=== PATIENT | male | born 1940 | race Caucasian/White ===

== ENCOUNTER 2023-06-27 01:45 | Emergency (ER) | payer OTHER, SELFPAY ==
[2023-06-27 01:50] VITALS: BP 172/107; PULSE 100; RESP 16; TEMP 36.9; O2SAT 93; BMI 31.3
--- NOTE | 2023-06-27 01:55 | ED_ITS ---
HPI - Male Genitourinary General Chief complaint: Urogenital-Male Stated complaint: CANT URINATE Time Seen by Provider: 06/27/23 01:52 History of Present Illness HPI Narrative: 83-year-old male presents to Emergency Department for not being able to urinate. He's been dribbling a little bit tonight but hasn't urinated well. He had his prostate opened up two or three years ago. No gross hematuria fever or vomiting. He does not complain of back or flank pain. Related Data Home Medications Medication Instructions Recorded Confirmed amlodipine PO DAILY 06/27/23 aspirin 81 mg capsule 81 mg PO DAILY 06/27/23 06/27/23 lisinopril PO DAILY 06/27/23 pravastatin PO DAILY 06/27/23 Allergies Allergy/AdvReac Type Severity Reaction Status Date / Time cefadroxil [From [facility]] Allergy Unknown Verified 06/27/23 01:55 Review of Systems ROS Narrative A ten point review of systems is negative except as noted above. PFSH PFSH Social History Smoking status: Former smoker Exam Narrative Exam Narrative: Nurses note and vital signs reviewed and patient is not hypoxic. General: The patient appears well and in no apparent distress. Patient is resting comfortably on cart. Skin: Warm, dry, no pallor noted. There is no rash noted. Head: Normocephalic, atraumatic Eye: Normal conjunctiva, no drainage Ears, Nose, Mouth, and Throat: oral mucosa is moist. Nares patent. Cardiovascular: Regular Rate and Rhythm Respiratory: Patient is in no distress, no accessory muscle use, lungs are clear to auscultation, no wheezing, rales or rhonchi Back: non-tender, no CVA tenderness bilaterally to percussion. GI: mild low abdominal tenderness Musculoskeletal: The patient has no evidence of calf tenderness, no pitting edema, symmetrical pulses noted bilaterally Neurological: A&O, normal speech Psychiatric: Cooperative Constitutional Vital Signs, click to edit/add: Last Vital Signs Temp 98.4 F 06/27/23 01:50 Pulse 100 H 06/27/23 01:50 Resp 16 06/27/23 01:50 BP 172/107 H 06/27/23 01:50 Pulse Ox 93 L 06/27/23 01:50 O2 Del Method Room Air 06/27/23 01:50 Course Vital Signs Vital signs: Vital Signs Temperature 98.4 F 06/27/23 01:50 Pulse Rate 100 H 06/27/23 01:50 Respiratory Rate 16 06/27/23 01:50 Blood Pressure 172/107 H 06/27/23 01:50 Pulse Oximetry 93 L 06/27/23 01:50 Oxygen Delivery Method Room Air 06/27/23 01:50 Temperature 98.4 F 06/27/23 01:50 Pulse Rate 100 H 06/27/23 01:50 Respiratory Rate 16 06/27/23 01:50 Blood Pressure 172/107 H 06/27/23 01:50 Pulse Oximetry 93 L 06/27/23 01:50 Oxygen Delivery Method Room Air 06/27/23 01:50 MDM - Male Genitourinary MDM Narrative Medical decision making narrative: his bladder scan was were essentially zero and urinalysis does not show evidence of urinary tract infection. He had run out of his overactive bladder medication and some is coming in the mail tomorrow. He doesn't know the name of it but he was given a dose of Ditropan here. He'll follow-up with his urologist. Treatment diagnosis and follow-up were discussed with the patient. Differential Diagnosis Differential diagnosis: Likely urinary tract infection and acute retention of urine Lab Data Attestation: I reviewed the patient's lab results. Labs: Lab Results 06/27/23 Range/Units 01:59 Urine Color Lt. yellow (YELLOW) Urine Clarity Clear (CLEAR) Urine pH 6.5 (5.0-9.0) Ur Specific [place] 1.020 (1.005-1.025) Urine Protein Trace (NEG/TRACE) mg/dL Urine Glucose (UA) Negative (NEGATIVE) mg/dL Urine Ketones Negative (NEGATIVE) mg/dL Urine Occult Blood Trace-i (NEGATIVE) Urine Nitrite Negative (NEGATIVE) Urine Bilirubin Negative (NEGATIVE) Urine Urobilinogen 0.2 (0.2-1.0) EU/dL Ur Leukocyte Esterase Negative (NEGATIVE) Urine RBC 2-5 A (0-2) #/HPF Urine WBC 2-5 A (NONE SEEN) #/HPF Ur Squamous Epith Cells Rare (NONE/RARE) #/LPF Urine Crystals None seen (None Seen) #/HPF Urine Bacteria None seen (NONE SEEN) #/HPF Urine Casts None seen (NONE SEEN) #/LPF Urine Mucus None seen (NONE SEEN) Discharge Plan Discharge Chief Complaint: Urogenital-Male Clinical Impression: Urinary frequency Patient Disposition: Home, Self-Care Time of Disposition Decision: 02:49 Condition: Good Mode of Transportation: Private Vehicle Prescriptions / Home Meds: No Action lisinopril PO DAILY amlodipine PO DAILY pravastatin PO DAILY aspirin 81 mg capsule 81 mg PO DAILY Instructions: Urinary Urgency and Frequency (DC) Stand Alone Forms: Portal Instructions Referrals: Physician,Non-Staff, MD [Primary Care Provider] - 1 week
--- NOTE | 2023-06-27 02:08 | PC.NURSE ---
Pt presents to ER for a constant pressure and pain to his penis Pt states this started yesterday Pt states it constantly feels like he has to pee On arrival pt was able to give a urine sample- bladder scan completed and pt did not retain any urine after urinating
[2023-06-27 02:13] LABS: Bilirubin Urine NEGATIVE (NEGATIVE); Blood Urine TRACE-I (NEGATIVE); Clarity Urine CLEAR (CLEAR); Color Urine LT. YELLOW (YELLOW); Glucose Urine UA NEGATIVE (NEGATIVE); Ketones Urine NEGATIVE (NEGATIVE); Leukocyte Esterase Urine NEGATIVE (NEGATIVE); Nitrite Urine NEGATIVE (NEGATIVE); Protein Urine TRACE mg/dL (NEG/TRACE); Urobilinogen Urine 0.2 EU/dL (0.2-1.0); pH Urine 6.5 (5.0-9.0)
[2023-06-27 02:27] LABS: Bacteria Urine NONE SEEN #/HPF (NONE SEEN); Cast Seen? NONE SEEN #/LPF (NONE SEEN); Crystals Seen? None Seen #/HPF (None Seen); Mucus Urine NONE SEEN (NONE SEEN); Squamous Epithelial Cell Urine RARE #/LPF (NONE/RARE)
[2023-06-27] MEDS: OXYBUTYNIN CHLORIDE 5 MG TAB XL 10 MG PO (03:07)
== END 2023-06-27 03:10 | disposition home or self-care (01) ==
PROVIDERS: Emergency Provider Emergency Medicine
DX: R35.0 Frequency of micturition (principal); Z87.891 Personal history of nicotine dependence; Z79.82 Long term (current) use of aspirin; Z79.899 Other long term (current) drug therapy
CPT/HCPCS: 81001; 87086; 99283

== ENCOUNTER 2023-09-24 15:46 | Inpatient (IN) | payer OTHER, SELFPAY ==
[2023-09-24] VITALS (41 sets, daily range): BP systolic 103–151; BP diastolic 53–87; PULSE 82–108; RESP 16–39; TEMP 37.1; O2SAT 81–96; BMI 31.7; BMI 30.7
--- NOTE | 2023-09-24 16:00 | ECG_ITS ---
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
--- NOTE | 2023-09-24 16:00 | XR_ITS ---
The [address] [address] Patient Name: MIKEL SOTO MRN: [id number] date: 1940 Sex: M Assigned Patient Location: ER Current Patient Location: ER Accession/Order Number: [id number] Exam Date: 09/24/2023 16:05 Report Date: 09/24/2023 16:35 At the request of: SANDER VELASQUEZ Procedure: XR chest 1V FRONTAL CHEST; 09/24/2023 4:05 PM EST Clinical History:dyspnea Comparison: 12/30/2020 . 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 No apparent change osseous structures. No change cardiac and mediastinal silhouettes or saeed. Increased markings at both bases, right greater than left. This is a little more apparent on the right than on the prior study. No right pleural effusion. Small amount of left pleural fluid/thickening is again potentially present. The vasculature is not distended. No Emelia B-lines. XR/XR chest 1V IMPRESSION: 1. No vascular distention. No Emelia B-lines. 2. Increased markings at the bases, right greater than left. This is a little more apparent at the right base than on the prior exam. Still, the overall pattern is more consistent with atelectasis than infiltration. However, follow-up studies as indicated Electronically authenticated by: MIKEL RAY Date: 09/24/2023 16:35
--- NOTE | 2023-09-24 16:06 | ED_ITS ---
HPI - SOB/Dyspnea General Chief Complaint: Shortness of Breath/Dyspnea Stated Complaint: Difficulty breathing Time Seen by Provider: 09/24/23 15:59 Source: patient Mode of arrival: ambulance Limitations: no limitations History of Present Illness HPI Narrative: this patient's here playing shortness of breath. Very stoic pleasant gentleman who has a history of chronic obstructive pulmonary disease. 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 He used his hand held metered-dose inhaler at noon today. When he got home he became really very short of breath. They had to call the squad on his behalf. He is pulse oximetry was only running eighty-one percent on room air and normal it's not that low. He used to have oxygen at home but he hasn't had it recently. He uses a nebulizer treatment ?2 yesterday. The paramedics administered a DuoNeb and I believe they gave him some site Medrol intravenously. On arrival here his pulse ox on room air is low so he is placed back on nasal cannula at about 4 L any saturating at ninety-one percent he has not had influenzza type symptoms or fever muscle aches and pains headache or sore throat all that is negative.patient also mentioned th at his doctor [facility] and Vannessa just put him on an antibiotic for urinary tract infections he believes it is ciprofloxacin. The patient a course has of many many year history of tobacco usage but he did stop smoking five years ago, however his still continues to smoke in the house. Related Data Home Medications Medication Instructions Recorded Confirmed amlodipine PO DAILY 06/27/23 aspirin 81 mg capsule 81 mg PO DAILY 06/27/23 06/27/23 lisinopril PO DAILY 06/27/23 pravastatin PO DAILY 06/27/23 Allergies Allergy/AdvReac Type Severity Reaction Status Date / Time [place] [facility] [place]ergy Unknown Verified 06/27/23 01:55 [facility] Social History Smoking status: Former smoker Exam Narrative Exam Narrative: awake alert dysmetric. Feels better with supplemental oxygen. His pulse ox was in the low 80s on room air and he was quite. He is able to complete sentences at this time. He is not coughing he has no stridor or airway obstructive symptomatology. His lungs had definite decreased breath sounds bilaterally with no rales or rhonchi. Heart sounds are normal with no murmur. Heart rate was ninety. Skin integument is normal with no peripheral cyanosis there is good capillary fill no evidence of pallor or anemia. Cognition and mentation are normal is very pleasant. Extremities show 2+ lower knee edema bilaterally. He does not have any pain or discomfort in the calves. Constitutional Vital Signs, click to edit/add: Last Vital Signs Temp 98.8 F 09/24/23 15:49 Pulse 99 H 09/24/23 17:10 Resp 20 09/24/23 17:10 BP 137/87 09/24/23 17:01 Pulse Ox 92 L 09/24/23 17:10 O2 Del Method Nasal Cannula 09/24/23 16:20 O2 Flow Rate 4 09/24/23 16:20 Course Vital Signs Vital signs: Vital Signs Temperature 98.8 F 09/24/23 15:49 Pulse Rate 91 H 09/24/23 15:49 Respiratory Rate 09/24/23 15:49 Blood Pressure 146/61 H 09/24/23 15:49 Pulse Oximetry 82 L 09/24/23 15:49 Oxygen Delivery Method Room Air 09/24/23 15:49 Oxygen Delivery Flow Rate 5 09/24/23 15:49 Temperature 98.8 F 09/24/23 15:49 Pulse Rate 99 H 09/24/23 17:10 Respiratory Rate 09/24/23 17:10 Blood Pressure 137/87 09/24/23 17:01 Pulse Oximetry 92 L 09/24/23 17:10 Oxygen Delivery Method Nasal Cannula 09/24/23 16:20 Oxygen Delivery Flow Rate 4 09/24/23 16:20 MDM - SOB/Dyspnea MDM Narrative Medical decision making narrative: after receiving intravenous Solu-Medrol and two nebulizer treatments we had him in the room and stand up. When we take the oxygen off them he desaturates down to eighty-five very rapidly. We quickly reapplied the nasal cannula at 4 L and he comes back up to ninety. He does not have oxygen at home. I don't believe these candidate for outpatient management. His white blood cell count is elevated whicch may be due to his history of urinary tract infection. He does not appear septic. He would like to go home but when we demonstrated his desaturation he understands the importance of staying here. Chest x-ray did not show any findings are more consistent with chronic obstructive pulmonary disease/atelectasis. Lab Data Labs: Lab Results 09/24/23 09/24/23 Range/Units 16:00 16:50 WBC 16.7 H (4.0-11.0) 10^3/uL RBC 4.49 L (4.70-6.10) 10^6/uL Hgb 12.5 L (14.0-18.0) g/dL Hct 40.3 L (42.0-54.0) % MCV 89.8 (80.0-94.0) fL MCH 27.8 (25.9-34.0) pg MCHC 31.0 (29.9-35.2) g/dL RDW 14.2 (11.0-15.0) % Plt Count 231 (150-450) 10^3/uL MPV 10.5 (9.5-13.5) fL Neut % (Auto) 82.7 H (43.0-75.0) % Lymph % (Auto) 8.6 L (20.5-60.0) % [place] % (Auto) 6.2 (1.7-12.0) % Eos % (Auto) 2.0 (0.9-7.0) % Baso % (Auto) 0.3 (0.2-2.0) % Neut # (Auto) 13.8 H (1.4-6.5) 10^3/uL Lymph # (Auto) 1.4 (1.2-3.8) 10^3/uL [place] # (Auto) 1.0 H (0.3-0.8) 10^3/uL Eos # (Auto) 0.3 (0.0-0.7) 10^3/uL Baso # (Auto) 0.1 (0.0-0.1) 10^3/uL Abs Immat Gran (auto) 0.04 H (0.00-0.03) 10^3/uL Imm/Tot Granulo (auto) 0.2 (0.0-0.5) % Sodium 140 (136-145) mmol/L Potassium 4.2 (3.5-5.1) mmol/L Chloride 103 (98-107) mmol/L Carbon Dioxide 29.7 (21.0-32.0) mmol/L Anion Gap 11.5 BUN 25.0 H (7.0-18.0) mg/dL Creatinine 1.11 (0.70-1.30) mg/dL Est GFR ( Amer) >60 (>=60) Est GFR (Non-Af Amer) >60 (>=60) BUN/Creatinine Ratio 22.5 Glucose 141 H (74-106) mg/dL Calcium 10.0 (8.5-10.1) mg/dL Total Bilirubin 0.5 (0.2-1.0) mg/dL AST 16 (15-37) U/L ALT 20 (16-63) U/L Alkaline Phosphatase 54 (46-116) U/L Troponin I High Sens 14.5 (4.0-76.1) pg/mL NT-Pro-B Natriuret Pep 451.0 (<=1800.0) pg/mL Total Protein 6.9 (6.4-8.2) g/dL Albumin 3.4 (3.4-5.0) g/dL Globulin 3.5 g/dL Albumin/Globulin Ratio 1.0 Influenza Type A Ag Negative Influenza Type B Ag Negative SARS-CoV-2 Ag (CV2AG) Negative (NEGATIVE) Discharge Plan Discharge Chief Complaint: Shortness of Breath/Dyspnea Clinical Impression: Acute exacerbation of chronic obstructive pulmonary disease Patient Disposition: Admitted as Observation Time of Disposition Decision: 17:30 Prescriptions / Home Meds: No Action lisinopril PO DAILY amlodipine PO DAILY pravastatin PO DAILY aspirin 81 mg capsule 81 mg PO DAILY Referrals: Physician,Non-Staff, MD [Primary Care Provider] - 1 week
[2023-09-24 16:07] LABS: Basophils Absolute Auto 0.1 10^3/uL (0.0-0.1); Basophils Percent Auto 0.3 % (0.2-2.0); Eosinophils Absolute Auto 0.3 10^3/uL (0.0-0.7); Hematocrit 40.3 % (42.0-54.0); Hemoglobin 12.5 g/dL (14.0-18.0); Immature Granulocytes Abs Auto 0.04 10^3/uL (0.00-0.03); Immature Granulocytes Pct Auto 0.2 % (0.0-0.5); Lymphocytes Absolute Auto 1.4 10^3/uL (1.2-3.8); Lymphocytes Percent Auto 8.6 % (20.5-60.0); Mean Corpuscular Hemoglobin 27.8 pg (25.9-34.0); Mean Corpuscular Volume 89.8 fL (80.0-94.0); Mean Platelet Volume 10.5 fL (9.5-13.5); Monocytes Percent Auto 6.2 % (1.7-12.0); Neutrophils Absolute Auto 13.8 10^3/uL (1.4-6.5); Neutrophils Percent Auto 82.7 % (43.0-75.0); Platelet Count 231 10^3/uL (150-450); Red Blood Count 4.49 10^6/uL (4.70-6.10); Red Cell Distribution Width 14.2 % (11.0-15.0); White Blood Count 16.7 10^3/uL (4.0-11.0)
[2023-09-24] MEDS: ALBUTEROL SULFATE 2.5 MG/3 ML VIAL NEB IH (16:19)
[2023-09-24 16:23] LABS: Alanine Aminotransferase 20 U/L (16-63); Albumin Level 3.4 g/dL (3.4-5.0); Alkaline Phosphatase 54 U/L (46-116); Anion Gap 11.5; Aspartate Amino Transferase 16 U/L (15-37); BUN Creatinine Ratio 22.5; Bilirubin Total 0.5 mg/dL (0.2-1.0); Carbon Dioxide 29.7 mmol/L (21.0-32.0); Chloride 103 mmol/L (98-107); Estimated GFR (African America >60 (>=60); Estimated GFR (Non-African Ame >60 (>=60); Globulin 3.5 g/dL; Glucose 141 mg/dL (74-106); Potassium 4.2 mmol/L (3.5-5.1); Sodium 140 mmol/L (136-145); Total Protein 6.9 g/dL (6.4-8.2)
[2023-09-24 16:30] LABS: Troponin I High Sensitivity 14.5 pg/mL (4.0-76.1)
[2023-09-24 17:13] LABS: Influenza Virus A Antigen Negative; Influenza Virus B Antigen Negative; Internal Control Within Normal Limits; SARS-CoV-2 Ag NEGATIVE (NEGATIVE)
--- NOTE | 2023-09-24 18:03 | CT_ITS ---
The [address] [address] Patient Name: MIKEL SOTO MRN: [id number] date: 1940 Sex: M Assigned Patient Location: ER Current Patient Location: ER Accession/Order Number: [id number] Exam Date: 09/24/2023 17:50 Report Date: 09/24/2023 19:05 At the request of: SANDER VELASQUEZ Procedure: CT angio chest CT angio chest, 09/24/2023 5:50 PM EST INDICATION: dyspnea COMPARISON: Prior CT of the chest dated 12/01/2016 TECHNIQUE: Axial low-dose images of 1 millimeters are obtained from the thoracic outlet with contrast . 3-D MIP images were obtained. Dose reduction techniques were achieved by using automated exposure control and/or adjustment of mA and/or kV according to patient size and/or use of iterative reconstruction technique. FINDINGS: The study is limited due to poor timing. Given the limitation: No endoluminal filling defect within the main pulmonary arteries, lobar and lobular branches is noted. There is no obvious right ventricle strain. 9 mm nodule in the right lobe of thyroid is noted. There is no suspicious lung lesion. Stable 7 mm nodule in the left. There is moderate centrilobular emphysematous changes. Constellation the right lower lobe with air bronchogram likely due to infectious versus aspiration. The central tracheobronchial tree is unremarkable. Right hilar lymphadenopathy measuring 1.3 cm. Otherwise, no mediastinal lymph node enlargement by size criteria is noted. No pleural or pericardial effusion is noted. Mild hiatal hernia is noted. There is a hypodense lesion within the liver likely cyst versus small hemangioma. It measures approximately 7 mm. The remainder of visualized portions of the solid abdominal organs are unremarkable. Bone: There is no suspicious osteolytic or osteoblastic lesion. Mild thoracic spine degenerative changes. CT/CT angio chest IMPRESSION: No pulmonary embolus in the current study. Right lower lobe consolidation with air bronchogram and right hilar lymphadenopathy most likely due to pneumonia. Follow-up x-ray in 4-6 weeks is recommended to ensure resolution. Right thyroid nodule. Given the age of the patient and size of the nodule, no further follow-up is recommended per [employer]. Electronically authenticated by: DONG VIVAS Date: 09/24/2023 19:05
[2023-09-24] MEDS: CIPROFLOXACIN HCL 500 MG TABLET PO (18:23)
[2023-09-24 18:46] LABS: Adenovirus NOT DETECTED (NOT DETECTE); Bordetella parapertussis NOT DETECTED (NOT DETECTE); Coronavirus 229E NOT DETECTED (NOT DETECTE); Coronavirus HKU1 NOT DETECTED (NOT DETECTE); Coronavirus NL63 NOT DETECTED (NOT DETECTE); Coronavirus OC43 NOT DETECTED (NOT DETECTE); Human Metapneumovirus NOT DETECTED (NOT DETECTE); Human Rhinovirus/Enterovirus NOT DETECTED (NOT DETECTE); Influenza A NOT DETECTED (NOT DETECTE); Influenza B NOT DETECTED (NOT DETECTE); Mycoplasma pneumoniae NOT DETECTED (NOT DETECTE); Parainfluenza Virus 1 NOT DETECTED (NOT DETECTE); Parainfluenza Virus 2 NOT DETECTED (NOT DETECTE); Parainfluenza Virus 3 NOT DETECTED (NOT DETECTE); Parainfluenza Virus 4 NOT DETECTED (NOT DETECTE); Respiratory Syncytial Virus NOT DETECTED (NOT DETECTE); SARS-CoV-2 NOT DETECTED (NOT DETECTE)
[2023-09-24 19:24] LABS: Troponin I High Sensitivity 14.2 pg/mL (4.0-76.1)
[2023-09-24 21:44] LABS: Glucometer 236 mg/dL (74-106)
[2023-09-24] MEDS: METHYLPREDNISOLONE SOD SUCC PF 125 MG/2 ML VIAL IVP (21:57)
--- NOTE | 2023-09-24 22:15 | PC.NURSE ---
Contacted Elaine Baker NP for a medication verification. Patient denies diabetes and insulin use at home. Medication order for novolog protocol called for 9 units per sliding scale for a blood glucose of 236. Patient stated he drank op in the ER and had a small pizza after he got up on unit. SUPERVISOR GRADING verified to recheck blood sugar in an hour or two and notify of new blood sugar.
[2023-09-24 22:18] LABS: Troponin I High Sensitivity 13.3 pg/mL (4.0-76.1)
[2023-09-24] MEDS: ATORVASTATIN CALCIUM 20 MG TABLET PO (22:41)
[2023-09-24] MEDS: TAMSULOSIN HCL 0.4 MG CAPSULE 0.8 MG PO (22:42)
[2023-09-24 23:14] LABS: ABG PCO2 48.5 mmHg (35.0-45.0); Base Excess ABG 1.8 mmol/L (-2.0-2.0); HCO3 ABG 27.3 mmol/L (22.0-26.0); PO2 ABG 77.5 mmHg (80.0-100.0); pH ABG 7.358 (7.350-7.450)
[2023-09-24 23:15] LABS: Allen Test POSITIVE (POSITIVE); Liters per Minute 5; O2 Mode NASAL CANNULA; Oxygen Saturation ABG 96.1 %; Puncture Site R RADIAL
[2023-09-24] MEDS: IPRATROPIUM/ALBUTEROL SULFATE 3 ML AMPUL.NEB IH (23:18)
[2023-09-24 23:30] LABS: Glucometer 227 mg/dL (74-106)
--- NOTE | 2023-09-24 23:34 | PC.NURSE ---
Blood glucose rechecked at this time. Blood suagr is 227. MARIA ISABEL Baker notified. NEEDLE LOOM SETTER stated to hold insulin for now and will check A1C with morning labs.
--- NOTE | 2023-09-24 23:54 | RESP.RT ---
Titrated to 4 lpm
[2023-09-25] VITALS (24 sets, daily range): BP systolic 118–145; BP diastolic 66–76; PULSE 82–100; RESP 18–22; TEMP 36.5–36.6; O2SAT 91–96
[2023-09-25] MEDS: IPRATROPIUM/ALBUTEROL SULFATE 3 ML AMPUL.NEB IH ×5 (04:15→22:44)
[2023-09-25] MEDS: LEVOFLOXACIN IN DEXTROSE 5 % 750 MG/150 ML IV.SOLN 100 MG IV (05:00)
[2023-09-25 05:51] LABS: Basophils Percent Auto 0.1 % (0.2-2.0); Hemoglobin 12.4 g/dL (14.0-18.0); Immature Granulocytes Abs Auto 0.13 10^3/uL (0.00-0.03); Immature Granulocytes Pct Auto 0.8 % (0.0-0.5); Lymphocytes Absolute Auto 0.6 10^3/uL (1.2-3.8); Lymphocytes Percent Auto 3.6 % (20.5-60.0); Mean Corpuscular Hemoglobin 27.8 pg (25.9-34.0); Mean Corpuscular Volume 89.7 fL (80.0-94.0); Monocytes Absolute Auto 0.2 10^3/uL (0.3-0.8); Monocytes Percent Auto 1.1 % (1.7-12.0); Neutrophils Absolute Auto 15.9 10^3/uL (1.4-6.5); Neutrophils Percent Auto 94.4 % (43.0-75.0); Platelet Count 222 10^3/uL (150-450); Red Blood Count 4.46 10^6/uL (4.70-6.10); Red Cell Distribution Width 14.2 % (11.0-15.0); White Blood Count 16.8 10^3/uL (4.0-11.0)
[2023-09-25 05:59] LABS: Alanine Aminotransferase 23 U/L (16-63); Albumin Globulin Ratio 0.8; Albumin Level 3.2 g/dL (3.4-5.0); Alkaline Phosphatase 51 U/L (46-116); Anion Gap 13.7; Aspartate Amino Transferase 15 U/L (15-37); Bilirubin Total 0.5 mg/dL (0.2-1.0); Calcium 9.4 mg/dL (8.5-10.1); Carbon Dioxide 26.4 mmol/L (21.0-32.0); Chloride 102 mmol/L (98-107); Estimated GFR (African America >60 (>=60); Estimated GFR (Non-African Ame >60 (>=60); Globulin 3.8 g/dL; Glucose 248 mg/dL (74-106); Potassium 4.1 mmol/L (3.5-5.1); Sodium 138 mmol/L (136-145)
[2023-09-25 06:07] LABS: Estimated Average Glucose 131 mg/dL; Glycohemoglobin A1C 6.2 % (4.5-6.2)
[2023-09-25] MEDS: METHYLPREDNISOLONE SOD SUCC PF 125 MG/2 ML VIAL IVP ×2 (06:40→09:24)
[2023-09-25] MEDS: AMLODIPINE BESYLATE 5 MG TABLET 10 MG PO (09:22)
[2023-09-25] MEDS: ASPIRIN 81 MG TAB.CHEW PO (09:22)
[2023-09-25] MEDS: ASCORBIC ACID 500 MG TABLET PO ×2 (09:22→21:22)
[2023-09-25] MEDS: CHOLECALCIFEROL (VITAMIN D3) 25 MCG/1,000 UNITS TABLET 50 MCG PO ×2 (09:23→21:23)
[2023-09-25] MEDS: LISINOPRIL 20 MG TABLET 40 MG PO (09:23)
[2023-09-25] MEDS: TAMSULOSIN HCL 0.4 MG CAPSULE 0.8 MG PO ×2 (09:24→21:21)
[2023-09-25] MEDS: OXYBUTYNIN CHLORIDE 5 MG TAB XL 10 MG PO (09:24)
[2023-09-25] MEDS: MULTIVITAMIN TABLET 1 TAB PO (09:25)
[2023-09-25] MEDS: [UNRECOGNIZED DRUG - OTHER] IH ×2 (09:29→22:09)
[2023-09-25] MEDS: GLYCOPYRROLATE IH ×2 (09:29→22:09)
[2023-09-25] MEDS: FORMOTEROL IH ×2 (09:29→22:09)
[2023-09-25] MEDS: BUDESONIDE IH ×2 (09:29→22:09)
[2023-09-25 11:20] LABS: Glucometer 157 mg/dL (74-106)
[2023-09-25] MEDS: INSULIN ASPART 300 UNIT/3 ML PEN SUBQ ×2 (11:33→16:08)
[2023-09-25] MEDS: METHYLPREDNISOLONE SOD SUCC PF 40 MG/ML VIAL IVP ×2 (13:19→18:01)
[2023-09-25] MEDS: AZITHROMYCIN 250 MG TABLET 500 MG PO (13:19)
[2023-09-25] MEDS: CEFTRIAXONE 1,000 MG in 0.9 % SODIUM CHLORIDE 50 ML 100 MG IV (13:19)
--- NOTE | 2023-09-25 14:56 | P.HP_ITS ---
H&P: HPI History of Present Illness Chief complaint: Difficulty breathing, Acute Exacerbation COPD Narrative: 83 y o male with hx of COPD, presents to ED last night with acute onset shortness of breath, cough, wheezing and inability to catch his breath. He denies fever or ongoing respiratory symptoms prior to yesterday and his presentation was fairly acute. Patient was evaluated in ED and was found to have hypoxia (85% on RA) and was admitted for COPD exacerbation overnight. Patient had CTA chest performed that revealed a right lower lobe pneumonia. He was using Ciprofloxacin for past 3 days for a UTI and currently denies any symptoms concerning for UTI. Patient was treated with IV steroids, Levaquin and Inhaled bronchodilators. He is feeling better overall today but still hypoxic on room, gets short of breath on minimal exertion was noted to be short of breath when he converses for long. He does not use O2 at home and his COPD is well controlled on Breztri and he has not had any recent outpatient or ED visit for COPD exacerbation. Review of Systems ROS Status of ROS 10 or more systems reviewed and unremark able except as noted in history and below [facility] Medical History (Updated 09/25/23 @ 15:09 by Shaikh Maxi MD) Prediabetes ?R73.03 - Prediabetes (ICD-10) BPH (benign prostatic hyperplasia) ?N40.0 - Benign prostatic hyperplasia without lower urinary tract symptoms (ICD-10) HLD (hyperlipidemia) ?E78.5 - Hyperlipidemia, unspecified (ICD-10) Hypertension ?I10 - Essential (primary) hypertension (ICD-10) COPD (chronic obstructive pulmonary disease) ?J44.9 - Chronic obstructive pulmonary disease, unspecified (ICD-10) UTI (urinary tract infection) ?N39.0 - Urinary tract infection, site not specified (ICD-10) Surgical History (Updated 09/24/23 @ 20:32 by Arline Abad RN) History of appendectomy ?Z90.49 - Acquired absence of other specified parts of digestive tract (ICD- 10) Family History (Updated 09/24/23 @ 20:34 by Arline Abad RN) Brother Family history of myocardial infarction Brother Family history of myocardial infarction Mother Family history of stroke Father Family history of cancer Other Family history of diabetes mellitus Social History (Updated 09/24/23 @ 20:36 by Arline Abad RN) Within the past year, how often did you have a drink containing alcohol: never Score interpretation: A score less than 4 is consistent with normal alcohol consumption. 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 Highest level of school completed/degree received: 9th grade Are you now , , , , never or living with a partner: living with partner In a typical week, how many times do you talk on the telephone with family, friends, or neighbors: 3 or more times per week How often do you get together with friends or relatives: once per week How often do you attend congregation or samaritan services: never Do you belong to any clubs or organizations such as congregation groups unions, [employer] or athletic groups, or school groups: no Total score: 2 Score interpretation: A score of greater than or equal to 2 indicates the lowest level of social isolation. Little interest or pleasure in doing things: not at all Feeling down, depressed, or hopeless: not at all Feel stressed/tense/nervous/anxious/difficulty sleeping: not at all Gender Identity: male Meds Home Medications and Allergies Home Medications Medication Instructions Recorded Confirmed Type amlodipine 10 mg PO DAILY 06/27/23 09/24/23 History aspirin 81 mg capsule 81 mg PO DAILY 06/27/23 09/24/23 History lisinopril 40 mg PO DAILY 06/27/23 09/24/23 History pravastatin 80 mg PO DAILY 06/27/23 09/24/23 History ascorbic acid (vitamin C) 500 mg 500 mg PO DAILY 09/24/23 09/24/23 History chewable tablet (Acerola C) budesonide 160 mcg-glycopyr 9 2 inh inhalation BID 09/24/23 09/24/23 History mcg-formot 4.8 mcg/actuation HFA inhaler (Breztri Aerosphere) cholecalciferol (vitamin D3) 50 50 mcg PO DAILY 09/24/23 09/24/23 History mcg (2,000 unit) tablet (D3 DOTS) mirabegron 50 mg tablet,extended 50 mg PO DAILY 09/24/23 09/24/23 History release 24 hr nitrofurantoin 100 mg capsule 100 mg PO BID 09/24/23 09/24/23 History tamsulosin 0.4 mg capsule (Flomax) 0.4 mg PO DAILY 09/24/23 09/24/23 History Allergies Allergy/AdvReac Type Severity Reaction Status Date / Time cefadroxil [From [facility] [place]] Allergy Unknown Rash Verified 09/24/23 19:11 Exam Constitutional Vital Signs, click to edit/add: Last Vital Signs Temp 97.7 F 09/25/23 13:30 Pulse 86 09/25/23 13:52 Resp 18 09/25/23 13:30 BP 140/70 09/25/23 13:30 Pulse Ox 91 L 09/25/23 13:30 O2 Del Method Room Air 09/25/23 13:30 O2 Flow Rate 3 09/25/23 11:28 Documenting provider has reviewed patient's vital signs: yes Common normals: no apparent distress and oriented x3 General appearance: cooperative Respiratory Common normals: normal respiratory effort Other: Prolonged expiratory phase, no active wheezing on exam. Appears out of breath during conversation Cardio Common normals: regular rate, S1 normal heart sound and S2 normal heart sound Rate: regular rate Heart sounds: S1 normal and S2 normal GI Common normals: Normal to inspection, nondistended, normoactive bowel sounds present, soft to palpation, non-tender and no hepatosplenomegaly Palpation: soft and no hepatosplenomegaly Extremity Common normals: no clubbing, cyanosis or edema Neuro Common normals: oriented x3, moves all extremities and no focal motor deficits Psych Common normals: mental status grossly normal, denies hallucinations, denies homicidal ideation and denies suicidal ideation Results Labs Labs: Short CBC 09/24/23 09/25/23 Range/Units 16:00 04:42 WBC 16.7 H 16.8 H (4.0-11.0) 10^3/uL Hgb 12.5 L 12.4 L (14.0-18.0) g/dL Hct 40.3 L 40.0 L (42.0-54.0) % Plt Count 231 222 (150-450) 10^3/uL BMP 09/24/23 09/25/23 16:00 04:42 Sodium 140 138 Potassium 4.2 4.1 Chloride 103 102 Carbon Dioxide 29.7 26.4 BUN 25.0 H 24.0 H Creatinine 1.11 0.89 Glucose 141 H 248 H Calcium 10.0 9.4 Liver Function 09/24/23 09/25/23 Range/Units 16:00 04:42 Total Bilirubin 0.5 0.5 (0.2-1.0) mg/dL AST 16 15 (15-37) U/L ALT 20 23 (16-63) U/L Alkaline Phosphatase 54 51 (46-116) U/L Albumin 3.4 3.2 L (3.4-5.0) g/dL ABG ABG results: 09/24/23 23:10 ABG pH 7.358 ABG pCO2 48.5 H ABG pO2 77.5 L ABG HCO3 27.3 H ABG O2 Saturation 96.1 ABG Base Excess 1.8 Assessment and Plan Assessment and Plan (1) Acute exacerbation of chronic obstructive pulmonary disease: Assessment and Plan: COPD exacerbation due to PNA. C/w systemic steroids, duonebs q4. Wean off O2 as tolerated. Closely monitor. (2) Respiratory failure with hypoxia: Assessment and Plan: Persistent hypoxia, shortness of breath on minimal exertion. Treating for underlying COPD and PNA. Wean off O2 as tolerated Qualifiers: Chronicity: acute Qualified Code(s): J96.01 - Acute respiratory failure with hypoxia (3) Pneumonia: Assessment and Plan: Right lower lobe pneumonia - will switch to rocephin and azithromycin. Follow up cultures. Qualifiers: Pneumonia type: due to unspecified organism Laterality: right Lung location: lower lobe of lung Qualified Code(s): J18.9 - Pneumonia, unspecified organism (4) Hypertension: Assessment and Plan: C/w Lisinopril Qualifiers: Hypertension type: primary hypertension Qualified Code(s): I10 - Essential (primary) hypertension (5) HLD (hyperlipidemia): Assessment and Plan: C/w statin (6) BPH (benign prostatic hyperplasia): Assessment and Plan: On flomax. Cw, same (7) Prediabetes: Assessment and Plan: Elevated blood glucose likely from steroids. use sliding scale as needed Plan Changed to inpatient as elderly male with underlying chronic lung disease, presents with pneumonia resulting in persistent hypoxia and continued SOB and hypoxia even with treatmnet and anticipate him to stay 2-3 days in the hospital.
[2023-09-25 16:07] LABS: Glucometer 278 mg/dL (74-106)
--- OUTSIDE RECORDS SUMMARY | 2023-09-25 16:33 | XMS_ITS | CCD ---
Author Name Unknown Address [address] [place] [address] Organization [facility] Care Team Providers Care Sterilizer Operator Name Role Phone LOPEZ, DR LAURA Torres Consulting Unavailable JOHNSON, DR RACHELLE Jacobson Admitting Unavailable JOHNSON, DR RACHELLE Jacobson Attending Unavailable GRILLIS, DR VALLECILLO Consulting Unavailable SANDRA, DR VALLECILLO Procedure Practitioner Unava ilable ALEX, DR RACHELLE Jacobson Consulting Unavailable WEST, DR MAUREEN Rodriguez Consulting Unavailable SAMSA, KAUSHAL Consulting Unavailable KIP, VLADISLAV Consulting Unavailable Velia, Ruth Ann Consulting Unavailable Said, Rody Consulting Unavailable DARWICH, DIMPLE Consulting Unavailable OMER, DR JARVIS Admitting Unavailable OMER, DR JARVIS Attending Unavailable Arambula, Chadwick Consulting Unavailable OMER, DR JARVIS Consulting Unavailable MISC, DR SEGOVIA Admitting Unavailable MISC, DR SEGOVIA Attending Unavailable MISC, DR SEGOVIA Consulting Unavailable ZIEBFORD, DR STAR Torres Consulting Unavailable OCTAVIA TELLO Primary Care Physician MD Gerardo NORMAN Referring Unavailable MD Gerardo NORMAN Admitting Unavailable MD Gerardo NORMAN Attending Unavailable MD Gerardo NORMAN Attending Unavailable MD Gerardo NORMAN Attending Unavailable MD Gerardo NORMAN Attending Unavailable Caprice Deal. Attending Unavailable MD Gerardo NORMAN Attending Unavailable Caprice Deal Attending Unavailable MD Gerardo NORMAN Referring Unavailable MD Gerardo NORMAN Admitting Unavailable MD Gerardo NORMAN Attending Unavailable Vicky Kee Unavailable Vicky Kee Admitting Unavailable Vicky Kee Attending Unavailable NO FAMILY, PHYSICIAN Primary Care Unavailable Allergies Allergy Classification Reported Allergen(s) Allergy Type Date of Onset Reaction(s) Facility Cephalosporins (antibiotic) (1 source) Cefadroxil Drug Allergy [address] [facility] Repository (7 sources) Cefadroxil; Translations: [cefadroxil] Drug Allergy Unknown (qualifier value), rash [facility] Medications Current Medications Medication Drug Class(es) Dates Sig (Normalized) Sig (Original) acetaminophen 325 mg / HYDROcodone bitartrate 7.5 mg oral tablet (3 sources) Opioid Agonist Start: 01-27-2022 take 1 tablet by mouth once, then take 1 tablet by mouth every hour Telford 325 mg-7.5 mg oral tablet 1 tab(s), Oral, Once, 1 tab(s), Refill(s) 0, Take 1 hour prior to procedure DX:N40.1 (pre-op med) Don't drive or operate machinery while taking this medication., Other (see comment), [facility], 172, cm, 01/05/22 13:05:00 EDT, Height... Start Date: 01/27/22 Status: Ordered [id number] 200 actuat albuterol 0.09 mg/actuat metered dose inhaler (2 sources) beta2-Adrenergic Agonist take 1 puff(s) by inhalation every four hours as needed Albuterol Sulfate HFA 108 (90 Base) MCG/ACT 1 puff as needed Inhalation every 4 hrs Active Amlodipine (6 sources) Dihydropyridine Calcium Channel Brian Start: 09-10-2021 amlodipine Oral, Daily Start Date: 09/10/21 Status: Ordered take 1 tablet by blake th every twenty-four hours amLODIPine Besylate 10 MG 1 tablet Orall y Once a day Not-Taking aspirin 81 mg oral capsule (4 sources) Platelet Aggregation Inhibitor, Nonsteroidal Anti-inflammatory Drug Start: 09-10-2021 aspirin 81 mg oral capsule mg cap(s), Oral Start Date: 09/10/21 Status: Ordered levoFLOXacin 750 mg oral tablet (2 sources) Quinolone Antimicrobial Start: 03-11-2023 take 1 tablet by mouth once daily Levaquin 750 MG 1 tablet Orally Once a day for 10 days Feb, Active Lisinopril (6 sources) Angiotensin Converting Enzyme Inhibitor Start: 09-10-2021 lisinopril Oral, Daily Start Date: 09/10/21 Status: Ordered take 1 tablet by blake th every twenty-four hours Lisinopril 10 MG 1 tablet Orally Once a day Active Pravastatin (6 sources) HMG-CoA Reductase Inhibitor Start: 12-29-2021 pravastatin Oral, Da cameron Start Date: 09/10/21 Status: Ordered take 1 tablet by blake th every twenty-four hours Pravastatin Sodium 10 MG 1 tablet Orally Once a day Active tamsulosin hydrochloride 0.4 mg oral capsule (4 sources) alpha-Adrenergic Brian Start: 09-10-2021 take 2 capsules by mouth once daily Flomax 0.4 mg Cap 0.8 mg = 2 cap(s), Oral, Daily Start Date: 09/10/21 Status: Ordered Vitamin B12 1000 MCG (2 sources) take 1 tablet by mouth once daily Vitamin B12 1000 MCG 1 tablet Orally Once a day Active Vitamin C 500 MG (2 sources) Vitamin C 500 MG as directed Orally Active Completed/Discontinued Medications Medication Drug Class(es) Dates Sig (Normalized) Sig (Original) doxycycline hyclate 100 mg oral capsule (4 sources) Tetracycline-clas s Drug Start: 12-08-2021 take 1 capsule by mouth once daily doxycycline hyclate 100 mg Cap 100 mg = 1 cap(s), Oral, Daily, Take 1 pill the day before the procedure and 1 pill after the procedure, # 2 cap(s), Refills(s) 0, Pharmacy: [facility], 172, cm, 12/08/21 14:04:00 EDT, Height/Length Dosing, 93, kg, 12/08/21 14:04:00 ED... Start Date: 12/08/21 Status: Ordered Problems Active Problems Problem Classification Problem Date Documented Date Episodic/Chronic Abdominal pain (1 source) Acute abdomen; Translations: [ACUTE ABDOMEN] Onset: 01-08-2021 Episodic Appendicitis and other appendiceal conditions (3 sources) Acute appendicitis with perforation and localized peritonitis, without abscess; Translations: [Acute appendicitis with perforation and localized peritonitis, with abscess] Onset: 12-23-2020 Episodic Asthma (4 sources) Asthma 09-10-2021 Chronic Chronic obstructive pulmonary disease and bronchiectasis (9 sources) Chronic obstructive pulmonary disease with (acute) exacerbation; Translations: [Chronic obstructive pulmonary disease, unspecified] Onset: 09-10-2020 Chronic Complications of surgical procedures or medical care (3 sources) Acute postprocedural respiratory failure; Translations: [Other postprocedural complications and disorders of respiratory system, not elsewhere classified] Onset: 01-08-2021 Episodic Congestive heart failure; nonhypertensive (1 source) Acute combined systolic (congestive) and diastolic (congestive) heart failure; Translations: [ACUTE COMB SYSTOLIC AND DIASTOLIC CHF] Onset: 01-08-2021 Chronic Diabetes mellitus without complication (1 source) Hyperglycemia, unspecified; Translations: [HYPERGLYCEMIA UNSPECIFIED] Onset: 01-08-2021 Episodic Diseases of white blood cells (1 source) Elevated white blood cell count, unspecified; Translations: [ELEVATED WHITE BLOOD CELL COUNT UNS] Onset: 01-08-2021 Chronic Disorders of lipid metabolism (4 sources) Hyperlipidemia 09-10-2021 Chronic E Codes: Adverse effects of medical care (1 source) Surgical procedure, unspecified as the cause of abnormal reaction of the patient, or of later complication, without mention of misadventure at the time of the procedure; Translations: [SURG PROC UNS ABNORM RXN/LTR COMP] Onset: 01-08-2021 Episodic E Codes: Adverse effects of medical drugs (1 source) Adverse effect of glucocorticoids and synthetic analogues, initial encounter; Translations: [ADVRS EFF GLUCOCORT SYN ANALOG INIT] Onset: 01-08-2021 Episodic Essential hypertension (4 sources) Hypertensive disorder 09-10-2021 Chronic Genitourinary symptoms and ill-defined conditions (7 sources) Nocturia; Translations: [Nocturia] Onset: 02-23-2022 09-10-2021 Episodic Hyperplasia of prostate (6 sources) Benign prostatic hyperplasia without lower urinary tract symptoms; Translations: [Benign prostatic hypertrophy without outflow obstruction] Onset: 01-08-2021 09-10-2021 Chronic Hypertension with complications and secondary hypertension (1 source) Hypertensive heart disease with heart failure; Translations: [HTN HEART DISEASE W/HEART FAIL] Onset: 01-08-2021 Chronic Other aftercare (1 source) skilled nursing (current) use of aspirin; Translations: [ASSISTED CURRENT USE OF ASPIRIN] Onset: 01-08-2021 Episodic Other aftercare (1 source) Other parts counterman (current) drug therapy; Translations: [OTH ASSISTED CURRENT DRUG THERAPY] Onset: 01-08-2021 Episodic Other diseases of kidney and ureters (1 source) Urinary tract obstruction; Translations: [Other obstructive and reflux uropathy] Onset: 02-03-2022 Episodic Other lower respiratory disease (1 source) Other nonspecific abnormal finding of lung field; Translations: [OTH NONSPECIFIC ABN FIND LNG FIELD] Onset: 01-08-2021 Episodic Other nutritional; endocrine; and metabolic disorders (1 source) Obesity, unspecified; Translations: [OBESITY UNSPECIFIED] Onset: 01-08-2021 Chronic Other nutritional; endocrine; and metabolic disorders (1 source) Body mass index (BMI) 35.0-35.9, adult; Translations: [BODY MASS INDEX BMI 35.0-35.9 ADULT] Onset: 01-08-2021 Chronic Residual codes; unclassified (1 source) Laparoscopic surgical procedure converted to open procedure; Translations: [LAP SURG PROC CONVERT TO OPEN PROC] Onset: 01-08-2021 Episodic Respiratory failure; insufficiency; arrest (adult) (2 sources) Acute and chronic respiratory failure with hypoxia; Translations: [Dependence on supplemental oxygen] Onset: 01-08-2021 Chronic Screening and history of mental health and substance abuse codes (5 sources) Personal history of nicotine dependence; Translations: [Ex-smoker] Onset: 01-08-2021 09-10-2021 Episodic Septicemia (except in labor) (2 sources) Sepsis, unspecified organism; Translations: [Severe sepsis without septic shock] Onset: 01-08-2021 Episodic Thyroid disorders (4 sources) Nontoxic single thyroid nodule; Translations: [NONTOXIC SINGLE THYROID NODULE] Onset: 10-26-2020 Chronic Unclassified (1 source) CONTACT W/AND (SUSP) EXPOS COVID-19; Translations: [CONTACT W/AND (SUSP) EXPOS COVID-19] Onset: 01-08-2021 Urinary tract infections (1 source) Urinary tract infection, site not specified Episodic Past or Other Problems Problem Classification Problem Date Documented Da te Episodic/Chronic Pleurisy; pneumothorax; pulmonary collapse (1 source) Atelectasis; Translations: [ATELECTASIS] Onset: 09-18-2020 Episodic Results Test Name Value Interpretation Reference Range Facility Urinalysis - AUTOMATEDon Appearance (U) Cloudy [facility] Other Bilirubin Ql (U) Small Biomonitor Other Color (U) Dark Red [employer]ogo[employer] Other Glucose Ql (U) Negative [facility] Other Hemoglobin Ql (U) Large TimeLynes My Point...Exactly Other Ketones Ql (U) Moderate [facility] Other Leukocyte esterase Test strip Ql (U) Small [employer] Other Nitrite Ql (U) Negative [facility] Other pH (U) 7.5 [pH] [employer] Other Protein Ql (U) 300 [facility] Other Specific gravity (U) [Rel density] 1.015 [employer] Other Urobilinogen (U) [Mass/Vol] Negative [employer] Other Urinalysis - AUTOMATED [employer] Other Urine Cultureon 03-11-2023 Bacteria identified Cx Nom (U) 15,000 colonies/ml mixed bacterial skin contaminants 2 Days PERFORMED BY: [place] [address] PATHOLOGIST ENZYME CHEMIST QUYNH SHI M.D. [facility] Comment on above: Performed By: #### C UU #### [address] Pre-Certification Formon Pre-Certification Form [id number]#[id number] D:127 Normal [facility] Ambulatory Visit Summaryon 0 02-23-2022 Ambulatory Visit Summary MIKEL SOTO :1940 Visit Date:02/23/2022 Ambulatory Visit Instructions Your Diagnosis BPH without urinary obstruction Nocturia Tests Performed Urnls Dip Stick Auto w/o Microscopy POC [id number] Your Care Team Attending Physician - JARROD CLARK, Gerardo Torres Primary Care Physician - OCTAVIA TELLO DO This Is Your Medications List Contact prescribing physician if questions or concerns acetaminophen-hydrocodo ne (Telford 325 mg-7.5 mg oral tablet) amlodipine aspirin (aspirin 81 mg oral capsule) doxycycline (doxycycline hyclate 100 mg Cap) lisinopril pravastatin tamsulosin (Flomax 0.4 mg Cap) Procedures Performed Appendectomy, Colonoscopy. Discharge Vitals Heart Rate (Peripheral) 85 Respiratory Rate 16 Blood Pressure 133/80 Height 172.0 cm Height 172 cm Weight 93.0 kg Weight 93 kg BMI 31.44 What to do next Scheduled Follow-Up Appointments Wednesday 2:15 PM EDT With: JARROD CLARK, Gerardo Torres Where: [facility] Patient Educationon 02-24-20 Patient Education Nutrition Calorie Counting for Weight Loss Calories are units of energy. Your body needs a certain amount of calories from food to keep you going throughout the day. When you eat more calories than your body needs, your body stores the extra calories as fat. When you eat fewer calories than your body needs, your body shafer fat to get the energy it needs. Calorie counting means keeping track of how many calories you eat and drink each day. Calorie counting can be helpful if you need to lose weight. If you make sure to eat fewer calories than your body needs, you should lose weight. Ask your health care provider what a healthy weight is for you. For calorie counting to work, you will need to eat the right number of calories in a day in order to lose a healthy amount of weight per week. A dietitian can help you determine how many calories you need in a day and will give you suggestions on how to reach your calorie goal. ? A healthy amount of weight to lose per week is usually 1?2 lb (0.5?0.9 kg). This usually means that your daily calorie intake should be reduced by 500?750 calories. ? Eating 1,200 ? 1,500 calories per day can help most women lose weight. ? Eating 1,500 ? 1,800 calories per day can help most men lose weight. What is my plan? My goal is to have calories per day. If I have this many calories per day, I should lose around pounds per week. What do I need to know about calorie counting? In order to meet your daily calorie goal, you will need to: ? Find out how many calories are in each food you would like to eat. Try to do this before you eat. ? Decide how much of the food you plan to eat. ? Write down what you ate and how many calories it had. Doing this is called keeping a food log. To successfully lose weight, it is important to balance calorie counting with a healthy lifestyle that includes regular activity. Aim for 150 minutes of moderate exercise (such as walking) or 75 minutes of vigorous exercise (such as running) each week. Where do I find calorie information? The number of calories in a food can be found on a Nutrition Facts label. If a food does not have a Nutrition Facts label, try to look up the calories online or ask your dietitian for help. Remember that calories are listed per serving. If you choose to have more than one serving of a food, you will have to multiply the calories per serving by the amount of servings you plan to eat. For example, the label on a package of bread might say that a serving size is 1 slice and that there are 90 calories in a serving. If you eat 1 slice, you will have eaten 90 calories. If you eat 2 slices, you will have eaten 180 calories. How do I keep a food log? Immediately after each meal, record the following information in your food log: ? What you ate. Don't forget to include toppings, sauces, and other extras on the food. ? How much you ate. This can be measured in cups, ounces, or number of items. ? How many calories each food and drink had. ? The total number of calories in the meal. Keep your food log near you, such as in a small notebook in your pocket, or use a mobile deena or website. Some programs will calculate calories for you and show you how many calories you have left for the day to meet your goal. What are some calorie counting tips? ? Use your calories on foods and drinks that will fill you up and not leave you hungry: ? Some examples of foods that fill you up are nuts and nut butters, vegetables, lean proteins, and high-fiber foods like whole grains. High-fiber foods are foods with more than 5 g fiber per serving. ? Drinks such as sodas, specialty coffee drinks, alcohol, and juices have a lot of calories, yet do not fill you up. ? Eat nutritious foods and avoid empty calories. Empty calories are calories you get from foods or beverages that do not have many vitamins or protein, such as candy, sweets, and soda. It is better to have a nutritious high-calorie food (such as an avocado) than a food with few nutrients (such as a bag of chips). ? Know how many calories are in the foods you eat most often. This will help you calculate calorie counts faster. ? Pay attention to calories in drinks. Low-calorie drinks include water and unsweetened drinks. ? Pay attention to nutrition labels for low fat or fat free foods. These foods sometimes have the same amount of calories or more calories than the full fat versions. They also often have added sugar, starch, or salt, to make up for flavor that was removed with the fat. ? Find a way of tracking calories that works for you. Get creative. Try different apps or programs if writing down calories does not work for you. What are some portion control tips? ? Know how many calories are in a serving. This will help you know how many servings of a certain food you can have. ? Use a measuring cup to measure serving sizes. You could (more content not included)... Normal [facility] Urology Office/Clinic Noteon 02-23-2022 Urology Office/Clinic Note Chief [facility] Mikel is here today for a 2 week follow up PO Hussain done on 02/03/22. Previous DX: BPH with urinary obstruction, former smoker, nocturia. Pt is currently taking Flomax 0.4 BID. Dysuria: _Denies Incomplete bladder emptying: _Denies Hematuria: _Denies Frequency: _every 4 hours Urgency: _Denies Nocturia: _2 times a night Stream: _steady stream Leaking: _Denies Post void dripping: _Denies Wearing pads/ Depends: _Denies Urge incontinence: _Denies Stress incontinence: _Denies Incontinence without Sensory Awareness: _Denies Abdominal pain: _Denies Flank pain: _Denies Sexual complaints: _ History of Present Illness I have reviewed and verified the staff HPI to be accurate for this encounter. Review of Systems PHQ Score Initial Depression Screen Score: 0 ROS - Provider Constitutional: denies weight loss, denies hot flashes. Eyes: denies eye problems. Gastrointestinal: denies nausea, denies vomiting. Cardiovascular: denies chest pain or angina. Integumentary: no dryness Musculoskeletal: denies musculoskeletal symptoms. ENMT: denies otolaryngeal symptoms. Respiratory: no shortness of breath. Heme/Lymph: denies easy bleeding tendency, denies easy bruising tendency. Psychiatric: no confusion, no anxiety. Genitourinary: denies dysuria, denies hematuria, denies discharge, denies urinary frequency, denies urinary hesitancy, mild nocturia, denies incontinence, denies genital sores, denies decreased libido, and denies erectile dysfunction. Physical Exam Vitals & Measurements HR: 85(Peripheral) RR: 16 BP: 133/80 HT: 172.0 cm HT: 172 cm WT: 93.0 kg WT: 93 kg BMI: 31.44 General Appearance: alert, no distress, well nourished, well developed male. Flank Pain: none. Bladder: nonpalpable. Assessment/Plan 1. BPH without urinary obstruction (N40.0: Benign prostatic hyperplasia without lower urinary tract symptoms) Good, steady stream, patient feels empty, denies burning, and blood with urination. S/p REZUM done 02/03/22. Pt is currently taking Tamsulosin 0.4mg (2 pills daily)therapy. UA today shows trace of leuks, and Moderate blood. Patient to continue Tamsulosin 0.4mg BID therapy. 2. Nocturia (R35.1: Nocturia) mild, 2 times per night, was previously 3-4 times per night I have reviewed the previous health history and record for this patient with Dr. Norman. f/u in 3 months Follow-up With When Contact Information JARROD CLARK, GUERRERO Ulloa In 3 months [facility] [address], [place] [id number]- [phone] Additional Instructions: f/u in 3 months Patient Education Calorie Counting for Weight Loss Benign Prostatic Hyperplasia Mimi Llamas personally scribed for Dr. Norman on 02/23/2022 12:58:49. . Documentation recorded by the sylvia dinero, accurately reflects the services(s) I performed and decisions made by me. Authenticated by Dr. Norman on 02/23/2022 13:02:00. Problem List/Past Medical History Ongoing Asthma BPH without urinary obstruction Chronic obstructive pulmonary disease Former smoker Hyperlipidemia Hypertension Nocturia Historical No qualifying data Procedure/Surgical History Appendectomy, Colonoscopy. Medications amlodipine, Oral, Daily aspirin 81 mg oral capsule, Oral doxycycline hyclate 100 mg Cap, 100 mg= 1 cap(s), Oral, Daily, Not taking Flomax 0.4 mg Cap, 0.8 mg= 2 cap(s), Oral, Daily lisinopril, Oral, Daily Telford 325 mg-7.5 mg oral tablet, 1 tab(s), Oral, Once, Not taking pravastatin, Oral, Daily Allergies Duricef (Unknown) Social History Alcohol - No Risk, 09/10/2021 Tobacco Former smoker, quit more than 30 days ago Tobacco Use:., 02/23/2022 Immunizations Vaccine Date Status SARS-CoV-2 (COVID-19) Ad26 vaccine 08/06/2021 Recorded influenza virus vaccine, inactivated 06/2021 Recorded SARS-CoV-2 (COVID-19) Ad26 vaccine 01/09/2021 Recorded SARS-CoV-2 (COVID-19) Ad26 vaccine 12/12/2020 Recorded Lab Results Ambulatory Point of Care Results Bilirubin Urine Dipstick: Negative (02/23/22 12:26:00) Blood Urine Dipstick: 2+ Moderate (02/23/22 12:26:00) Glucose Urine Dipstick: Negative (02/23/22 12:26:00) Ketones Urine Dipstick: Negative (02/23/22 12:26:00) Leukocytes Urine Dipstick: Trace (02/23/22 12:26:00) Nitrite Urine Dipstick: Negative (02/23/22 12:26:00) Protein Urine Dipstick: Negative (02/23/22 12:26:00) Specific [place] Urine Dipstick: 1.010 (02/23/22 12:26:00) Urine Appearance Urine Dipstick: Clear (02/23/22 12:26:00) Urine Color Urine Dipstick: Yellow (02/23/22 12:26:00) Urobilinogen Urine Dipstick: Normal 0.2-1 EU/dl (02/23/22 12:26:00) pH Urine Dipstick: 7 (02/23/22 12:26:00) Diagnostic Results Tests Reviewed: Reviewed UA, Rezum report Normal [facility] Comment on above: Result Comment: Elec tronically Signed By: JARROD CLARK, Gerardo Torres\.br\Date and Time Signed: 02/23/22 13:02 EDT\.br\Electronically Co-Signed By: Mimi Aguayo\.br\Date and Time Co-Signed: 02/23/22 13:00 EDT Provider Letteron 02-10-2022 Provider Letter (Inserted Image. Arcelia ble to display) February 10, 2022 [place] [address] MIKEL SOTO 1940 To Whom It May Concern, Please excuse above patient from work. Date of Illness: From: 02/03/2022 To: 02/16/2022 May Return to Work On: 02/17/2022 Restrictions: N/A Comments: Patient had medical procedure on 02/03/2022. Sincerely, Gerardo Norman M.D. [facility] [address] [place] [address] [facility] Coding Summary.on 02-04-2022 Coding Summary. [id number] Gh0 bWw+PGhlYWQ+GO3AOOJyB71 noSEimN9KI8tGAX8IKXNJXR GZGF6JAK0sgTW0GFusD9Bly iAv VjlfcTNoHA16IMj7BYJ4vSg jMSqrrY0oqCZaZ5t1CyGuUZ 84wC29ZWryZPAiVoN5OlTua jsgbWFy H1yoAgVanNUnVsm+PHRhYmx lIHdpZHRoPScxMDAlJyBzdH lbVC0nVc4yAKLrLGTjxHakw HNlOiBj e3opVPLhADvjLZ8tfFvqM2P oyNQ5UNRqz0q4Ns63oSZ+PH TxIKJ5lGjjLWhsx521QjUwi 3jyGPP2 sXRlUUgqHGO4C48hn3Q2ZNX wGMYiBEL9kGV5wB0stAuaji qaV7MwdGRaMkR8GFU6zSOwx J1rzOqy wgqwoB9lEnx+A44MFW7XSWA CCG4XHtl2E2ZjJnpxeGB+PC 07XZLxIN04sSKbhQLpi8dvz Co7EpXu GHRfFVU8pAaoPCazc5TmZWF qG24pqKQsk8N2OBEmwEhidZ ZjNwUovQO9gJ0aDApenzcyb 2hvdzsn Tykip2kons52dB11D26eVXj hCGLzSHP3IDXmXNXtqJlhah 1ouN8zZl4+GFvvq1pbd7tpo Pn5WfIr HTNbbnLyrXkwRSM7g8YkOp3 0W3FsbVplw7EoGxr9de61fD Zva5Z3yPN1LXytESQruW5aM WxlZnQ6 NFCmQiZcgS66jXScNUfbRd3 uuFngcRrgWR6mZHEghdypCZ KvvM2cDDIjkMZzjXohSJ4oR TBpbjtm m759VxCbDUA6LYAogPQyI5I yxP5wVvXwTQYxZZPbV5VfeG VlVNtrB660WIzaLtQ1YTXir mBjY3Dk KAJetIktQpD2f0N7Ij6La5V vknfiIEZ5ZIvrWHN6OpC4Xu DyHrP6D3FkZvk5ULDjuPxlH U3uP9Pg NACxbnwapzbukDS6MZWuKXS yfO06oPPsXTllGu3er7B5m5 39FZWmHSGbfA01Ce0vzGvzJ TBwdCBU pE1goubpi7ocvopqPjYmCDL cXFr5WEp7EGKusCbdPbFqEG A1WiI0EFZ6gIOtfS5cxConq foewT1s Oyc+B99sjM0zKHE7HVU9omm kAKNoluGdQB66FN18Q9SxZc wvdGFibGU+PGRpdiBzdHlsZ C6pCnCx c5umu5IaSAfqK8TpPUTrVXf vNjw7VOZzNOZ8xUR9hZ2pYU CqXJlpx8J7rRX2K4SigtUlv a6lc3nr MQUdQHlvD41zhHLqz8D0GEM orBK2YZCgyQhqDoOdvQ27Va c+TISouFsrb9XvDidab5nso 1fxqYf7 PyKbSYZlvqFgmKnoFAU1r2X dBa11C03wPWtyWLHoUAJzST MrVPDymVrzvk4daE7jGy1+P GNvbCB3 dVF9bL3oLTBcMnH6PEqdE09 2YvGunIXoWxkfm6cek4xgcN d6QhYpFNZohrAdnZsqBRG0u 3KvGs98 F48rWKwoQHWvRCAmMNWnHTY pfLscyw9tpN1xSi7+PC9jb2 xvrv03oF76iVR+NHToVOJ3s WxlPSdw HZCguA4jWPepZuC0LNPdNqO veC74eOYzRNzoDe4qhFzqmF nuXV9yDYNnxcjwe247CyKur 2xkIDEw oWGxOZudEOC0N17yq7M1AZF lBNQcJUS8mRM0fW9msIomfm ogbGVmdDsgdmVydGljYWwtY YmpZ885 IHRvcDsnPlBhdGllbnQgTmF cCLe8R2RiKzf7WOWmxOeoRJ 2pbOYuSYxlVx7hoMswuRepE L8tLKTc nvxam360MiOnr4lrHJIrrWK zQVwhEQT9X22xc1R1ILYqXT EqERV5iYH1hS2rfGbbnfmqh GVmdDsg axTtsEzpCLtyAFlgI995UDD xmEssDjHozyZsYDWzkZR2AB 00KT34cUUao8J2hOD9R6KqU GRpbmct fzwhmIJ0CRXaAMZzdQ28Wo8 lbRioIp0vMPXyDIC5VANahY SaV7PhgO7yAzTaMNEtDAUhM 3RleHQt MKyfM701WDduHvZ3XOWhxqO nK8KtAERffAuzCrD3r9V2Pw 1HH7Y2PA80ZB99lFHui3W6d HW6R0Wl WWZhjhnosxlnrRN8FXSuPGC ctE49Js5ddMliRa2fACQmSZ F0JYNrzCCuS6LhoL4uMgIiU DAwMDAw M2TmdBHvDFhnP293PAtwWxS 5RKJzaiQdR0WsJQJkwXwwHn U2r7U3On0GOIu4BK19RE37c BVhv1I9 dWJ6U2PeOGScggmcexeqsVD 5IRUuOAPzkZ61Rq7rnOnzUg 9kJXCoQMY1EHWmbAPxZ5Fsp I2vJoHb XKZrIZQoX6YbgLCaZOemV97 2VKjpNsN6MXBtzsOqF2XfHQ EhnPgkZhX2m1G2Yw1NBZNmE Q65EHZ1 eXX6OF35YY04J3LeOpuvxHI ibGU+PHRhYmxlIHdpZHRoPS giVETzBnEsbIlgRD7xJs2rA GVyLWNv uBbtwDEcSdZfh7nuUIRmJNb iOU0lsFuoG1BfzLX6ELIuq6 l7Nn66Y59pP4DsiWA+PGNvb QJ4wOE7 rC7xMrSyTqA5YNkuV778HgH izMRmOcaik3jhy1gweZr1Fc C9YVWhnyCvlLxmAQP7f1MzY o28U28h IHdpZHRoPSIxNSUiIHZhbGl pfa8whJ1iKd1+JEQytVO9yU Q1vE6aCuTgIoN7FNqrC158G nRvcCIv Fnqxq8txz8nlfIf4RtJxLRX bxgYhdByiHIG8z6PgNu38J8 PzjIzfu2WfGey4pk88eKXhd 1G4bWL1 N0UoPJDzoslpaSGnrFflMH5 sXPGkuvzrDHAonP5xITRhV3 w2JrKpPxQ4LIcaI0BtkwR5Q DEwcHQg HDdjXUM0N59ii6R2AQSiTST rYCG5lRJ2cJ6coAtpuqlznI VmdDsgdmVydGljYWwtYWxpZ 246IHRv pTyhARYosC6dHPZqgEZggSa xAW1nLVTwiwwhCnSMD4EIHC XTI3MWJePaJlzffNB+PHRkI VU7jEze HZpqWDMgeQ1dXSBcV9z0EpS oOgE5JIdnQ7NeNTJuelfiSl 56pU3aDzHjOjC0AMtlG3Lwv tX4WEGx pSUqTGiuWHA9M26fz6P2UPD kYDQpYAD9sOS1pC4ybDoceh ogbGVmdDsgdmVydGljYWwtY YzlJ845 ZCHcbWgqRyF8BmB5ZwQ9MLD 4F5ReFtl9XNKqkXqaHF5yrX QiPJiwZc3upUhbjCfcFU5xV TBpbjtw VMZahW6bNFScmOVxdCemPD3 tTWQeepsvl730MhWqFMN5IJ EvmGWfN7QvwW6iIpVwWLIsN KOwU4Pt dPFhGTxkR881MWwnYhW2GBV eqlRmK9AoQMOqmBijNkS6v2 K2Dh95TMKZWPBnefalwEV+P HRkIHN0 bVufECldOBDkiJ1dDWGbE1x 0FfKmSzJ1GTeyF2HjVDToyv rkIc92gU6zLnFfPmW7NAgzU 6YnfaV5 UQDfmEVvPYybUTG5Q75iq9I 6EIGkLFKbNFX5yUD8bS5wbL lnbjogbGVmdDsgdmVydGljY WwtYWxp P468TDXbnGwkXw5dbJN5Q6D ySdq8YYVkfVfpNN2ghHOtYX iuAi7msIufaUikTC0gJHGqs jtwYWRk aO3yDETtsVQtxOzaGE4xXHY tizyqr803RwVaMHG8DTQowJ UtR8JaaD8kUnNcWFGxSEJxI 3RleHQt WNieW098JBzdArO8ZFCrplG jT2VeSSJauGnrYmI4d9A4Vt 1SaKScFBMcRV61PD09KO58R 3RyPjwv dGFibGU+PHRhYmxlIHdpZHR dSEafMCZfLhYrxRweSD2yVe 9yZGVyLWNvbGxhcHNlOiBjb 2xsYXBz HBasXA0vfXdsV3HoeCF0CHF vg0h9Pc67P26zE5CprRX+PG BbiRE9lGV7tS5zVxRgIkZ4G RthG479 VjDjyTLcYayso4rup5pxkHr 1IoWiOWKtkgNlaVnbHIY2s5 EmUb96P92gDZzpJZXrXIHdQ CUiIHZh kRdein9ugJ3jQe6+PGNvbCB 5gGG0cG6gWzIzVkZ9OPpiZ1 41RhRamWYaYeuyL67uC0Yrp XA+PHRy Fqq5DEJudGypLW5fsBHgKRz tPf3rDZQ7HsPbFvHqLVvvJ9 YfPGBapcmtmechkEG9EYLmD DUwaW47 Ny1bbGeeFu9lSJDfRWJ2UGP wrTAgD4FjbU2qYsOhDNWqYL DgX9ZvhESrIFbxY450ZEpnJ kI6TMMf akMaK4RuQQYejOmoPfY8t0N 5En9TnKajtUItUT5nIhEsEB t0R2DfPcu1IJNazZwmZM6si GFkZGlu Op4qiJzsyNgcMB0nHJTybqc vg412YgRbs8uvJJAhyXFbXV baECI1A11tm2V5TNAsEUCaM UA7hYU6 qX4sfIpxmygclSCaxHssdqO xvIzpCOdjWAuzQ546LMGxbH ljSfQBKqe6X7SaQeq0CEXnm JmyGG5z mLKgJEpuUv7ruVtftEjsZA9 jORDlptvbw240LmHkn9uzUR MkaGNcLFjaRYH6N80jb0W8U CMwMDAw VGY0gQS7bB3peMqqqabmwYN mdDsgdmVydGljYWwtYWxpZ2 34BPBrnShzUq6YVjf1F4VlR ty8UDVf gRbbXC5jpDIvPVpqVp3oaTh lgMmyXC6mBQQoryoyo503Ji Myv0cxHBZewXKjOZgjNWM2Y 20gu8Q6 YJAqCECcRXX0oVZ6pO2clMa nbjogbGVmdDsgdmVydGljYW mpGFvwC581UMDczLoqDzUbi WVyOjwv dGQ+KY92ze91C3IyKwfsGjt 3PGEvVOJ5cTK9kA0rNNLbCB vul9L3pHJ3Z0QhenAghy5pu 2xsYXBz ZTog (more content not included)... [facility] Consent for Procedure/Surger yon 02-03-2022 Consent for Procedure/Surgery [id number]#1.00 CD:127 [facility] Consent for Treatmenton 01-12 Consent for Treatment [id number]#[id number] D:127 Normal [facility] IntraOperative Documentson 0 02-03-2022 IntraOperative Documents [id number]#1.00 CD:127 [facility] Main OR Intraoperative Recor don 02-03-2022 Main OR Intraoperative Record IntraOp Document Type FTURO Summary Primary Physician: Gerardo NORMAN MD Finalized Date/Time: 02/03/22 16:26:28 Pt. Name: MIKEL SOTO Ashtyn Burkett/Sex: 1940 Male Med Rec #: [id number] Physician: Gerardo NORMAN MD Financial #: [id number] Pt. Type: O Room/Bed: / Admit/Disch: 02/03/22 14:03:41 - Institution: Case Times FTURO Entry 1 Patient Times In Room 02/03/22 16:05:00 Out Room 02/03/22 16:20:00 Procedure Times Start 02/03/22 16:09:00 Stop 02/03/22 16:16:00 Anesthesia Times Last Modified By: Shanti Sethi RN 02/03/22 16:26:24 Case Attendance FTURO Entry 1 Entry 2 Entry 3 Case Attendee Gerardo NORMAN MD SURVEILLANCE DIRECTOR, Shanti Sethi RN, Shanti Castillo Performed Surgeon - Primary Scrub - Primary Community Service Organization Director - Primary Time In 02/03/22 16:05:00 02/03/22 16:05:00 02/03/22 16:05:00 Time Out 02/03/22 16:20:00 02/03/22 16:20:00 02/03/22 16:20:00 Procedure CYSTOSCOPY LOCAL CYSTOSCOPY LOCAL CYSTOSCOPY LOCAL REZUM(.) REZUM(.) REZUM(.) Comments Last Modified By: Navdeep TIMMONS, Shanti Sethi RN, Shanti Cho RN 02/03/22 16:26:25 02/03/22 16:26:25 02/03/22 16:26:25 Surgical Procedures FTURO Entry 1 Procedure Description Procedure CYSTOSCOPY LOCAL REZUM Modifiers . Surgeon Description CYSTOSCOPY LOCAL REZUM X 7 TREATMENTS Primary Procedure Yes Primary Surgeon Gerardo NORMAN MD Start 02/03/22 16:09:00 Stop 02/03/22 16:16:00 Anesthesia Type Local Surgical Service Urology Wound Class 2 - Clean-Contaminated Last Modified By: Shanti Sethi RN 02/03/22 16:16:50 General Comments: 20F COUDE CATH PLACED. SHANELLE ARMENTA General Case Data FTURO Pre-Care Text: Classifies surgical wound, implements aseptic technique, initiates traffic control Entry 1 Case Information OR URO 1 FT Case Level None Wound Class 2 - Clean-Contaminated Specialty Urology Preop Diagnosis BPH W/ OBSTRUCTION Postop Same As Preop Yes Postop Diagnosis BPH W/ OBSTRUCTION Outcomes Met? Yes Last Modified By: Shanti Sethi RN 02/03/22 15:59:38 Post-Care Text: The patient is free from signs and symptoms of infection EU IntraOp - FTURO Pre-Care Text: Implements protective measures prior to operative or invasive procedure, confirms identity before the operative or invasive procedure, verifies operative procedure, surgical site, and laterality Entry 1 EU Perioperative Protocols Procedure(s) CYSTOSCOPY LOCAL Patient Identity Birthday, ID Band REZU(.) Verified (select at Check, Patient least 2): Participation Consents / H and P HandP, Transfusion Consent Operative Site N/A Verified Marking Verified Surgical Site Yes Laterality Verified Yes Verified Procedure Verified Yes Correct Patient Yes Position Verified Availability Equipment, Medication Time Out Gerardo NORMAN MD, Verified (If Participants Prabhakar MONTALVO, Shanti Applicable) Navdeep Pearson RN, Kimberly Y Time Out Complete 02/03/22 16:08:00 Allergies Reviewed? Yes Allergies Reviewed Self/Patient With Body Position Low Lithotomy Prep Area PENIS Prep Agents Betadine Solution Skin. Condition Dry, Warm, Unable to Description UNABLE TO VISUALIZE DUE Visualize TO PATEINT PARTIALLY CLOTHED Additional None Specimens Collected Vitals - EU Blood Pressure 119/65 Pulse 88 bpm Respirations 16 br/min SPO2 EBL 0 IandO - EU Total Intake 0 mL Total Output 0 mL Outcomes Met? Yes Last Modified By: Shanti Sethi RN 02/03/22 16:13:49 Post-Care Text: The patient is free from signs and symptoms of injury caused by extraneous objects Sign Out FTURO Entry 1 Before Patient Leaves OR Nurse verbally Yes Nurse verbally Yes confirms with the confirms with the team the name of team that the procedure(s) instrument, sponge, recorded and needle counts are correct (or N/A) Nurse verbally n/a Nurse verbally Yes confirms with the confirms with the team how the team whether there specimen is labeled are any equipment (including patient problems to be name), if applicable addressed Sign Out Complete 02/03/22 16:16:00 Last Modified By: Shanti Sethi RN 02/03/22 16:16:49 Case Comments Finalized By: Shanti Sethi RN Document Signatures Signed By: Shanti Sethi RN 02/03/22 16:26 Normal [facility] Main OR Preoperative Recordo n 02-03-2022 Main OR Preoperative Record Holding Area Document Type FTURO Summary Primary Physician: Gerardo NORMAN MD Finalized Date/Time: 02/03/22 15:58:25 Pt. Name: BRITTANYMIKEL/Sex: 1940 Male Med Rec #: [id number] Physician: Gerardo NORMAN MD Financial #: [id number] Pt. Type: O Room/Bed: / Admit/Disch: 02/03/22 14:03:41 - Institution: Case Times Holding FTURO Pre-Care Text: Verifies consent for planned procedure, identifies individual values and wishes concerning care, includes family members in perioperative teaching Secures patient's records' belongings, and valuables, maintains patient's dignity and privacy, and maintains patient confidentiality Entry 1 In Holding 02/03/22 15:21:00 Outcomes Met? Yes Last Modified By: Ryan Burgess LPN 02/03/22 15:21:17 Post-Care Text: The patient participates in decisions affecting his or her perioperative plan of care The patient's right to privacy is maintained Surgery Checklist FTURO Entry 1 Patient Birthday, Patient Procedure History and Physical, Identification: Participation Verification: Surgical Consent, With Patient NPO after Midnight: n/a Complaints of Pain: No Skin Integrity Unable to Visualize Vitals - EU Blood Pressure 119/65 Pulse 88 bpm Respirations 16 br/min SPO2 RN Reviewed Yes Last Modified By: Shanti Sethi RN 02/03/22 15:58:24 Finalized By: Shanti Sethi RN Document Signatures Signed By: Jenifer MARTINSRyan Sylvia 02/03/22 15:25 Shanti Sethi RN 02/03/22 15:58 Normal [facility] Operative Reporton 2 Operative Report Patient: ZURI SOTO Age: 81 years Sex: Male : 1940 Associated Diagnoses: None Author: Gerardo NORMAN MD Procedure Operative Information Details: Date/ Time: 02/03/2022 16:19:00. Pre-Op Dx: BPH w/ LUTS - N40.1. Post-Op Dx: Same. Anesthesia Type: Local. Procedure: REZUM ablation of the prostate. Complications: None. Risks/Benefits/Informed Consent: Surgical risks, benefits, details of the procedure have been explained to the patient, Full informed consent has been obtained. Indications: The patient has BPH with LUTS and presents for the REZUM trans-urethral water vapor ablation of the prostate, He understands the risks, benefits, details of this procedure including but not limited to bleeding, infection, continued difficulties urinating, blood in the semen, pain during urination, increased urinary frequency, Despite these risks, among others, he wishes to proceed. Intraoperative Information Prepped: The patient is brought back to the operative suite, The patient is placed in the supine position, 10 cc of 2% viscous Xylocaine jelly prior to the catheterization, The bladder is catheterized with a 16 Fr straight catheter, 60 cc of 1% xylocaine solution is instilled followed by 10 cc of 2% viscous Xylocaine jelly, After waiting approximately 20 minutes, he is positioned in the modified dorso-lithotomy position and prepped in the usual fashion, The 30-degree cystoscope lens is placed, The anterior urethra, membranous urethra, and prostatic urethra is visualized. Procedure: The bladder demonstrates no tumor or stones, 7 targeted treatments were delivered to the prostate, staying at least 1 cm from the bladder neck, Each location is treated for 9 seconds, per protocol, 5 treatments were given into the lateral lobes by 1 cm, 2 treatments administered to the median lobe, The bladder is again inspected and is free of injury and is clear of blood clots, A Arredondo catheter is placed, the balloon inflated, and leg bag attached. Specimens Removed: None. Devices Implanted: None. Postoperative Information Discharge: The patient tolerates the procedure well and is discharged home in satisfactory condition, Discharge instructions are provided. [facility] Comment on above: Result Comment: Elec tronically Signed By: JARROD CLARK, Gerardo Martinez\Date and Time Signed: 02/03/22 16:20 EDT Pre-Certification Formon Pre-Certification Form [id number] D:127 [facility] Coding Summary.on 01-08-2022 Coding Summary. CD:[id number] Gh0 bWw+PGhlYWQ+EO1AAFJqL74 iqCKskK9GS0fLBS8IPZMNZT COKZ7BYI0njOZ7DXjyE8Nic iAv CnynvFKdUB98ZPa6CIB3yBq pPBgmvQ6rjKPyN1a6MdJcQX 52lO07XSrjIGLgIyY6CbKor jsgbWFy X8slViFckRWoKko+PHRhYmx lIHdpZHRoPScxMDAlJyBzdH srWU8qLv9nLCKcJNYvgOhxo HNlOiBj d4olFYKaGNxgCJ7wrDraC1H qdXR4YNEbe5k9Ns04jCE+PH NxDCE5yZehVOxmv189HlGdt 5zrGHL9 dLMySRleFTQ4U04bx2L3MWM kUWSfGBN7nOF0vN6vwUcwyo elA4HxmAVwJbW9ICY6jWDbk Q8enClq wfljzG1fWoq+X31QDJ4DGFB BZZ0WHur6M1MbMpbonQU+PC 65VHWuGY96aNDeySYna1dqo Yv5IkCg NVRmAWJ1sWhiKXkcj4FiQJZ aT18jhSMiz3L8YOBcjCgshE RwXfXgwNQ0sS0uVEyhrrdyq 2hvdzsn Yhktw7xjct37rK46W26eQUy rVVFzFGI6YWFlBZQfbYpomr 0dkT7mFy9+UBimk1lyc5lwz Pt9TkXs JRMldzDqqFzvGPX4d3CfKw1 4Q1JwvBruv3MrDtb2np34yO Ohq6F6rNE9YEpeBGQbaC9iF WxlZnQ6 JTLmTdWoaP31uYDrWYpoFr3 klKjohHpzMR1hBACyolphPK GwqN0aXZJwxYLcpVcuSX4tD TBpbjtm b518NvGcTVG0JHYiaGFwW2D bkJ2yZzSaACTnSFGbU4YfxS RiCAcoT556HVunLaW2IMPut rYfR8Gw PXScvSdbSrM0s0M0Dg7Kh0Y uossvZWK7IJksNKB8GmP6Pf UsMuX4T0IwXzi5YPIgfOkkG F3bC6Ex HIFlqcltbsjmwIS5ELFpKSI ejU80tYOgLXczDb7el7O5i9 70XWAuEHPvyK78St4utQezU TBwdCBU gK9eubpml7wvcvkxFzFnBNM xLRf2YTu6OQXwlQthPjKdCG H5IrN0LKD2hPWrvE1yjLbvh fkrgE8c Oyc+L83ajA9rQAA8DQG0utc vGSLikqBuXF17OI46K0GfOy wvdGFibGU+PGRpdiBzdHlsZ C3rTjAa t2beo2NxDHpwQ8GpUZMtUKt sPxk9JSSbFQL1wZH6cN9oQK NvFYojx4B4hWM1L8NzfrGsm v4me7yx TVQcGFahG79vhGQcc7Q9ETJ zzSW8AWEdbGkjVyFsfV90Cx c+MJTwtVglv1MnBcubd6xre 7fjpAr9 AwKdXSMdidCrfGymNHR9a1Y yUt39B97lHVbkWQLlACQiAY KcHUCclGbtxk6dnA4oXv5+P GNvbCB3 aYL7mF3rOWXiIaR1LHmeI31 8PfRfzXSmCvdgu6afo1gkqM f9GtChVCGlflWlvMxzBEH7p 6KsQe50 K78rMLvxCFGiNFHyNNGqHCG bfDfpqd0abM2tZl0+PC9jb2 zuwt96wE72dZH+EIDcOXY2n WxlPSdw WHZkfX5nGFdbIxM0EUDxHhY wzC31eHWbSZnkFr5cyNzoaQ umJK1xGBQxaovds507VpZjf 2xkIDEw wLBwAKwrRJJ0A42sa4F8DKG qPHLiRLQ7oOH7aC5hiGatxj ogbGVmdDsgdmVydGljYWwtY TwsY645 IHRvcDsnPlBhdGllbnQgTmF tVQf5B1QsTqf9OPUhsAvrWV 5nyZBhXAjlVr9pqPbqxZdgT K0wFULy lqsbh815RsGeo8ugAUEhjYI eSMuoSJX6F16du0N0BCAaPQ NuFSL3tBW6xL1xlConlpptx GVmdDsg rkVqlLobQSvtBJmfA917UZG enHqkBjHwkdDdUMYiwZR7ME 40GD08zSLhq7J7dII1M1JcQ GRpbmct chqraXR8RINzPMLauX79Sx0 jhNdiWr5wELWiEKT8RRCyaT DoM6YigY1zZnYjXRBnCEIlU 3RleHQt IGrtC190URijCdT2ZZNjhqS iO5HpETSutFzrSeG7c1B1Df 8KM5T7WL61ZF54kGJsb2I8a BX5O2Go BMLweowfmtlhzFR8CVSfRFK hlT56Xh9vgQdyJh9eZAKeOQ Y5RYKbcCYpB9QnyR2jHxVmK DAwMDAw W3BlaLUlPDrdQ897GLfuEzC 6RZHveyLqY2WeLPPoiDdyDl Z0y9V1Hu0TAXb5NZ37IM93h NNpo2J4 kQH9Q9JvOJVpijceuwfnxQT 1ORWhPJJtwC26Cl8qmBpoCv 8kWKAyMEA3XYDarRQoY4Yzb M0eMuVn SRMzJQDfB6CipTDyJYvgM64 9TSejBrD2CLEagoMdX9RlIX FazUcnMtV8d8U1Uv2AUROvO G65WKA0 uJX8UP53FI75P4RjNmxroXK ibGU+PHRhYmxlIHdpZHRoPS ocKFFpVuPilFskNY7oEw3cW GVyLWNv nQpwjZDsMvUil6dtTJKuWLy hMS9rzBzpU2NaxMI7MAXfv0 a6Gx35F19oL3HyfHC+PGNvb SE8uVR8 cQ4zTzPrWcL5ANfzZ253KrY slWLaHfhfa3hjb1ruoYr2Yg V5GROcbgIxaEbnMUN4u3ExF d28U44f IHdpZHRoPSIxNSUiIHZhbGl aut9wpL0xXy2+BUUotXL5oM V9xR7zPeRhFnH1OJwgO668Y nRvcCIv Wgysa5cbz4gzvAb9JsKiGZB yraTwyNuxKNU4g4QgOz62F9 NwyLqbg8BwTql9ms38zVSkm 0N9fUJ1 P7UyCZXxfadeoRXvoBjqIT0 hHBVtokonAGYfyI6vHUZoG4 g4PlDcLjW7ETbzI8JxliW0P DEwcHQg WNjgJZS3U94pl8Q2DOCjRIV fPWL8nVX6eZ8zmGaxwxlwdS VmdDsgdmVydGljYWwtYWxpZ 246IHRv nLrlGURwlC4gYDXoeSJtmTr iWW2cNLLycqrhAfFOC9ZPTH MLZ9MZDaJaVleiiIK+PHRkI MJ1xVuj PXujWRJrxR4mDKGeU4a4NxL dWwG1XVooY4EpPBQczmvlFu 93mD3cOcUqQzB7FJnlQ9Jff uT8HHFc eGRvFYrdGHL4X00op4U8KPB nAVKxQKB0mYY7fC1bcWrweb ogbGVmdDsgdmVydGljYWwtY HsrH916 MRVnbSqdOzP0OoH7WrT6HDB 7G3LiLrk9UJQyaUtdFW8hgU ErKKhjAr6jzQnfzNkyID6tK TBpbjtw YIMspD0fXLQdsLTneVzyNC6 gHRGhwcgno449AwYePYQ6RZ XomVSwY8AqeK5iMtTgGTMuG GVkY9Rx xFWhGKqfM480MBbbKqH6JAF rehFbQ0VkTSRflJqoElG9z6 O2Pr25FETFDHKudommkDH+P HRkIHN0 zXreHHtkUEZouF1cWZAtU8p 8QeZeGsS0QNyxX9OkYHUemv moWb93fR1dBbOyXsQ4ODfqX 4MhcjN7 UROziLWvYFztSWK3G30ha5Y 1IDBsSEWwMLE6gSU1mO6ahX lnbjogbGVmdDsgdmVydGljY WwtYWxp T862OZGvfVizJo3frGW5Y4D rJam5YZXisTyzTI7ckLQcJA glDe3ciJkfgSexEY0rVBCow jtwYWRk cP8gFRGfkSDzuLydCI0sLQZ okamkf580QlUoUKI3MWPmrR PlQ3ZqmS0qAfYkTMRjAWGxQ 3RleHQt UEwtB148RSfxAgD2OANuunE cU4FlGCYlqAxuYoN9t4Q2Tc 7JbQFiMXPcVF01SS89PL70M 3RyPjwv dGFibGU+PHRhYmxlIHdpZHR cMByvXFZvNeTkuMkgMZ4bYz 9yZGVyLWNvbGxhcHNlOiBjb 2xsYXBz ONxyLH0yjIgvY0ZgeWU2VMJ ye7e6Sg33G50jF2EkfVM+PG FgoIK7mXK4qN9yVfSiKpK0K XymY889 PcXjjXWlLjnxo7hyn7khaOj 8RsHjUTImprCdnJtgZCM8s1 CySi63Y90bLVxjEPVgNBAvD CUiIHZh vDdivg3csT3eJh3+PGNvbCB 2dZG5eT9ySpCgSeN8AXgpE5 38EzWcpJMbVcheB28eA8Gyh XA+PHRy Txk9QSCjmGmaUV7jcDEoWBc yYl2gXUP0OiAgOrDkVPriS6 QuDBIbefidzflymBF5FYXmA DUwaW47 Yw6ygQrlAi3kPFMfTMG5APN wkWSuJ3RhlS6tPpUzGEQfNG WaI5EjmLMnUKsoQ992YBhyU xW9AJPl ktRxO5RkOHKktTrrFmZ6e8B 6Ao0TmLlfbMLgCK3zMdWfVY t5K3JvVhm4PRRonZuuHP8pp GFkZGlu Ta5qgFhxqEbgTU3yIRTistf zz521YnMlq7xfNCJumDZbWG opVVN1E97mb7G9ONTjBOPbP PU7eGC6 sQ6xmSnwyhqhrSSjjYkgnzE jaWuiZGxpLUovS084NNFnjQ zxXcAGAwd1U6HuYww2NRLin SsuWI5x cKBtJJlhVd2cyTmmuYfeDN0 nRVNawezul731GpWlg4vbVL SubVKlLBxsHVA1S95kh0G9D CMwMDAw POA8yMF9nZ6tlUjbudfjwIF mdDsgdmVydGljYWwtYWxpZ2 62FLBulLgsIu7RNgw5M8SfP hg8BFFt zBebEW1tpEArPWvrGg4mwMc pkYitTR9mGRAxjbhyd778Bi Zzb3hyKSXvuVQfCXjzVTP5V 78ed5S5 BYEcXMVcWFA3wBS1qS8ggVd nbjogbGVmdDsgdmVydGljYW zfMCtqI237LRFzjMbcAcCjg WVyOjwv dGQ+QF29uw43O0QwLqdoHto 8DUGrVPI3pIQ7zE5wKBNoFR vlr5P9mSN6D0FeddYyny3gu 2xsYXBz ZTog (more content not included)... Normal [facility] Consent for Procedure/Surger yon 01-08-2022 Consent for Procedure/Surgery [id number] CD:[facility] IntraOperative Documentson 0 01-08-2022 IntraOperative Documents [id number] CD:[facility] Consent for Treatmenton -2 Consent for Treatment [id number] D:127 [facility] Main OR Intraoperative Recor don 01-06-2022 Main OR Intraoperative Record IntraOp Document Type FTURO Summary Primary Physician: Gerardo NORMNA MD Finalized Date/Time: 01/06/22 16:42:59 Pt. Name: MIKEL SOTO/Sex: 1940 Male Med Rec #: [id number] Physician: Gerardo NORMAN MD Financial #: [id number] Pt. Type: O Room/Bed: / Admit/Disch: 01/06/22 14:38:32 - Institution: Case Times FTURO Entry 1 Patient Times In Room 01/06/22 16:27:00 Out Room 01/06/22 16:41:00 Procedure Times Start 01/06/22 16:31:00 Stop 01/06/22 16:35:00 Anesthesia Times Last Modified By: Shanti Sethi RN 01/06/22 16:42:01 Case Attendance FTURO Entry 1 Entry 2 Entry 3 Case Attendee JARROD CLARK, Gerardo Ramirez SURVEILLANCE DIRECTOR, Farzana Pandey SURVEILLANCE DIRECTOR, Sade Jacobson Role Performed Surgeon - Primary Scrub - Primary Scrub - Primary Time In 01/06/22 16:27:00 01/06/22 16:27:00 01/06/22 16:27:00 Time Out 01/06/22 16:41:00 01/06/22 16:41:00 01/06/22 16:41:00 Procedure CYSTOSCOPY LOCAL(.) CYSTOSCOPY LOCAL(.) CYSTOSCOPY LOCAL(.) Comments ORIENTING PRECEPTING Last Modified By: Shanti Sethi RN, RN, Kimberly Y Barbee RN, Kimberly Y 01/06/22 16:42:02 01/06/22 16:42:02 01/06/22 16:42:02 Entry 4 Case Attendee Shanti Sethi RN Role Performed Community Service Organization Director - Primary Time In 01/06/22 16:27:00 Time Out 01/06/22 16:41:00 Procedure CYSTOSCOPY LOCAL(.) Comments Last Modified By: Shanti Sethi RN 01/06/22 16:42:02 Surgical Procedures FTURO Entry 1 Procedure Description Procedure CYSTOSCOPY LOCAL Modifiers . Surgeon Description CYSTOSCOPY LOCAL Primary Procedure Yes Primary Surgeon Gerardo NORMAN MD Start 01/06/22 16:31:00 Stop 01/06/22 16:35:00 Anesthesia Type Local Surgical Service Urology Wound Class 2 - Clean-Contaminated Last Modified By: Shanti Sethi RN 01/06/22 16:36:06 General Case Data FTURO Pre-Care Text: Classifies surgical wound, implements aseptic technique, initiates traffic control Entry 1 Case Information OR URO 1 FT Case Level None Wound Class 2 - Clean-Contaminated Specialty Urology Preop Diagnosis INCOMPLETE EMPTYING, Postop Same As Preop Yes NOCTURIA, FREQUENCY, BPH W/OBSTRUCTION Postop Diagnosis INCOMPLETE EMPTYING, Outcomes Met? Yes NOCTURIA, FREQUENCY, BPH W/OBSTRUCTION Last Modified By: Shanti Sethi RN 01/06/22 16:28:59 Post-Care Text: The patient is free from signs and symptoms of infection EU IntraOp - FTURO Pre-Care Text: Implements protective measures prior to operative or invasive procedure, confirms identity before the operative or invasive procedure, verifies operative procedure, surgical site, and laterality Entry 1 EU Perioperative Protocols Procedure(s) CYSTOSCOPY LOCAL(.) Patient Identity Birthday, ID Band Verified (select at Check, Patient least 2): Participation Consents / H and P HandP, Surgery/Procedure Operative Site N/A Verified Consent Marking Verified Surgical Site Yes Laterality Verified Yes Verified Procedure Verified Yes Correct Patient Yes Position Verified Availability Equipment, Medication Time Out JARROD CLARK, Gerardo Torres, Verified (If Participants Farzana Ramirez CST, Applicable) Sade Pandey CST, Shanti Sethi RN Time Out Complete 01/06/22 16:29:00 Allergies Reviewed? Yes Allergies Reviewed Self/Patient With Body Position Supine Prep Area PENIS Prep Agents Betadine Solution Skin. Condition Dry, Warm, Unable to Description UNABLE TO VISUALIZE DUE Visualize TO PATIENT PARTIALLY CLOTHED Additional None Specimens Collected Vitals - EU Blood Pressure 153/81 Pulse 89 bpm Respirations 16 br/min SPO2 EBL 0 IandO - EU Total Intake 0 mL Total Output 0 mL Outcomes Met? Yes Last Modified By: Shanti Sethi RN 01/06/22 16:30:31 Post-Care Text: The patient is free from signs and symptoms of injury caused by extraneous objects Sign Out FTURO Entry 1 Before Patient Leaves OR Nurse verbally Yes Nurse verbally Yes confirms with the confirms with the team the name of team that the procedure(s) instrument, sponge, recorded and needle counts are correct (or N/A) Nurse verbally n/a Nurse verbally Yes confirms with the confirms with the team how the team whether there specimen is labeled are any equipment (including patient problems to be name), if applicable addressed Sign Out Complete 01/06/22 16:35:00 Last Modified By: Shanti Sethi RN 01/06/22 16:35:59 Case Comments Finalized By: Shanti Sethi RN Document Signatures Signed By: Shanti Stehi RN 01/06/22 16:42 Normal [facility] Main OR Preoperative Recordo n 01-06-2022 Main OR Preoperative Record Holding Area Document Type FTURO Summary Primary Physician: Gerardo NORMAN MD Finalized Date/Time: 01/06/22 16:28:08 Pt. Name: MIKEL SOTO Kwadwo/Sex: 1940 Male Med Rec #: [id number] Physician: Gerardo NORMAN MD Financial #: [id number] Pt. Type: O Room/Bed: / Admit/Disch: 01/06/22 14:38:32 - Institution: Case Times Holding FTURO Pre-Care Text: Verifies consent for planned procedure, identifies individual values and wishes concerning care, includes family members in perioperative teaching Secures patient's records' belongings, and valuables, maintains patient's dignity and privacy, and maintains patient confidentiality Entry 1 In Holding 01/06/22 16:05:00 Outcomes Met? Yes Last Modified By: Ryan Burgess LPN 01/06/22 16:05:39 Post-Care Text: The patient participates in decisions affecting his or her perioperative plan of care The patient's right to privacy is maintained Surgery Checklist FTURO Entry 1 Patient Birthday, Patient Procedure History and Physical, Identification: Participation Verification: Surgical Consent, With Patient NPO after Midnight: n/a Personal Items: Cataract Lens Implant, Dentures, Jewelry Personal Items rings Complaints of Pain: No Comment: Skin Integrity Unable to Visualize Vitals - EU Blood Pressure 153/81 Pulse 89 bpm Respirations 16 br/min SPO2 RN Reviewed Yes Last Modified By: Shanti Sethi RN 01/06/22 16:28:07 Finalized By: Shanti Sethi RN Document Signatures Signed By: Ryan Burgess LPN 01/06/22 16:06 Shanti Sethi RN 01/06/22 16:28 Normal [facility] Operative Reporton Operative Report Patient: ZURI SOTO Age: 81 years Sex: Male : 1940 Associated Diagnoses: None Author: Gerardo NORMAN MD Procedure Operative Information Details: Date/ Time: 01/06/2022 16:43:00. Pre-Op Dx: BPH w/ LUTS - N40.1. Post-Op Dx: Same. Anesthesia Type: Local. Procedure: Local Cystoscopy. Complications: None. Risks/Benefits/Informed Consent: Surgical risks, benefits, details of the procedure have been explained to the patient, Full informed consent has been obtained. Intraoperative Information Prepped: Patient is brought back to the endoscopy suite, Patient is placed in supine position, Patient prepped in the usual fashion with Betadine solution, 2% Xylocaine Jelly is placed per Urethra, After waiting several minutes the Cystoscope is introduced. The Urethra is: Normal. The Prostatic Urethra is: Obstructed. The Bladder is: Trabeculated (Moderate (2), no b.t.). The ureteral orifices: Show efflux of clear urine. Devices Implanted: None. Removal: Cystoscope is removed, The patient tolerated it well. Postoperative Information Discharge: Patient is discharged home with antibiotic coverage, Follow up arranged. Normal [facility] Comment on above: Result Comment: Elec tronically Signed By: Gerardo NORMAN MD\.br\Date and Time Signed: 01/06/22 16:44 EDT Urology Office/Clinic Noteon 12-23-2021 Urology Office/Clinic Note Chief Complaint Pt is here for nocturia HPI Staff Mikel is a 81 y.o. male here for nocturia and weak stream. Pt previously seen KM. Previous Dx: BPH w/o urinary obstruction, nocturia. No urological procedures. Pt states he has been on Flomax 0.4mg 2 capsules at bed time for a while now and it is not working for him. Dysuria: denies Incomplete bladder emptying: denies Hematuria: denies Frequency: yes every 2 hours Urgency: denies Nocturia: 3-4x a night Stream: steady weak stream Leaking: denies Post void dripping: denies Wearing pads/ Depends: denies Urge incontinence: denies Stress incontinence: denies Incontinence without Sensory Awareness: denies Abdominal pain: denies Flank pain: denies Sexual complaints: _ History of Present Illness I have reviewed and verified the staff HPI to be accurate for this encounter. Review of Systems PHQ Score Initial Depression Screen Score: 0 ROS - Provider Constitutional: denies weight loss, denies hot flashes. Eyes: denies eye problems. Gastrointestinal: denies nausea, denies vomiting. Cardiovascular: denies chest pain or angina. Integumentary: no dryness Musculoskeletal: denies musculoskeletal symptoms. ENMT: denies otolaryngeal symptoms. Respiratory: no shortness of breath. Heme/Lymph: denies easy bleeding tendency, denies easy bruising tendency. Psychiatric: no confusion, no anxiety. Genitourinary: denies dysuria, denies hematuria, denies discharge, mild urinary frequency, denies urinary hesitancy, denies nocturia, denies incontinence, denies genital sores, denies decreased libido, and denies erectile dysfunction. Physical Exam Vitals & Measurements HR: 72(Peripheral) BP: 132/83 HT: 172 cm HT: 172.0 cm WT: 93 kg WT: 93.0 kg BMI: 31.44 General Appearance: alert, no distress, well nourished, well developed male. Flank Pain: none. Bladder: nonpalpable. Prostate: normal prostate, estimated weight 25 gms, no hard nodule observed. Assessment/Plan 1. BPH without urinary obstruction (N40.0: Benign prostatic hyperplasia without lower urinary tract symptoms) Patient c/o of weak stream. He is taking Tamsulosin 0.4mg (2 pills) at bedtime. He states the medication does not help him. He states urine just spurts, and he does not feel empty, denies infections. UA done today is negative. It has been this was for a 3-4 years at least. He states he has not had anything done on his prostate. PSA was done 03/24/21 1.7, Negative MARISABEL done today. Will plan Cystoscopy, and Urodynamics and possible TURP/Rezum after these procedures are completed. The risks and benefits for cystoscopy/ Urodynamics have been discussed. The risks include bleeding, infection, and irritation of the bladder and urinary channel, among others. The patient, after being informed of procedural details and after questions have been answered, wishes to proceed. Full informed consent has been obtained. Will order Local anesthesia. 2. Nocturia (R35.1: Nocturia) Mild 3-4 times per night. 3. Frequency of urination (R35.0: Frequency of micturition) Mild, q 2 hours I have reviewed the previous Health history record for this patient with Dr. Norman. Will schedule Cystoscopy and Urodynamics, then possible TURP/Rezum Follow-up With When Contact Information JARROD CLARK, Gerardo Torres, [facility] [address], [place] [id number] [phone] Additional Instructions: Plan Cystoscopy/Urodynamics testing Patient Education Calorie Counting for Weight Loss Urodynamic Testing Benign Prostatic Hyperplasia I, Mimi Aguayo, personally scribed for Dr. Norman on 12/08/2021 14:24:09. . Documentation recorded by the scribsylvia jacobson, accurately reflects the services(s) I performed and decisions made by me. Authenticated by Dr. Norman on 12/08/2021 14:25:32. Problem List/Past Medical History Ongoing Asthma BPH without urinary obstruction Chronic obstructive pulmonary disease Former smoker Hyperlipidemia Hypertension Nocturia Historical No qualifying data Procedure/Surgical History Appendectomy, Colonoscopy. Medications amlodipine, Oral, Daily aspirin 81 mg oral capsule, Oral Flomax 0.4 mg Cap, 0.8 mg= 2 cap(s), Oral, Daily lisinopril, Oral, Daily pravastatin, Oral, Daily Allergies Duricef (Unknown) Social History Alcohol - No Risk, 09/10/2021 Tobacco Former smoker, quit more than 30 days ago Tobacco Use:., 09/10/2021 Immunizations Vaccine Date Status SARS-CoV-2 (COVID-19) Ad26 vaccine 08/06/2021 Recorded influenza virus vaccine, inactivated 06/2021 Recorded SARS-CoV-2 (COVID-19) Ad26 vaccine 01/09/2021 Recorded SARS-CoV-2 (COVID-19) Ad26 vaccine 12/12/2020 Recorded Lab Results Test Name Test Result Date/Time PSA, External 1.7 ng/mL 03/24/2021 16:18 EDT Ambulatory Point of Care Results Bilirubin Urine Dipstick: Negative (12/08/21 13:51:00) Blood Urine Dipstick: (more content not included)... Normal [facility] Comment on above: Result Comment: Elec tronically Signed By: Mimi Aguayo\Date and Time Signed: 12/23/21 07:54 EDT Ambulatory Visit Summaryon 0 12-08-2021 Ambulatory Visit Summary MIKEL SOTO :1940 Visit Date:12/08/2021 Ambulatory Visit Instructions Your Diagnosis BPH without urinary obstruction Nocturia Frequency of urination Tests Performed Urnls Dip Stick Auto w/o Microscopy POC 39020 Your Care Team Attending Physician - Gerardo NORMAN MD Primary Care Physician - OCTAVIA TELLO DO This Is Your Medications List doxycycline (doxycycline hyclate 100 mg Cap) tamsulosin (Flomax 0.4 mg Cap) Contact prescribing physician if questions or concerns amlodipine aspirin (aspirin 81 mg oral capsule) lisinopril pravastatin Procedures Performed Appendectomy, Colonoscopy. Discharge Vitals Heart Rate (Peripheral) 72 Blood Pressure 132/83 Height 172 cm Height 172.0 cm Weight 93 kg Weight 93.0 kg BMI 31.44 What to do next You Need to Schedule the Following Appointments Follow Up with JARROD CLARK, GUERRERO Ulloa When: Why: Plan Cystoscopy/Urodynamics testing Where: [facility] [address], [place] [phone] Medications What How Much When Instructions New doxycycline (doxycycline hyclate 100 mg Cap) 1 Capsules By Mouth Every day Take 1 pill the day before the procedure and 1 pill after the procedure Pickup at [facility] Unchanged tamsulosin (Flomax 0.4 mg Cap) 2 Capsules By Mouth Every day Unchanged amlodipine By Mouth Every day Contact prescribing physician if questions or concerns Unchanged aspirin (aspirin 81 mg oral capsule) By Mouth Contact prescribing physician if questions or concerns Unchanged lisinopril By Mouth Every day Contact prescribing physician if questions or concerns Unchanged pravastatin By Mouth Every day Contact prescribing physician if questions or concerns Pharmacy Information [facility]: [address] [place], [place] [id number] [phone] Test Results Urnls Dip Stick Auto w/o Microscopy POC 85795 (12/08/2021) Bilirubin Urine Dipstick - Negative Blood Urine Dipstick - Negative Glucose Urine Dipstick - Negative Ketones Urine Dipstick - Negative Leukocytes Urine Dipstick - Negative Nitrite Urine Dipstick - Negative Protein Urine Dipstick - Trace Specific [place] Urine Dipstick - 1.020 Urine Appearance Urine Dipstick - Clear Urine Color Urine Dipstick - Yellow Urobilinogen Urine Dipstick - Normal 0.2-1 EU/dl pH Urine Dipstick - 6 Allergies Duricef (Unknown) Problems Ongoing - Any problem that you are currently receiving treatment for. Asthma BPH without urinary obstruction Chronic obstructive pulmonary disease Former smoker Hyperlipidemia Hypertension Nocturia Education Materials Calorie Counting for Weight Loss Calories are units of energy. Your body needs a certain amount of calories from food to keep you going throughout the day. When you eat more calories than your body needs, your body stores the extra calories as fat. When you eat fewer calories than your body needs, your body shafer fat to get the energy it needs. Calorie counting means keeping track of how many calories you eat and drink each day. Calorie counting can be helpful if you need to lose weight. If you make sure to eat fewer calories than your body needs, you should lose weight. Ask your health care provider what a healthy weight is for you. For calorie counting to work, you will need to eat the right number of calories in a day in order to lose a healthy amount of weight per week. A dietitian can help you determine how many calories you need in a day and will give you suggestions on how to reach your calorie goal. ? A healthy amount of weight to lose per week is usually 1?2 lb (0.5?0.9 kg). This usually means that your daily calorie intake should be reduced by 500?750 calories. ? Eating 1,200 ? 1,500 calories per day can help most women lose weight. ? Eating 1,500 ? 1,800 calories per day can help most men lose weight. What is my plan? My goal is to have calories per day. If I have this many calories per day, I should lose around pounds per week. What do I need to know about calorie counting? In order to meet your daily calorie goal, you will need to: ? Find out how many calories are in each food you would like to eat. Try to do this before you eat. ? Decide how much of the food you plan to eat. ? Write down what you ate and how many calories it had. Doing this is called keeping a food log. To successfully lose weight, it is important to balance calorie counting with a healthy lifestyle that includes regular activity. Aim for 150 minutes of moderate exercise (such as walking) or 75 minutes of vigorous exercise (such as running) each week. Where do I find calorie information? The number of calories in a food can be found on a Nutrition Facts label. If a food does not have a Nutrition Facts label, try to look up the calories online or ask your dietitian (more content not included)... Normal [facility] Patient Educationon 12-09-19 22 Patient Education Nutrition Calorie Counting for Weight Loss Calories are units of energy. Your body needs a certain amount of calories from food to keep you going throughout the day. When you eat more calories than your body needs, your body stores the extra calories as fat. When you eat fewer calories than your body needs, your body shafer fat to get the energy it needs. Calorie counting means keeping track of how many calories you eat and drink each day. Calorie counting can be helpful if you need to lose weight. If you make sure to eat fewer calories than your body needs, you should lose weight. Ask your health care provider what a healthy weight is for you. For calorie counting to work, you will need to eat the right number of calories in a day in order to lose a healthy amount of weight per week. A dietitian can help you determine how many calories you need in a day and will give you suggestions on how to reach your calorie goal. ? A healthy amount of weight to lose per week is usually 1?2 lb (0.5?0.9 kg). This usually means that your daily calorie intake should be reduced by 500?750 calories. ? Eating 1,200 ? 1,500 calories per day can help most women lose weight. ? Eating 1,500 ? 1,800 calories per day can help most men lose weight. What is my plan? My goal is to have calories per day. If I have this many calories per day, I should lose around pounds per week. What do I need to know about calorie counting? In order to meet your daily calorie goal, you will need to: ? Find out how many calories are in each food you would like to eat. Try to do this before you eat. ? Decide how much of the food you plan to eat. ? Write down what you ate and how many calories it had. Doing this is called keeping a food log. To successfully lose weight, it is important to balance calorie counting with a healthy lifestyle that includes regular activity. Aim for 150 minutes of moderate exercise (such as walking) or 75 minutes of vigorous exercise (such as running) each week. Where do I find calorie information? The number of calories in a food can be found on a Nutrition Facts label. If a food does not have a Nutrition Facts label, try to look up the calories online or ask your dietitian for help. Remember that calories are listed per serving. If you choose to have more than one serving of a food, you will have to multiply the calories per serving by the amount of servings you plan to eat. For example, the label on a package of bread might say that a serving size is 1 slice and that there are 90 calories in a serving. If you eat 1 slice, you will have eaten 90 calories. If you eat 2 slices, you will have eaten 180 calories. How do I keep a food log? Immediately after each meal, record the following information in your food log: ? What you ate. Don't forget to include toppings, sauces, and other extras on the food. ? How much you ate. This can be measured in cups, ounces, or number of items. ? How many calories each food and drink had. ? The total number of calories in the meal. Keep your food log near you, such as in a small notebook in your pocket, or use a mobile deena or website. Some programs will calculate calories for you and show you how many calories you have left for the day to meet your goal. What are some calorie counting tips? ? Use your calories on foods and drinks that will fill you up and not leave you hungry: ? Some examples of foods that fill you up are nuts and nut butters, vegetables, lean proteins, and high-fiber foods like whole grains. High-fiber foods are foods with more than 5 g fiber per serving. ? Drinks such as sodas, specialty coffee drinks, alcohol, and juices have a lot of calories, yet do not fill you up. ? Eat nutritious foods and avoid empty calories. Empty calories are calories you get from foods or beverages that do not have many vitamins or protein, such as candy, sweets, and soda. It is better to have a nutritious high-calorie food (such as an avocado) than a food with few nutrients (such as a bag of chips). ? Know how many calories are in the foods you eat most often. This will help you calculate calorie counts faster. ? Pay attention to calories in drinks. Low-calorie drinks include water and unsweetened drinks. ? Pay attention to nutrition labels for low fat or fat free foods. These foods sometimes have the same amount of calories or more calories than the full fat versions. They also often have added sugar, starch, or salt, to make up for flavor that was removed with the fat. ? Find a way of tracking calories that works for you. Get creative. Try different apps or programs if writing down calories does not work for you. What are some portion control tips? ? Know how many calories are in a serving. This will help you know how many servings of a certain food you can have. ? Use a measuring cup to measure serving sizes. You could (more content not included)... Normal [facility] XR Knee Complete Left*on XR Knee Complete Left* CLINICAL HISTORY: Left knee pain for 5 months, started around the patella. With decreased range of motion. No recent injury. COMPARISON: None. RESULT: No acute fracture. No dislocation. Tricompartment osteophytes. Severe medial compartment narrowing with subchondral sclerosis. Patellofemoral and lateral compartment joint spaces appear maintained. Chondrocalcinosis. Small to moderate joint effusion. Diffuse vascular calcifications. IMPRESSION: No acute osseous findings. Severe medial compartment osteoarthritis. Joint effusion. Chondrocalcinosis. Report reported and signed by Mayo Israel on 11/28/2021 1520 Normal [facility] News Reporter Formson 09-16-2021 Forms [id number] D:127 Normal [facility] Ambulatory Clinical Summaryo n 09-10-2021 Ambulatory Clinical Summary {[id number]}CD:[id number] Normal [facility] Patient Educationon 09-10-20 Patient Education Urology Benign Prostatic Hyperplasia Benign prostatic hyperplasia (BPH) is an enlarged prostate gland that is caused by the normal aging process and not by cancer. The prostate is a walnut-sized gland that is involved in the production of semen. It is located in front of the rectum and below the bladder. The bladder stores urine and the urethra is the tube that carries the urine out of the body. The prostate may get bigger as a man gets older. An enlarged prostate can press on the urethra. This can make it harder to pass urine. The build-up of urine in the bladder can cause infection. Back pressure and infection may progress to bladder damage and kidney (renal) failure. What are the causes? This condition is part of a normal aging process. However, not all men develop problems from this condition. If the prostate enlarges away from the urethra, urine flow will not be blocked. If it enlarges toward the urethra and compresses it, there will be problems passing urine. What increases the risk? This condition is more likely to develop in men over the age of 50 years. What are the signs or symptoms? Symptoms of this condition include: ? Getting up often during the night to urinate. ? Needing to urinate frequently during the day. ? Difficulty starting urine flow. ? Decrease in size and strength of your urine stream. ? Leaking (dribbling) after urinating. ? Inability to pass urine. This needs immediate treatment. ? Inability to completely empty your bladder. ? Pain when you pass urine. This is more common if there is also an infection. ? Urinary tract infection (UTI). How is this diagnosed? This condition is diagnosed based on your medical history, a physical exam, and your symptoms. Tests will also be done, such as: ? A post-void bladder scan. This measures any amount of urine that may remain in your bladder after you finish urinating. ? A digital rectal exam. In a rectal exam, your health care provider checks your prostate by putting a lubricated, gloved finger into your rectum to feel the back of your prostate gland. This exam detects the size of your gland and any abnormal lumps or growths. ? An exam of your urine (urinalysis). ? A prostate specific antigen (PSA) screening. This is a blood test used to screen for prostate cancer. ? An ultrasound. This test uses sound waves to electronically produce a picture of your prostate gland. Your health care provider may refer you to a specialist in kidney and prostate diseases (urologist). How is this treated? Once symptoms begin, your health care provider will monitor your condition (active surveillance or watchful waiting). Treatment for this condition will depend on the severity of your condition. Treatment may include: ? Observation and yearly exams. This may be the only treatment needed if your condition and symptoms are mild. ? Medicines to relieve your symptoms, including: ? Medicines to shrink the prostate. ? Medicines to relax the muscle of the prostate. ? Surgery in severe cases. Surgery may include: ? Prostatectomy. In this procedure, the prostate tissue is removed completely through an open incision or with a laparoscope or robotics. ? Transurethral resection of the prostate (TURP). In this procedure, a tool is inserted through the opening at the tip of the penis (urethra). It is used to cut away tissue of the inner core of the prostate. The pieces are removed through the same opening of the penis. This removes the blockage. ? Transurethral incision (TUIP). In this procedure, small cuts are made in the prostate. This lessens the prostate's pressure on the urethra. ? Transurethral microwave thermotherapy (TUMT). This procedure uses microwaves to create heat. The heat destroys and removes a small amount of prostate tissue. ? Transurethral needle ablation (TUNA). This procedure uses radio frequencies to destroy and remove a small amount of prostate tissue. ? Interstitial laser coagulation (ILC). This procedure uses a laser to destroy and remove a small amount of prostate tissue. ? Transurethral electrovaporization (TUVP). This procedure uses electrodes to destroy and remove a small amount of prostate tissue. ? Prostatic urethral lift. This procedure inserts an implant to push the lobes of the prostate away from the urethra. Follow these instructions at home: ? Take yolx-uur-tkqarrs and prescription medicines only as told by your health care provider. ? Monitor your symptoms for any changes. Contact your health care provider with any changes. ? Avoid drinking large amounts of liquid before going to bed or out in public. ? Avoid or reduce how much caffeine or alcohol you drink. ? Give yourself time when you urinate. ? Keep all follow-up visits as told by your health care provider. This is important. Contact a health care provider if: ? You have unexplained back pain. ? Your symptoms do not get better with treatment. ? You d (more content not included)... Normal [facility] Physician Referralon 021 Physician Referral [id number] D:127 Normal [facility] Urology Office/Clinic Noteon 09-10-2021 Urology Office/Clinic Note Chief Complaint New Pt. HPI Staff New Pt. here for nocturia and incomplete bladder emptying. Flomax 0.4mg 2 tabs at night. Pt. was taking Finasteride but no long taking. Pt. states he was on a bladder med but stop taking due to the feeling of urine restriction. Pt. not sure what the name of bladder med. PVR 48mL. Pain with urination:No Blood in urine:No Incomplete bladder emptying: Pt. states he dose not feel empty. Frequency:No Urgency:No Nocturia:3-4x's Hesitancy:No Stream:good stream Stream starts and stops:No Post-void dribbling:Occasionally Leaking before getting to the restroom:No Urinary incontinence without sensory awareness:No Temporarily unable to restrain urination with body movement:No Wearing pad/Depends:No Flank/Back pain:No Abdominal pain:No History of Present Illness reviewed [facility]. [facility] Reviewed [employer] papers. There have been no associated fever, chills, flank pain or blood in the urine. Review of Systems ROS - Provider Constitutional: denies weight loss, denies hot flashes. Eyes: denies eye problems. Gastrointestinal: denies nausea, denies vomiting. Cardiovascular: denies chest pain or angina. Integumentary: no dryness Musculoskeletal: denies musculoskeletal symptoms. ENMT: denies otolaryngeal symptoms. Respiratory: no shortness of breath. Heme/Lymph: denies easy bleeding tendency, denies easy bruising tendency. Psychiatric: no confusion, no anxiety. Genitourinary: see HPI Physical Exam Vitals & Measurements HT: 172.0 cm HT: 172 cm WT: 93.0 kg WT: 93 kg BMI: 31.44 General Appearance: alert, no distress, well nourished, well developed male. Head: normocephalic . Eyes: normal orbit and globe. ENMT: normal examination of external ears. Chest: Lungs CTA, respirations non labored. Cardiovascular: regular rate and rhythm. 1+ BL pitting edema on lower extremities Abdomen: soft, non distended, no tenderness, Obese Flank Pain: none. Bladder: nonpalpable. Lymph Nodes: unremarkable palpation of the cervical area. Skin: warm, dry, no bruising. Psychiatric: cooperative, affect appropriate for age, normal judgement, euthymic mood. Assessment/Plan 1. BPH without urinary obstruction (N40.0: Benign prostatic hyperplasia without lower urinary tract symptoms) Pt is currently taking Tamsulosin and Trospium with no relief. Pt has tried Finasteride 5mg in the past with no relief. He has D/C the trospium, and Finasteride. At this time pt is only taking Tamsulosin 0.4mg BID therapy. Most recent PSA was done 03/24/21 and was at 1.7. Pt is having a decent stream with no incontinence issues. Was discussed with pt that he can try using the Tamsulosin in the morning to see if his nocturia improves. PVR 48ml. Main issue is nocturia, minimal daytime issues. Discussed proceeding with cystoscopy and US to eval prostate size to determine outlet procedure possibility. May benefit from UDS as well. Will hold off and cont conservative/medical mgmt 2. Nocturia (R35.1: Nocturia) moderate sx 3-4x a night. Pt states he tries to cut drinking off a couple hours before he goes to bed - improved last night only 1-2x. Discussed keeping a Voiding Diary for 1-2 days to evaluate polyuria. Discussed etiology for nocturia including CHF, GIL, hormonal imbalance and behavioral habits. Denies DM. -Voiding diary to eval nocturnal polyuria - He is to put legs up at night and wear compression socks during the day. -Recommend f/u PCP for eval sleep apnea and CHF or other contributing cardiac issues. Not taking lasix now but had while hospitalized in the past -Try tamsulosin in AM. Go back to evening if having side effects -Limit fluid before bed -Timed voiding during the day I have reviewed the previous health record information and history for this patient from external provider Total time spent preparing the chart, conducting of the encounter with the patient and family and time spent documenting, reviewing, and ordering tests was 45 minutes Follow-up With When Contact Information Say CLARK, Caprice Fuller, URL, URO In 2 months 11/11/[address] [place] [address] [place] [address] Additional Instructions: Go over voiding Diary Patient Education Benign Prostatic Hyperplasia I, Ingrid Jarvis, personally scribed for Dr. Deal on 09/10/2021 11:26:09. . Documentation recorded by the scribe, Ingrid Jarvis, accurately reflects the services(s) I performed and decisions made by me. Authenticated by Dr. Deal on 09/10/2021 13:24:00. Problem List/Past Medical History Ongoing Asthma BPH without urinary obstruction Chronic obstructive pulmonary disease Former smoker Hyperlipidemia Hypertension Nocturia Historical No qualifying data Procedure/Surgical History Appendectomy, Colonoscopy. Medications amlodipine, Oral, Daily aspirin 81 mg oral capsule, Oral Flomax 0.4 mg Cap, 0.8 mg= 2 cap(s), Oral, (more content not included)... Normal [facility] Comment on above: Result Comment: Elec tronically Signed By: Caprice Deal MD\.br\Date and Time Signed: 09/10/21 13:24 EST\.br\Electronically Co-Signed By: Ingrid Jarvis MA\.br\Date and Time Co-Signed: 09/10/21 11:26 EST CBC AUTO DIFFon 01-01-2021 BASO # 0.0 103/ul Normal 0.0-0.[address] [facility] Comment on above: Performed By: #### C BC ####[facility] Gwahx[address] [place] Basophils/100 WBC (Bld) 0.1 % Critically low 0.2-2.[address] [facility] Comment on above: Performed By: #### C BC ####[facility] Uxxyjhbiav[address] [place], [place] [address]Tfnpcl Nasra EO # 0.4 103/ul Normal 0.0-0.[address] [facility] Comment on above: Performed By: #### C BC ####[facility] Vzuwerevhz0341 [place], [place] [address]Zmjahh Nasra Eosinophils/100 WBC (Bld) 2.3 % Normal 0.9-7.[address] [facility] Comment on above: Performed By: #### C BC ####[facility] [address] [place] [address]Ryraoq Nasra Erythrocyte distribution width (RBC) [Ratio] 14.6 % Normal 11.0-15.[address] [facility] Comment on above: Performed By: #### C BC ####[facility] [address] [place] [address]Tnmrca Nasra Hematocrit (Bld) [Volume fraction] 32.4 % Critically low 42.0-54.[address] [facility] Comment on above: Performed By: #### C BC ####[facility] [address] [place], [place] [id number] Nasra Hemoglobin (Bld) [Mass/Vol] 9.9 g/dL Critically low 14.0-18.[address] [facility] Comment on above: Performed By: #### C BC ####[facility] [address] [place] [address]Cnjyic Nasra IG # 0.30 10e3/ul Critically high 0.00-0.03 [facility] Comment on above: Performed By: #### C BC ####[facility] [address] [place], [place] [address]Gerken Nasra IG % 1.7 % Critically high 0.0-0.5 [facility] Comment on above: Performed By: #### C BC ####[facility] [address] [place] [address]Fcwfar Nasra LYMPH # 1.2 103/ul Normal 1.2-3.[address] [facility] Comment on above: Performed By: #### C BC ####[facility] [address] [place], [place] [address]Gerken Nasra Lymphocytes/100 WBC (Bld) 6.9 % Critically low 20.5-60.[address] [facility] Comment on above: Performed By: #### C BC ####[facility] Komfb[address]ywk9780 [place], [place] [address]Bkofin Nasra MANUAL DIFF REQ NO Normal [facility] Comment on above: Performed By: #### C BC ####[facility] [address]8632 [place] [id number] Hammonds MCH (RBC) [Entitic mass] 27.6 pg Normal 25.9-34.[address] [facility] Comment on above: Performed By: #### C BC ####[facility] [address]rzzcb[address]uy3228 [place] [id number] Nasra MCHC (RBC) [Mass/Vol] 30.6 g/dL Normal 29.9-35.[address] [facility] Comment on above: Performed By: #### C BC ####[facility] [address] [place], [place] [address]Gerken Nasra MCV (RBC) [Entitic vol] 90.3 fL Normal 80.0-94.[address] [facility] Comment on above: Performed By: #### C BC ####[facility] [address]wovjm[address] [place], [place] [address]Gerken Nasra MONO # 1.1 103/ul Critically high 0.3-0.8 The [facility] Comment on above: Performed By: #### C BC ####[facility] [address] [place], [place] [address]Gerken Nasra Monocytes/100 WBC (Bld) 6.2 % Normal 1.7-12.[address] [facility] Comment on above: Performed By: #### C BC ####[facility] [address] [place], [place] [address]Gerken Nasra NEUT # 14.6 103/ul Critically high 1.4-6.5 The [facility] Comment on above: Performed By: #### C BC ####[facility] Dcntwehkxc[address] [place], [place] [address]Gerken Nasra Neutrophils/100 WBC (Bld) 82.8 % Critically high 43.0-75.[address] [facility] Comment on above: Performed By: #### C BC ####[facility] Cf[address]fsqzjy5[address] [place], [place] [address]Gsacwx Karen Platelet mean volume (Bld) [Entitic vol] 9.4 fL Critically low 9.5-13.[address] [facility] Comment on above: Performed By: #### C BC ####[facility] [address]fg[address] [place], [place] [address]Shkvft Nasra PLT 385 103/ul Normal 150-[address] [facility] Comment on above: Performed By: #### C BC ####[facility] Otnrggzoqu4616 [place] [id number] Nasra RBC 3.59 106/ul Critically low 4.70-6.10 [facility] Comment on above: Performed By: #### C BC ####[facility] Qrvtoxupno[address] [place], [place] [address]Gerken Nasra WBC 17.7 103/ul Critically high 4.0-11.0 The [facility] Comment on above: Performed By: #### C BC ####[facility] Ab[address]sh[address] [place], [place] [address]Gerken Nasra PROF CHEM 8 (BAS METB)on Anion gap [Moles/Vol] 7.0 mmol/L Normal Comment on above: Performed By: #### B MP ####[facility] [address] [place] [address]Patqwu Nasra Calcium [Mass/Vol] 8.7 mg/dL Normal 8.4-10.2 The [facility] Comment on above: Performed By: #### B MP ####[facility] [address] [place], [place] [address]Bhioxl Nasra Chloride [Moles/Vol] 105 mmol/L Normal 98-[address] [facility] Comment on above: Performed By: #### B MP ####[facility] Xghrgnnvqw7293 [place] [address]Gerken Nasra CO2 [Moles/Vol] 32.0 mmol/L Critically high 22.0-30.[address] [facility] Comment on above: Performed By: #### B MP ####[facility] Att[address]oddwty7367 [place], [place] [address]Isnmok Nasra Creatinine [Mass/Vol] 0.69 mg/dL Normal 0.66-1.25 Comment on above: Performed By: #### B MP ####[facility] [address]knbvspb6267 [place], [place] [address]Zoglzm Nas[place] EGFR-AF ERITREAN >60 Normal >=60 [facility] Comment on above: Performed By: #### B MP ####[facility] [address] [place], [place] [address]Rfsqba Nas[place] EGFR-NON AF ERITREAN >60 Normal >=60 Comment on above: Performed By: #### B MP ####[facility] [address] [place] [address]Gchtte Nasra Glucose [Mass/Vol] 116 mg/dL Critically high 74-106 [facility] Comment on above: Performed By: #### B MP ####[facility] [address]ix[address]zio[address] [place], [place] [address]Gerken Nasra Potassium [Moles/Vol] 4.0 mmol/L Normal 3.4-5.0 Comment on above: Performed By: #### B MP ####[facility] [address] [place] [address]Hzfexl Nas[place] Sodium [Moles/Vol] 140 mmol/L Normal 137-145 [place] Comment on above: Performed By: #### B MP ####[facility] [address] [place] [address]Vcppmf Nas[place] Urea nitrogen [Mass/Vol] 8.0 mg/dL Critically low 9.0-20.0 Comment on above: Performed By: #### B MP ####[facility] F[address]pndniis[address] [place], [place] [address]Gerken Nasra Urea nitrogen/Creatinin e [Mass ratio] 11.6 mg/mg Normal Comment on above: Performed By: #### B MP ####[facility] [address] [place] [address]Vdhdyy Nasra CBC AUTO DIFFon 12-31-2020 BASO # 0.0 103/ul Normal 0.0-0.1 Comment on above: Performed By: #### C BC ####[facility] [address] [place] [address]Gerken Nasra Basophils/100 WBC (Bld) 0.2 % Normal 0.2-2.0 Comment on above: Performed By: #### C BC ####[facility] [address] [place], [place] [address]Gerken Nasra EO # 0.4 103/ul Normal 0.0-0.[address] [facility] Comment on above: Performed By: #### C BC ####[facility] K[address]xx[address]pnc[address] [place], [place] [address]Gerken Nasra Eosinophils/100 WBC (Bld) 2.1 % Normal 0.9-7.0 Comment on above: Performed By: #### C BC ####[facility] [address] [place] [address] [place] Erythrocyte distribution width (RBC) [Ratio] 14.8 % Normal 11.0-15.0 Comment on above: Performed By: #### C BC ####[facility] [address]ce[address]wuemi[address] [place], [place] [address]Gerken Nasra Hematocrit (Bld) [Volume fraction] 30.6 % Critically low 42.0-54.0 Comment on above: Performed By: #### C BC ####[facility] [address]whijboh[address] [place], [place] [address]Gerken Nasra Hemoglobin (Bld) [Mass/Vol] 9.6 g/dL Critically low 14.0-18.0 Comment on above: Performed By: #### C BC ####[facility] [address] [place] [address] Nas[place] IG # 0.67 10e3/ul Critically high 0.00-0.03 [facility] Comment on above: Performed By: #### C BC ####[facility] [address]fkmoscbaj[address] [place], [place] [address]Gerken Nasra IG % 3.4 % Critically high 0.0-0.5 [facility] Comment on above: Performed By: #### C BC ####[facility] [address] [place] [address] [place] LYMPH # 1.2 103/ul Normal 1.2-3.[address] [facility] Comment on above: Performed By: #### C BC ####[facility] [address] [place] [address] [place] Lymphocytes/100 WBC (Bld) 6.0 % Critically low 20.5-60.0 Comment on above: Performed By: #### C BC ####[facility] [address] [place] [address] Nas[place] MANUAL DIFF REQ NO Normal [facility] Comment on above: Performed By: #### C BC ####[facility] [address] [place] [address] Nas[place] MCH (RBC) [Entitic mass] 28.2 pg Normal 25.9-34.0 Comment on above: Performed By: #### C BC ####[facility] [address] [place] [address] Nas[place] MCHC (RBC) [Mass/Vol] 31.4 g/dL Normal 29.9-35.[address] [facility] Comment on above: Performed By: #### C BC ####[facility] [address]rm[address] [place] [address] Nas[place] MCV (RBC) [Entitic vol] 90.0 fL Normal 80.0-94.[address] [facility] Comment on above: Performed By: #### C BC ####[facility] [address] [place] [address] Nas[place] MONO # 1.0 103/ul Critically high 0.3-0.8 The [facility] Comment on above: Performed By: #### C BC ####[facility] [address] [place] [address] Nas[place] Monocytes/100 WBC (Bld) 5.1 % Normal 1.7-12.[address] [facility] Comment on above: Performed By: #### C BC ####[facility] [address]vch[address] [place] [address]Desmond Hammonds NEUT # 16.3 103/ul Critically high 1.4-6.5 The [facility] Comment on above: Performed By: #### C BC ####[facility] [address] [place] [address]Desmond Hammonds Neutrophils/100 WBC (Bld) 83.2 % Critically high 43.0-75.[address] [facility] Comment on above: Performed By: #### C BC ####[facility] [address]we[address] [place] [address]Desmond Hammonds Platelet mean volume (Bld) [Entitic vol] 9.4 fL Critically low 9.5-13.[address] [facility] Comment on above: Performed By: #### C BC ####[facility] [address]ewi[address]147 [place] [address]Desmond Hammonds PLT 372 103/ul Normal 150-[address] [facility] Comment on above: Performed By: #### C BC ####[facility] [address]xt[address]toq2545 [place] [id number] Hammonds RBC 3.40 106/ul Critically low 4.70-6.10 [facility] Comment on above: Performed By: #### C BC ####[facility] [address]ioofmih6610 [place] [id number] Hammonds WBC 19.6 103/ul Critically high 4.0-11.0 [facility] Comment on above: Performed By: #### C BC ####[facility] [address]lvp5472 [place] [address]Desmond Hammonds PROF CHEM 8 (BAS METB)on Anion gap [Moles/Vol] 6.3 mmol/L Normal Comment on above: Performed By: #### B MP #### [facility] [address] [place], [place] [address] Desmond Hammonds Calcium [Mass/Vol] 8.4 mg/dL Normal 8.4-10.2 [facility] Comment on above: Performed By: #### B MP #### [facility] [address] [place] [address] Desmond Nasra Chloride [Moles/Vol] 106 mmol/L Normal 98-107 Comment on above: Performed By: #### B MP #### [facility] [address] [place] [address] Desmond Nasra CO2 [Moles/Vol] 31.4 mmol/L Critically high 22.0-30.0 Comment on above: Performed By: #### B MP #### [facility] [address] [place] [address] Desmond Nasra Creatinine [Mass/Vol] 0.77 mg/dL Normal 0.66-1.25 Comment on above: Performed By: #### B MP #### [facility] [address] [place] [address] Desmond Nasra EGFR-AF ERITREAN >60 Normal >=60 [facility] Comment on above: Performed By: #### B MP #### [facility] [address] [place] [address] Desmond Nasra EGFR-NON AF ERITREAN >60 Normal >=[address] [facility] Comment on above: Performed By: #### B MP #### [facility] [address] [place] [address] Desmond Nasra Glucose [Mass/Vol] 136 mg/dL Critically high 74-106 [facility] Comment on above: Performed By: #### B MP #### [facility] [address] [place] [address] Desmond Nasra Potassium [Moles/Vol] 3.7 mmol/L Normal 3.4-5.[address] [facility] Comment on above: Performed By: #### B MP #### [facility] [address] [place] [address] Desmond Nasra Sodium [Moles/Vol] 140 mmol/L Normal 137-145 [facility] Comment on above: Performed By: #### B MP #### [facility] [address] [place], [place] [address] Desmond Nasra Urea nitrogen [Mass/Vol] 10.0 mg/dL Normal 9.0-20.0 Comment on above: Performed By: #### B MP #### [facility] [address] [place], [place] [address] Desmond Nasra Urea nitrogen/Creatinin e [Mass ratio] 13.0 mg/mg Normal [facility] Comment on above: Performed By: #### B MP #### [facility] [address] [place] [id number] Desmond Nasra XR CHEST DECUB ONLYon 2020 XR CHEST DECUB ONLY EXAM: XR CHEST DECUB ONLY 12/30/2020 11:20 PM EDT OH001 CLINICAL STATEMENT: Pleural effusion COMPARISON: 12/30/2020 TECHNIQUE: Left lateral single AP radiograph of the chest is submitted. FINDINGS: There is no acute airspace disease. Elevated left hemidiaphragm. The cardiac silhouette is normal. The costophrenic recesses are sharp. No pneumothorax. The bony elements are unremarkable. IMPRESSION: No acute cardiopulmonary process. Elevated left hemidiaphragm. FOLLOW-UP: Follow-up as clinically indicated. Electronically authenticated by: RODY DUCKWORTH Date: 2020-12-31 06:[address] [facility] CBC W MANUAL DIFFon 12-31-19 21 ATYPICAL LYMPH # 0.24 103/ul Normal [facility] Comment on above: Performed By: #### B MP #### [facility] [address] [place] [id number] Desmond Nasra ATYPICAL LYMPH % 1 % Normal [facility] Comment on above: Performed By: #### B MP #### [facility] [address] [place], [place] [address] Desmond Nasra BAND # 0.2 103/ul Normal 0.0-0.[address] [facility] Comment on above: Performed By: #### B MP #### [facility] [address] [place] [address] Desmond Nasra BAND % 1 % Normal 0-[address] [facility] Comment on above: Performed By: #### B MP #### [facility] [address] [place] [address] Desmond Nasra BASOM # 0.00 103/ul Normal 0.00-0.[address] [facility] Comment on above: Performed By: #### B MP #### [facility] [address] [place] [address] Desmond Nasra BASOM % 0.0 % Critically low 0.2-2.0 The [facility] Comment on above: Performed By: #### B MP #### [facility] [address] [place] [address] Desmond Nasra BLAST # Normal [facility] Comment on above: Performed By: #### B MP #### [facility] [address] [place] [address] Desmond Nasra BLAST % Normal [facility] Comment on above: Performed By: #### B MP #### [facility] [address] [place] [address] Desmond Nasra CORRECTED WBC Normal 4.0-11.0 [facility] Comment on above: Performed By: #### B MP #### [facility] [address] [place] [address] Desmond Nasra EOS # 0.24 103/ul Normal 0.00-0.[address] [facility] Comment on above: Performed By: #### B MP #### [facility] [address] [place] [address] Desmond Nasra EOS% 1.0 % Normal 0.9-7.[address] [facility] Comment on above: Performed By: #### B MP #### [facility] [address] [place] [address] Desmond Nasra HCT 34.4 % Critically low 42.0-54.0 [facility] Comment on above: Performed By: #### B MP #### [facility] [address] [place] [address] Desmond Nasra HGB 10.6 g/dl Critically low 14.0-18.0 [facility] Comment on above: Performed By: #### B MP #### [facility] [address] [place] [address] Desmond Nasra LYMPHM # 1.47 103/ul Normal 1.20-3.[address] [facility] Comment on above: Performed By: #### B MP #### [facility] [address] [place], [place] [address] Desmond Nasra LYMPHM% 6.0 % Critically low 20.5-60.0 [facility] Comment on above: Performed By: #### B MP #### [facility] [address] [place] [address] Desmond Nasra MCH 27.5 pg Normal 25.9-34.[address] [facility] Comment on above: Performed By: #### B MP #### [facility] [address] [place] [address] Desmond Nasra MCHC 30.8 g/dl Normal 29.9-35.[address] [facility] Comment on above: Performed By: #### B MP #### [facility] [address] [place] [address] Desmond Nasra MCV 89.1 fL Normal 80.0-94.[address] [facility] Comment on above: Performed By: #### B MP #### [facility] [address] [place] [address] Desmond Nasra METAMYELOCYTE # Normal [facility] Comment on above: Performed By: #### B MP #### [facility] [address] [place], [place] [id number] Desmond Nasra METAMYELOCYTE % Normal [facility] Comment on above: Performed By: #### B MP #### [facility] [address] [place], [place] [address] Desmond Nasra MONOM# 1.72 103/ul Critically high 0.30-0.80 [facility] Comment on above: Performed By: #### B MP #### [facility] [address] [place] [address] Desmond Nasra MONOM% 7.0 % Normal 1.7-12.0 Comment on above: Performed By: #### B MP #### [facility] [address] [place] [address] Desmondraúl Mathiasen MPV 9.3 fL Critically low 9.5-13.5 The [facility] Comment on above: Performed By: #### B MP #### [facility] [address] [place] [address] Desmondraúl Mathiasen MYELOCYTE # Normal Comment on above: Performed By: #### B MP #### [facility] [address] [place] [address] Desmondraúl Mathiasen MYELOCYTE % Normal [facility] Comment on above: Performed By: #### B MP #### [facility] [address] [place] [address] Desmond Nasra NRBC Normal [facility] Comment on above: Performed By: #### B MP #### [facility] [address] [place] [address] Desmodn Nasra PLT 364 103/ul Normal 150-[address] [facility] Comment on above: Performed By: #### B MP #### [facility] [address] [place] [address] Desmond Nasra RBC 3.86 106/ul Critically low 4.70-6.10 [facility] Comment on above: Performed By: #### B MP #### [facility] [address] [place] [address] Desmond Mathiasen RDW 14.8 % Normal 11.0-15.[address] [facility] Comment on above: Performed By: #### B MP #### [facility] [address] [place] [address] Desmond Nasra SEG # 20.58 103/ul Critically high 1.40-6.50 The [facility] Comment on above: Performed By: #### B MP #### [facility] [address] [place] [address] Desmond Nasra SEG % 84.0 % Critically high 43.0-75.0 [facility] Comment on above: Performed By: #### B MP #### [facility] [address] [place] [address] Desmond Nasra WBC 24.5 103/ul Critically high 4.0-11.0 [facility] Comment on above: Performed By: #### B MP #### [facility] [address] [place], [place] [id number] Desmond Nasra PROF CHEM 8 (BAS METB)on Anion gap [Moles/Vol] 10.6 mmol/L Normal Comment on above: Performed By: #### B MP #### [facility] [address] [place] [address] Desmond Nasra Calcium [Mass/Vol] 8.6 mg/dL Normal 8.4-10.2 [place] Comment on above: Performed By: #### B MP #### [facility] [address] [place] [address] Desmond Nasra Chloride [Moles/Vol] 106 mmol/L Normal 98-107 Comment on above: Performed By: #### B MP #### [facility] [address] [place] [address] Desmond Nasra CO2 [Moles/Vol] 28.1 mmol/L Normal 22.0-30.0 [facility] Comment on above: Performed By: #### B MP #### [facility] [address] [place] [address] Desmond Nasra Creatinine [Mass/Vol] 0.87 mg/dL Normal 0.66-1.25 Comment on above: Performed By: #### B MP #### [facility] [address] [place] [address] Desmond Nasra EGFR-AF ERITREAN >60 Normal >=60 [facility] Comment on above: Performed By: #### B MP #### [facility] [address] [place], [place] [id number] Desmond Nasra EGFR-NON AF ERITREAN >60 Normal >=60 Comment on above: Performed By: #### B MP #### [facility] [address] [place] [address] Desmond Nasra Glucose [Mass/Vol] 135 mg/dL Critically high 74-106 [facility] Comment on above: Performed By: #### B MP #### [facility] [address] [place], [place] [address] Desmond Nasra Potassium [Moles/Vol] 3.7 mmol/L Normal 3.4-5.0 Comment on above: Performed By: #### B MP #### [facility] [address] [place], [place] [address] Desmond Nasra Sodium [Moles/Vol] 141 mmol/L Normal 137-145 [place] Comment on above: Performed By: #### B MP #### [facility] [address] [place], [place] [address] Desmond Nasra Urea nitrogen [Mass/Vol] 10.0 mg/dL Normal 9.0-20.0 Comment on above: Performed By: #### B MP #### [facility] [address] [place], [place] [address] Desmond Nasra Urea nitrogen/Creatinin e [Mass ratio] 11.5 mg/mg Normal Comment on above: Performed By: #### B MP #### [facility] [address] [place], [place] [address] Desmond Nasra XR CHEST 2 Von 12-30-2020 XR CHEST 2 V EXAM: XR CHEST 2 V HISTORY: SHORTNESS OF BREATH COMPARISON: 12/28/2020 TECHNIQUE: PA and lateral FINDINGS: LUNGS: Mild bibasilar opacities, slightly increased from the exam 2 days ago. The upper lung zones are clear. VASCULATURE: No increased pulmonary vasculature. PLEURA: No pneumothorax, effusion, or pleural thickening. CARDIAC: No cardiomegaly or cardiac silhouette abnormality. MEDIASTINUM: No visible mass or adenopathy. Aorta atherosclerosis BONES: Degenerative spondylosis. OTHER: Negative. IMPRESSION: Slight interval progression of mild bibasilar infiltrates Electronically authenticated by: MAUREEN RODGERS Date: 2020-12-30 08:[address] [facility] CBC W MANUAL DIFFon 12-30-19 21 ATYPICAL LYMPH # Normal [facility] Comment on above: Performed By: #### C BCMAN ####[facility] [address] [place], [place] [address]Xrkcwf Nasra ATYPICAL LYMPH % Normal [facility] Comment on above: Performed By: #### C SWATHI ####[facility] [address]jt[address] [place] [id number] Nasra BAND # Normal 0.0-0.[address] [facility] Comment on above: Performed By: #### C SWATHI ####[facility] Hgwgcvghmv4412 [place], [place] [address]Bwvont Nasra BAND % Normal 0-[address] [facility] Comment on above: Performed By: #### C SWATHI ####[facility] [address] [place], [place] [address]Gerken Nasra BASOM # 0.00 103/ul Normal 0.00-0.[address] [facility] Comment on above: Performed By: #### C SWATHI ####[facility] [address] [place] [address] Nasra BASOM % 0.0 % Critically low 0.2-2.0 The [facility] Comment on above: Performed By: #### Rebel ECHEVARRIA ####[facility] [address] [place], [place] [address]Gerken Nasra BLAST # Normal [facility] Comment on above: Performed By: #### Rebel ECHEVARRIA ####[facility] [address] [place], [place] [address]Gerken Nasra BLAST % Normal [facility] Comment on above: Performed By: #### Rebel ECHEVARRIA ####[facility] [address] [place] [address] Nasra CORRECTED WBC Normal 4.0-11.0 The [facility] Comment on above: Performed By: #### Rebel ECHEVARRIA ####[facility] [address]irlo[address] [place] [phone] Nasra EOS # 0.44 103/ul Normal 0.00-0.[address] [facility] Comment on above: Performed By: #### C SWATHI ####[facility] [address] [place] [address] Nasra EOS% 2.0 % Normal 0.9-7.[address] [facility] Comment on above: Performed By: #### Rebel ECHEVARRIA ####[facility] K[address]ubtcmo5180 [place], [place] [address]Iuimnx Nasra HCT 33.9 % Critically low 42.0-54.0 [facility] Comment on above: Performed By: #### Rebel ECHEVARRIA ####[facility] Tmqsfaexmi38[address] [place], [place] [address]Qjdcun Nasra HGB 10.4 g/dl Critically low 14.0-18.0 The [facility] Comment on above: Performed By: #### Rebel ECHEVARRIA ####[facility] Rgexqkcppw4728 [place] [id number] Nasra LYMPHM # 2.42 103/ul Normal 1.20-3.[address] [facility] Comment on above: Performed By: #### Rebel ECHEVARRIA ####[facility] Aitdueaoqn5321 [place] [id number] Nasra LYMPHM% 11.0 % Critically low 20.5-60.0 The [facility] Comment on above: Performed By: #### Rebel ECHEVARRIA ####[facility] [address]takjh[address]udg2816 [place] [phone] Nasra MCH 27.9 pg Normal 25.9-34.[address] [facility] Comment on above: Performed By: #### Rebel ECHEVARRIA ####[facility] Juctbmglch7004 [place] [phone] Nasra MCHC 30.7 g/dl Normal 29.9-35.[address] [facility] Comment on above: Performed By: #### Rebel ECHEVARRIA ####[facility] [address]ecil8[address] [place], [place] [address]Oyatod Nasra MCV 90.9 fL Normal 80.0-94.[address] [facility] Comment on above: Performed By: #### Rebel ECHEVARRIA ####[facility] Azmsksnjfc9337 [place] [phone] Nasra METAMYELOCYTE # Normal The [facility] Comment on above: Performed By: #### Rebel ECHEVARRIA ####[facility] Imeslqguwv4510 [place] [phone] Nasra METAMYELOCYTE % Normal The [facility] Comment on above: Performed By: #### Rebel ECHEVARRIA ####[facility] Vxvihzrbkc5558 [place] [phone] Nasra MONOM# 0.44 103/ul Normal 0.30-0.80 Comment on above: Performed By: #### Rebel ECHEVARRIA ####[facility] Fdnkgpdcza6564 [place] [phone] Nasra MONOM% 2.0 % Normal 1.7-12.0 Comment on above: Performed By: #### C SWATHI ####[facility] Hlmfpnighw8936 [place] [phone] Nasra MPV 9.4 fL Critically low 9.5-13.5 [facility] Comment on above: Performed By: #### Rebel ECHEVARRIA ####[facility] Lrsleekzzc6145 [place] [phone] Nasra MYELOCYTE # Normal Comment on above: Performed By: #### Rebel ECHEVARRIA ####[facility] Y[address]lbgtwi[address] [place], [place] [address]Xcrxot Nasra MYELOCYTE % Normal [facility] Comment on above: Performed By: #### Rebel ECHEVARRIA ####[facility] Lccdpfxovl60[address] [place], [place] [address]Tucktk Nasra NRBC Normal [facility] Comment on above: Performed By: #### Rebel ECHEVARRIA ####[facility] Qhxzklxypo4154 [place], [place] [address]Ixtbba Nasra PLT 330 103/ul Normal 150-[address] [facility] Comment on above: Performed By: #### Rebel ECHEVARRIA ####[facility] Jzzakyxprv5166 [place] [phone] Nasra RBC 3.73 106/ul Critically low 4.70-6.10 The [facility] Comment on above: Performed By: #### Rebel ECHEVARRIA ####[facility] Umfyhfkwgz2221 [place] [phone] Nasra RDW 15.0 % Normal 11.0-15.0 The [facility] Comment on above: Performed By: #### C SWATHI ####[facility] Yauezsinxv8616 [place], [place] [address]Lpkhno Nasra SEG # 18.70 103/ul Critically high 1.40-6.50 [facility] Comment on above: Performed By: #### C SWATHI ####[facility] Eskwbfcutr3669 [place] [phone] Nasra SEG % 85.0 % Critically high 43.0-75.0 [facility] Comment on above: Performed By: #### C SWATHI ####[facility] Ohrqrkwosn3538 [place] [phone] Nasra WBC 22.0 103/ul Critically high 4.0-11.0 [facility] Comment on above: Performed By: #### Rebel ECHEVARRIA ####[facility] Oczwbhvvoc4[address] Nasra CULTURE WOUNDon 12-29-2020 CULTURE WOUND Culture Observations : No growth at 72 hours. Normal Comment on above: Performed By: #### W OUTRISTANCX ####[facility] [address] [place] [address] Nasra PROF CHEM 8 (BAS METB)on Anion gap [Moles/Vol] 9.9 mmol/L Normal Comment on above: Performed By: #### B MP ####[facility] Ltddumkqwy[address] Nasra Calcium [Mass/Vol] 8.2 mg/dL Critically low 8.4-10.2 [facility] Comment on above: Performed By: #### B MP ####[facility] Dxpgntcepv6747 [address] Nasra Chloride [Moles/Vol] 107 mmol/L Normal 98-[address] [facility] Comment on above: Performed By: #### B MP ####[facility] Bzeusafbzl9548 [address] Nasra CO2 [Moles/Vol] 28.9 mmol/L Normal 22.0-30.0 [facility] Comment on above: Performed By: #### B MP ####[facility] Jawdurukzb0215 [place], [place] [address]Nwcoko Nasra Creatinine [Mass/Vol] 0.81 mg/dL Normal 0.66-1.25 Comment on above: Performed By: #### B MP ####[facility] Apyqetkmok9951 [place], [place] [address]Wgdyna Nasra EGFR-AF ERITREAN >60 Normal >=60 [facility] Comment on above: Performed By: #### B MP ####[facility] Tsyrkqzjps2893 [place], [place] [address]Nhsqeg Nasra EGFR-NON AF ERITREAN >60 Normal >=60 Comment on above: Performed By: #### B MP ####[facility] [address] [place] [address]Bqxaur Nasra Glucose [Mass/Vol] 126 mg/dL Critically high 74-106 [facility] Comment on above: Performed By: #### B MP ####[facility] [address] [place] [address]Uewexv Nasra Potassium [Moles/Vol] 3.8 mmol/L Normal 3.4-5.0 Comment on above: Performed By: #### B MP ####[facility] P[address]ms[address] [place], [place] [address]Gerken Nasra Sodium [Moles/Vol] 142 mmol/L Normal 137-145 [place] Comment on above: Performed By: #### B MP ####[facility] Ziaojfpzlj1773 [place], [place] [address]Ffxwuy Nasra Urea nitrogen [Mass/Vol] 12.0 mg/dL Normal 9.0-20.0 Comment on above: Performed By: #### B MP ####[facility] Lkjjmceool2631 [place], [place] [address]Lxvhcl Nasra Urea nitrogen/Creatinin e [Mass ratio] 14.8 mg/mg Normal [facility] Comment on above: Performed By: #### B MP ####[facility] Yimuaypkfz86[address] Nasra CBC W MANUAL DIFFon 12-29-19 21 ATYPICAL LYMPH # Normal [facility] Comment on above: Performed By: #### C SWATHI ####[facility] Axrxkppisw8456 [place] [phone] Nasra ATYPICAL LYMPH % Normal [facility] Comment on above: Performed By: #### C SWATHI ####[facility] Lrqmafdxmg6859 [address] Nasra BAND # 0.7 103/ul Critically high 0.0-0.3 The [facility] Comment on above: Performed By: #### Rebel ECHEVARRIA ####[facility] [address]zmp[address] [place] [address] Nasra BAND % 3 % Normal 0-[address] [facility] Comment on above: Performed By: #### Rebel ECHEVARRIA ####[facility] [address]kly[address] [place] [address] Nasra BASOM # 0.00 103/ul Normal 0.00-0.[address] [facility] Comment on above: Performed By: #### Rebel ECHEVARRIA ####[facility] K[address]fu[address] [place] [address] Nasra BASOM % 0.0 % Critically low 0.2-2.0 The [facility] Comment on above: Performed By: #### Rebel ECHEVARRIA ####[facility] [address] [place] [address] Nasra BLAST # Normal [facility] Comment on above: Performed By: #### Rebel ECHEVARRIA ####[facility] [address]ridf[address] [place] [address] Nasra BLAST % Normal [facility] Comment on above: Performed By: #### Rebel ECHEVARRIA ####[facility] Klpticdtdx[address] [place] [address] Nasra CORRECTED WBC Normal 4.0-11.0 The [facility] Comment on above: Performed By: #### Rebel ECHEVARRIA ####[facility] [address]agzptuv[address] [place] [phone] Nasra EOS # 0.23 103/ul Normal 0.00-0.[address] [facility] Comment on above: Performed By: #### Rebel ECHEVARRIA ####[facility] Aweosdbisx8044 [place] [phone] Nasra EOS% 1.0 % Normal 0.9-7.[address] [facility] Comment on above: Performed By: #### Rebel ECHEVARRIA ####[facility] Wonlhxewfg4421 [place] [phone] Nasra HCT 37.0 % Critically low 42.0-54.0 The [facility] Comment on above: Performed By: #### Rebel ECHEVARRIA ####[facility] [address]ixi[address] [place] [address] Nasra HGB 11.5 g/dl Critically low 14.0-18.0 The [facility] Comment on above: Performed By: #### Rebel ECHEVARRIA ####[facility] [address]sejgw[address] [place], [place] [address]Gerken Nasra LYMPHM # 3.70 103/ul Normal 1.20-3.[address] [facility] Comment on above: Performed By: #### Rebel ECHEVARRIA ####[facility] [address]ob[address] [place], [place] [address]Gerken Nasra LYMPHM% 16.0 % Critically low 20.5-60.0 The [facility] Comment on above: Performed By: #### Rebel ECHEVARRIA ####[facility] Zowbtdqlrw1367 [place] [phone] Nasra MCH 27.8 pg Normal 25.9-34.[address] [facility] Comment on above: Performed By: #### Rebel ECHEVARRIA ####[facility] Ilvldnkxls[address] [place], [place] [address]Gerken Nasra MCHC 31.1 g/dl Normal 29.9-35.[address] [facility] Comment on above: Performed By: #### Rebel ECHEVARRIA ####[facility] Dlcnbxhyte6412 [address] Nasra MCV 89.6 fL Normal 80.0-94.[address] [facility] Comment on above: Performed By: #### Rebel ECHEVARRIA ####[facility] Regcqnbmjo6901 [place], [place] [address]Gjoygs Nasra METAMYELOCYTE # Normal The [facility] Comment on above: Performed By: #### Rebel ECHEVARRIA ####[facility] Ihqyzqwody0074 [place], [place] [address]Mpvjam Nasra METAMYELOCYTE % Normal The [facility] Comment on above: Performed By: #### Rebel ECHEVARRIA ####[facility] Hrkyuonxsi9395 [place] [phone] Nasra MONOM# 1.62 103/ul Critically high 0.30-0.80 [facility] Comment on above: Performed By: #### Rebel ECHEVARRIA ####[facility] [address]av[address] [place] [address] Nasra MONOM% 7.0 % Normal 1.7-12.0 Comment on above: Performed By: #### Rebel ECHEVARRIA ####[facility] [address]ssvejm[address] [place], [place] [address]Gerken Nasra MPV 9.6 fL Normal 9.5-13.[address] [facility] Comment on above: Performed By: #### Rebel ECHEVARRIA ####[facility] [address] [place] [address]Lfvaei Nasra MYELOCYTE # Normal [facility] Comment on above: Performed By: #### Rebel ECHEVARRIA ####[facility] Knfsbadljr0385 [place], [place] [address]Bqshgj Nasra MYELOCYTE % Normal [facility] Comment on above: Performed By: #### Rebel ECHEVARRIA ####[facility] [address]ycqrs[address] [place], [place] [address]Gerken Nasra NRBC Normal [facility] Comment on above: Performed By: #### Rebel ECHEVARRIA ####[facility] Gvaubsvmqr6676 [place] [phone] Nasra PLT 362 103/ul Normal 150-[address] [facility] Comment on above: Performed By: #### Rebel ECHEVARRIA ####[facility] Ishzqfmcbs7923 [place], [place] [address]Lvctbq Nasra RBC 4.13 106/ul Critically low 4.70-6.10 The [facility] Comment on above: Performed By: #### Rebel ECHEVARRIA ####[facility] Xbjskrkhiy5208 [place], [place] [address]Gvndzf Nasra RDW 15.0 % Normal 11.0-15.0 Comment on above: Performed By: #### Rebel ECHEVARRIA ####[facility] Rmrmzxwqoq9377 [place], [place] [address]Phkvzf Nasra SEG # 16.86 103/ul Critically high 1.40-6.50 [facility] Comment on above: Performed By: #### Rebel ECHEVARRIA ####[facility] Npvuevmcsy1378 [place], [place] [address]Ovjdsi Nasra SEG % 73.0 % Normal 43.0-75.0 Comment on above: Performed By: #### Rebel ECHEVARRIA ####[facility] Yeznzjncpz9798 [place], [place] [address]Getcuv Nasra WBC 23.1 103/ul Critically high 4.0-11.0 [facility] Comment on above: Performed By: #### Rebel ECHEVARRIA ####[facility] Ksgfxzthwo7840 [place], [place] [address]Trmjpt Nasra PROF CHEM 8 (BAS METB)on Anion gap [Moles/Vol] 8.3 mmol/L Normal Comment on above: Performed By: #### B MP #### [facility] [address] [place], [place] [address] Desmond Nasra Calcium [Mass/Vol] 8.5 mg/dL Normal 8.4-10.2 The [facility] Comment on above: Performed By: #### B MP #### [facility] [address] [place], [place] [address] Desmond Nasra Chloride [Moles/Vol] 105 mmol/L Normal 98-[address] [facility] Comment on above: Performed By: #### B MP #### [facility] [address] [place], [place] [address] Desmond Nasra CO2 [Moles/Vol] 28.6 mmol/L Normal 22.0-30.0 [facility] Comment on above: Performed By: #### B MP #### [facility] [address] [place] [address] Desmond Nasra Creatinine [Mass/Vol] 0.76 mg/dL Normal 0.66-1.25 Comment on above: Performed By: #### B MP #### [facility] [address] [place], [place] [address] Desmond Nasra EGFR-AF ERITREAN >60 Normal >=60 [facility] Comment on above: Performed By: #### B MP #### [facility] [address] [place], [place] [address] Desmond Nasra EGFR-NON AF ERITREAN >60 Normal >=60 Comment on above: Performed By: #### B MP #### [facility] [address] [place] [address] Desmond Nasra Glucose [Mass/Vol] 129 mg/dL Critically high 74-106 [facility] Comment on above: Performed By: #### B MP #### [facility] [address] [place], [place] [address] Desmond Nasra Potassium [Moles/Vol] 3.9 mmol/L Normal 3.4-5.0 Comment on above: Performed By: #### B MP #### [facility] [address] [place] [address] Desmond Nasra Sodium [Moles/Vol] 138 mmol/L Normal 137-145 [place] Comment on above: Performed By: #### B MP #### [facility] [address] [place], [place] [address] Desmond Nasra Urea nitrogen [Mass/Vol] 17.0 mg/dL Normal 9.0-20.0 Comment on above: Performed By: #### B MP #### [facility] [address] [place], [place] [address] Desmond Nasra Urea nitrogen/Creatinin e [Mass ratio] 22.4 mg/mg Normal [facility] Comment on above: Performed By: #### B MP #### 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 [address] [place] [address] Desmond Nasra Clarity (U) CLEAR Normal CLEAR Comment on above: Performed By: #### B MP #### [facility] [address] [place] [address] Desmond Nasra Color (U) LT. YELLOW Normal YELLOW Comment on above: Performed By: #### B MP #### [facility] [address] [place] [address] Desmond Nasra Glucose Ql (U) Negative Normal NEGATIVE The [facility] Comment on above: Performed By: #### B MP #### [facility] [address] [place] [address] Desmond Nasra Hemoglobin Ql (U) Negative Normal NEGATIVE [facility] Comment on above: Performed By: #### B MP #### [facility] [address] [place] [address] Desmond Nasra Ketones Ql (U) Negative Normal NEGATIVE [facility] Comment on above: Performed By: #### B MP #### [facility] [address] [place] [address] Desmond Nasra LEUKOCYTES TRACE Abnormal NEGATIVE [facility] Comment on above: Performed By: #### B MP #### [facility] [address] [place] [address] Desmond Nasra Nitrite Ql (U) Negative Normal NEGATIVE [facility] Comment on above: Performed By: #### B MP #### [facility] [address] [place] [address] Desmond Nasra pH (U) 7.0 [pH] Normal 5-[address] [facility] Comment on above: Performed By: #### B MP #### [facility] [address] [place] [address] Desmond Hammonds SPEC GRAVITY <=1.005 Abnormal 1.005-<=1.025 [facility] Comment on above: Performed By: #### B MP #### [facility] [address] [place], [place] [address] Desmondraúl Hammonds UA PROTEIN Negative Normal NEGATIVE/ TRACE [facility] Comment on above: Performed By: #### B MP #### [facility] [address] [place] [address] Desmond Hammonds UR MICRO IND INDICATED Normal [facility] Comment on above: Performed By: #### B MP #### [facility] [address] [place] [address] Desmondraúl Hammonds Urobilinogen Qn (U) 0.2 {Sanchez'U}/dL Normal 0.2 - 1.0 Comment on above: Performed By: #### B MP #### [facility] [address] [place] [address] Desmondraúl Hammonds URINE MICROSCOPIC ONLYon BACTERIA TRACE Abnormal NONE SEEN Comment on above: Performed By: #### B MP #### [facility] [address] [place] [address] Desmond Hammonds Bacteria identified Cx Nom (U) NOT INDICATED Normal [facility] Comment on above: Performed By: #### B MP #### [facility] [address] [place] [address] Desmondraúl Mathiasen CAST NONE SEEN Normal NONE SEEN Comment on above: Performed By: #### B MP #### [facility] [address] [place] [address] Desmond Nasra Crystals LM Nom (Urine sed) NONE SEEN Normal NONE SEEN [facility] Comment on above: Performed By: #### B MP #### [facility] [address] [place], [place] [id number] Desmond Nasra Epithelial cells LM Ql (Urine sed) NONE SEEN Normal NONE SEEN /RARE [facility] Comment on above: Performed By: #### B MP #### [facility] [address] [place] [address] Desmond Nasra MUCOUS NONE SEEN Normal NONE SEEN [facility] Comment on above: Performed By: #### B MP #### [facility] [address] [place] [address] Desmond Nasra RBC 0-2 Normal 0-[address] [facility] Comment on above: Performed By: #### B MP #### [facility] [address] [place] [address] Desmond Nasra WBC 2-5 Abnormal NONE SEEN [facility] Comment on above: Performed By: #### B MP #### [facility] [address] [place] [address] Desmond Nasra YEAST PRESENT Abnormal NONE SEEN [facility] Comment on above: Performed By: #### B MP #### [facility] [address] [place] [address] Desmond Nasra XR CHEST 2 Von 12-28-2020 XR CHEST 2 V EXAM: XR CHEST 2 V HISTORY: SHORTNESS OF BREATH COMPARISON: 12/24/2020 TECHNIQUE: PA and lateral FINDINGS: LUNGS: Low lung volumes. Mild bibasilar infiltrates. The upper lung zones are clear. VASCULATURE: No increased pulmonary vasculature. PLEURA: No pneumothorax, effusion, or pleural thickening. CARDIAC: No cardiomegaly or cardiac silhouette abnormality. MEDIASTINUM: No visible mass or adenopathy. BONES: Degenerative changes OTHER: Negative. IMPRESSION: Mild bibasilar atelectasis Electronically authenticated by: MAUREEN RODGERS Date: 2020-12-28 13:[address] [facility] CBC W MANUAL DIFFon 12-28-19 21 ATYPICAL LYMPH # 0.79 103/ul Normal The [facility] Comment on above: Performed By: #### B MP #### [facility] [address] [place] [address] Desmond Nasra ATYPICAL LYMPH % 4 % Normal The [facility] Comment on above: Performed By: #### B MP #### [facility] [address] [place] [address] Desmond Nasra BAND # Normal 0.0-0.[address] [facility] Comment on above: Performed By: #### B MP #### [facility] [address] [address] Desmond Nasra BAND % Normal 0-[address] [facility] Comment on above: Performed By: #### B MP #### [facility] [address] [place] [address] Desmond Nasra BASOM # 0.00 103/ul Normal 0.00-0.[address] [facility] Comment on above: Performed By: #### B MP #### [facility] [address] [place] [address] Desmond Nasra BASOM % 0.0 % Critically low 0.2-2.0 The [facility] Comment on above: Performed By: #### B MP #### [facility] [address] [place] [address] Desmond Nasra BLAST # Normal [facility] Comment on above: Performed By: #### B MP #### [facility] [address] [place] [address] Desmond Nasra BLAST % Normal [facility] Comment on above: Performed By: #### B MP #### [facility] [address] [place] [address] Desmond Nasra CORRECTED WBC Normal 4.0-11.0 The [facility] Comment on above: Performed By: #### B MP #### [facility] [address] [place] [address] Desmond Nasra EOS # 0.00 103/ul Normal 0.00-0.[address] [facility] Comment on above: Performed By: #### B MP #### [facility] [address] [place] [address] Desmond Nasra EOS% 0.0 % Critically low 0.9-7.0 The [facility] Comment on above: Performed By: #### B MP #### [facility] [address] [place] [address] Desmond Nasra HCT 33.6 % Critically low 42.0-54.0 The [facility] Comment on above: Performed By: #### B MP #### [facility] [address] [place], [place] [id number] Desmond Hammonds HGB 10.4 g/dl Critically low 14.0-18.0 [facility] Comment on above: Performed By: #### B MP #### [facility] [address] [place] [address] Desmond Hammonds LYMPHM # 2.57 103/ul Normal 1.20-3.[address] [facility] Comment on above: Performed By: #### B MP #### [facility] [address] [place] [address] Desmond Hammonds LYMPHM% 13.0 % Critically low 20.5-60.0 The [facility] Comment on above: Performed By: #### B MP #### [facility] [address] [place] [address] Desmond Hammonds MCH 28.2 pg Normal 25.9-34.0 Comment on above: Performed By: #### B MP #### [facility] [address] [place] [address] Desmond Hammonds MCHC 31.0 g/dl Normal 29.9-35.[address] [facility] Comment on above: Performed By: #### B MP #### [facility] [address] [place] [address] Desmond Hammonds MCV 91.1 fL Normal 80.0-94.0 Comment on above: Performed By: #### B MP #### [facility] [address] [place] [address] Desmond Nasra METAMYELOCYTE # Normal The [facility] Comment on above: Performed By: #### B MP #### [facility] [address] [place] [address] Desmond Nasra METAMYELOCYTE % Normal The [facility] Comment on above: Performed By: #### B MP #### [facility] [address] [place] [address] Desmondraúl Mathiasen MONOM# 2.18 103/ul Critically high 0.30-0.80 [facility] Comment on above: Performed By: #### B MP #### [facility] [address] [address] Desmond Hammonds MONOM% 11.0 % Normal 1.7-12.[address] [facility] Comment on above: Performed By: #### B MP #### [facility] [address] [id number] Desmond Hammonds MPV 9.9 fL Normal 9.5-13.5 Comment on above: Performed By: #### B MP #### [facility] [address] [place] [address] Desmond Nasra MYELOCYTE # Normal Comment on above: Performed By: #### B MP #### [facility] [address] [place], [place] [id number] Desmond Nasra MYELOCYTE % Normal [facility] Comment on above: Performed By: #### B MP #### [facility] [address] [place] [address] Desmond Mathiasen NRBC Normal [facility] Comment on above: Performed By: #### B MP #### [facility] [address] [place], [place] [address] Desmondraúl Mathiasen PLT 315 103/ul Normal 150-[address] [facility] Comment on above: Performed By: #### B MP #### [facility] [address] [place], [place] [address] Desmond Nasra RBC 3.69 106/ul Critically low 4.70-6.10 The [facility] Comment on above: Performed By: #### B MP #### [facility] [address] [place], [place] [address] Desmondraúl Hammonds RDW 15.0 % Normal 11.0-15.[address] [facility] Comment on above: Performed By: #### B MP #### [facility] [address] [place], [place] [address] Desmond Nasra SEG # 14.26 103/ul Critically high 1.40-6.50 The [facility] Comment on above: Performed By: #### B MP #### [facility] [address] [place], [place] [address] Desmond Nasra SEG % 72.0 % Normal 43.0-75.0 The [facility] Comment on above: Performed By: #### B #### [facility] [address] [place], [place] [address] Desmond Hammonds WBC 19.8 103/ul Critically high 4.0-11.0 [facility] Comment on above: Performed By: #### B MP #### [facility] [address] [place], [place] [address] ABD/PELV W CONon 12-28-19 CT ABD/PELV W CON EXAMINATION: CT ABD/PELV W CON HISTORY: ABDOMINAL DISTENSION (GASEOUS). COMPARISON: 12/23/2020. TECHNIQUE: Enhanced helical acquisition was obtained through the abdomen and the pelvis (100 mL Omnipaque 300). Dose reduction techniques were achieved by using automated exposure control and/or adjustment of mA and/or kV according to patient size and/or use of iterative reconstruction technique. FINDINGS: Mild bibasilar atelectasis is present. Trace bilateral pleural effusions are present. A 1.8 cm cyst is noted within hepatic segment II. An additional smaller 0.6 cm rounded low-attenuation focus within hepatic segment IVb is likely an underlying hepatic cyst or hemangioma. The gallbladder is partially contracted. The spleen, pancreas, and the adrenal glands are unremarkable in appearance. Subcentimeter nonobstructing calculi are present within the inferior right kidney, the largest measuring 0.5 cm. Bilateral renal cysts are again noted. Retroaortic left renal vein is present, a normal anatomic variant. Moderate atherosclerotic vascular calcifications are present involving the abdominal aorta and the iliac arteries. The patient is status post appendectomy. There is small volume of unencapsulated fluid which extends along the right anterior pararenal space. Diffuse stranding of the pericecal fat extends along the right paracolic gutter and right lateral conal fascia. No evidence of underlying abscess. No free intraperitoneal gas. No extravasation of administered enteric contrast. IMPRESSION: 1. The patient is status post appendectomy. Small volume of unencapsulated fluid extends along the right anterior pararenal space. Stranding of the pericolonic fat adjacent to the cecum and ascending colon as well as extending along the right paracolic gutter and right lateral conal fascia are present consistent with postoperative changes. There is no evidence of abscess or free intraperitoneal gas. No evidence of extravasation of administered enteric contrast. 2. Bilateral renal cysts. Subcentimeter nonobstructing right renal calculi. 3. Hepatic cysts. 4. Bibasilar atelectasis. Trace layering bilateral pleural effusions. Electronically authenticated by: VLADISLAV SHIN Date: 2020-12-27 20:[address] [facility] CULTURE SPUTUMon 12-27-2020 CULTURE SPUTUM Isolate 1 Hoa albicans Light growth of Normal [facility] Comment on above: Performed By: #### S PUTCX #### [facility] [address] [place] [address] Desmond Nasra PROF CHEM 8 (BAS METB)on Anion gap [Moles/Vol] 7.6 mmol/L Normal Comment on above: Performed By: #### B MP #### [facility] [address] [place] [address] Desmond Nasra Calcium [Mass/Vol] 8.2 mg/dL Critically low 8.4-10.2 [facility] Comment on above: Performed By: #### B MP #### [facility] [address] [place] [address] Desmond Nasra Chloride [Moles/Vol] 109 mmol/L Critically high 98-107 Comment on above: Performed By: #### B MP #### [facility] [address] [place] [address] Desmond Nasra CO2 [Moles/Vol] 29.1 mmol/L Normal 22.0-30.0 The [facility] Comment on above: Performed By: #### B MP #### [facility] [address] [place] [address] Desmond Nasra Creatinine [Mass/Vol] 0.72 mg/dL Normal 0.66-1.[address] [facility] Comment on above: Performed By: #### B MP #### [facility] [address] [place], [place] [address] Desmond Nasra EGFR-AF ERITREAN >60 Normal >=60 The [facility] Comment on above: Performed By: #### B MP #### [facility] [address] [place] [address] Desmond Nasra EGFR-NON AF ERITREAN >60 Normal >=60 Comment on above: Performed By: #### B MP #### [facility] [address] [id number] Desmond Nasra Glucose [Mass/Vol] 132 mg/dL Critically high 74-106 [facility] Comment on above: Performed By: #### B MP #### [facility] [address] [id number] Desmond Nasra Potassium [Moles/Vol] 3.7 mmol/L Normal 3.4-5.0 Comment on above: Performed By: #### B MP #### [facility] [address] [place] [address] Desmond Nasra Sodium [Moles/Vol] 142 mmol/L Normal 137-145 [place] Comment on above: Performed By: #### B MP #### [facility] [address] [place], [place] [address] Desmond Nasra Urea nitrogen [Mass/Vol] 28.0 mg/dL Critically high 9.0-20.0 Comment on above: Performed By: #### B MP #### [facility] [address] [place], [place] [address] Desmond Nasra Urea nitrogen/Creatinin e [Mass ratio] 38.9 mg/mg Normal Comment on above: Performed By: #### B MP #### [facility] [address] [place], [place] [address] Desmond Nasra CBC W MANUAL DIFFon 12-27-19 21 ATYPICAL LYMPH # 0.30 103/ul Normal [facility] Comment on above: Performed By: #### B MP #### [facility] [address] [place], [place] [address] Desmond Nasra ATYPICAL LYMPH % 2 % Normal [facility] Comment on above: Performed By: #### B MP #### [facility] [address] [place] [address] Desmond Nasra BAND # 0.3 103/ul Normal 0.0-0.3 Comment on above: Performed By: #### B MP #### [facility] [address] [address] Desmond Nasra BAND % 2 % Normal 0-[address] [facility] Comment on above: Performed By: #### B MP #### [facility] [address] [address] Desmond Nasra BASOM # 0.00 103/ul Normal 0.00-0.[address] [facility] Comment on above: Performed By: #### B MP #### [facility] [address] [address] Desmond Nasra BASOM % 0.0 % Critically low 0.2-2.0 The [facility] Comment on above: Performed By: #### B MP #### [facility] [address] [place] [address] Desmond Nasra BLAST # Normal [facility] Comment on above: Performed By: #### B MP #### [facility] [address] [place] [address] Desmond Nasra BLAST % Normal [facility] Comment on above: Performed By: #### B MP #### [facility] [address] [place] [address] Desmond Nasra CORRECTED WBC Normal 4.0-11.0 The [facility] Comment on above: Performed By: #### B MP #### [facility] [address] [place] [address] Desmond Nasra EOS # 0.15 103/ul Normal 0.00-0.[address] [facility] Comment on above: Performed By: #### B MP #### [facility] [address] [place] [address] Desmond Nasra EOS% 1.0 % Normal 0.9-7.[address] [facility] Comment on above: Performed By: #### B MP #### [facility] [address] [place] [address] Desmond Nasra HCT 32.5 % Critically low 42.0-54.0 [facility] Comment on above: Performed By: #### B MP #### [facility] [address] [address] Desmond Nasra HGB 9.9 g/dl Critically low 14.0-18.0 [facility] Comment on above: Performed By: #### B MP #### [facility] [address] [place] [address] Desmond Nasra LYMPHM # 1.96 103/ul Normal 1.20-3.[address] [facility] Comment on above: Performed By: #### B MP #### [facility] [address] [place] [address] Desmond Nasra LYMPHM% 13.0 % Critically low 20.5-60.0 [facility] Comment on above: Performed By: #### B MP #### [facility] [address] [place] [address] Desmond Nasra MCH 27.7 pg Normal 25.9-34.0 Comment on above: Performed By: #### B MP #### [facility] [address] [place] [address] Desmond Nasra MCHC 30.5 g/dl Normal 29.9-35.[address] [facility] Comment on above: Performed By: #### B MP #### [facility] [address] [place] [address] Desmond Nasra MCV 91.0 fL Normal 80.0-94.[address] [facility] Comment on above: Performed By: #### B MP #### [facility] [address] [place] [address] Desmond Nasra METAMYELOCYTE # Normal The [facility] Comment on above: Performed By: #### B MP #### [facility] [address] [place], [place] [address] Desmond Nasra METAMYELOCYTE % Normal The [facility] Comment on above: Performed By: #### B MP #### [facility] [address] [place] [address] Desmond Nasra MONOM# 0.60 103/ul Normal 0.30-0.[address] [facility] Comment on above: Performed By: #### B MP #### [facility] [address] [id number] Desmond Hammonds MONOM% 4.0 % Normal 1.7-12.[address] [facility] Comment on above: Performed By: #### B MP #### [facility] [address] [address] Desmond Hammonds MPV 10.2 fL Normal 9.5-13.[address] [facility] Comment on above: Performed By: #### B MP #### [facility] [address] [address] Desmondraúl Mathiasen MYELOCYTE # Normal [facility] Comment on above: Performed By: #### B MP #### [facility] [address] [place] [address] Desmond Hammonds MYELOCYTE % Normal [facility] Comment on above: Performed By: #### B MP #### [facility] [address] [place], [place] [address] Desmond Hammonds NRBC Normal [facility] Comment on above: Performed By: #### B MP #### [facility] [address] [place], [place] [address] Desmond Mathiasen PLT 274 103/ul Normal 150-[address] [facility] Comment on above: Performed By: #### B MP #### [facility] [address] [place], [place] [address] Desmond Mathiasen RBC 3.57 106/ul Critically low 4.70-6.10 The [facility] Comment on above: Performed By: #### B MP #### [facility] [address] [address] Desmond Hammonds RDW 15.1 % Critically high 11.0-15.0 The [facility] Comment on above: Performed By: #### B MP #### [facility] [address] [place], [place] [address] Desmond Nasra SEG # 11.78 103/ul Critically high 1.40-6.50 [facility] Comment on above: Performed By: #### B MP #### [facility] [address] [place], [place] [address] Desmond Nasra SEG % 78.0 % Critically high 43.0-75.0 [facility] Comment on above: Performed By: #### B MP #### [facility] [address] [place], [place] [address] Desmond Nasra WBC 15.1 103/ul Critically high 4.0-11.0 [facility] Comment on above: Performed By: #### B MP #### [facility] [address] [place], [place] [address] Desmondraúl Mathiasen PROF CHEM 8 (BAS METB)on Anion gap [Moles/Vol] 9.3 mmol/L Normal Comment on above: Performed By: #### B MP #### [facility] [address] [place] [address] Desmond Nasra Calcium [Mass/Vol] 8.2 mg/dL Critically low 8.4-10.2 [facility] Comment on above: Performed By: #### B MP #### [facility] [address] [place] [address] Desmond Nasra Chloride [Moles/Vol] 110 mmol/L Critically high 98-107 Comment on above: Performed By: #### B MP #### [facility] [address] [place], [place] [address] Desmond Nasra CO2 [Moles/Vol] 30.4 mmol/L Critically high 22.0-30.0 Comment on above: Performed By: #### B MP #### [facility] [address] [place] [address] Desmond Nasra Creatinine [Mass/Vol] 0.84 mg/dL Normal 0.66-1.[address] [facility] Comment on above: Performed By: #### B MP #### [facility] [address] [place], [place] [address] Desmond Nasra EGFR-AF ERITREAN >60 Normal >=60 [facility] Comment on above: Performed By: #### B MP #### [facility] [address] [place], [place] [address] Desmond Nasra EGFR-NON AF ERITREAN >60 Normal >=60 Comment on above: Performed By: #### B MP #### [facility] [address] [address] Desmond Nasra Glucose [Mass/Vol] 172 mg/dL Critically high 74-106 [facility] Comment on above: Performed By: #### B MP #### [facility] [address] [address] Desmond Nasra Potassium [Moles/Vol] 3.7 mmol/L Normal 3.4-5.0 Comment on above: Performed By: #### B MP #### [facility] [address] [place] [address] Desmond Nasra Sodium [Moles/Vol] 146 mmol/L Critically high 137-145 [facility] Comment on above: Performed By: #### B MP #### [facility] [address] [place] [address] Desmond Nasra Urea nitrogen [Mass/Vol] 33.0 mg/dL Critically high 9.0-20.0 Comment on above: Performed By: #### B MP #### [facility] [address] [place], [place] [address] Desmond Nasra Urea nitrogen/Creatinin e [Mass ratio] 39.3 mg/mg Normal Comment on above: Performed By: #### B MP #### [facility] [address] [place] [address] Desmond Nasra CBC AUTO DIFFon 12-25-2020 BASO # 0.0 103/ul Normal 0.0-0.1 Comment on above: Performed By: #### B MP #### [facility] [address] [place], [place] [address] Desmond Nasra Basophils/100 WBC (Bld) 0.3 % Normal 0.2-2.0 Comment on above: Performed By: #### B MP #### [facility] [address] [place], [place] [address] Desmond Nasra EO # 0.0 103/ul Normal 0.0-0.7 Comment on above: Performed By: #### B MP #### [facility] [address] [address] Desmond Nasra Eosinophils/100 WBC (Bld) 0.0 % Critically low 0.9-7.0 Comment on above: Performed By: #### B MP #### [facility] [address] [address] Desmond Nasra Erythrocyte distribution width (RBC) [Ratio] 14.6 % Normal 11.0-15.0 Comment on above: Performed By: #### B MP #### [facility] [address] [place], [place] [address] Desmodn Nasra Hematocrit (Bld) [Volume fraction] 32.5 % Critically low 42.0-54.0 Comment on above: Performed By: #### B MP #### [facility] [address] [place] [address] Desmond Nasra Hemoglobin (Bld) [Mass/Vol] 10.4 g/dL Critically low 14.0-18.0 Comment on above: Performed By: #### B MP #### [facility] [address] [place], [place] [address] Desmond Nasra IG # 0.26 10e3/ul Critically high 0.00-0.03 [facility] Comment on above: Performed By: #### B MP #### [facility] [address] [place], [place] [address] Desmond Nasra IG % 2.3 % Critically high 0.0-0.5 [facility] Comment on above: Performed By: #### B MP #### [facility] [address] [place], [place] [address] Desmond Nasra LYMPH # 0.4 103/ul Critically low 1.2-3.8 [facility] Comment on above: Performed By: #### B MP #### [facility] [address] [place], [place] [address] Desmond Nasra Lymphocytes/100 WBC (Bld) 3.4 % Critically low 20.5-60.[address] [facility] Comment on above: Performed By: #### B MP #### [facility] [address] [place], [place] [address] Desmond Nasra MANUAL DIFF REQ NO Normal [facility] Comment on above: Performed By: #### B MP #### [facility] [address] [place], [place] [address] Desmondraúl Hammonds MCH (RBC) [Entitic mass] 28.3 pg Normal 25.9-34.[address] [facility] Comment on above: Performed By: #### B MP #### [facility] [address] [place], [place] [address] Desmond Hammonds MCHC (RBC) [Mass/Vol] 32.0 g/dL Normal 29.9-35.[address] [facility] Comment on above: Performed By: #### B MP #### [facility] [address] [place] [address] Desmondraúl Hammonds MCV (RBC) [Entitic vol] 88.3 fL Normal 80.0-94.[address] [facility] Comment on above: Performed By: #### B MP #### [facility] [address] [place] [address] Desmond Nasra MONO # 0.8 103/ul Normal 0.3-0.[address] [facility] Comment on above: Performed By: #### B MP #### [facility] [address] [place] [address] Desmond Nasra Monocytes/100 WBC (Bld) 6.6 % Normal 1.7-12.[address] [facility] Comment on above: Performed By: #### B MP #### [facility] [address] [place] [address] Desmond Nasra NEUT # 9.9 103/ul Critically high 1.4-6.5 [facility] Comment on above: Performed By: #### B MP #### [facility] [address] [place], [place] [address] Desmond Nasra Neutrophils/100 WBC (Bld) 87.4 % Critically high 43.0-75.[address] [facility] Comment on above: Performed By: #### B MP #### [facility] [address] [address] [place], [place] [id number] Desmond Hammonds Platelet mean volume (Bld) [Entitic vol] 10.3 fL Normal 9.5-13.[address] [facility] Comment on above: Performed By: #### B MP #### [facility] [address] [place], [place] [address] Desmond Hammonds PLT 223 103/ul Normal 150-450 Comment on above: Performed By: #### B MP #### [facility] [address] [place], [place] [address] Desmond Hammonds RBC 3.68 106/ul Critically low 4.70-6.10 The [facility] Comment on above: Performed By: #### B MP #### [facility] [address] [place], [place] [address] Desmond Hammonds WBC 11.3 103/ul Critically high 4.0-11.0 [facility] Comment on above: Performed By: #### B MP #### [facility] [address] [place], [place] [address] Desmond Hammonds POINT OF CARE GLUCOSEon 12-12 Glucose [Mass/Vol] 156 mg/dL Critically high 74-106 T [facility] Comment on above: Performed By: #### B MP #### [facility] [address] [place], [place] [address] Desmond Hammonds PROF CHEM 8 (BAS METB)on Anion gap [Moles/Vol] 8.5 mmol/L Normal Comment on above: Performed By: #### B MP #### [facility] [address] [place], [place] [address] Desmond Nasra Calcium [Mass/Vol] 8.6 mg/dL Normal 8.4-10.2 The [facility] Comment on above: Performed By: #### B MP #### [facility] [address] [place], [place] [address] Desmond Nasra Chloride [Moles/Vol] 107 mmol/L Normal 98-107 Comment on above: Performed By: #### B MP #### [facility] [address] [place], [place] [address] Desmond Nasra CO2 [Moles/Vol] 29.2 mmol/L Normal 22.0-30.0 [facility] Comment on above: Performed By: #### B MP #### [facility] [address] [address] Desmond Nasra Creatinine [Mass/Vol] 0.92 mg/dL Normal 0.66-1.25 Comment on above: Performed By: #### B MP #### [facility] [address] [address] Desmond Nasra EGFR-AF ERITREAN >60 Normal >=60 The [facility] Comment on above: Performed By: #### B MP #### [facility] [address] [address] Desmond Nasra EGFR-NON AF ERITREAN >60 Normal >=60 Comment on above: Performed By: #### B MP #### [facility] [address] [address] Desmond Nasra Glucose [Mass/Vol] 176 mg/dL Critically high 74-106 T [facility] Comment on above: Performed By: #### B MP #### [facility] [address] [address] Desmond Nasra Potassium [Moles/Vol] 3.7 mmol/L Normal 3.4-5.0 Comment on above: Performed By: #### B MP #### [facility] [address] [address] Desmond Nasra Sodium [Moles/Vol] 141 mmol/L Normal 137-145 [place] Comment on above: Performed By: #### B MP #### [facility] [address] [address] Desmond Nasra Urea nitrogen [Mass/Vol] 30.0 mg/dL Critically high 9.0-20.0 Comment on above: Performed By: #### B MP #### [facility] [address] [address] Desmond Nasra Urea nitrogen/Creatinin e [Mass ratio] 32.6 mg/mg Normal Comment on above: Performed By: #### B MP #### [facility] [address] [place], [place] [address] Desmond Nasra BLOOD GASES BTYon 12-24-2020 02 MODE VENTILATOR Normal Comment on above: Performed By: #### A BG ####[facility] [address] [place], [place] [address]Lvyltr Nasra ALLENS TEST Positive Normal Comment on above: Performed By: #### A BG ####[facility] [address] [place], [place] [address]Lzijro Nasra Base excess Calc (Bld) [Moles/Vol] -2.5000 mmol/L Critically low -2.0-2.0 Comment on above: Performed By: #### A BG ####[facility] [address] [place], [place] [address]Kcwrdn Nasra BIPAP PRESSURE Normal [facility] Comment on above: Performed By: #### A BG ####[facility] [address] [place] [address]Hkgqrp Nasra CO2 [Moles/Vol] 23.4 mmol/L Normal 23.0-28.0 [facility] Comment on above: Performed By: #### A BG ####[facility] [address] [place] [address]Dfxjxw Nasra CPAP Normal Comment on above: Performed By: #### A BG ####[facility] [address] [place], [place] [address]Xphlbo Nasra FIO2 60.00 % Normal [facility] Comment on above: Performed By: #### A BG ####[facility] [address] [place], [place] [address]Gerken Nasra HCO3 (Bld) [Moles/Vol] 22.2 mmol/L Normal 22.0-26.[address] [facility] Comment on above: Performed By: #### A BG ####[facility] [address] [place], [place] [address]Gerken Nasra LPM Normal [facility] Comment on above: Performed By: #### A BG ####[facility] Nhy[address] Nasra MINUTE VOLUME Normal The [facility] Comment on above: Performed By: #### A BG ####[facility] [address] [id number] Nasra Oxygen (Bld) [Partial pressure] 91.3 mm[Hg] Normal 80.0-100.[address] [facility] Comment on above: Performed By: #### A BG ####[facility] [address] [place] [address] Nasra Oxygen saturation in Blood 97.1 % Normal 95.0-100.[address] [facility] Comment on above: Performed By: #### A BG ####[facility] [address] [place] [address] Nasra PCO2 37.8 mmHg Normal 35.0-45.[address] [facility] Comment on above: Performed By: #### A BG ####[facility] [address] [place] [address] Nasra PEEP 5 Normal Comment on above: Performed By: #### A BG ####[facility] [address] [place] [address] Nasra pH (Bld) 7.387 [pH] Normal 7.350-7.450 Comment on above: Performed By: #### A BG ####[facility] [address] [place] [address] Nasra PIP Normal Comment on above: Performed By: #### A BG ####[facility] [address] [place] [address] Nasra PS Normal [facility] Comment on above: Performed By: #### A BG ####[facility] [address] [place] [address] Nasra PUNCTURE SITE RR Normal The [facility] Comment on above: Performed By: #### A BG ####[facility] [address] [place] [address]Jiicvj Nasra RATE [address] [facility] Comment on above: Performed By: #### A BG ####[facility] [address] [place], [place] [address]Jakeut Nasra VENT MODE a/c Normal [facility] Comment on above: Performed By: #### A BG ####[facility] [address] [id number] Nasra [place] [address] [facility] Comment on above: Performed By: #### A BG ####[facility] [address] [id number] Nasra CBC W MANUAL DIFFon 12-25-19 21 ATYPICAL LYMPH # 0.00 103/ul Normal The [facility] Comment on above: Performed By: #### C SWATHI #### [facility] [address] [place] [address] Desmond Nasra ATYPICAL LYMPH % 0 % Normal The [facility] Comment on above: Performed By: #### C SWATHI #### [facility] [address] [place] [address] Desmond Nasra BAND # 0.2 103/ul Normal 0.0-0.[address] [facility] Comment on above: Performed By: #### C SWATHI #### [facility] [address] [place] [address] Desmond Nasra BAND % 2 % Normal 0-[address] [facility] Comment on above: Performed By: #### C SWATHI #### [facility] [address] [address] Desmond Nasra BASOM # 0.00 103/ul Normal 0.00-0.[address] [facility] Comment on above: Performed By: #### C SWATHI #### [facility] [address] [address] Desmond Nasra BASOM % 0.0 % Critically low 0.2-2.0 The [facility] Comment on above: Performed By: #### C SWATHI #### [facility] [address] [place] [address] Desmond Nasra BLAST # Normal [facility] Comment on above: Performed By: #### C SWATHI #### [facility] [address] [address] Desmond Nasra BLAST % Normal [facility] Comment on above: Performed By: #### C SWATHI #### [facility] [address] [address] Desmond Nasra CORRECTED WBC Normal 4.0-11.0 The [facility] Comment on above: Performed By: #### C SWATHI #### [facility] [address] [address] Desmond Nasra EOS # 0.00 103/ul Normal 0.00-0.[address] [facility] Comment on above: Performed By: #### C SWATHI #### [facility] [address] [address] Desmond Nasra EOS% 0.0 % Critically low 0.9-7.0 The [facility] Comment on above: Performed By: #### Rebel ECHEVARRIA #### [facility] [address] [address] Desmond Nasra HCT 32.0 % Critically low 42.0-54.0 The [facility] Comment on above: Performed By: #### Rebel ECHEVARRIA #### [facility] [address] [address] Desmond Nasra HGB 10.2 g/dl Critically low 14.0-18.0 The [facility] Comment on above: Performed By: #### C SWATHI #### [facility] [address] [address] Desmond Nasra HYPOCHROMASIA SLIGHT Normal The [facility] Comment on above: Performed By: #### C SWATHI #### [facility] [address] [place] [address] Desmond Nasra LYMPHM # 0.23 103/ul Critically low 1.20-3.80 The [facility] Comment on above: Performed By: #### C SWATHI #### [facility] [address] [address] Desmond Nasra LYMPHM% 2.0 % Critically low 20.5-60.0 [facility] Comment on above: Performed By: #### Rebel ECHEVARRIA #### [facility] [address] [place] [address] Desmond Nasra MCH 27.8 pg Normal 25.9-34.0 Comment on above: Performed By: #### C SWATHI #### [facility] [address] [place] [address] Desmond Nasra MCHC 31.9 g/dl Normal 29.9-35.2 Comment on above: Performed By: #### C SWATHI #### [facility] [address] [place] [address] Desmond Nasra MCV 87.2 fL Normal 80.0-94.[address] [facility] Comment on above: Performed By: #### Rebel ECHEVARRIA #### [facility] [address] [place] [address] Desmond Nasra METAMYELOCYTE # Normal The [facility] Comment on above: Performed By: #### Rebel ECHEVARRIA #### [facility] [address] [place] [address] Desmond Nasra METAMYELOCYTE % Normal The [facility] Comment on above: Performed By: #### Rebel ECHEVARRIA #### [facility] [address] [place] [address] Desmond Nasra MONOM# 0.23 103/ul Critically low 0.30-0.80 The [facility] Comment on above: Performed By: #### Rebel ECHEVARRIA #### [facility] [address] [place] [address] Desmond Nasra MONOM% 2.0 % Normal 1.7-12.[address] [facility] Comment on above: Performed By: #### Rebel ECHEVARRIA #### [facility] [address] [place] [address] Desmond Nasra MPV 10.8 fL Normal 9.5-13.5 Comment on above: Performed By: #### Rebel ECHEVARRIA #### [facility] [address] [place] [address] Desmond Nasra MYELOCYTE # Normal [facility] Comment on above: Performed By: #### C SWATHI #### [facility] [address] [place], [place] [address] Desmond Hammonds MYELOCYTE % Normal [facility] Comment on above: Performed By: #### C SWATHI #### [facility] [address] [place], [place] [address] Desmond Hammonds NRBC Normal [facility] Comment on above: Performed By: #### C SWATHI #### [facility] [address] [address] Desmond Hammonds PLT 222 103/ul Normal 150-[address] [facility] Comment on above: Performed By: #### C SWATHI #### [facility] [address] [address] Desmond Hammonds RBC 3.67 106/ul Critically low 4.70-6.10 The [facility] Comment on above: Performed By: #### Rebel ECHEVARRIA #### [facility] [address] [address] Desmond Hammonds RDW 14.1 % Normal 11.0-15.0 Comment on above: Performed By: #### Rebel ECHEVARRIA #### [facility] [address] [address] Desmond Hammonds SEG # 11.00 103/ul Critically high 1.40-6.50 [facility] Comment on above: Performed By: #### Rebel ECHEVARRIA #### [facility] [address] [address] Desmond Hammonds SEG % 94.0 % Critically high 43.0-75.0 The [facility] Comment on above: Performed By: #### C SWATHI #### [facility] [address] [address] Desmond Hammonds WBC 11.7 103/ul Critically high 4.0-11.0 [facility] Comment on above: Performed By: #### Rebel ECHEVARRIA #### [facility] [address] [address] Desmond Hammonds PROF CHEM 8 (BAS METB)on Anion gap [Moles/Vol] 14.1 mmol/L Normal Comment on above: Performed By: #### B MP ####[facility] [address] [id number] Nasra Calcium [Mass/Vol] 8.5 mg/dL Normal 8.4-10.2 [place] Comment on above: Performed By: #### B MP ####[facility] [address] [phone] Nasra Chloride [Moles/Vol] 97 mmol/L Critically low 98-107 Comment on above: Performed By: #### B MP ####[facility] [address] [id number] Nasra CO2 [Moles/Vol] 23.7 mmol/L Normal 22.0-30.0 The [facility] Comment on above: Performed By: #### B MP ####[facility] [address] [place], [place] [address]Gerken Nasra Creatinine [Mass/Vol] 1.19 mg/dL Normal 0.66-1.25 Comment on above: Performed By: #### B MP ####[facility] [address] [place], [place] [address]Tzgbwc Nasra EGFR-AF ERITREAN >60 Normal >=60 [facility] Comment on above: Performed By: #### B MP ####[facility] [address] [place] [id number] Nasra EGFR-NON AF ERITREAN 59 mL/min/1.73m2 Critically low >=60 Comment on above: Performed By: #### B MP ####[facility] [address] [place], [place] [address]Obtzjz Nasra Glucose [Mass/Vol] 214 mg/dL Critically high 74-106 T [facility] Comment on above: Performed By: #### B MP ####[facility] [address] [place] [id number] Nasra Potassium [Moles/Vol] 3.8 mmol/L Normal 3.4-5.0 [facility] Comment on above: Performed By: #### B MP ####[facility] [address] Nasra Sodium [Moles/Vol] 131 mmol/L Critically low 137-[address] [facility] Comment on above: Performed By: #### B MP ####[facility] Dx[address]qsuf[address] Nas[place] Urea nitrogen [Mass/Vol] 32.0 mg/dL Critically high 9.0-20.0 Comment on above: Performed By: #### B MP ####[facility] Yl[address]pxz[address] Nas[place] Urea nitrogen/Creatinin e [Mass ratio] 26.9 mg/mg Normal Comment on above: Performed By: #### B MP ####[facility] Rcsbvxysml[address] Nasra XR CHEST 1 Von 12-24-2020 XR CHEST 1 V EXAM: XR CHEST 1 V HISTORY: SHORTNESS OF BREATH COMPARISON: 12/22/2020 TECHNIQUE: Semierect portable FINDINGS: LUNGS: Endotracheal tube projects of the distal trachea, the tip is 2 cm above the jero. The lung volumes are low. Mild left basilar opacity obscures the left hemidiaphragm VASCULATURE: No increased pulmonary vasculature. PLEURA: No pneumothorax. Tiny left pleural effusion with obscuration of the left lateral costophrenic angle CARDIAC: No cardiomegaly or cardiac silhouette abnormality. MEDIASTINUM: No visible mass or adenopathy. BONES: No fracture or visible bone lesion. OTHER: Enteric tube, the tip is not definitively visualized due to underpenetration aerated EKG wires. IMPRESSION: Endotracheal tube in normal position Enteric tube tip is not visualized due to underpenetration Minimal left basilar infiltrate and small pleural effusion Electronically authenticated by: MAUREEN RODGERS Date: 2020-12-24 09:09 Normal BLOOD GASES BTYon 12-23-2020 02 MODE VENTILATOR Normal Comment on above: Performed By: #### A BG ####[facility] [address] [place] [address] Nasra ALLENS TEST Positive Normal [facility] Comment on above: Performed By: #### A BG ####[facility] Rvqmjzjjfh[address] Nasra Base excess Calc (Bld) [Moles/Vol] -2.6000 mmol/L Critically low -2.0-2.[address] [facility] Comment on above: Performed By: #### A BG ####[facility] [address] [place] [address] Nasra BIPAP PRESSURE Normal [facility] Comment on above: Performed By: #### A BG ####[facility] [address] [place] [address] Nasra CO2 [Moles/Vol] 27.6 mmol/L Normal 23.0-28.0 The [facility] Comment on above: Performed By: #### A BG ####[facility] [address] [place] [address] Nasra CPAP Normal [facility] Comment on above: Performed By: #### A BG ####[facility] [address] [place] [address] Nasra FIO2 100.00 % Normal [facility] Comment on above: Performed By: #### A BG ####[facility] [address] [place] [address] Nasra HCO3 (Bld) [Moles/Vol] 25.7 mmol/L Normal 22.0-26.[address] [facility] Comment on above: Performed By: #### A BG ####[facility] [address] [place] [address] Nasra LPM Normal [facility] Comment on above: Performed By: #### A BG ####[facility] [address] [place] [address] Nasra MINUTE VOLUME Normal The [facility] Comment on above: Performed By: #### A BG ####[facility] [address] [place] [address] Nasra Oxygen (Bld) [Partial pressure] 195.1 mm[Hg] Critically high 80.0-100.[address] [facility] Comment on above: Performed By: #### A BG ####[facility] Oj[address]txqkeu[address] Nasra Oxygen saturation in Blood 99.4 % Normal 95.0-100.0 Comment on above: Performed By: #### A BG ####[facility] Dwsjsoazqe[address] Nasra PCO2 61.3 mmHg Critically high 35.0-45.0 The [facility] Comment on above: Performed By: #### A BG ####[facility] Lfdpcreqxe[address] Nasra PEEP 5 Normal Comment on above: Performed By: #### A BG ####[facility] Yor[address]ai[address]zrb[address] Nasra pH (Bld) 7.241 [pH] Critically low 7.350-7.450 The [facility] Comment on above: Performed By: #### A BG ####[facility] Gtonfngqjr[address] Nsara PIP [facility] Comment on above: Performed By: #### A BG ####[facility] Gplimjokfx[address]45 [address] Nasra PS Normal [facility] Comment on above: Performed By: #### A BG ####[facility] Rxktntckdi0487 [address] Nas[place] PUNCTURE SITE RR Normal The [facility] Comment on above: Performed By: #### A BG ####[facility] Ltwafbvwrz3970 [address] Nas[place] RATE [address] [facility] Comment on above: Performed By: #### A BG ####[facility] Fygybnlrqp[address] Nasra VENT MODE ac Normal Comment on above: Performed By: #### A BG ####[facility] [address] [place] [address]Desmond Hammonds [place] [address] [facility] Comment on above: Performed By: #### A BG ####[facility] [address] [place] [address]Desmond Hammonds BNPon 12-23-2020 Natriuretic peptide B (Bld) [Mass/Vol] 762.0 pg/mL Normal <=1,800.[address] [facility] Comment on above: Performed By: #### B POWER CLEANER OPERATOR ####[facility] [address] [place] [address] Nasra CARDIAC LAURA ADMITon 021 CK [Catalytic activity/Vol] 311 U/L Critically high 55-[address] [facility] Comment on above: Result Comment: Test Repeated. Critical Value Verified Performed By: #### C ENIO, CMADM ####[facility] [address] [place] [address] Nasra CK.MB [Mass/Vol] 1.60 ng/mL Normal <=2.37 [facility] Comment on above: Performed By: #### C ENIO, CMADM ####[facility] [address] [place] [address] Nasra HSTROP 23.5 pg/mL Normal 4.0-42.[address] [facility] Comment on above: Result Comment: CUT- OFF POINTS HAVE BEEN ESTABLISHED BASED ON THE FOURTH UNIVERSAL DEFINITIONS OF MYOCARDIAL INFARCTION. THE UPPER REFERENCE LIMIT (URL) OF TROPONIN, DEFINED THE 99TH PERCENTILE OF cTnI DISTRIBUTION IN A REFERENCE POPULATION, HAS BEEN CONFIRMED THE DECISION THRESHOLD FOR WA DIAGNOSIS. Performed By: #### C ENIO, CMADM ####[facility] Pl[address]leaa[address] Nasra ELDA 294.0 ng/mL Critically high <=121.0 [facility] Comment on above: Result Comment: Test Repeated. Critical Value Verified Performed By: #### C ENIO, CMADM ####[facility] R[address]ukh[address]wb[address] Nas[place] CBC W MANUAL DIFFon 12-24-19 21 ATYPICAL LYMPH # Normal [facility] Comment on above: Performed By: #### B MP #### [facility] [address] [address] Desmond Nasra ATYPICAL LYMPH % Normal [facility] Comment on above: Performed By: #### B MP #### [facility] [address] [place] [address] Desmond Nasra BAND # 0.5 103/ul Critically high 0.0-0.3 [facility] Comment on above: Performed By: #### B MP #### [facility] [address] [place] [address] Desmond Nasra BAND % 3 % Normal 0-[address] [facility] Comment on above: Performed By: #### B MP #### [facility] [address] [place] [address] Desmond Nasra BASOM # 0.00 103/ul Normal 0.00-0.[address] [facility] Comment on above: Performed By: #### B MP #### [facility] [address] [place] [address] Desmond Nasra BASOM % 0.0 % Critically low 0.2-2.0 The [facility] Comment on above: Performed By: #### B MP #### [facility] [address] [place] [address] Desmond Nasra BLAST # Normal [facility] Comment on above: Performed By: #### B MP #### [facility] [address] [place] [address] Desmond Nasra BLAST % Normal [facility] Comment on above: Performed By: #### B MP #### [facility] [address] [place] [address] Desmond Nasra CORRECTED WBC Normal 4.0-11.0 The [facility] Comment on above: Performed By: #### B MP #### [facility] [address] [place] [address] Desmond Nasra EOS # 0.15 103/ul Normal 0.00-0.[address] [facility] Comment on above: Performed By: #### B MP #### [facility] [address] [address] Desmond Hammonds EOS% 1.0 % Normal 0.9-7.[address] [facility] Comment on above: Performed By: #### B MP #### [facility] [address] [place] [address] Desmond Hammonds HCT 36.2 % Critically low 42.0-54.0 The [facility] Comment on above: Performed By: #### B MP #### [facility] [address] [place] [address] Desmondraúl Mathiasen HGB 11.7 g/dl Critically low 14.0-18.0 The [facility] Comment on above: Performed By: #### B MP #### [facility] [address] [place] [address] Desmond Hammonds LYMPHM # 0.62 103/ul Critically low 1.20-3.80 The [facility] Comment on above: Performed By: #### B MP #### [facility] [address] [place] [address] Desmond Hammonds LYMPHM% 4.0 % Critically low 20.5-60.0 The [facility] Comment on above: Performed By: #### B MP #### [facility] [address] [place] [address] Desmond Hammonds MCH 28.3 pg Normal 25.9-34.0 Comment on above: Performed By: #### B MP #### [facility] [address] [place] [address] Desmond Hammonds MCHC 32.3 g/dl Normal 29.9-35.[address] [facility] Comment on above: Performed By: #### B MP #### [facility] [address] [place], [place] [id number] Desmond Hammonds MCV 87.7 fL Normal 80.0-94.[address] [facility] Comment on above: Performed By: #### B MP #### [facility] [address] [place] [address] Desmond Mathiasen METAMYELOCYTE # Normal The [facility] Comment on above: Performed By: #### B MP #### [facility] [address] [place], [place] [id number] Desmond Nasra METAMYELOCYTE % Normal The [facility] Comment on above: Performed By: #### B MP #### [facility] [address] [place] [address] Desmond Nasra MONOM# 0.15 103/ul Critically low 0.30-0.80 The [facility] Comment on above: Performed By: #### B MP #### [facility] [address] [address] Desmond Nasra MONOM% 1.0 % Critically low 1.7-12.0 [facility] Comment on above: Performed By: #### B MP #### [facility] [address] [place] [address] Desmond Nasra MPV 10.5 fL Normal 9.5-13.5 Comment on above: Performed By: #### B MP #### [facility] [address] [place] [address] Desmond Nasra MYELOCYTE # Normal [facility] Comment on above: Performed By: #### B MP #### [facility] [address] [place], [place] [id number] Desmond Nasra MYELOCYTE % Normal [facility] Comment on above: Performed By: #### B MP #### [facility] [address] [place], [place] [id number] Desmond Nasra NRBC Normal [facility] Comment on above: Performed By: #### B MP #### [facility] [address] [place] [address] Desmond Nasra PLT 203 103/ul Normal 150-[address] [facility] Comment on above: Performed By: #### B MP #### [facility] [address] [place], [place] [id number] Desmond Nasra RBC 4.13 106/ul Critically low 4.70-6.10 The [facility] Comment on above: Performed By: #### B MP #### [facility] [address] [place] [address] Desmond Nasra RDW 14.3 % Normal 11.0-15.0 Comment on above: Performed By: #### B MP #### [facility] [address] [place], [place] [address] Desmond Hammonds SEG # 14.11 103/ul Critically high 1.40-6.50 [facility] Comment on above: Performed By: #### B MP #### [facility] [address] [place], [place] [address] Desmond Mathiasen SEG % 91.0 % Critically high 43.0-75.0 [facility] Comment on above: Performed By: #### B MP #### [facility] [address] [place], [place] [address] Desmond Hammonds WBC 15.5 103/ul Critically high 4.0-11.0 The [facility] Comment on above: Performed By: #### B MP #### [facility] [address] [place], [place] [address] ABD/PELV W CONon 12-24-[address] ABD/PELV W CON EXAMINATION: CT ABD/PELV W CON HISTORY: Right lower quadrant pain. COMPARISON: None. TECHNIQUE: A contrast-enhanced scan was performed after administration 100 mL of Omnipaque 300 IV. Oral contrast medium was given. Sagittal and coronal reformatted images were produced. Dose reduction techniques were achieved by using automated exposure control and/or adjustment of mA and/or kV according to patient size and/or use of iterative reconstruction technique. FINDINGS: There are bilateral very small pleural effusions with bibasilar atelectasis. Lower mediastinal structures are normal. The liver is mildly enlarged and shows diffuse fatty change. The spleen, adrenal glands, pancreas, gallbladder are normal. The kidneys enhance symmetrically. There are some calcifications in the right lower pole kidney. There is no hydronephrosis on either side. There is densely calcified plaque in the aorta and branch vessels. The large and small bowel are normal caliber. However, there is diffuse wall thickening in the right colon with mild dilation of the appendix, and there are multiple pockets of free air with a small amount of free fluid adjacent to the right colon in the right paracolic gutter. A small amount of free fluid is also seen in the deep pelvis. Pelvic organs are normal. The urinary bladder is grossly normal. There are no organized fluid collections to suggest abscess formation. No suspicious or destructive bone lesions are seen. IMPRESSION: Findings are most consistent with perforated appendicitis, although the perforation could be in the right colon from a colitis or diverticulitis. There is no evidence of abscess formation. Mild hepatomegaly with diffuse fatty change in the liver. Right nephrolithiasis. Atherosclerotic disease. Findings were discussed with Dr. Kaushal Otero at 3:30 PM on 12/23/2020. Electronically authenticated by: RUTH ANN MARTÍNEZ Date: 2020-12-23 15:32 Normal CULTURE ANAEROBICon 12-24-19 21 CULTURE ANAEROBIC Culture Observations : No growth of anaerobes at 72 hours. Normal Comment on above: Performed By: #### A NACX #### [facility] [address] [place] [address] Desmond Nasra CULTURE BLOODon 12-23-2020 Microscopic examination of blood, culture Culture Observations: No growth at 5 days Normal Comment on above: Performed By: #### B LDCX1 #### [facility] [address] [id number] Desmond Nasra CULTURE OTHERon 12-23-2020 CULTURE OTHER Specimen Comments: Peritoneal fluid received on a culture swab. Specimen Comments: May impact the recovery of micro organisms. Culture Observations: No growth at 72 hours. Normal Comment on above: Performed By: #### O THCX ####[facility] [address] [id number] Hammonds LACTATE/LACTIC ACIDon 2020 Lactate [Moles/Vol] 1.0 mmol/L Normal 0.7-2.0 Comment on above: Performed By: #### B MP #### [facility] [address] [id number] Desmond Hammonds PROF 14(COMP METB)on 021 Albumin [Mass/Vol] 2.5 g/dL Critically low 3.5-5.[address] [facility] Comment on above: Performed By: #### C MP, CMADM ####[facility] [address] [id number] Nasra Albumin/Globulin [Mass ratio] 0.6 {ratio} Normal Comment on above: Performed By: #### C ENIO, RAJI ####[facility] [address] [place], [place] [address]Htmral Nasra ALP [Catalytic activity/Vol] 57 U/L Normal 38-126 Comment on above: Performed By: #### C ENIO, RAJI ####[facility] [address] [place], [place] [address]Drbxut Nasra ALT [Catalytic activity/Vol] 32 U/L Normal 21-[address] [facility] Comment on above: Performed By: #### C RAJI STEEN ####[facility] [address] [place], [place] [address]Qmvuku Nasra Anion gap [Moles/Vol] 10.9 mmol/L Normal Comment on above: Performed By: #### C RAJI STEEN ####[facility] [address] [place], [place] [address]Ssarmh Nasra AST [Catalytic activity/Vol] 25 U/L Normal 17-[address] [facility] Comment on above: Performed By: #### C RAJI STEEN ####[facility] [address] [place], [place] [address]Yayqpw Nasra Bilirubin [Mass/Vol] 0.5 mg/dL Normal 0.2-1.[address] [facility] Comment on above: Performed By: #### C RAJI STEEN ####[facility] [address] [place], [place] [address]Ugexhr Nasra Calcium [Mass/Vol] 9.6 mg/dL Normal 8.4-10.2 The [facility] Comment on above: Performed By: #### C RAJI STEEN ####[facility] [address] [place], [place] [address]Egugeu Nasra Chloride [Moles/Vol] 98 mmol/L Normal 98-[address] [facility] Comment on above: Performed By: #### C RAJI STEEN ####[facility] [address] [place], [place] [address]Zfsnao Nasra CO2 [Moles/Vol] 27.6 mmol/L Normal 22.0-30.0 [facility] Comment on above: Performed By: #### C ENIO, RAJI ####[facility] [address] [id number] Nasra Creatinine [Mass/Vol] 1.16 mg/dL Normal 0.66-1.25 Comment on above: Performed By: #### C ENIO, CMADM ####[facility] [address] [id number] Nasra EGFR-AF ERITREAN >60 Normal >=60 [facility] Comment on above: Performed By: #### C ENIO, CMAMONTANA ####[facility] [address] Nasra EGFR-NON AF ERITREAN >60 Normal >=[address] [facility] Comment on above: Performed By: #### C ENIO, CMAMONTANA ####[facility] [address] [place] [id number] Nasra Globulin (S) [Mass/Vol] 4.1 g/dL Normal Comment on above: Performed By: #### C ENIO, CMAMONTANA ####[facility] [address] Nasra Glucose [Mass/Vol] 131 mg/dL Critically high 74-106 T [facility] Comment on above: Performed By: #### C ENIO, CMADM ####[facility] [address] [address]Gerken Nasra Potassium [Moles/Vol] 3.5 mmol/L Normal 3.4-5.[address] [facility] Comment on above: Performed By: #### C ENIO, CMADM ####[facility] [address] [place] [id number] Nasra Protein [Mass/Vol] 6.6 g/dL Normal 6.1-8.2 [place] Comment on above: Performed By: #### C ENIO, CMAMONTANA ####[facility] [address] [place] [id number] Nasra Sodium [Moles/Vol] 133 mmol/L Critically low 137-[address] [facility] Comment on above: Performed By: #### C ENIO, CMAMONTANA ####[facility] [address] Nasra Urea nitrogen [Mass/Vol] 24.0 mg/dL Critically high 9.0-20.[address] [facility] Comment on above: Performed By: #### C ENIO, CMADM ####[facility] [address] Nas[place] Urea nitrogen/Creatinin e [Mass ratio] 20.7 mg/mg Normal The [facility] Comment on above: Performed By: #### C ENIO, NADIADM ####[facility] [address] Nas[place] Rapid Covid-19 PCR (CVDRPD)o n 12-23-2020 SARS-CoV-2 (COVID-19) RNA BRANDAN+probe Ql (Unsp spec) Not detected Normal NOT DETECTED [facility] Comment on above: Result Comment: This test is not yet approved or cleared by the [place] Food and Drug Administration (FDA). This test was developed by [employer], [place], [place]. The performance characteristics of this test were validated by The [facility]. The results are not intended to be used as the sole means for clinical diagnosis or patient management decisions. The [facility] is authorized under Clinical Laboratory Improvement Amendments (CLIA) to perform high- complexity testing. When diagnostic testing is negative, the possibility of a false negative should be considered in the context of a patient's recent exposures and the presence of clinical signs and symptoms consistent with SARS-CoV-2. Performed By: #### C VDRPD ####[facility] [address] [place] [address] Nasra XR CHEST 1 Von 12-23-2020 XR CHEST 1 V EXAM: XR CHEST 1 V 12/22/2020 11:13 PM EDT OH001 CLINICAL STATEMENT: SHORTNESS OF BREATH COMPARISON: No prior studies are available at the time of dictation. TECHNIQUE: Single AP radiograph of the chest is submitted. FINDINGS: There is bilateral lower lobe atelectasis and airspace disease. Decreased lung volume. The cardiac silhouette is normal. The costophrenic recesses are sharp. No pneumothorax. The bony elements are unremarkable. IMPRESSION: Bilateral lower lobe atelectasis and airspace disease. FOLLOW-UP: Follow-up as clinically indicated. Electronically authenticated by: RODY DUCKWORTH Date: 2020-12-23 00:42 Normal XR KUB 1 VIEWon 12-23-2020 XR KUB 1 VIEW EXAM: XR KUB 1 VIEW 12/23/2020 1:46 AM EDT OH001 CLINICAL STATEMENT: Abdominal pain COMPARISON: No prior studies are available at the time of dictation. TECHNIQUE: Two views of the abdomen are submitted. FINDINGS: There is a nonobstructive bowel gas pattern. There is no intraperitoneal free air. Atherosclerotic aortic calcifications. There is no organomegaly detected. Degenerative changes of the lumbosacral spine. Bony elements are unremarkable. IMPRESSION: No evidence of bowel obstruction or free intraperitoneal air. FOLLOW-UP: Follow-up as clinically indicated. Electronically authenticated by: RODY DUCKWORTH Date: 2020-12-23 03:[address] [facility] US THYROIDon 10-26-2020 US THYROID EXAMINATION: US THYR OID HISTORY: Non-toxic uninodular goiter COMPARISON: No relevant comparison available. FINDINGS: RIGHT LOBE: Contains a 5 x 3 x 3 mm TR 4 predominant calcified nodule. Contains a 3 mm TR 4 solid, but predominantly benign-appearing nodule. Contains an 8 mm colloid cyst. Lobe size: 5.3 x 2.1 x 1.8 cm. LEFT LOBE: Normal size and echotexture. Lobe size: 4.8 x 1.7 x 1.9 cm ISTHMUS: Normal size and echotexture. Thickness: 3 mm IMPRESSION: 1. No overtly suspicious thyroid nodules. Follow-up is recommended. Electronically authenticated by: STAR BLANKENSHIP Date: 2020-10-26 16:[address] [facility] XR CHEST 2 Von 09-10-2020 XR CHEST 2 V EXAM: CHEST 2 VIEWS HISTORY: Dyspnea TECHNIQUE: PA and lateral views chest. COMPARISON: Chest CT 12/01/2016 FINDINGS: There is a small area of lingular opacities also seen on prior chest CT. Mild bibasilar atelectasis. There is no acute lung consolidation, pleural effusion or pneumothorax. Pulmonary vasculature is within normal limits. There is aortic atherosclerosis and normal heart size. IMPRESSION: 1. Mild bibasilar atelectasis, and more focal lingular opacities also favoring chronic atelectasis that was seen on chest CT 12/01/2016. Recommend followup imaging if symptoms worsen or persist. 2. Atherosclerosis and normal heart size. Negative for pulmonary edema. Electronically authenticated by: CHADWICK ARAMBULA Date: 2020-09-10 10:18 Normal Vital Signs Date Time Vital Sign Value Performing Clinician Facility 03-11-2023 16:05-0400 Body height 172.72 cm Vikcy Kee Other [facility] Other 03-11-2023 16:05-0400 Body mass index (BMI) [Ratio] 31.59 kg/m2 Vicky Kee Other [facility] Other 03-11-2023 16:05-0400 Body temperature 100 [degF] Vicky Kee Other [facility] Other 03-11-2023 16:05-0400 Body weight 94.26 kg Vicky Kee Other [facility] Other 03-11-2023 16:05-0400 Diastolic blood pressure 77 mm[Hg] Vicky Kee Other [facility] Other 03-11-2023 16:05-0400 Respiratory rate 18 /min Vicky Kee Other [facility] Other 03-11-2023 16:05-0400 SaO2% (BldA) [Mass fraction] 93 % Vicky Kee Other [facility] Other 03-11-2023 16:05-0400 Systolic blood pressure 153 mm[Hg] Vicky Kee Other [facility] Other 02-23-2022 12:32-0400 Blood Pressure Location Gerardoholley [employer] [facility] [place] 02-23-2022 12:32-0400 Diastolic blood pressure 80 mm[Hg] Gerardo NORMAN [facility] [place] 02-23-2022 12:32-0400 Heart rate 85 /min Gerardo NORMAN [facility] [place] 02-23-2022 12:32-0400 Respiratory rate 16 /min Gerardo [employer] [employer] [facility] [place] 02-23-2022 12:32-0400 Systolic blood pressure 133 mm[Hg] Gerardo [employer] [facility] [place] Encounters Encounter Date Encounter Type Care Provider Facility Start: 03-15-2023 End: 03-15-2023 ambulatory Vicky Kee Other [facility] Other Start: 03-15-2023 Telephone encounter Vicky Kee [facility] Start: 03-11-2023 End: 03-11-2023 ambulatory Vicky Kee [facility] [employer] Other Start: 03-11-2023 Office outpatient ne w 20 minutes Vicky Kee [facility] Start: 06-08-2022 ambulatory MD Gerardo NORMAN [facility] ility:[facility] Start: 02-23-2022 End: 02-24-2022 ambulatory MD Gerardo NORMAN Facility:[facility] [place] Start: 02-23-2022 End: 02-23-2022 Patient encounter procedure Gerardo NORMAN [facility] [place] Start: 02-10-2022 End: 02-11-2022 ambulatory MD Gerardo NORMAN Facility:[facility] [place] Start: 02-10-2022 End: 02-10-2022 Patient encounter procedure Gerardo NORMAN [facility] [place] Start: 02-03-2022 ambulatory MD Gerardo Oliva ity:[facility] Start: 02-03-2022 End: 02-04-2022 ambulatory MD Gerardo NORMAN Facility:[facility] Start: 02-03-2022 End: 02-03-2022 Patient encounter procedure Gerardo NORMAN [facility] Start: 01-06-2022 End: 01-07-2022 ambulatory MD Gerardo NORMAN Facility:[facility] Start: 01-06-2022 End: 01-06-2022 Patient encounter procedure Gerardo NORMAN [facility] Start: 01-06-2022 ambulatory MD Gerardo Oliva ity:[facility] Start: 12-08-2021 End: 12-09-2021 ambulatory MD Gerardo NORMAN Facility:[facility] [place] Start: 11-07-2021 ambulatory MD Gerardo NORMAN Facil ity:[facility] Start: 11-05-2021 ambulatory Caprice Deal Facility:[facility] [place] Start: 11-04-2021 ambulatory MD Gerardo NORMAN Facil ity:[facility] Start: 09-10-2021 ambulatory MD Gerardo NORMAN Facil ity:[facility] Start: 09-10-2021 End: 09-11-2021 ambulatory Caprice Deal Facility:[facility] [place] Start: 07-30-2021 ambulatory MD Gerardo NORMAN Facil [facility]y:[facility] [place] Start: 12-23-2020 End: 01-01-2021 Evaluation and management of inpatient DR LAURA MARROQUIN Facility:[facility] Start: 10-26-2020 End: 10-27-[address] DOCTOR PORTILLO Facility:[facility] Start: 09-10-2020 End: 09-11-[address] SIMONA TELLO Facility:[facility] Procedures Date Procedure Procedure Detail Performing Clinician Start: 12-23-2020 Inspection of Perito rajat Cavity, Percutaneous Endoscopic Approach DR LAURA MARROQUIN Start: 12-23-2020 Resection of Appendi x, Open Approach DR LAURA MARROQUIN Appendectomy Gerardo NORMAN Colonoscopy Gerardo NORMAN Immunizations Immunization Date Immunization Notes Care Provider Fa cili 08-06-2021 SARS-CoV-2 (COVID-19 ) Ad26 vaccine, recombinant Gerardo NORMAN [facility] 06-13-2021 influenza virus vaccine, unspecified formulation Gerardoholley NORMAN [facility] 01-09-2021 SARS-CoV-2 (COVID-19 ) Ad26 vaccine, recombinant Gerardo NORMAN [facility] 12-12-2020 SARS-CoV-2 (COVID-19 ) Ad26 vaccine, recombinant Gerardo NORMAN [facility] Payers Date Payer Category Payer Self-pay 2023 Unknown [id number] 2021 Unknown [id number] 2019 Unknown [id number] 1957 Medicare [id number] 1942 Unknown [id number] 2.16.84 [id number] 1942 Unknown [id number] .16.84 [id number] 1942 Unknown [id number] 2.16.84 0.1.140136.3.579.2.59 1942 Unknown [id number] 2.16.8 [id number] 1942 Unknown [id number] 2.16.8 [id number] 1942 Unknown [id number] 2.16.8 40.1.187599.3.579.2.727 1942 Unknown [id number] 2.16.8 40.1.352239.3.579.2.727 1942 Unknown [id number] 2.16.8 40.1.527916.3.579.2.727 1942 Unknown [id number] 2.16.8 40.1.850178.3.579.2.727 1942 Unknown [id number] 2.16.8 40.1.557932.3.579.2.727 1942 Unknown [id number] 2.16.8 40.1.343769.3.579.2.727 1942 Unknown [id number] 2.16.8 40.1.472197.3.579.2.727 1942 Unknown [id number] 2.16.8 [id number] Unknown [id number] 2.16.8 [id number] Social History Date Type Detail Facility Start: 09-10-2021 End: 02-23-2022 Tobacco smoking status Ex-smoker (finding) [facility] Sex Assigned At Male [facility] Functional Status Date Assessment Result Facility 02-23-2022 Functional Status N/A [facility] Clinical Notes 01-06-2022 to 03-11-2023 Note Date & Type Note Facility 03-11-2023 Evaluation note Encounter Date Diagnosis Assessment Notes Feb, Hematuria, unspecified type (ICD-10 - R31.9) Feb, Acute lower UTI (urinary tract infection) (ICD-10 - N39.0) UA with small leuks, large blood. Patient with low-grade fever of 100 in office. Discussed with patient concern for urinary tract infection. Will treat with Levaquin x10 days. Finish entire course. Encouraged to push fluids. Discussed with patient he needs to monitor that he is urinating normal amount of urine throughout a 24-hour period. If he has a significant decrease in urine production he needs to go to the emergency room to assess for urinary retention. Advised if not improving over the next 3 to 4 days, needs to follow-up with PCP. ER if any significantly worsening symptoms, high fever. Patient verbalized understanding of treatment plan. [facility] Other 06-13-2022 Hospital Discharge instructions Patient Education 02/23/2022 12:57:11 Calorie Counting for Weight Loss Calorie Counting for Weight Loss Calories are units of energy. Your body needs a certain amount of calories from food to keep you going throughout the day. When you eat more calories than your body needs, your body stores the extra calories as fat. When you eat fewer calories than your body needs, your body shafer fat to get the energy it needs. Calorie counting means keeping track of how many calories you eat and drink each day. Calorie counting can be helpful if you need to lose weight. If you make sure to eat fewer calories than your bodyneeds, you should lose weight. Ask your health care provider what a healthy weight is for you. For calorie counting to work, you will need to eat the right number of calories in a day in order to lose a healthy amount of weight per week. A dietitian can help you determine how many calories youneed in a day and will give you suggestions on how to reach your calorie goal. A healthy amount of weight to lose per week is usually 1 2 lb (0.5 0.9 kg). This usually means thatyour daily calorie intake should be reduced by 500 750 calories. Eating 1,200 1,500 calories per day can help most women lose weight. Eating 1,500 1,800 calories per day can help most men lose weight. What is my plan? My goal is to have calories per day. If I have this many calories per day, I should lose around pounds per week. What do I need to know about calorie counting? In order to meet your daily calorie goal, you will need to: Find out how many calories are in each food you would like to eat. Try to do this before you eat. Decide how much of the food you plan to eat. Write down what you ate and how many calories it had. Doing this is called keeping a food log. To successfully lose weight, it is important to balance calorie counting with a healthy lifestyle that includes regular activity. Aim for 150 minutes of moderate exercise (such as walking) or 75 minutes of vigorous exercise (such as running) each week. Where do I find calorie information? The number of calories in a food can be found on a Nutrition Facts label. If a food does not have aNutrition Facts label, try to look up the calories online or ask your dietitian for help. Remember that calories are listed per serving. If you choose to have more than one serving of a food, you will have to multiply the calories per serving by the amount of servings you plan to eat. Forexample, the label on a package of bread might say that a serving size is 1 slice and that there are 90 calories in a serving. If you eat 1 slice, you will have eaten 90 calories. If you eat 2 slices, you will have eaten 180 calories. How do I keep a food log? Immediately after each meal, record the following information in your food log: What you ate. Don't forget to include toppings, sauces, and other extras on the food. How much you ate. This can be measured in cups, ounces, or number of items. How many calories each food and drink had. The total number of calories in the meal. Keep your food log near you, such as in a small notebook in your pocket, or use a mobile deena or website. Some programs will calculate calories for you and show you how many calories you have left forthe day to meet your goal. What are some calorie counting tips? Use your calories on foods and drinks that will fill you up and not leave you hungry: ?Some examples of foods that fill you up are nuts and nut butters, vegetables, lean proteins, and high-fiber foods like whole grains. High-fiber foods are foods with more than 5 g fiber per serving. ?Drinks such as sodas, specialty coffee drinks, alcohol, and juices have a lot of calories, yet do not fill you up. Eat nutritious foods and avoid empty calories. Empty calories are calories you get from foods or beverages that do not have many vitamins or protein, such as candy, sweets, and soda. It is better to have a nutritious high-calorie food (such as an avocado) than a food with few nutrients (such as a bag of chips). Know how many calories are in the foods you eat most often. This will help you calculate calorie counts faster. Pay attention to calories in drinks. Low-calorie drinks include water and unsweetened drinks. Pay attention to nutrition labels for low fat or fat free foods. These foods sometimes have thesame amount of calories or more calories than the full fat versions. They also often have added sugar, starch, or salt, to make up for flavor that was removed with the fat. Find a way of tracking calories that works for you. Get creative. Try different apps or programs ifwriting down calories does not work for you. What are some portion control tips? Know how many calories are in a serving. This will help you know how many servings of a certain food you can have. Use a measuring cup to measure serving sizes. You could also try weighing out portions on a kitchenscale. With time, you will be able to estimate serving sizes for some foods. Take some time to put servings of different foods on your favorite plates, bowls, and cups so you know what a serving looks like. Try not to eat straight from a bag or box. Doing this can lead to overeating. Put the amount you would like to eat in a cup or on a plate to make sure you are eating the right portion. Use smaller plates, glasses, and bowls to prevent overeating. Try not to multitask (for example, watch TV or use your computer) while eating. If it is time to eat, sit down at a table and enjoy your food. This will help you to know when you are full. It will also help you to be aware of what you are eating and how much you are eating. What are tips for following this plan? Reading food labels Check the calorie count compared to the serving size. The serving size may be smaller than what youare used to eating. Check the source of the calories. Make sure the food you are eating is high in vitamins and proteinand low in saturated and trans fats. Shopping Read nutrition labels while you shop. This will help you make healthy decisions before you decide to purchase your food. Make a grocery list and stick to it. Cooking Try to cook your favorite foods in a healthier way. For example, try baking instead of frying. Use low-fat dairy products. Meal planning Use more fruits and vegetables. Half of your plate should be fruits and vegetables. Include lean proteins like poultry and fish. How do I count calories when eating out? Ask for smaller portion sizes. Consider sharing an entree and sides instead of getting your own entree. If you get your own entree, eat only half. Ask for a box at the beginning of your meal and put the rest of your entree in it so you are not tempted to eat it. If calories are listed on the menu, choose the lower calorie options. Choose dishes that include vegetables, fruits, whole grains, low-fat dairy products, and lean protein. Choose items that are boiled, broiled, grilled, or steamed. Stay away from items that are buttered,battered, fried, or served with cream sauce. Items labeled crispy are usually fried, unless stated otherwise. Choose water, low-fat milk, unsweetened iced tea, or other drinks without added sugar. If you want an alcoholic beverage, choose a lower calorie option such as a glass of wine or light beer. Ask for dressings, sauces, and syrups on the side. These are usually high in calories, so you should limit the amount you eat. If you want a salad, choose a garden salad and ask for grilled meats. Avoid extra toppings like morgan, cheese, or fried items. Ask for the dressing on the side, or ask for olive oil and vinegar or lemon to use as dressing. Estimate how many servings of a food you are given. For example, a serving of cooked rice is cup orabout the size of half a baseball. Knowing serving sizes will help you be aware of how much food you are eating at restaurants. The list below tells you how big or small some common portion sizes arebased on everyday objects: ?1 oz 4 stacked dice. ?3 oz 1 deck of cards. ?1 tsp 1 . ?1 Tbsp a ping-pong ball. ?2 Tbsp 1 ping-pong ball. ? cup baseball. ?1 cup 1 baseball. Summary Calorie counting means keeping track of how many calories you eat and drink each day. If you eat fewer calories than your body needs, you should lose weight. A healthy amount of weight to lose per week is usually 1 2 lb (0.5 0.9 kg). This usually means reducing your daily calorie intake by 500 750 calories. The number of calories in a food can be found on a Nutrition Facts label. If a food does not have aNutrition Facts label, try to look up the calories online or ask your dietitian for help. Use your calories on foods and drinks that will fill you up, and not on foods and drinks that will leave you hungry. Use smaller plates, glasses, and bowls to prevent overeating. This information is not intended to replace advice given to you by your health care provider. Make sure you discuss any questions you have with your health care provider. Document Released: 08/30/2006 Document Revised: 05/19/2019 Document Reviewed: 07/30/2017 [employer] Patient Education 2020 [place] 02/23/2022 12:57:02 Benign Prostatic Hyperplasia Benign Prostatic Hyperplasia Benign prostatic hyperplasia (BPH) is an enlarged prostate gland that is caused by the normal agingprocess and not by cancer. The prostate is a walnut-sized gland that is involved in the production of semen. It is located in front of the rectum and below the bladder. The bladder stores urine and the urethra is the tube that carries the urine out of the body. The prostate may get bigger as a man gets older. An enlarged prostate can press on the urethra. This can make it harder to pass urine. The build-up of urine in the bladder can cause infection. Back pressure and infection may progress to bladder damage and kidney (renal) failure. What are the causes? This condition is part of a normal aging process. However, not all men develop problems from this condition. If the prostate enlarges away from the urethra, urine flow will not be blocked. If it enlarges toward the urethra and compresses it, there will be problems passing urine. What increases the risk? This condition is more likely to develop in men over the age of 50 years. What are the signs or symptoms? Symptoms of this condition include: Getting up often during the night to urinate. Needing to urinate frequently during the day. Difficulty starting urine flow. Decrease in size and strength of your urine stream. Leaking (dribbling) after urinating. Inability to pass urine. This needs immediate treatment. Inability to completely empty your bladder. Pain when you pass urine. This is more common if there is also an infection. Urinary tract infection (UTI). How is this diagnosed? This condition is diagnosed based on your medical history, a physical exam, and your symptoms. Tests will also be done, such as: A post-void bladder scan. This measures any amount of urine that may remain in your bladder after you finish urinating. A digital rectal exam. In a rectal exam, your health care provider checks your prostate by putting a lubricated, gloved finger into your rectum to feel the back of your prostate gland. This exam detects the size of your gland and any abnormal lumps or growths. An exam of your urine (urinalysis). A prostate specific antigen (PSA) screening. This is a blood test used to screen for prostate cancer. An ultrasound. This test uses sound waves to electronically produce a picture of your prostate gland. Your health care provider may refer you to a specialist in kidney and prostate diseases (urologist). How is this treated? Once symptoms begin, your health care provider will monitor your condition (active surveillance or watchful waiting). Treatment for this condition will depend on the severity of your condition. Treatment may include: Observation and yearly exams. This may be the only treatment needed if your condition and symptoms are mild. Medicines to relieve your symptoms, including: ?Medicines to shrink the prostate. ?Medicines to relax the muscle of the prostate. Surgery in severe cases. Surgery may include: ?Prostatectomy. In this procedure, the prostate tissue is removed completely through an open incision or with a laparoscope or robotics. ?Transurethral resection of the prostate (TURP). In this procedure, a tool is inserted through the opening at the tip of the penis (urethra). It is used to cut away tissue of the inner core of the prostate. The pieces are removed through the same opening of the penis. This removes the blockage. ?Transurethral incision (TUIP). In this procedure, small cuts are made in the prostate. This lessens the prostate's pressure on the urethra. ?Transurethral microwave thermotherapy (TUMT). This procedure uses microwaves to create heat. The heat destroys and removes a small amount of prostate tissue. ?Transurethral needle ablation (TUNA). This procedure uses radio frequencies to destroy and remove a small amount of prostate tissue. ?Interstitial laser coagulation (ILC). This procedure uses a laser to destroy and remove a small amount of prostate tissue. ?Transurethral electrovaporization (TUVP). This procedure uses electrodes to destroy and remove a small amount of prostate tissue. ?Prostatic urethral lift. This procedure inserts an implant to push the lobes of the prostate away from the urethra. Follow these instructions at home: Take [id number] and prescription medicines only as told by your health care provider. Monitor your symptoms for any changes. Contact your health care provider with any changes. Avoid drinking large amounts of liquid before going to bed or out in public. Avoid or reduce how much caffeine or alcohol you drink. Give yourself time when you urinate. Keep all follow-up visits as told by your health care provider. This is important. Contact a health care provider if: You have unexplained back pain. Your symptoms do not get better with treatment. You develop side effects from the medicine you are taking. Your urine becomes very dark or has a bad smell. Your lower abdomen becomes distended and you have trouble passing your urine. Get help right away if: You have a fever or chills. You suddenly cannot urinate. You feel lightheaded, or very dizzy, or you faint. There are large amounts of blood or clots in the urine. Your urinary problems become hard to manage. You develop moderate to severe low back or flank pain. The flank is the side of your body between the ribs and the hip. These symptoms may represent a serious problem that is an emergency. Do not wait to see if the symptoms will go away. Get medical help right away. Call your local emergency services (911 in the [place] Do not drive yourself to the hospital. Summary Benign prostatic hyperplasia (BPH) is an enlarged prostate that is caused by the normal aging process and not by cancer. An enlarged prostate can press on the urethra. This can make it hard to pass urine. This condition is part of a normal aging process and is more likely to develop in men over the age of 50 years. Get help right away if you suddenly cannot urinate. This information is not intended to replace advice given to you by your health care provider. Make sure you discuss any questions you have with your health care provider. Document Released: 08/30/2006 Document Revised: 07/25/2019 Document Reviewed: 10/04/2017 [employer]where [employer] Patient Education [employer]. Follow Up Care 02/10/2022 15:14:15 With:JARROD CLARK, GUERRERO Ulloa Address: [facility] [address], [place] [phone]- [phone] When:Within 3 Month(s) Comments:f/u in 3 months [facility] 05-24-2022 Note [id number]:[id number] 02-03-2022 NoteCustom Rezum Post-Procedure Instructions General Recommendations 1. Drink some extra fluids (water preferred) for the first few days following the procedure. Avoid alcohol and caffeine until your irritative symptoms have resolved. 2. Take the medication as prescribed by your doctor. Usually this will include an antibiotic, pain medication or antispasmodic if needed. 3. Avoid lifting heavy objects (>10 lbs) or excessive straining as this may cause bleeding in the first week after surgery. 4. Catheter instructions: ? You will go home with a Arredondo catheter attached to a catheter bag. ? Follow your doctor?s instructions. 5. You may resume your normal diet. Common Treatment Related Symptoms The following are common treatment related signs and symptoms that you may experience after the procedure. They may also occur following removal of the catheter. After the procedure, your general urinary symptoms may temporarily worsen and then gradually improve. 1. Blood in the Urine. It is common to see some blood in the urine for 1 to 2 weeks. Limit any physical activities and drink some extra water to flush the bladder but you do not need to drink excessively or be alarmed. If you think the bleeding is excessive or you are having trouble urinating, callthe number below. 2. Painful Urination. It is common to have some pain or burning with urination for 1 to 2 weeks. Itshould gradually improve. If it persists or starts to worsen, call the number below. 3. Slow Urinary Stream. After the procedure, swelling of the prostate occurs which may or may not make the urinary stream weaker. This should gradually improve. If you are having a lot of difficulty trying to urinate or cannot urinate, call your doctor. 4. Urinary Urgency, Frequency or Leakage. You may experience frequency and/or a strong urge to urinate while the prostate heals. Sometimes, you may find the urge is so strong that it is difficult to hold your urine and leakage can occur. 6. Blood in the Semen. This may occur up to several weeks following the procedure. The semen may have red or a ?efren? color. This condition will almost always resolve without any treatment. You should not be alarmed. Frequently Asked Questions Your Treating Doctor may override these recommendations. You should follow his/her instructions. 1. When can I resume normal physical activities? You may resume your daily activities immediately. You should limit vigorous workouts such as bike riding, running, treadmills, and heavy weight lifting for the first week. If you experience any bleeding, limit your activities and increase your water intake. 2. When can I resume sexual activity? In general, once you do not see any blood in the urine you may resume sexual activity. You may experience blood in the semen as described in the ?Common Treatment Related Symptoms? section. 3. When can I resume my medications including blood thinners? In general, you should continue with any of your regular medications but check with your doctor. Typically, you can resume any blood thinners immediately post procedure but check with your doctor. 4. When can I go back to work? In general, you can return to work the following day. If you are taking pain medication (narcotics)or have a physical job (lifting, construction work, etc.), check with your doctor. 5. When can I have an alcoholic beverage? You should avoid any alcohol until your irritative symptoms have resolved, typically 1-2 weeks. Alcohol is a bladder irritant and can worsen your symptoms. You should also follow the instructions regarding alcohol intake on the labels of your prescription medication. Contact your Doctor Immediately If you experience: 1. Fever (oral temperature ? 101?F), chills ? may be signs of an infection. 2. Inability to urinate. 3. Foul smelling or cloudy urine. 4. While there may be some pain related to the procedure, it is usually not severe. If you are experiencing severe pain or any condition you think may be serious, call your doctor. 5. If unable to contact your physician and you feel it is an emergency, go to the nearest emergencyroom or call 911. Arredondo Catheter Care, Male A Arredondo catheter is a soft, flexible tube that is placed into the bladder to drain urine. The catheter has a balloon to hold it inside the bladder. A Arredondo catheter may be inserted if: ? You leak urine or are not able to control when you urinate (urinary incontinence). ? You are not able to urinate when you need to (urinary retention). ? You had prostate surgery or surgery on the genitals. ? You have certain medical conditions, such as multiple sclerosis, dementia, or a spinal cord injury. To Prevent Infection: 1. Wash your hands with soap and water before and after handling your catheter. 2. Using mild soap and warm water on a clean washcloth; twice a day. ? Clean the area on your body closest to the catheter insertion site using a circul (more content not included)...[facility]05-24-2022 Hospital Discharge instructions Patient Education 02/03/2022 16:18:35 - Re[facility] Discharge Instructions (CUSTOM) [facility] Post-Procedure Instructions General Recommendations 1. Drink some extra fluids (water preferred) for the first few days following the procedure. Avoid alcohol and caffeine until your irritative symptoms have resolved. 2. Take the medication as prescribed by your doctor. Usually this will include an antibiotic, pain medication or antispasmodic if needed. 3. Avoid lifting heavy objects (>10 lbs) or excessive straining as this may cause bleeding in the first week after surgery. 4. Catheter instructions: You will go home with a Arredondo catheter attached to a catheter bag. Follow your doctor s instructions. 5. You may resume your normal diet. Common Treatment Related Symptoms The following are common treatment related signs and symptoms that you may experience after the procedure. They may also occur following removal of the catheter. After the procedure, your general urinary symptoms may temporarily worsen and then gradually improve. 1. Blood in the Urine. It is common to see some blood in the urine for 1 to 2 weeks. Limit any physical activities and drink some extra water to flush the bladder but you do not need to drink excessively or be alarmed. If you think the bleeding is excessive or you are having trouble urinating, callthe number below. 2. Painful Urination. It is common to have some pain or burning with urination for 1 to 2 weeks. Itshould gradually improve. If it persists or starts to worsen, call the number below. 3. Slow Urinary Stream. After the procedure, swelling of the prostate occurs which may or may not make the urinary stream weaker. This should gradually improve. If you are having a lot of difficulty trying to urinate or cannot urinate, call your doctor. 4. Urinary Urgency, Frequency or Leakage. You may experience frequency and/or a strong urge to urinate while the prostate heals. Sometimes, you may find the urge is so strong that it is difficult to hold your urine and leakage can occur. 6. Blood in the Semen. This may occur up to several weeks following the procedure. The semen may have red or a efren color. This condition will almost always resolve without any treatment. You shouldnot be alarmed. Frequently Asked Questions Your Treating Doctor may override these recommendations. You should follow his/her instructions. 1. When can I resume normal physical activities? You may resume your daily activities immediately. You should limit vigorous workouts such as bike riding, running, treadmills, and heavy weight lifting for the first week. If you experience any bleeding, limit your activities and increase your water intake. 2. When can I resume sexual activity? In general, once you do not see any blood in the urine you may resume sexual activity. You may experience blood in the semen as described in the Common Treatment Related Symptoms section. 3. When can I resume my medications including blood thinners? In general, you should continue with any of your regular medications but check with your doctor. Typically, you can resume any blood thinners immediately post procedure but check with your doctor. 4. When can I go back to work? In general, you can return to work the following day. If you are taking pain medication (narcotics)or have a physical job (lifting, construction work, etc.), check with your doctor. 5. When can I have an alcoholic beverage? You should avoid any alcohol until your irritative symptoms have resolved, typically 1-2 weeks. Alcohol is a bladder irritant and can worsen your symptoms. You should also follow the instructions regarding alcohol intake on the labels of your prescription medication. Contact your Doctor Immediately If you experience: 1. Fever (oral temperature = 101 F), chills may be signs of an infection. 2. Inability to urinate. 3. Foul smelling or cloudy urine. 4. While there may be some pain related to the procedure, it is usually not severe. If you are experiencing severe pain or any condition you think may be serious, call your doctor. 5. If unable to contact your physician and you feel it is an emergency, go to the nearest emergencyroom or call 911. Arredondo Catheter Care, Male A Arredondo catheter is a soft, flexible tube that is placed into the bladder to drain urine. The catheter has a balloon to hold it inside the bladder. A Arredondo catheter may be inserted if: You leak urine or are not able to control when you urinate (urinary incontinence). You are not able to urinate when you need to (urinary retention). You had prostate surgery or surgery on the genitals. You have certain medical conditions, such as multiple sclerosis, dementia, or a spinal cord injury. To Prevent Infection: 1. Wash your hands with soap and water before and after handling your catheter. 2. Using mild soap and warm water on a clean washcloth; twice a day. Clean the area on your body closest to the catheter insertion site using a circular motion, moving away from the catheter. Never wipe toward the catheter because this could sweep bacteria up into theurethra and cause infection. Remove all traces of soap. Pat the area dry with a clean towel and reposition the foreskin. No tub baths. No lotions, powders, or sprays unless directed by your physician. 3. Keep the tube secure. Do not let the tube pull or catch when you are moving around. Attach the catheter to your leg so there is no tension on the catheter. Use adhesive tape or a leg strap. If you are using adhesive tape, remove any sticky residue left behind by the previous tape you used. 4. Replace wet leg straps with dry ones. 5. Wear cotton underwear to absorb moisture and keep matrix drier tender. 6. Keep the drainage bag below the level of the bladder, but keep it off the floor. 7. Check throughout the day to be sure the catheter is working and urine is draining freely. Make sure the tubing does not become kinked or looped. 8. Do not pull on the catheter or try to remove it. Pulling could damage internal tissues. TAKING CARE OF THE DRAINAGE BAGS Emptying the Drainage Bag You must empty your drainage bag when it is ? full. 1. Wash your hands with soap and water before and after handling your catheter. 2. Keep the drainage bag below your hips, below the level of your bladder. This stops urine from going back into the tubing and into your bladder. 3. Hold the dirty bag over the toilet or a clean container. 4. Open the pour spout at the bottom of the bag and empty the urine into the toilet or container. Do not let the pour spout touch the toilet, container, or any other surface. Doing so can place bacteria on the bag, which can cause an infection. 5. Clean the pour spout with a gauze pad or cotton ball that has rubbing alcohol on it. 6. Close the pour spout. 7. Attach the bag to your leg with adhesive tape or a leg strap. Changing the Drainage Bag 1. Wash your hands with soap and water before and after handling your catheter. 2. Pinch off the rubber catheter so that urine does not spill out. 3. Disconnect the catheter tube from the drainage tube at the connection valve. Do not let the tubes touch any surface. 4. Clean the end of the catheter tube with an alcohol wipe. Use a different alcohol wipe to clean the end of the drainage tube. 5. Connect the catheter tube to the drainage tube of the clean drainage bag. 6. Attach the new bag to the leg with adhesive tape or a leg strap. Avoid attaching the new bag tootightly. 7. Place a cap on the drainage bag not in use and store in a clean towel. SEEK MEDICAL CARE IF: Your urine is cloudy or smells. Your catheter starts to leak. Your catheter falls out or is pulled out. You have pain, swelling, redness, or pus where the catheter enters the body. You have pain in the abdomen, legs, lower back, or bladder. You have a fever of 100.4 F (38 C) or higher You see pink, red, dark, coffee colored, or pus-like urine. You have nausea, vomiting, or chills. You are not feeling better in 2 to 3 days or you are feeling worse. You are not draining urine into the bag or your bladder feels full. MAKE SURE YOU: Understand the reason you have the catheter. Understand and follow these instructions to care for the catheter. Will watch your condition. Drink 6-8 glasses of water or liquids per day to keep your urine clear. Avoid Caffeinated drinks. They can irritate the bladder and cause bladder spasms. Keep your follow up appointments and call with any concerns. Follow Up Care 01/27/2022 09:38:19 With:Gerardo NORMAN Address: [facility] [address] [place] [id number]- Business (1) When:02/10/2022 16:18:17 Comments:For Arredondo removal [facility]04-28-2022 Note [id number]:[id number] 01-06-2022 Hospital Discharge instructions Patient Education 01/06/2022 16:44:57 EU - Cystoscopy Discharge Instructions (CUSTOM) Cystoscopy Voiding after the procedure: there may be some pain, burning, urgency, frequency and blood tinged urine following the procedure. These symptoms usually resolve within 2-5 days. Drink the amount of fluid it takes to keep the urine pink to yellow or clear in color. Drinking enough water and fluids will help to ease any discomfort after your procedure. If you are having problems that seem out of the ordinary, please call. If unable to contact your physician and you feel it is an emergency, go to the nearest emergency room or call 911 Diet you may resume your normal diet. Activity you may resume your normal activities Call if you have a fever over 100 degrees. Follow Up Care 12/23/2021 07:56:19 With:Gerardo NORMAN Address: [facility] [address] [place] [address]- Business (1) When: Unknown Comments:Office will call to schedule follow up [facility]04-26-2022 NoteCustom Cystoscopy ? Voiding after the procedure: there may be some pain, burning, urgency, frequency and blood tingedurine following the procedure. These symptoms usually resolve within 2-5 days. Drink the amount of fluid it takes to keep the urine pink to yellow or clear in color. Drinking enough water and fluids will help to ease any discomfort after your procedure. ? If you are having problems that seem out of the ordinary, please call. ? If unable to contact your physician and you feel it is an emergency, go to the nearest emergency room or call 911 ? Diet ? you may resume your normal diet. ? Activity ? you may resume your normal activities ? Call if you have a fever over 100 degrees.[facility] Evaluation + Plan note No data available for this section [facility] App[facility]ments Appointment Date:02/10/2022 02:45:00 PM Scheduled Provider: Location:[facility] App[facility] Future Appointments Appointment Date:02/23/2022 12:30:00 PM Scheduled Provider:Gerardo NORMAN MD Location:[facility] Appointment Type:URO Office Visit [facility] Evaluation + Plan note Future Appointments Appointment Date:06/08/2022 02:15:00 PM Scheduled Provider:Gerardo NORMAN MD Location:[facility] Appointment Type:URO Office Visit [facility] Other History general Narrative - Reported* Type Description Date Medical History high blood pressure Medical History high cholesterol Medical History COPD [facility] Other Hospital Discharge instructions No data available for this section [facility] Progress note No data available for this section [facility] Summary Purpose Family History No Family History Records FoundNo Family History Records FoundNo Family History Records FoundNo Family History Records Found Advance Directives No Advanced Directives Records FoundNo Advanced Directives Records FoundNo Advanced Directives Records FoundNo Advanced Directives Records Found Additional Source Comments (unrecognized sect ion and content) No Status Records FoundNo Status Records FoundNo Status Records FoundNo Status Records Found INFORMATION SOURCE (unrecogn ized section and content) DATE CREATED AUTHOR 03/27/2021 [facility] DATE CREATED AUTHOR AUTHOR'S ORGANIZ ATION 11/29/2021 [facility] DATE CREATED AUTHOR AUTHOR'S ORGANIZ ATION 06/19/2022 [place] DATE CREATED AUTHOR AUTHOR'S ORGANIZ ATION 03/31/[address] [facility] Care Team (unrecognized sect ion and content) Personnel Name: OMER LAN OCTAVIA Address: [address] [place] [address]- REASON FOR VISIT (unrecogniz ed section and content) [employer] Information FOR RECORDS PERTAINING TO PATIENTS WHO ARE OR HAVE BEEN ENROLLED IN A CHEMICAL DEPENDENCY/SUBSTANCEABUSE PROGRAM, SOME INFORMATION MAY BE OMITTED. This clinical summary was aggregated from multiple sources. Caution should be exercised in using it in the provision of clinical care. This summary normalizes information from multiple sources, and as a consequence, information in this document may materially change the coding, format and clinical context of patient data. In addition, data may be omitted in some cases. CLINICAL DECISIONS SHOULD BE BASED ON THE PRIMARY CLINICAL RECORDS. [facility] [employer] provides no warranty or guarantee of the accuracy or completeness of information in this document.
[2023-09-25 20:09] LABS: Glucometer 160 mg/dL (74-106)
[2023-09-25] MEDS: ATORVASTATIN CALCIUM 20 MG TABLET PO (21:21)
[2023-09-26] VITALS (12 sets, daily range): BP systolic 115–150; BP diastolic 64–79; PULSE 75–103; RESP 18–20; TEMP 36.6; O2SAT 90–95
[2023-09-26] MEDS: METHYLPREDNISOLONE SOD SUCC PF 40 MG/ML VIAL IVP ×2 (00:09→05:14)
[2023-09-26 05:21] LABS: Basophils Percent Auto 0.1 % (0.2-2.0); Hematocrit 37.4 % (42.0-54.0); Hemoglobin 11.6 g/dL (14.0-18.0); Immature Granulocytes Abs Auto 0.11 10^3/uL (0.00-0.03); Immature Granulocytes Pct Auto 0.7 % (0.0-0.5); Lymphocytes Absolute Auto 0.7 10^3/uL (1.2-3.8); Lymphocytes Percent Auto 4.1 % (20.5-60.0); Mean Corpuscular Hemoglobin 27.9 pg (25.9-34.0); Mean Corpuscular Volume 89.9 fL (80.0-94.0); Mean Platelet Volume 10.5 fL (9.5-13.5); Monocytes Absolute Auto 0.5 10^3/uL (0.3-0.8); Monocytes Percent Auto 2.9 % (1.7-12.0); Neutrophils Absolute Auto 15.2 10^3/uL (1.4-6.5); Neutrophils Percent Auto 92.2 % (43.0-75.0); Platelet Count 210 10^3/uL (150-450); Red Blood Count 4.16 10^6/uL (4.70-6.10); Red Cell Distribution Width 14.5 % (11.0-15.0); White Blood Count 16.5 10^3/uL (4.0-11.0)
[2023-09-26 05:33] LABS: Alanine Aminotransferase 22 U/L (16-63); Albumin Globulin Ratio 0.8; Albumin Level 2.8 g/dL (3.4-5.0); Alkaline Phosphatase 46 U/L (46-116); Anion Gap 11.8; Aspartate Amino Transferase 18 U/L (15-37); BUN Creatinine Ratio 24.8; Bilirubin Total 0.3 mg/dL (0.2-1.0); Calcium 9.5 mg/dL (8.5-10.1); Carbon Dioxide 26.4 mmol/L (21.0-32.0); Chloride 106 mmol/L (98-107); Estimated GFR (African America >60 (>=60); Estimated GFR (Non-African Ame >60 (>=60); Globulin 3.6 g/dL; Glucose 193 mg/dL (74-106); Potassium 4.2 mmol/L (3.5-5.1); Sodium 140 mmol/L (136-145); Total Protein 6.4 g/dL (6.4-8.2)
[2023-09-26] MEDS: IPRATROPIUM/ALBUTEROL SULFATE 3 ML AMPUL.NEB IH (07:17)
--- NOTE | 2023-09-26 07:24 | RESP.RT ---
Patient did not want to be woke up
[2023-09-26] MEDS: AZITHROMYCIN 250 MG TABLET 500 MG PO (08:43)
[2023-09-26] MEDS: OXYBUTYNIN CHLORIDE 5 MG TAB XL 10 MG PO (08:43)
[2023-09-26] MEDS: INSULIN ASPART 300 UNIT/3 ML PEN SUBQ (08:47)
[2023-09-26 08:49] LABS: Glucometer 172 mg/dL (74-106)
[2023-09-26] MEDS: AMLODIPINE BESYLATE 5 MG TABLET 10 MG PO ×2 (08:49→08:55)
[2023-09-26] MEDS: FORMOTEROL IH (08:53)
[2023-09-26] MEDS: GLYCOPYRROLATE IH (08:53)
[2023-09-26] MEDS: BUDESONIDE IH (08:53)
[2023-09-26] MEDS: [UNRECOGNIZED DRUG - OTHER] IH (08:53)
[2023-09-26] MEDS: ASCORBIC ACID 500 MG TABLET PO (08:56)
[2023-09-26] MEDS: LISINOPRIL 20 MG TABLET 40 MG PO (08:56)
[2023-09-26] MEDS: ASPIRIN 81 MG TAB.CHEW PO (08:57)
[2023-09-26] MEDS: CHOLECALCIFEROL (VITAMIN D3) 25 MCG/1,000 UNITS TABLET 50 MCG PO (08:58)
[2023-09-26] MEDS: MULTIVITAMIN TABLET 1 TAB PO (08:59)
[2023-09-26] MEDS: CALCIUM CARBONATE 600 MG/VITAMIN D3 400 IU TABLET 1 TAB PO (09:06)
[2023-09-26] MEDS: ASPIRIN 81 MG TAB.CHEW 162 MG PO (09:06)
--- NOTE | 2023-09-26 10:31 | P.DS_ITS ---
DS: Providers Provider Date of admission: 09/25/23 11:18 Primary care physician: Non-Staff Physician, DS: Diagnosis Discharge Diagnosis (1) Acute exacerbation of chronic obstructive pulmonary disease: Assessment and plan: Due to PNA. Stable for discharge on PO prednisone. C/w breztri. (2) Respiratory failure with hypoxia: Assessment and plan: due to COPD exacerbation, Pneumonia. Resolved now. Qualifiers: Chronicity: acute Qualified Code(s): J96.01 - Acute respiratory failure with hypoxia (3) Pneumonia: Assessment and plan: Right lower lobe Pneumonia - follow up CXR recommended in 4-6 weeks Will d/c on oral Levaquin for 5 more days. Qualifiers: Pneumonia type: due to unspecified organism Laterality: right Lung location: lower lobe of lung Qualified Code(s): J18.9 - Pneumonia, unspecified organism (4) Hypertension: Assessment and plan: Stable, c/w home meds Qualifiers: Hypertension type: primary hypertension Qualified Code(s): I10 - Essential (primary) hypertension (5) HLD (hyperlipidemia): Assessment and plan: c/w pravastatin (6) BPH (benign prostatic hyperplasia): Assessment and plan: c/w flomax. (7) Prediabetes: Assessment and plan: Monitor blood glucose closely while on prednisone. DS: Summary Hospital Course Hospital Course: 83 y o male with hx of COPD, presented with acute shortness of breath and was found to have acute resp failure with hypoxia sec to COPD exacerbation and right lower lobe pneumonia. CTA chest was done to r/o PE - no evidence of VTE on CTA. Patient was treated with IV steroids, duonebs q4 along with Rocephin/azithromycin for Community acquired pneumonia. His clinical status improved gradually. On day of discharge, he reported no dyspnea at rest or on exertion and was 92-93% on RA. Patient still has mild cough but overall significantly better from when he arrive. Patient stable for discharge. Follow up with PCP in one week and return to ED if worsening SOB, persistent fever develops Status at Discharge Functional status at discharge: independent ambulation Overall status at discharge: patient is back to baseline Time Spent with Patient Time attestation: Total time spent providing and/or coordinating discharge services: Time spent: greater than 30 minutes Exam Constitutional Vital Signs, click to edit/add: Last Vital Signs Temp 97.8 F 09/26/23 05:18 Pulse 95 H 09/26/23 09:57 Resp 18 09/26/23 07:18 BP 150/79 H 09/26/23 08:56 Pulse Ox 95 09/26/23 07:17 O2 Del Method Nasal Cannula 09/26/23 07:17 O2 Flow Rate 2 09/26/23 07:17 Documenting provider has reviewed patient's vital signs: yes Common normals: no apparent distress and oriented x3 General appearance: cooperative Respiratory Common normals: normal respiratory effort and no use of accessory muscles Effort & inspection: able to speak in complete sentences Other: Prolonged expiratory phase, no active wheezing, improved air entry from yesterday Cardio Common normals: regular rate, S1 normal heart sound and S2 normal heart sound Rate: regular rate Heart sounds: S1 normal and S2 normal Neuro Common normals: oriented x3, moves all extremities and no focal motor deficits DS: Data Data Completed and Pending Labs on day of discharge: Labs from last 24 hours 09/26/23 09/26/23 09/25/23 08:47 04:30 20:08 WBC 16.5 H RBC 4.16 L Hgb 11.6 L Hct 37.4 L MCV 89.9 MCH 27.9 MCHC 31.0 RDW 14.5 Plt Count 210 MPV 10.5 Neut % (Auto) 92.2 H Lymph % (Auto) 4.1 L Stafford % (Auto) 2.9 Eos % (Auto) 0.0 L Baso % (Auto) 0.1 L Neut # (Auto) 15.2 H Lymph # (Auto) 0.7 L Stafford # (Auto) 0.5 Eos # (Auto) 0.0 Baso # (Auto) 0.0 Abs Immat Gran (auto) 0.11 H Imm/Tot Granulo (auto) 0.7 H Sodium 140 Potassium 4.2 Chloride 106 Carbon Dioxide 26.4 Anion Gap 11.8 BUN 25.0 H Creatinine 1.01 Est GFR ( Amer) >60 Est GFR (Non-Af Amer) >60 BUN/Creatinine Ratio 24.8 Glucose 193 H Calcium 9.5 Total Bilirubin 0.3 AST 18 ALT 22 Alkaline Phosphatase 46 Total Protein 6.4 Albumin 2.8 L Globulin 3.6 Albumin/Globulin Ratio 0.8 POC Glucose 172 H 160 H 09/25/23 09/25/23 16:06 11:18 WBC RBC Hgb Hct MCV MCH MCHC RDW Plt Count MPV Neut % (Auto) Lymph % (Auto) Stafford % (Auto) Eos % (Auto) Baso % (Auto) Neut # (Auto) Lymph # (Auto) Stafford # (Auto) Eos # (Auto) Baso # (Auto) Abs Immat Gran (auto) Imm/Tot Granulo (auto) Sodium Potassium Chloride Carbon Dioxide Anion Gap BUN Creatinine Est GFR ( Amer) Est GFR (Non-Af Amer) BUN/Creatinine Ratio Glucose Calcium Total Bilirubin AST ALT Alkaline Phosphatase Total Protein Albumin Globulin Albumin/Globulin Ratio POC Glucose 278 H 157 H Discharge Plan Discharge Disposition: Home, Self-Care Discharge Medications: New levofloxacin 750 mg tablet 750 mg PO DAILY 5 Days Qty: 5 0RF prednisone 20 mg tablet 20 mg PO BID 5 Days Qty: 10 0RF Continued lisinopril 40 mg PO DAILY amlodipine 10 mg PO DAILY pravastatin 80 mg PO DAILY aspirin 81 mg capsule 81 mg PO DAILY tamsulosin [Flomax] 0.4 mg capsule 0.4 mg PO DAILY Breztri Aerosphere 160-9-4.8 mcg/actuation HFA aerosol inhaler 2 inh inhalation BID mirabegron 50 mg tablet extended release 24 hr 50 mg PO DAILY ascorbic acid (vitamin C) [Acerola C] 500 mg tablet,chewable 500 mg PO DAILY cholecalciferol (vitamin D3) [D3 DOTS] 50 mcg (2,000 unit) tablet 50 mcg PO DAILY Discontinued nitrofurantoin 100 mg capsule 100 mg PO BID Rx Instructions: must administer with a meal/food Activity: increase activity as tolerated Diet: advance to your usual diet Forms: Portal Instructions Follow Up Appointments: Follow up with PCP in one week
--- OUTSIDE RECORDS SUMMARY | 2023-09-27 07:19 | XMS_ITS | CCD ---
Author Name Unknown Address [address] [place] [address] Organization [facility] Care Team Providers Care Cleaning Crew Member Name Role Phone LOPEZ, DR LAURA Torres [...] (1 source) Cefadroxil Drug Allergy 4 [facility] Repository (7 sources) Cefadroxil; Translations: [cefadroxil] Drug Allergy Unknown (qualifier value), rash [facility] Medications Current Medications Medication Drug Class(es) Dates Sig (Normalized) Sig (Original) acetaminophen 325 mg / HYDROcodone bitartrate 7.5 mg oral tablet (3 sources) Opioid Agonist Start: 01-27-2022 take 1 tablet by mouth once, then take 1 tablet by mouth every hour [place] 325 mg-7.5 mg oral tablet 1 tab(s), Oral, Once, 1 tab(s), Refill(s) 0, Take 1 hour prior to procedure DX:N40.1 (pre-op med) Don't drive or operate machinery while taking this medication., Other (see comment), [facility], 172, cm, 01/05/22 13:05:00 EDT, Height... 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 (current) drug therapy; Translations: [OTH [facility] CURRENT DRUG THERAPY] Onset: 01-08-2021 Episodic Other [...] Facility Urinalysis - AUTOMATEDon Appearance (U) Cloudy [employer] Other Bilirubin Ql (U) Small [employer] Other Color (U) Dark Red [employer] Other Glucose Ql (U) Negative [employer] Other Hemoglobin Ql (U) Large [employer] Other Ketones Ql (U) Moderate [employer] Other Leukocyte esterase Test strip Ql (U) Small [employer] Other Nitrite Ql (U) Negative [employer] Other pH (U) 7.5 [pH] [employer] Other Protein Ql (U) 300 [employer] Other Specific gravity (U) [Rel density] 1.015 [employer] Other Urobilinogen (U) [Mass/Vol] Negative [employer] Other Urinalysis - AUTOMATED [employer] Other Urine Cultureon 03-11-2023 Bacteria identified Cx Nom (U) 15,000 colonies/ml mixed bacterial skin contaminants 2 Days PERFORMED BY: [place] [address] PATHOLOGIST PLASTIC PARTS FABRICATOR QUYNH SHI M.D. [facility] Comment on above: Performed By: #### C UU #### [address] Pre-Certification Formon Pre-Certification Form [id number]#1.00C D:127 Normal [facility] Ambulatory Visit Summaryon 0 02-23-2022 Ambulatory Visit Summary MIKEL SOTO :1940 Visit Date:02/23/2022 Ambulatory Visit Instructions Your Diagnosis BPH without urinary obstruction Nocturia Tests Performed Urnls Dip Stick Auto w/o Microscopy POC 27254 Your Care Team Attending Physician - JARROD CLARK, Gerardo Torres Primary Care Physician - OCTAVIA TELLO DO This Is Your Medications List Contact prescribing physician if questions or concerns acetaminophen-hydrocodo ne ([place] 325 mg-7.5 mg oral tablet) amlodipine aspirin [...] CLARK, Gerardo Torres Where: [facility] Patient Educationon 02-24-20 Patient Education Nutrition Calorie [...] You could (more content not included)... Normal [facility] Urology Office/Clinic Noteon 02-23-2022 Urology Office/Clinic Note [facility] Mikel is here today for a [...] [facility] [address], [place] [address] [phone] Additional Instructions: f/u in 3 months Patient [...] 2 cap(s), Oral, Daily lisinopril, Oral, Daily [place] 325 mg-7.5 mg oral tablet, 1 tab(s), [...] Protein Urine Dipstick: Negative (02/23/22 12:26:00) Specific [place] Urine Dipstick: 1.010 (02/23/22 12:26:00) Urine Appearance Urine Dipstick: Clear (02/23/22 12:26:00) Urine Color Urine Dipstick: Yellow (02/23/22 12:26:00) Urobilinogen Urine Dipstick: Normal 0.2-1 EU/dl (02/23/22 12:26:00) pH Urine Dipstick: 7 (02/23/22 12:26:00) Diagnostic Results Tests Reviewed: Reviewed UA, Rezum report Normal [facility] Comment on above: Result Comment: Elec tronically Signed By: JARROD CLARK, Gerardo Torres\.br\Date and Time Signed: 02/23/22 13:02 EDT\.br\Electronically Co-Signed By: Mimi Aguayo\.br\Date and Time Co-Signed: 02/23/22 13:00 EDT Provider Letteron 02-10-2022 Provider Letter (Inserted Image. Arcelia ble to display) February 10, 2022 [place] [address] MIKEL SOTO 1940 To Whom It May Concern, Please excuse above patient from work. Date of Illness: From: 02/03/2022 To: 02/16/2022 May Return to Work On: 02/17/2022 Restrictions: N/A Comments: Patient had medical procedure on 02/03/2022. Sincerely, Gerardo Norman M.D. [facility] [address] [place] [address] [facility] Coding Summary.on 02-04-2022 Coding Summary. CD:[id number] Gh0 bWw+PGhlYWQ+KH0KFMBjE68 rfFRanG5XL9tQEX2BKNAOVJ PSBG8OGD9jcEZ8CZweZ5Lhn iAv FkjxdYVjJB27PEj1ZEN8uCr lFZpknA5tuOSxI1v4UlDqWA 22gC55MPdcPUVwFmA3BxRma jsgbWFy F7nqCgIfyVIaRhq+PHRhYmx lIHdpZHRoPScxMDAlJyBzdH hoYA3vHp5gMYGoGYNghTewo HNlOiBj u3kxQKCuZNopQO7liJlzN2S idDH7PFIix8z5Ii20oRJ+PH IsKRW4iRmpHKacz677RbHln 7uyYTZ6 nWHiJNyyVNZ1L50ro8P0CZW xPPKbUYP6zVJ7fO5xtEqkrr ekO8UwzFAqNoD2KBA7jUWin D6kaNcv aqflrD8sGdt+E69AWE3QNEC GGT0DZku7I4YhRazhyGW+PC 15LHLdAT16yVLjnDLul7glm Ji2McGi AGXfRZL2aSsfNQmos2BsNZI pK08pmZLkn5S9EYVgjRhxdZ BhMyVhsFZ3pQ7xVMltrspzd 2hvdzsn Fmumc8kwvc38rB08L61qGUm nPGRkEUH9TJTsOBAfpKrhme 0olV6zRj5+ALuuf7bnl9eie Go3IgTt BHGrgkCoqFeeJJK7i1HrBt2 7I2LxkQehu2OvTpg9lj47rQ Ghn8K6gEP4KZhvPTHyhJ4xF WxlZnQ6 IPFpGwZbkS55hNUfNJygZf0 aaCxqgQunTM7xZBOeptpiSN JznQ6bYLRdiOSuvIujUR6lI TBpbjtm k838QzOvMZC4DIBehQAaV7G vwF2mYgAvPWMcSTSjU3VevS YfYVcqE134UHvsStC3VDKtv sJnY5Oy THGsbIpwPpD1z2B6Zs6Vz6M cwoenDWF3XRwaFTF1GdF3Nm QiQkG8A6JmKqj6WZGpyLyoN Q6kU3Cc LHDahajthjgyxJA2ZCZcYZP fjS21yMGcKVbnZl9nj4J2d0 72CVMmAHRacX43Ic9hhHptN TBwdCBU sF9wzqvim9fqiiddAsKePLE fMGk6LZi1KQFfuXxyTqAfPO T0TiF0ZYS7dLKawB9kgIjln vpvoY5r Oyc+M59khQ4pCFN4GOZ2suc kCRTjhcFfBJ75RV38D7UmMn wvdGFibGU+PGRpdiBzdHlsZ Z1bAnAd q0nov3FdPUsyV9WnNHQpJXy fVwe2CKNlAGF0nSO3yE4aNQ JyCExnv7U5uGW0G1ThsfUhp t3cc8gk DRBuEYguO78pqQRqh3B7ZSF bmSP1YRKctXymJiRxbL92Tf c+FFPweFcqw0LbPpfue3uwg 4xkcId0 UmFyBQGbexPxvFotCED3g7V sIz64R24cTXffWCNsKNMiCQ NnGVKdaMfdgh5gjN3lSi2+P GNvbCB3 xOW1zL0wCCHjDoE9GUdvG46 7BvNrlJZyIaphn4kao3tonC p5FdBrVNGpgzRekDhzZPA4t 0TwMe73 F55bPKksXKVrVFShPSUvZSS lrIbivx7frZ2zQi6+PC9jb2 sxvu62uW92hXH+UVZpUCL0l WxlPSdw VMUeoU1oFCcyFvE9AGHzTpZ lkG75xRUvAIkvIx5phEvgrE ciIZ6mLOTpwpkbv192LnUfg 2xkIDEw xBNqWTaqTDP2J96ww5Y2PMK aKMXtEBV4eQZ4wZ7zyDwwdb ogbGVmdDsgdmVydGljYWwtY JllW426 IHRvcDsnPlBhdGllbnQgTmF mKXb8C4ZjKmn1SXTkmVoaXF 8zvCWmKKowOi9ohBrejKolU I6qJPCn njikf330EaExx1nbHGUclZT uAOiqWXR3W19ou2W0OQJpVU AgJGJ9bDF2rT7mdAptejcoz GVmdDsg yrTvbSziCJliBDdrE158FNM meBmlJtKuwiBvULHjuIH1XY 17LV36qLVlz8U6dZX1X6AtI GRpbmct qyguhBN1ITNbAAOsvN32Ag2 poYqyZn3kOCYaYKS9EAMmiS JkW0EjwC5hUwSpYAPbVROnU 3RleHQt CYkuE203XCwlZlQ2HCRyakS aK9StTPHbuDncJxQ2g2P0Ny 5NB3G2ES83LD65gVHiq6X9p KN7R0Eb RVXlmyzxbzppfLO5XHFgWBB gyZ38Sh2nwEumXy4dJBRcNU S3YDGodVQlV4PfsS1rPeBdH DAwMDAw E7YraEBdOMneQ141OXuxGfP 2TAGiwkTfP3QiYJFyyCngTt D8l4C3Gf9AEAv9WU84RP76i TFrf7Q8 cVV2Z9UwNNZmkvcqivglsXV 6ZHTzBLJluO30Vk7loNomOx 2yUODsMOY0GTMgnMCgZ8Srp W3jJrXp GTHdTTTsC9RkjGFvLBqiO86 0JCqqQeB4OHIcojAgK7OzGO KriQdwKmE1f5N3Vl5NWIVnS B08GAO6 ePI0HC05XU92P8GoSsklhND ibGU+PHRhYmxlIHdpZHRoPS pfDWDpRpKdfPqpUT2dXj2gX GVyLWNv vIdpuODgQiViy8zzNFFmTVu xRA0lnBqmG2ZajSY8UKQqo2 b6Xt54V47pM4KttXK+PGNvb GC8nKS0 oO8mXvOuCtL1GFoqB587CbN ozDCpUeeef2nkw4kpiMv3Nw Q2NVCbitDhkAkmPRE2q6XbZ q70E57e IHdpZHRoPSIxNSUiIHZhbGl uys7jcM4qMl4+PBXhhYA7yU D3fS8wDfDiKdL5AFdbJ233J nRvcCIv Jktpy1nyj6fgaQu9LbCdPBM jrdVsjAufBFD1b4TkJk73Y0 MazFuph2KoDfr2vm69pNJzc 7U6pHO1 C6FmRNVtznkvoSCxeNkbOH3 rEUMwfyglHRYjyT9aHXVjK7 z7OkCqZiL7LWytS3WiwhG5X DEwcHQg HQeoWHN6F58qi6P4GCRnUES lQHU8qQB9zW9auTjfbtzuqD VmdDsgdmVydGljYWwtYWxpZ 246IHRv tNvuESQtsD6uUMPdzIPbvHf sHU7oDADldccqBlMSA7AXLC GMV0VOAgLjBmgmhBU+PHRkI ET3wOep TTirTJFvxF1vLRDfT6v4YoW oWlT9STztE5NuAJXljcshVa 60iC2nMnQkXaZ6GCwxE1Abx aB0BQTb bTWjMUldLAM5Q62nq3G0QAM mVVNiFHI6sUM5vF7bdUlrpp ogbGVmdDsgdmVydGljYWwtY JarU098 SUGqqOfdAeC7SeD5NjC3WER 6W7EpEge2QMIdrDzoPL1zhH XcMQqeIj5otKdljWwpTO3iP TBpbjtw ZOOvqF9xWIHosGBmfVstGU6 yAAPdirnyy295UoHbLUM2FN WzmIZnY8TdwF8gHhGtRIKpB SJfU9Lx jINjGXrhZ354DIfmPvB6GSO yxpNbE9GqRAQrwJsiOmP5z4 Y6Fb43FPDHQJGccuwcmAJ+P HRkIHN0 xFxzBRtuJBJmlM2bDYUqN7i 7ErCiPaW4KGqwL6TtVNSezj ezLb33aC9rXbJcMfM2LEthI 3ZgxcE1 TJYhiMAsDCelKKW1P00rg9G 3JXJsIOMcNHY9bQR4bU6gyB lnbjogbGVmdDsgdmVydGljY WwtYWxp U653XAGldQraLj5ysIB1H8I gKxx4QVInfJvpFG5zuWWhRJ mkWz3uuRjtpNgnTS4yFJCwq jtwYWRk kL6bQCXfeBWikAopQX6mGBV zeepzn421AtGuNMU7WDPnwC WcB4YtrP4qLwJaQDEtVPKuR 3RleHQt ZSeoG420SFieVlL9OVQoftH jN5WuCOTpwDgeStB0t1G8Dz 9PwRTfGXThFP49EE87HN60E 3RyPjwv dGFibGU+PHRhYmxlIHdpZHR dVFbpMRVbMeHdaMqnLQ9yXd 9yZGVyLWNvbGxhcHNlOiBjb 2xsYXBz GWvoZB2cqJhjZ9ShvRX7BFY rp0v5Cz85Y92xD0DpaHV+PG RwoSG8nFB9lF2fCgUfAnG6D FoxD145 OsAtwXVoKgtnf6ybt3fvuRk 9QfGvANGezeTndFgdKBR9r5 VtHk49K01vEKgkCNMiESOqH CUiIHZh aKrymx4wyZ2zNq8+PGNvbCB 4pEL1dS3sHaIqLiF2HMjfB4 23AiYsqRXdMqtdZ24lE4Axb XA+PHRy Uvq2WWAzdHrtQF2loGLdQMm fVs6gCHM6VnPhAaGzZLleL1 HkQYKuaouybydryDX1CCPiA DUwaW47 Qr8sfGvjWu3vEFOwIAT8XMW yxHQiC8RdwM1uUbAhYQJsNV JrZ7TptNJcBTojM142NHvvJ iL9ETUr oyEfO7LiIGEccDysDdX5g6W 1Ch3VjEsyxCNjAU7vTvRoKE s9O0XuYnh0LOBgiOfrZF5ju GFkZGlu Vg2adIfxnVtjRU3kNBCmixv oh256IuOje7gfYSZgxBXoTI qwMSF3V86uy7S0UYQrTYWnB QG2gVI4 vA1doFjtjpwdgDLijAjossL fpTnyRDnrWMsrI543SNUqhA vxJrIPUzv0P9GkRmn7ZZFnp KbjUW9r lAFvRNlqNb5zzFlagOgkMB3 uYAKwxyjvi072EeSqt9giVG TmlROnQYbqEYY4N84na0D1U CMwMDAw SDY2rPF2jH9iyCzmqkaluZX mdDsgdmVydGljYWwtYWxpZ2 56HGCwfJjwHq3NQtb2K8EhB lz1YXZj sMjwVR5gpYTbWQkuUi3dtAo ebMdeNE1kWFLkyzvze012Ow Jjf9dxHNXbeMHdCLmnTEN7B 00nu2H9 ESGfFJNxJQE7bTS9fV9nlVf nbjogbGVmdDsgdmVydGljYW taOIcuN339GMEszMdnTnOke WVyOjwv dGQ+SS58og04K2WiAslaAni 7TJGfHZZ5mPN0sD8uKWYfMX biq9C0gLY5E4ZrqyInlw5xm 2xsYXBz ZTog (more content not included)... [facility] Consent for Procedure/Surger yon 02-03-2022 Consent for Procedure/Surgery [id number]#[id number] CD:127 [facility] Consent for Treatmenton 01-12 Consent for Treatment [id number] D:127 Normal [facility] IntraOperative Documentson 0 02-03-2022 IntraOperative Documents [id number]#1.00 CD:127 [facility] Main OR Intraoperative Recor don 02-03-2022 Main OR Intraoperative Record IntraOp Document Type FTURO Summary Primary Physician: Gerardo NORMAN MD Finalized Date/Time: 02/03/22 16:26:28 Pt. Name: MIKEL SOTO Ashtyn Burkett/Sex: 1940 Male Med Rec #: [id number] Physician: Gerardo NORMAN MD Financial #: [id number] Pt. Type: O Room/Bed: / Admit/Disch: 02/03/22 14:03:41 - Institution: Case Times FTURO Entry 1 Patient Times In Room 02/03/22 16:05:00 Out Room 02/03/22 16:20:00 Procedure Times Start 02/03/22 16:09:00 Stop 02/03/22 16:16:00 Anesthesia Times Last Modified By: Shanti Sethi RN 02/03/22 16:26:24 Case Attendance FTURO Entry 1 Entry 2 Entry 3 Case Attendee Gerardo NORMAN MD AUTOMATION TECHNICIAN, Shanti Sethi RN, Shanti Castillo Performed Surgeon - Primary Scrub - Primary Lehr Operator - Primary Time In 02/03/22 16:05:00 02/03/22 [...] By: Shanti Sethi RN 02/03/22 16:26 Normal [facility] Main OR Preoperative Recordo n 02-03-2022 Main OR Preoperative Record Holding Area Document Type FTURO Summary Primary Physician: Gerardo NORMAN MD Finalized Date/Time: 02/03/22 15:58:25 Pt. Name: BRITTANYMIKEL/Sex: 1940 Male Med Rec #: [id number] Physician: Gerardo NORMAN MD Financial #: [id number] Pt. Type: O Room/Bed: / Admit/Disch: 02/03/22 [...] 15:25 Shanti Sethi RN 02/03/22 15:58 Normal [facility] Operative Reporton 2 Operative Report Patient: ZURI [...] in satisfactory condition, Discharge instructions are provided. [facility] Comment on above: Result Comment: Elec tronically Signed By: JARROD CLARK, Gerardo Martinez\Date and Time Signed: 02/03/22 16:20 EDT Pre-Certification Formon Pre-Certification Form [id number] D:127 [facility] Coding Summary.on 01-08-2022 Coding Summary. CD:[id number] Gh0 bWw+PGhlYWQ+BO0UBMAmX30 lcOCscL9ZM2sUBD0LDPVYQG MPLH7EWD9ueXD2ZGsnF9Sdh iAv HfpfyZDsDY49CGw3QFA4fIz rEQphnE2niOMaU4w2RbVoSB 17aG83NIzcFGVyAfZ9UwKcx jsgbWFy N7cbWzCplGLqZll+PHRhYmx lIHdpZHRoPScxMDAlJyBzdH ywOI9xDw0cUQNuTEYdsNqvj HNlOiBj k0dgUVUdMTprXJ4uiJzdZ9S gtDK9PMJme6n9Xg53tPA+PH WaKSH7sOvyWPqhw234QfLzr 6flEYD6 fLEyIUnzUGO4R57qv1Z3AHL rCVLzNND9sFC4qL0vrLmioe mfJ5OwwBXfOaE8MAF1zRAkt T4paIya tzweqU7zAms+K36APW5KQCH YGH3DIoy8L9EtOfipbGZ+PC 25MWXuEC97zYExwUDcn1qlf Gq3SbTt DZGxNQX3eCfbZCfqe0EkBZX tS88gbWAah9O8CTRjfFqpiT WsXdQptYH2bV6tIRgrcisps 2hvdzsn Bevgk3zwga35wH20S73mCHm nDVElBTO1BGCeIPQzmOrzkn 4dwY0gFa4+RWmqx2yhy9dmw Fm5KmIr DWWdqlVlaDzsPBF8l3AmMx3 7J1YyjBizl6ZxToi5bh09rE Rhs8I9xKS0QEukMADqpJ1hW WxlZnQ6 JHYuQgPlxX78tCNhOXkdVp5 dmHdcpXcbJM8bWJXlzlvaYO LmhC0sJTAjjELaeWhwWD1dX TBpbjtm e219LzIrAPG6ALAnxQVeT2E ilO0yLyEwOLWlAMPnC9RfvV CdXEvnP438KFpwAuH7KLMbp oOnH6Xq JSOfbDvqTbN8g1J6Ya8Ct4N ealcdHIZ4XEebECI0HdF2Zh MtLaG3B6AeRqk7SFVwlVmyE L4bY1Ej DZPmldkusraslIB8UYSwRFX zsK26aPUiHZgoUp4be5V3t8 22BWJaBENonS02Ql1ayLoaL TBwdCBU uH4vnhldv3jjyxkbTyVuJGJ oOGd8PWd1MNPumSqhHvCsVV W9AdB1PZN5xPAygA8iwIsow tbpcK3r Oyc+I48zlZ1iREW0RKA6ujd gCKPccxMfVD50HS03Q5OySf wvdGFibGU+PGRpdiBzdHlsZ V2aVlPx f9udf0CsQTztR5XhOEYzHEn gKbr1LEUiQHX2qXO2wY7pPO BcRPcfv6W3kCU4I8IbmpBns z9lh8ax XTWvIBhwX48wnXSpz5O6GMA ovFZ1JWJqqLeiDcSagQ65Iv c+VMWwtByop3KyDzeyh3pkm 6wzxZo1 QkRsOWSmfpDfiFbeJKQ7u1H eTx18U94wRGnqMJRoVGHxBI NcBEUkxJzsvy4qwE3vIa6+P GNvbCB3 iJM8xI7vJNWqDnL4BXxtU01 0CzMmyBXzUympd1qjp7zdwH b4InPsMOXvbvZjuImqDIK6p 8NwGb95 J72iBZfgQZMaHLWuKCJgOAK uuRmyii3rhI7yCs8+PC9jb2 afym33qM12eIQ+HJDwJOE9g WxlPSdw SLFmcM0oZNllJxW2ATDoEkE vxY58dYMtUDncSr2ygRapmV agEM1hDUFgtpacm918OmWvl 2xkIDEw eOHoJSizLST3Z41kn6R2CIP rNZSqBSR8aHT3aE7lcOjklf ogbGVmdDsgdmVydGljYWwtY EohS480 IHRvcDsnPlBhdGllbnQgTmF kQTb2E5MjHyw2CYKtcMihVK 5xlEBhDGwtEj9qvZdsmPguG P1mRQHn fkmqe084AvBru7geKLOnwYM zPEvjPAS0G62lh3V0MNIkWD McZDF8zML3iB8vnVjoamhhv GVmdDsg dzMbaNnoSMxgNBfuX921TKB pcTqhHoZvquGvVZXfbLX5KF 23YG94mYVlr2P1sAT5V2MgO GRpbmct nvibtJD8EGTvZRQfcX63Zd8 jpLcmVg2nGZOzAWH1VPCffL SsV3JmuT5eCaVyDSUtHTKvG 3RleHQt FBapL588ZGlqTgN1RPWulaU aA3EvEKTiqOcuIuY6t6C3Ou 7CC3T4KQ65YF66tULaf4R8k IZ2A4Kt QGAzqrdemmxukAG6ISFuQPO fuJ99Kj3dcIprUi2tRYUiIR N7NYJkyHIoR1VcaI1lBzSyO DAwMDAw M4UcyNQyMZxhH964HWleAcJ 5PTOlpmAdH0ZqYHPcaRyuBz O2s4M3Jk5HWTh7XR76AV59r USod5T7 cAI3V2SyWLDftvhjucrugCW 3AYMuRGBhdC49Xf9fyIfqZh 9iBNEkEJG5IMIesRNpH4Txi S7wArCo OCSvPSAcD7EndLRqVDjrS42 1QBvtYmV9MXOwzjMsS3KsDO VvjQwgGiG2h9X0Pd6UNTCrM C23NJA6 zBQ2CN52DM28L5ZnBftpjOB ibGU+PHRhYmxlIHdpZHRoPS svNGGgVgFfvLqhSD6iJs4gX GVyLWNv sVgvlGZnExFly7hwVLLuSQb dLU6cpFcvT9HblWM0MLWlp5 s3Ei00V69fK1VbnQN+PGNvb ME1kXZ7 xN6iUfHyZuN2LOtlN636YlV xaABgIdcse2gcc9rmpWh1Dv O8YYMcroOgbTskXCK6q7HcZ w58B20n IHdpZHRoPSIxNSUiIHZhbGl dod5fpT4pSu7+SVTooHN2jV J6qY9oQjRtNiE5TYvuH517B nRvcCIv Vwbkw8pqu9werTj9VlUrNTE yzcOccHacYBP4j0MzLf80R0 SxxBnfx6CwGrv5pg86xSCdp 1L7zSV6 R0BqODRedefztFLczQlfKR3 zMUIynivoLQTpxB3rVBQjB2 h5TuSuXhZ8LJqoB9IyijC6O DEwcHQg REeiDFI4B62ge1P2UPBuXYN qRDC3sCC0yJ6gpJfgkivsgK VmdDsgdmVydGljYWwtYWxpZ 246IHRv nAblTLHsrD4iHNPsdOCmkPh cLB1yBLAhawffKvYAT8DPFH ZDS3OEGgHzWtcxgLG+PHRkI KQ8xMmr ZOowNIGicB9fYFCmJ1g6SqT cLeZ0UYfwY0IbPZNcdftiWi 28sL6tXjOcZlW4NHwvZ4Gbo vX6WBKm nBPvLOrgNAX5Y15sr8S5UDM rGQEiWDK0tGX1hH3icUnvjo ogbGVmdDsgdmVydGljYWwtY JwjM757 POFvxEwgDyI2OlA7AhF7LMW 4N8AjOyx9ZNVhhCoxSL1wuH ZsGTujSn9adMoniIgjYF5oZ TBpbjtw KANwhE1nBSKzcLHtpCqhVG4 xDLOsyeikj979ZjUvYYZ9PS TcyGHlA7SrvG2sLuEbUZHzM CFfS4Qz vXDhWYzeB959HDjgMiG0MMF audWxM8WjWJCryCaxUhT8d9 G7Jf42OJMZNKDckxuthZT+P HRkIHN0 yRslHEfrWZXkcE6iWWGyU1g 3CkHxKaM1TPiwZ9WwDRQlqj ioGk27jN9tDlRcIkI9IComG 8CjjaC5 BSYvrWZoCWloSCM0A10ok2L 9DFHoSAMoLMM2sJQ0lL0kkL lnbjogbGVmdDsgdmVydGljY WwtYWxp X541TYPcdYnqLk3cpIE7Y9U iXlw2HCIfdUyxYJ5zkXQaKK yvBb5dgMuzpBpsIG3dYZHce jtwYWRk pR5pXQUsvOHzyRdqQB9uICJ gazfej377HeGcPJP0HWJwzX IuP5DqhB6vNoGeZQScNSTdU 3RleHQt RRucK407XKhpRoY1GDGboxD jH4LkBOIlsYidQaH1x6F2Wt 5TkIIaFBIfRU48ZC70CS64E 3RyPjwv dGFibGU+PHRhYmxlIHdpZHR sSYulSJZeUrKaoWnwXP1vMt 9yZGVyLWNvbGxhcHNlOiBjb 2xsYXBz VMqtHU6naZafJ0KvuGZ8MDV mc6n6Mh29D34dE1OmeMQ+PG IzqED1qXU8qS9pCeAcGmM9V UgcT316 BvKcaTGaIgvkl8nrs6uqiMn 5FtYmDMZbubHqoDliPBT8a9 BdUu42P86pCKnwZPJdNGZtY CUiIHZh cPnybm3mpN9yBt4+PGNvbCB 1lAX9yV2vJwEuBzF2ICisU5 34UsOapCNvGzblQ70bN7Kui XA+PHRy Lvr9EXWxaAihGN3rsZJoVNi rFb0jOPA5XxAlYkPbJEubY4 UtMSSgldbjiiscpLN6XNFkZ DUwaW47 Pw5jyOkhQw9vRNKmVGW4VVF oaLOmA8DyvT1gUlTjEWIsUW RiT3MksETfGPdsM499KEzcN kG3LAQu gwVgK9SuSSYflIcoJhW8c1P 9Mj7FsPfitGAcDI7mTtQzUI t2N2BkNtd8UNHhcYjiLA6mj GFkZGlu La9kqQdsqHvpHG1jFCUbevi kr905SdSzn1weGRWlmIVeDQ scYPN9H01hr8B7WFOhRGSuH KO1uRX6 iV0mdGqaziyljLRxgJbzdlC zlEwmCLszKTueK041BBMekJ myVdXJUyl5F5VmIxs3ULVkp KveLJ3u nVHcHPuzKk8bySzofUhpZG9 nRUXlobnmi416BjRtd7crNZ KxbFPhJQpsMIL5U50ax3A1O CMwMDAw XVT8kTR0nB3wcThptjmjvLF mdDsgdmVydGljYWwtYWxpZ2 61BFXoqHujSy6EDhg0N2DfG xb6VWTr aWaxPG4gnHDoXDniKt4doVr npFxwDU0lXTOspjaeu561Qf Lve3laFFBubMZrOIupWEN6Y 68iu1A6 CNJbFGPvLWJ0xBL1tH5saPl nbjogbGVmdDsgdmVydGljYW hiCAhjQ281KYZyzXtcHnEth WVyOjwv dGQ+GC17rd18V4SkQgqrFna 9ANIlGHT1xBM2mE4zDAYtAM kke4J3yQO6W1GxhkRell4nw 2xsYXBz ZTog (more content not included)... Normal [facility] Consent for Procedure/Surger yon 01-08-2022 Consent for Procedure/Surgery [id number]#1.00 CD:127 [facility] IntraOperative Documentson 0 01-08-2022 IntraOperative Documents [id number]#1.00 CD:127 [facility] Consent for Treatmenton -2 Consent for Treatment [id number]#1.00C D:127 [facility] Main OR Intraoperative Recor don 01-06-2022 Main OR Intraoperative Record IntraOp Document Type FTURO Summary Primary Physician: Gerardo NORMAN MD Finalized Date/Time: 01/06/22 16:42:59 Pt. Name: MIKEL SOTO/Sex: 1940 Male Med Rec #: [id number] Physician: Gerardo NORMAN MD Financial #: [id number] Pt. Type: O Room/Bed: / Admit/Disch: 01/06/22 14:38:32 - Institution: Case Times FTURO Entry 1 Patient Times In Room 01/06/22 16:27:00 Out Room 01/06/22 16:41:00 Procedure Times Start 01/06/22 16:31:00 Stop 01/06/22 16:35:00 Anesthesia Times Last Modified By: Shanti Sethi RN 01/06/22 16:42:01 Case Attendance FTURO Entry 1 Entry 2 Entry 3 Case Attendee JARROD CLARK, Gerardo Ramirez AUTOMATION TECHNICIAN, Farzana Pandey AUTOMATION TECHNICIAN, Sade Jacobson Role Performed Surgeon - Primary [...] Case Attendee Shanti Sethi RN Role Performed Lehr Operator - Primary Time In 01/06/22 16:27:00 Time [...] Document Signatures Signed By: Shanti Sethi RN 01/06/22 16:42 Normal [facility] Main OR Preoperative Recordo n 01-06-2022 Main OR Preoperative Record Holding Area Document Type FTURO Summary Primary Physician: Gerardo NORMAN MD Finalized Date/Time: 01/06/22 16:28:08 Pt. Name: MIKEL SOTO Kwadwo/Sex: 1940 Male Med Rec #: [id number] Physician: Gerardo NORMAN MD Financial #: [id number] Pt. Type: O Room/Bed: / Admit/Disch: 01/06/22 [...] 16:06 Shanti Sethi RN 01/06/22 16:28 Normal [facility] Operative Reporton Operative Report Patient: ZURI SOTO [...] with antibiotic coverage, Follow up arranged. Normal [facility] Comment on above: Result Comment: Elec [...] Urology [address], [place] [address] [phone] Additional Instructions: Plan Cystoscopy/Urodynamics testing Patient Education [...] Urine Dipstick: (more content not included)... Normal [facility] Comment on above: Result Comment: Elec tronically Signed By: Mimi Aguayo\Date and Time Signed: 12/23/21 07:54 EDT Ambulatory Visit Summaryon 0 12-08-2021 Ambulatory Visit Summary MIKEL SOTO :1940 Visit Date:12/08/2021 Ambulatory Visit Instructions Your Diagnosis BPH without urinary obstruction Nocturia Frequency of urination Tests Performed Urnls Dip Stick Auto w/o Microscopy POC 31612 Your Care Team Attending Physician - Gerardo [...] Where: [facility] [address], [place] [address] [phone] Medications What How Much When Instructions New doxycycline (doxycycline hyclate 100 mg Cap) 1 Capsules By Mouth Every day Take 1 pill the day before the procedure and 1 pill after the procedure Pickup at [facility] Unchanged tamsulosin (Flomax 0.4 mg Cap) [...] physician if questions or concerns Pharmacy Information [facility]: [address] [place], [place] [id number] [phone] Test Results Urnls Dip Stick Auto w/o Microscopy POC 84857 (12/08/2021) Bilirubin Urine Dipstick - Negative Blood Urine Dipstick - Negative Glucose Urine Dipstick - Negative Ketones Urine Dipstick - Negative Leukocytes Urine Dipstick - Negative Nitrite Urine Dipstick - Negative Protein Urine Dipstick - Trace Specific [place] Urine Dipstick - 1.020 Urine Appearance Urine [...] your dietitian (more content not included)... Normal [facility] Patient Educationon 12-09-19 22 Patient Education Nutrition [...] You could (more content not included)... Normal [facility] XR Knee Complete Left*on XR Knee Complete [...] by Mayo Israel on 11/28/2021 1520 Normal [facility] 09-16-2021 Forms [id number]#1.00C D:127 Normal [facility] Ambulatory Clinical Summaryo n 09-10-2021 Ambulatory Clinical Summary {[id number]}CD:[id number] Normal [facility] Patient Educationon 09-10-20 Patient Education Urology Benign [...] Follow these instructions at home: ? Take tozh-qki-xekquus and prescription medicines only as told by [...] You d (more content not included)... Normal [facility] Physician Referralon 021 Physician Referral [id number]#1.00C D:127 Normal [facility] Urology Office/Clinic Noteon 09-10-2021 Urology Office/Clinic Note [...] reviewed [facility] Reviewed [employer] papers. There have been no associated fever, [...] 11/11/[address] [place] [address] [place] [address] Additional Instructions: Go over voiding Diary Patient [...] cap(s), Oral, (more content not included)... Normal [facility] Comment on above: Result Comment: Elec tronically Signed By: Caprice Deal MD\.br\Date and Time Signed: 09/10/21 13:24 EST\.br\Electronically Co-Signed By: Ingrid Jarvis MA\.br\Date and Time Co-Signed: 09/10/21 11:26 EST CBC AUTO DIFFon 01-01-2021 BASO # 0.0 103/ul Normal 0.0-0.1 [facility] Comment on above: Performed By: #### C BC ####[facility] [address] [place] Basophils/100 WBC (Bld) 0.1 % Critically low 0.2-2.0 [facility] Comment on above: Performed By: #### C BC ####[facility] [address] [place], [place] [address]Sbpobr [place] EO # 0.4 103/ul Normal 0.0-0.7 [facility] Comment on above: Performed By: #### C BC ####[facility] [address] [place], [place] [address]Dnwgyc [place] Eosinophils/100 WBC (Bld) 2.3 % Normal 0.9-7.0 [facility] Comment on above: Performed By: #### C BC ####[facility] [address] [place] [address]Dhentr [place] Erythrocyte distribution width (RBC) [Ratio] 14.6 % Normal 11.0-15.0 [facility] Comment on above: Performed By: #### C BC ####[facility] [address] [place] [address]Phvedf [place] Hematocrit (Bld) [Volume fraction] 32.4 % Critically low 42.0-54.0 [facility] Comment on above: Performed By: #### C BC ####[facility] [address] [place], [place] [address]Gerken Nasra Hemoglobin (Bld) [Mass/Vol] 9.9 g/dL Critically low 14.0-18.0 [facility] Comment on above: Performed By: #### C BC ####[facility] [address] [place] [address]Stawvw Nasra IG # 0.30 10e3/ul Critically high 0.00-0.03 [facility] Comment on above: Performed By: #### C BC ####[facility] [address] [place], [place] [address]Gerken Nasra IG % 1.7 % Critically high 0.0-0.5 [facility] Comment on above: Performed By: #### C BC ####[facility] Y[address] [place] [address]Czrlqx Nasra LYMPH # 1.2 103/ul Normal 1.2-3.8 [facility] Comment on above: Performed By: #### C BC ####[facility] Bsiidvlfxh[address] [place], [place] [address]Gerken Nasra Lymphocytes/100 WBC (Bld) 6.9 % Critically low 20.5-60.0 [facility] Comment on above: Performed By: #### C BC ####[facility] [address]zz8719 [place], [place] [address]Hxcjsv Nasra MANUAL DIFF REQ NO Normal [facility] Comment on above: Performed By: #### C BC ####[facility] [address] [place] [id number] Hammonds MCH (RBC) [Entitic mass] 27.6 pg Normal 25.9-34.0 [facility] Comment on above: Performed By: #### C BC ####[facility] Fitpmegyao3500 [place] [id number] Nasra MCHC (RBC) [Mass/Vol] 30.6 g/dL Normal 29.9-35.2 [facility] Comment on above: Performed By: #### C BC ####[facility] [address] [place], [place] [address]Gerken Nasra MCV (RBC) [Entitic vol] 90.3 fL Normal 80.0-94.0 [facility] Comment on above: Performed By: #### C BC ####[facility] P[address]sg[address] [place], [place] [address]Gerken Nasra MONO # 1.1 103/ul Critically high 0.3-0.8 [facility] Comment on above: Performed By: #### C BC ####[facility] Sh[address]kkwmc[address] [place], [place] [address]Gerken Nasra Monocytes/100 WBC (Bld) 6.2 % Normal 1.7-12.0 [facility] Comment on above: Performed By: #### C BC ####[facility] W[address]ynxwhzj[address] [place], [place] [address]Gerken Nasra NEUT # 14.6 103/ul Critically high 1.4-6.5 [facility] Comment on above: Performed By: #### C BC ####[facility] [address]jvx[address] [place], [place] [address]Gerken Nasra Neutrophils/100 WBC (Bld) 82.8 % Critically high 43.0-75.0 [facility] Comment on above: Performed By: #### C BC ####[facility] [address] [place], [place] [address]Jnnnmg Karen Platelet mean volume (Bld) [Entitic vol] 9.4 fL Critically low 9.5-13.5 [facility] Comment on above: Performed By: #### C BC ####[facility] Yqpddazjle1502 [place], [place] [address]Wzvsrl Nasra PLT 385 103/ul Normal 150-450 [facility] Comment on above: Performed By: #### C BC ####[facility] Lxwhfemgry7[address] [place] [address]Gerken Nasra RBC 3.59 106/ul Critically low 4.70-6.10 [facility] Comment on above: Performed By: #### C BC ####[facility] [address]nftf[address] [place], [place] [address]Gerken Nasra WBC 17.7 103/ul Critically high 4.0-11.0 [facility] Comment on above: Performed By: #### C BC ####[facility] Zppeq[address]uv[address] [place], [place] [address]Gerken Nasra PROF CHEM 8 (BAS METB)on Anion gap [Moles/Vol] 7.0 mmol/L Normal [facility] Comment on above: Performed By: #### B MP ####[facility] Ikscs[address]ctu[address] [place] [address]Wrxuhb Nasra Calcium [Mass/Vol] 8.7 mg/dL Normal 8.4-10.2 [facility] Comment on above: Performed By: #### B MP ####[facility] [address] [place], [place] [address]Nuhwaf Nasra Chloride [Moles/Vol] 105 mmol/L Normal 98-107 [facility] Comment on above: Performed By: #### B MP ####[facility] Jmunkelgqq5730 [place] [id number] Nasra CO2 [Moles/Vol] 32.0 mmol/L Critically high 22.0-30.0 [facility] Comment on above: Performed By: #### B MP ####[facility] Mbemdaioec9036 [place], [place] [address]Nicwie Nasra Creatinine [Mass/Vol] 0.69 mg/dL Normal 0.66-1.25 [facility] Comment on above: Performed By: #### B MP ####[facility] Ywnkabfblf7087 [place], [place] [address]Xsmqak Nasra EGFR-AF TURKISH >60 Normal >=60 [facility] Comment on above: Performed By: #### B MP ####[facility] Gglwvvzyki0346 [place], [place] [address]Omjxbt Nasra EGFR-NON AF TURKISH >60 Normal >=60 [facility] Comment on above: Performed By: #### B MP ####[facility] [address] [place] [address]Mbczkm Nasra Glucose [Mass/Vol] 116 mg/dL Critically high 74-106 [facility] Comment on above: Performed By: #### B MP ####[facility] Nshwxwsmfu[address] [place], [place] [address]Gerken Nasra Potassium [Moles/Vol] 4.0 mmol/L Normal 3.4-5.0 [facility] Comment on above: Performed By: #### B MP ####[facility] [address]hr[address]ut[address] [place] [address]Izguug Nasra Sodium [Moles/Vol] 140 mmol/L Normal 137-145 [facility] Comment on above: Performed By: #### B MP ####[facility] Vx[address] [place] [address]Hcshzs Nasra Urea nitrogen [Mass/Vol] 8.0 mg/dL Critically low 9.0-20.0 [facility] Comment on above: Performed By: #### B MP ####[facility] Acxuduwmtw[address] [place], [place] [address]Gerken Nasra Urea nitrogen/Creatinin e [Mass ratio] 11.6 mg/mg Normal [facility] Comment on above: Performed By: #### B MP ####[facility] [address] [place] [address]Ymbclv Nasra CBC AUTO DIFFon 12-31-2020 BASO # 0.0 103/ul Normal 0.0-0.1 [facility] Comment on above: Performed By: #### C BC ####[facility] [address] [place] [address]Gerken Nasra Basophils/100 WBC (Bld) 0.2 % Normal 0.2-2.0 [facility] Comment on above: Performed By: #### C BC ####[facility] Qiqzdclzog[address] [place], [place] [address]Gerken Nasra EO # 0.4 103/ul Normal 0.0-0.7 [facility] Comment on above: Performed By: #### C BC ####[facility] Fosnkimylq[address] [place], [place] [address]Gerken Nasra Eosinophils/100 WBC (Bld) 2.1 % Normal 0.9-7.0 [facility] Comment on above: Performed By: #### C BC ####[facility] Mg[address] [place] [address] Nasra Erythrocyte distribution width (RBC) [Ratio] 14.8 % Normal 11.0-15.0 [facility] Comment on above: Performed By: #### C BC ####[facility] Uyvdxbfgek[address] [place], [place] [address]Gerken Nasra Hematocrit (Bld) [Volume fraction] 30.6 % Critically low 42.0-54.0 [facility] Comment on above: Performed By: #### C BC ####[facility] Sclvljqfyl[address] [place], [place] [address]Gerken Nasra Hemoglobin (Bld) [Mass/Vol] 9.6 g/dL Critically low 14.0-18.0 [facility] Comment on above: Performed By: #### C BC ####[facility] [address] [place] [address] Nasra IG # 0.67 10e3/ul Critically high 0.00-0.03 [facility] Comment on above: Performed By: #### C BC ####[facility] Nbegnxnjhq[address] [place], [place] [address]Gerken Nasra IG % 3.4 % Critically high 0.0-0.5 [facility] Comment on above: Performed By: #### C BC ####[facility] [address] [place] [address] Nasra LYMPH # 1.2 103/ul Normal 1.2-3.8 [facility] Comment on above: Performed By: #### C BC ####[facility] [address] [place] [address] Nasra Lymphocytes/100 WBC (Bld) 6.0 % Critically low 20.5-60.0 [facility] Comment on above: Performed By: #### C BC ####[facility] [address] [place] [address] Nasra MANUAL DIFF REQ NO Normal [facility] Comment on above: Performed By: #### C BC ####[facility] [address]ef[address] [place] [address] Nasra MCH (RBC) [Entitic mass] 28.2 pg Normal 25.9-34.0 [facility] Comment on above: Performed By: #### C BC ####[facility] Xx[address] [place] [address] Nasra MCHC (RBC) [Mass/Vol] 31.4 g/dL Normal 29.9-35.2 [facility] Comment on above: Performed By: #### C BC ####[facility] [address] [place] [address] Nasra MCV (RBC) [Entitic vol] 90.0 fL Normal 80.0-94.0 [facility] Comment on above: Performed By: #### C BC ####[facility] [address] [place] [address] Nasra MONO # 1.0 103/ul Critically high 0.3-0.8 [facility] Comment on above: Performed By: #### C BC ####[facility] [address] [place] [address] Nasra Monocytes/100 WBC (Bld) 5.1 % Normal 1.7-12.0 [facility] Comment on above: Performed By: #### C BC ####[facility] Xxdpjezyxb2435 [place] [id number] Hammonds NEUT # 16.3 103/ul Critically high 1.4-6.5 [facility] Comment on above: Performed By: #### C BC ####[facility] [address]ce[address]sh7731 [place] [address]Desmond Hammonds Neutrophils/100 WBC (Bld) 83.2 % Critically high 43.0-75.0 [facility] Comment on above: Performed By: #### C BC ####[facility] [address] [place] [address]Desmond Hammonds Platelet mean volume (Bld) [Entitic vol] 9.4 fL Critically low 9.5-13.5 [facility] Comment on above: Performed By: #### C BC ####[facility] [address]hasseu4[address] [place] [address]Desmond Hammonds PLT 372 103/ul Normal 150-450 [facility] Comment on above: Performed By: #### C BC ####[facility] Kbcglgdkqf5245 [place] [address]Desmond Hammonds RBC 3.40 106/ul Critically low 4.70-6.10 [facility] Comment on above: Performed By: #### C BC ####[facility] [address] [place] [address]Desmond Hammonds WBC 19.6 103/ul Critically high 4.0-11.0 [facility] Comment on above: Performed By: #### C BC ####[facility] E[address]bmne6299 [place] [address]Desmond Hammonds PROF CHEM 8 (BAS METB)on Anion gap [Moles/Vol] 6.3 mmol/L Normal [facility] Comment on above: Performed By: #### B MP #### [facility] [address] [place], [place] [address] Desmond Hammonds Calcium [Mass/Vol] 8.4 mg/dL Normal 8.4-10.2 [facility] Comment on above: Performed By: #### B MP #### [facility] [address] [place] [address] Desmond Nasra Chloride [Moles/Vol] 106 mmol/L Normal 98-107 [facility] Comment on above: Performed By: #### B MP #### [facility] [address] [place] [address] Desmond Nasra CO2 [Moles/Vol] 31.4 mmol/L Critically high 22.0-30.0 [facility] Comment on above: Performed By: #### B MP #### [facility] [address] [place] [address] Desmond Nasra Creatinine [Mass/Vol] 0.77 mg/dL Normal 0.66-1.25 [facility] Comment on above: Performed By: #### B MP #### [facility] [address] [place] [address] Desmond Nasra EGFR-AF TURKISH >60 Normal >=60 [facility] Comment on above: Performed By: #### B MP #### [facility] [address] [place] [address] Desmond Nasra EGFR-NON AF TURKISH >60 Normal >=60 [facility] Comment on above: Performed By: #### B MP #### [facility] [address] [place] [address] Desmond Nasra Glucose [Mass/Vol] 136 mg/dL Critically high 74-106 [facility] Comment on above: Performed By: #### B MP #### [facility] [address] [place] [address] Desmond Nasra Potassium [Moles/Vol] 3.7 mmol/L Normal 3.4-5.0 [facility] Comment on above: Performed By: #### B MP #### [facility] [address] [place] [address] Desmond Nasra Sodium [Moles/Vol] 140 mmol/L Normal 137-145 [facility] Comment on above: Performed By: #### B MP #### [facility] [address] [place], [place] [address] Desmond Nasra Urea nitrogen [Mass/Vol] 10.0 mg/dL Normal 9.0-20.0 [facility] Comment on above: Performed By: #### B MP #### [facility] [address] [place], [place] [address] Desmond Nasra Urea nitrogen/Creatinin e [Mass ratio] 13.0 mg/mg Normal [facility] Comment on above: Performed By: #### B MP #### [facility] [address] [place] [id number] Desmond Nasra XR CHEST DECUB ONLYon 2020 [...] RODY DUCKWORTH Date: 2020-12-31 06:23 Normal [facility] CBC W MANUAL DIFFon 12-31-19 21 ATYPICAL LYMPH # 0.24 103/ul Normal [facility] Comment on above: Performed By: #### B MP #### [facility] [address] [place] [id number] Desmond Nasra ATYPICAL LYMPH % 1 % Normal [facility] Comment on above: Performed By: #### B MP #### [facility] [address] [place], [place] [address] Desmond Nasra BAND # 0.2 103/ul Normal 0.0-0.3 [facility] Comment on above: Performed By: #### B MP #### [facility] [address] [place] [address] Desmond Nasra BAND % 1 % Normal 0-5 [facility] Comment on above: Performed By: #### B MP #### [facility] [address] [place] [address] Desmond Nasra BASOM # 0.00 103/ul Normal 0.00-0.10 [facility] Comment on above: Performed By: #### B MP #### [facility] [address] [place] [address] Desmond Nasra BASOM % 0.0 % Critically low 0.2-2.0 [facility] Comment on above: Performed By: #### B MP #### [facility] [address] [place] [address] Desmond Nasra BLAST # Normal [facility] Comment on above: Performed By: #### B MP #### [facility] [address] [place] [address] Desmond Nasra BLAST % Normal [facility] Comment on above: Performed By: #### B MP #### [facility] [address] [place] [address] Desmond Nasra CORRECTED WBC Normal 4.0-11.0 [facility] Comment on above: Performed By: #### B MP #### [facility] [address] [place] [address] Desmond Nasra EOS # 0.24 103/ul Normal 0.00-0.70 [facility] Comment on above: Performed By: #### B MP #### [facility] [address] [place] [address] Desmond Nasra EOS% 1.0 % Normal 0.9-7.0 [facility] Comment on above: Performed By: #### B MP #### [facility] [address] [place] [address] Desmond Nasra HCT 34.4 % Critically low 42.0-54.0 [facility] Comment on above: Performed By: #### B MP #### [facility] [address] [place] [address] Desmond Nasra HGB 10.6 g/dl Critically low 14.0-18.0 [facility] Comment on above: Performed By: #### B MP #### [facility] [address] [place] [address] Desmond Nasra LYMPHM # 1.47 103/ul Normal 1.20-3.80 [facility] Comment on above: Performed By: #### B MP #### [facility] [address] [place], [place] [address] Desmond Nasra LYMPHM% 6.0 % Critically low 20.5-60.0 [facility] Comment on above: Performed By: #### B MP #### [facility] [address] [place] [address] Desmond Nasra MCH 27.5 pg Normal 25.9-34.0 [facility] Comment on above: Performed By: #### B MP #### [facility] [address] [place] [address] Desmond Nasra MCHC 30.8 g/dl Normal 29.9-35.2 [facility] Comment on above: Performed By: #### B MP #### [facility] [address] [place] [address] Desmond Nasra MCV 89.1 fL Normal 80.0-94.0 [facility] Comment on above: Performed By: #### B MP #### [facility] [address] [place] [address] Desmond Nasra METAMYELOCYTE # Normal [facility] Comment on above: Performed By: #### B MP #### [facility] [address] [place], [place] [address] Desmond Nasra METAMYELOCYTE % Normal [facility] Comment on above: Performed By: #### B MP #### [facility] [address] [place], [place] [address] Desmond Nasra MONOM# 1.72 103/ul Critically high 0.30-0.80 [facility] Comment on above: Performed By: #### B MP #### [facility] [address] [place] [address] Desmond Nasra MONOM% 7.0 % Normal 1.7-12.0 [facility] Comment on above: Performed By: #### B MP #### [facility] [address] [place] [address] Desmondraúl Mathiasen MPV 9.3 fL Critically low 9.5-13.5 [facility] Comment on above: Performed By: #### B MP #### [facility] [address] [place] [address] Desmondraúl Mathiasen MYELOCYTE # Normal [facility] Comment on above: Performed By: #### B MP #### [facility] [address] [place] [address] Desmondraúl Mathiasen MYELOCYTE % Normal [facility] Comment on above: Performed By: #### B MP #### [facility] [address] [place] [address] Desmond Nasra NRBC Normal [facility] Comment on above: Performed By: #### B MP #### [facility] [address] [place] [address] Desmond Nasra PLT 364 103/ul Normal 150-450 [facility] Comment on above: Performed By: #### B MP #### [facility] [address] [place] [address] Desmond Nasra RBC 3.86 106/ul Critically low 4.70-6.10 [facility] Comment on above: Performed By: #### B MP #### [facility] [address] [place] [address] Desmond Mathiasen RDW 14.8 % Normal 11.0-15.0 [facility] Comment on above: Performed By: #### B MP #### [facility] [address] [place] [address] Desmond Nasra SEG # 20.58 103/ul Critically high 1.40-6.50 [facility] Comment on above: Performed By: #### B MP #### [facility] [address] [place] [address] Desmond Nasra SEG % 84.0 % Critically high 43.0-75.0 [facility] Comment on above: Performed By: #### B MP #### [facility] [address] [place] [address] Desmond Nasra WBC 24.5 103/ul Critically high 4.0-11.0 [facility] Comment on above: Performed By: #### B MP #### [facility] [address] [place], [place] [address] Desmond Nasra PROF CHEM 8 (BAS METB)on Anion gap [Moles/Vol] 10.6 mmol/L Normal [facility] Comment on above: Performed By: #### B MP #### [facility] [address] [place] [address] Desmond Nasra Calcium [Mass/Vol] 8.6 mg/dL Normal 8.4-10.2 [facility] Comment on above: Performed By: #### B MP #### [facility] [address] [place] [address] Desmond Nasra Chloride [Moles/Vol] 106 mmol/L Normal 98-107 [facility] Comment on above: Performed By: #### B MP #### [facility] [address] [place] [address] Desmond Nasra CO2 [Moles/Vol] 28.1 mmol/L Normal 22.0-30.0 [facility] Comment on above: Performed By: #### B MP #### [facility] [address] [place] [address] Desmond Nasra Creatinine [Mass/Vol] 0.87 mg/dL Normal 0.66-1.25 [facility] Comment on above: Performed By: #### B MP #### [facility] [address] [place] [address] Desmond Nasra EGFR-AF TURKISH >60 Normal >=60 [facility] Comment on above: Performed By: #### B MP #### [facility] [address] [place], [place] [address] Desmond Nasra EGFR-NON AF TURKISH >60 Normal >=60 [facility] Comment on above: Performed By: #### B MP #### [facility] [address] [place] [address] Desmond Nasra Glucose [Mass/Vol] 135 mg/dL Critically high 74-106 [facility] Comment on above: Performed By: #### B MP #### [facility] [address] [place], [place] [address] Desmond Nasra Potassium [Moles/Vol] 3.7 mmol/L Normal 3.4-5.0 [facility] Comment on above: Performed By: #### B MP #### [facility] [address] [place], [place] [address] Desmond Nasra Sodium [Moles/Vol] 141 mmol/L Normal 137-145 [facility] Comment on above: Performed By: #### B MP #### [facility] [address] [place], [place] [address] Desmond Nasra Urea nitrogen [Mass/Vol] 10.0 mg/dL Normal 9.0-20.0 [facility] Comment on above: Performed By: #### B MP #### [facility] [address] [place], [place] [address] Desmond Nasra Urea nitrogen/Creatinin e [Mass ratio] 11.5 mg/mg Normal [facility] Comment on above: Performed By: #### B MP #### [facility] [address] [place], [place] [address] Desmond Nasra XR CHEST 2 Von 12-30-2020 [...] MAUREEN RODGERS Date: 2020-12-30 08:38 Normal [facility] CBC W MANUAL DIFFon 12-30-19 21 ATYPICAL LYMPH # Normal [facility] Comment on above: Performed By: #### C BCMAN ####[facility] [address] [place], [place] [address]Nbhdls Nasra ATYPICAL LYMPH % Normal [facility] Comment on above: Performed By: #### C SWATHI ####[facility] [address] [place] [address]Gerken Nasra BAND # Normal 0.0-0.3 [facility] Comment on above: Performed By: #### C SWATHI ####[facility] [address] [place], [place] [address]Ytnybr Nasra BAND % Normal 0-5 [facility] Comment on above: Performed By: #### C SWATHI ####[facility] [address] [place], [place] [address]Gerken Nasra BASOM # 0.00 103/ul Normal 0.00-0.10 [facility] Comment on above: Performed By: #### C SWATHI ####[facility] [address] [place] [address] Nasra BASOM % 0.0 % Critically low 0.2-2.0 [facility] Comment on above: Performed By: #### Rebel ECHEVARRIA ####[facility] [address] [place], [place] [address]Gerken Nasra BLAST # Normal [facility] Comment on above: Performed By: #### Rebel ECHEVARRIA ####[facility] [address] [place], [place] [address]Gerken Nasra BLAST % Normal [facility] Comment on above: Performed By: #### Rebel ECHEVARRIA ####[facility] [address]wlzsv[address] [place] [address] Nasra CORRECTED WBC Normal 4.0-11.0 [facility] Comment on above: Performed By: #### Rebel ECHEVARRIA ####[facility] [address]qrzsivuwq97[address] [place] [address]Gerken Nasra EOS # 0.44 103/ul Normal 0.00-0.70 [facility] Comment on above: Performed By: #### C SWATHI ####[facility] [address] [place] [address] Nasra EOS% 2.0 % Normal 0.9-7.0 [facility] Comment on above: Performed By: #### Rebel ECHEVARRIA ####[facility] Mjrglbumar5922 [place], [place] [address]Xnrmgn Nasra HCT 33.9 % Critically low 42.0-54.0 [facility] Comment on above: Performed By: #### Rebel ECHEVARRIA ####[facility] Ttnadrpyvf0975 [place], [place] [address]Ahgwjq Nasra HGB 10.4 g/dl Critically low 14.0-18.0 [facility] Comment on above: Performed By: #### Rebel ECHEVARRIA ####[facility] Bdahqdybee5744 [place] [address]Gerken Nasra LYMPHM # 2.42 103/ul Normal 1.20-3.80 [facility] Comment on above: Performed By: #### Rebel ECHEVARRIA ####[facility] Sjeermxcim9021 [place] [address]Gerken Nasra LYMPHM% 11.0 % Critically low 20.5-60.0 [facility] Comment on above: Performed By: #### Rebel ECHEVARRIA ####[facility] Lptnhmlklk9168 [place] [address]Gerken Nasra MCH 27.9 pg Normal 25.9-34.0 [facility] Comment on above: Performed By: #### Rebel ECHEVARRIA ####[facility] Roeugyervf7770 [place] [address]Gerken Nasra MCHC 30.7 g/dl Normal 29.9-35.2 [facility] Comment on above: Performed By: #### Rebel ECHEVARRIA ####[facility] Pcchutxqtc6326 [place], [place] [address]Cttlbq Nasra MCV 90.9 fL Normal 80.0-94.0 [facility] Comment on above: Performed By: #### Rebel ECHEVARRIA ####[facility] Xpwrbymbrn1090 [place] [address]Gerken Nasra METAMYELOCYTE # Normal [facility] Comment on above: Performed By: #### Rebel ECHEVARRIA ####[facility] Ttvtrpipzq4518 [place] [address]Gerken Nasra METAMYELOCYTE % Normal [facility] Comment on above: Performed By: #### Rebel ECHEVARRIA ####[facility] Qzhgrviydc6710 [place] [address]Gerken Nasra MONOM# 0.44 103/ul Normal 0.30-0.80 [facility] Comment on above: Performed By: #### Rebel ECHEVARRIA ####[facility] Hgwwegysrw5779 [place] [address]Gerken Nasra MONOM% 2.0 % Normal 1.7-12.0 [facility] Comment on above: Performed By: #### C SWATHI ####[facility] Cvsksmkmdk6030 [place] [address]Gerken Nasra MPV 9.4 fL Critically low 9.5-13.5 [facility] Comment on above: Performed By: #### Rebel ECHEVARRIA ####[facility] Zxqtiftezv8253 [place] [address]Gerken Nasra MYELOCYTE # Normal [facility] Comment on above: Performed By: #### Rebel ECHEVARRIA ####[facility] Wftphceite6707 [place], [place] [address]Rayguu Nasra MYELOCYTE % Normal [facility] Comment on above: Performed By: #### Rebel ECHEVARRIA ####[facility] Pxpohhnqke8823 [place], [place] [address]Sopmku Nasra NRBC Normal [facility] Comment on above: Performed By: #### Rebel ECHEVARRIA ####[facility] Mcxvxowane2944 [place], [place] [address]Dxzdwj Nasra PLT 330 103/ul Normal 150-450 [facility] Comment on above: Performed By: #### Rebel ECHEVARRIA ####[facility] Rpkfpzzyoc8542 [place] [address]Gerken Nasra RBC 3.73 106/ul Critically low 4.70-6.10 [facility] Comment on above: Performed By: #### Rebel ECHEVARRIA ####[facility] Ytxcrghgsa3842 [place] [address]Gerken Nasra RDW 15.0 % Normal 11.0-15.0 [facility] Comment on above: Performed By: #### C SWATHI ####[facility] Dejrvzswvc7243 [place], [place] [address]Gtfijz Nasra SEG # 18.70 103/ul Critically high 1.40-6.50 [facility] Comment on above: Performed By: #### C SWATHI ####[facility] Xidvsvdbvf9389 [place] [address]Gerken Nasra SEG % 85.0 % Critically high 43.0-75.0 [facility] Comment on above: Performed By: #### C SWATHI ####[facility] Qljsrikrrg5332 [place] [address]Gerken Nasra WBC 22.0 103/ul Critically high 4.0-11.0 [facility] Comment on above: Performed By: #### Rebel ECHEVARRIA ####[facility] Kntfxmirys[address]22 [address] Nasra CULTURE WOUNDon 12-29-2020 CULTURE WOUND Culture Observations : No growth at 72 hours. Normal [facility] Comment on above: Performed By: #### W OUTRISTANCX ####[facility] [address]ct[address] [place] [address] Nasra PROF CHEM 8 (BAS METB)on Anion gap [Moles/Vol] 9.9 mmol/L Normal [facility] Comment on above: Performed By: #### B MP ####[facility] Eflrdhsoqd0473 [address] Nasra Calcium [Mass/Vol] 8.2 mg/dL Critically low 8.4-10.2 [facility] Comment on above: Performed By: #### B MP ####[facility] Wjxhxwkwiv1120 [address] Nasra Chloride [Moles/Vol] 107 mmol/L Normal 98-107 [facility] Comment on above: Performed By: #### B MP ####[facility] Uwibdylqdm0205 [address] Nasra CO2 [Moles/Vol] 28.9 mmol/L Normal 22.0-30.0 [facility] Comment on above: Performed By: #### B MP ####[facility] Qwqbtlmhgo5028 [place], [place] [address]Dyqamb Nasra Creatinine [Mass/Vol] 0.81 mg/dL Normal 0.66-1.25 [facility] Comment on above: Performed By: #### B MP ####[facility] Vzkdfcehpa4724 [place], [place] [address]Pbnzsr Nasra EGFR-AF TURKISH >60 Normal >=60 [facility] Comment on above: Performed By: #### B MP ####[facility] Jfaugxtfjl9827 [place], [place] [address]Tpjioy Nasra EGFR-NON AF TURKISH >60 Normal >=60 [facility] Comment on above: Performed By: #### B MP ####[facility] [address] [place] [address]Usxhmr Nasra Glucose [Mass/Vol] 126 mg/dL Critically high 74-106 [facility] Comment on above: Performed By: #### B MP ####[facility] Yightwuxzs[address] [place] [address]Wipndx Nasra Potassium [Moles/Vol] 3.8 mmol/L Normal 3.4-5.0 [facility] Comment on above: Performed By: #### B MP ####[facility] Zcyczkczet8[address] [place], [place] [address]Gerken Nasra Sodium [Moles/Vol] 142 mmol/L Normal 137-145 [facility] Comment on above: Performed By: #### B MP ####[facility] Hdwdcmgvok7830 [place], [place] [address]Pcpdyw Nasra Urea nitrogen [Mass/Vol] 12.0 mg/dL Normal 9.0-20.0 [facility] Comment on above: Performed By: #### B MP ####[facility] Dehksaprll3313 [place], [place] [address]Ymdzza Nasra Urea nitrogen/Creatinin e [Mass ratio] 14.8 mg/mg Normal [facility] Comment on above: Performed By: #### B MP ####[facility] Tsybnzjeut6[address] Nasra CBC W MANUAL DIFFon 12-29-19 21 ATYPICAL LYMPH # Normal [facility] Comment on above: Performed By: #### C SWATHI ####[facility] Aytuzykdye2072 [place] [address]Gerken Ansra ATYPICAL LYMPH % Normal [facility] Comment on above: Performed By: #### C SWATHI ####[facility] Fsdxxhvbjy9202 [address] Nasra BAND # 0.7 103/ul Critically high 0.0-0.3 [facility] Comment on above: Performed By: #### Rebel ECHEVARRIA ####[facility] Deusxqzs[address] [place] [address] Nasra BAND % 3 % Normal 0-5 [facility] Comment on above: Performed By: #### Rebel ECHEVARRIA ####[facility] O[address]jbvq[address] [place] [address] Nasra BASOM # 0.00 103/ul Normal 0.00-0.10 [facility] Comment on above: Performed By: #### Rebel ECHEVARRIA ####[facility] [address]fop[address] [place] [address] Nasra BASOM % 0.0 % Critically low 0.2-2.0 [facility] Comment on above: Performed By: #### Rebel ECHEVARRIA ####[facility] [address] [place] [address] Nasra BLAST # Normal [facility] Comment on above: Performed By: #### Rebel ECHEVARRIA ####[facility] [address]ktw[address]sfv[address] [place] [address] Nasra BLAST % Normal [facility] Comment on above: Performed By: #### Rebel ECHEVARRIA ####[facility] Ipvglcqjrr[address] [place] [address] Nasra CORRECTED WBC Normal 4.0-11.0 [facility] Comment on above: Performed By: #### Rebel ECHEVARRIA ####[facility] Loiwtlljmo7653 [place] [address]Gerken Nasra EOS # 0.23 103/ul Normal 0.00-0.70 [facility] Comment on above: Performed By: #### Rebel ECHEVARRIA ####[facility] Xobkozxqab9871 [place] [address]Gerken Nasra EOS% 1.0 % Normal 0.9-7.0 [facility] Comment on above: Performed By: #### Rebel ECHEVARRIA ####[facility] Zrnzjgpxpf8069 [place] [address]Gerken Nasra HCT 37.0 % Critically low 42.0-54.0 [facility] Comment on above: Performed By: #### Rebel ECHEVARRIA ####[facility] Huvcekzd[address] [place] [address] Nasra HGB 11.5 g/dl Critically low 14.0-18.0 [facility] Comment on above: Performed By: #### Rebel ECHEVARRIA ####[facility] Phcawzicqj[address] [place], [place] [address]Gerken Nasra LYMPHM # 3.70 103/ul Normal 1.20-3.80 [facility] Comment on above: Performed By: #### Rebel ECHEVARRIA ####[facility] B[address]ntmiejv[address] [place], [place] [address]Gerken Nasra LYMPHM% 16.0 % Critically low 20.5-60.0 [facility] Comment on above: Performed By: #### Rebel ECHEVARRIA ####[facility] Uguzlwyybm2418 [place] [address]Gerken Nasra MCH 27.8 pg Normal 25.9-34.0 [facility] Comment on above: Performed By: #### Rebel ECHEVARRIA ####[facility] Ldgzvazfeq[address] [place], [place] [address]Gerken Nasra MCHC 31.1 g/dl Normal 29.9-35.2 [facility] Comment on above: Performed By: #### Rebel ECHEVARRIA ####[facility] Ewboquvvux[address] Nasra MCV 89.6 fL Normal 80.0-94.0 [facility] Comment on above: Performed By: #### Rebel ECHEVARRIA ####[facility] Rvyjyxtqfk7384 [place], [place] [address]Qjzlwg Nasra METAMYELOCYTE # Normal [facility] Comment on above: Performed By: #### Rebel ECHEVARRIA ####[facility] Xczwzvpcnw7171 [place], [place] [address]Nabvta Nasra METAMYELOCYTE % Normal [facility] Comment on above: Performed By: #### Rebel ECHEVARRIA ####[facility] Zaalppxduh3290 [place] [address]Gerken Nasra MONOM# 1.62 103/ul Critically high 0.30-0.80 [facility] Comment on above: Performed By: #### Rebel ECHEVARRIA ####[facility] [address]krtisjv[address] [place] [address] Nasra MONOM% 7.0 % Normal 1.7-12.0 [facility] Comment on above: Performed By: #### Rebel ECHEVARRIA ####[facility] Vhdocrvjsa[address] [place], [place] [address]Gerken Nasra MPV 9.6 fL Normal 9.5-13.5 [facility] Comment on above: Performed By: #### Rebel ECHEVARRIA ####[facility] [address] [place] [address]Gsnrbx Nasra MYELOCYTE # Normal [facility] Comment on above: Performed By: #### Rebel ECHEVARRIA ####[facility] Llrtxvasuj4904 [place], [place] [address]Flypnw Nasra MYELOCYTE % Normal [facility] Comment on above: Performed By: #### Rebel ECHEVARRIA ####[facility] Zbovazgtxs[address] [place], [place] [address]Gerken Nasra NRBC Normal [facility] Comment on above: Performed By: #### Rebel ECHEVARRIA ####[facility] Xatftdydxa1576 [place] [address]Gerken Nasra PLT 362 103/ul Normal 150-450 [facility] Comment on above: Performed By: #### Rebel ECHEVARRIA ####[facility] Uafxcjrfkt7122 [place], [place] [address]Iodrvi Nasra RBC 4.13 106/ul Critically low 4.70-6.10 [facility] Comment on above: Performed By: #### Rebel ECHEVARRIA ####[facility] Yyrvswyoqg7705 [place], [place] [address]Kvqnvp Nasra RDW 15.0 % Normal 11.0-15.0 [facility] Comment on above: Performed By: #### Rebel ECHEVARRIA ####[facility] Ljljgugwsz0070 [place], [place] [address]Sczmda Nasra SEG # 16.86 103/ul Critically high 1.40-6.50 [facility] Comment on above: Performed By: #### Rebel ECHEVARRIA ####[facility] Vqsycdowvp0869 [place], [place] [address]Fdfxlz Nasra SEG % 73.0 % Normal 43.0-75.0 [facility] Comment on above: Performed By: #### Rebel ECHEVARRIA ####[facility] Eqrmgmxyli6001 [place], [place] [address]Ilodtu Nasra WBC 23.1 103/ul Critically high 4.0-11.0 [facility] Comment on above: Performed By: #### Rebel ECHEVARRIA ####[facility] Lkmyteniov5267 [place], [place] [address]Ywxkyg Nasra PROF CHEM 8 (BAS METB)on Anion gap [Moles/Vol] 8.3 mmol/L Normal [facility] Comment on above: Performed By: #### B MP #### [facility] [address] [place], [place] [address] Desmond Nasra Calcium [Mass/Vol] 8.5 mg/dL Normal 8.4-10.2 [facility] Comment on above: Performed By: #### B MP #### [facility] [address] [place], [place] [address] Desmond Nasra Chloride [Moles/Vol] 105 mmol/L Normal 98-107 [facility] Comment on above: Performed By: #### B MP #### [facility] [address] [place], [place] [address] Desmond Nasra CO2 [Moles/Vol] 28.6 mmol/L Normal 22.0-30.0 [facility] Comment on above: Performed By: #### B MP #### [facility] [address] [place] [id number] Desmond Nasra Creatinine [Mass/Vol] 0.76 mg/dL Normal 0.66-1.25 [facility] Comment on above: Performed By: #### B MP #### [facility] [address] [place], [place] [address] Desmond Nasra EGFR-AF TURKISH >60 Normal >=60 [facility] Comment on above: Performed By: #### B MP #### [facility] [address] [place], [place] [address] Desmond Nasra EGFR-NON AF TURKISH >60 Normal >=60 [facility] Comment on above: Performed By: #### B MP #### [facility] [address] [place] [address] Desmond Nasra Glucose [Mass/Vol] 129 mg/dL Critically high 74-106 [facility] Comment on above: Performed By: #### B MP #### [facility] [address] [place], [place] [address] Desmond Nasra Potassium [Moles/Vol] 3.9 mmol/L Normal 3.4-5.0 [facility] Comment on above: Performed By: #### B MP #### [facility] [address] [place] [address] Desmond Nasra Sodium [Moles/Vol] 138 mmol/L Normal 137-145 [facility] Comment on above: Performed By: #### B MP #### [facility] [address] [place], [place] [address] Desmond Nasra Urea nitrogen [Mass/Vol] 17.0 mg/dL Normal 9.0-20.0 [facility] Comment on above: Performed By: #### B MP #### [facility] [address] [place], [place] [address] Desmond Nasra Urea nitrogen/Creatinin e [Mass ratio] 22.4 mg/mg Normal [facility] Comment on above: Performed By: #### B MP #### [facility] [address] [place] [address] Desmond Nasra UA (CLEAN/CATCH) 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 YELLOW Normal YELLOW [facility] Comment on above: Performed By: #### B MP #### [facility] [address] [place] [address] Desmond Nasra Glucose Ql (U) Negative Normal NEGATIVE [facility] Comment on above: Performed By: #### B MP #### [facility] [address] [place] [address] Desmond Nasra Hemoglobin Ql (U) Negative Normal NEGATIVE [facility] Comment on above: Performed By: #### B MP #### [facility] [address] [place] [address] Desmond Nasra Ketones Ql (U) Negative Normal NEGATIVE [facility] Comment on above: Performed By: #### B MP #### [facility] [address] [place] [address] Desmond Nasra LEUKOCYTES TRACE Abnormal NEGATIVE [facility] Comment on above: Performed By: #### B MP #### [facility] [address] [place] [address] Desmond Nasra Nitrite Ql (U) Negative Normal NEGATIVE [facility] Comment on above: Performed By: #### B MP #### [facility] [address] [place] [address] Desmond Nasra pH (U) 7.0 [pH] Normal 5-9 [facility] Comment on above: Performed By: #### B MP #### [facility] [address] [place] [address] Desmond Hammonds SPEC GRAVITY <=1.005 Abnormal 1.005-<=1.025 [facility] Comment on above: Performed By: #### B MP #### [facility] [address] [place], [place] [address] Desmondraúl Hammonds UA PROTEIN Negative Normal NEGATIVE/ TRACE [facility] Comment on above: Performed By: #### B MP #### [facility] [address] [place] [address] Desmond Hammonds UR MICRO IND INDICATED Normal [facility] Comment on above: Performed By: #### B MP #### [facility] [address] [place] [address] Desmondraúl Hammonds Urobilinogen Qn (U) 0.2 {Sanchez'U}/dL Normal 0.2 - 1.0 [facility] Comment on above: Performed By: #### B MP #### [facility] [address] [place] [address] Desmondraúl Hammonds URINE MICROSCOPIC ONLYon BACTERIA TRACE Abnormal NONE SEEN [facility] Comment on above: Performed By: #### B MP #### [facility] [address] [place] [address] Desmond Hammonds Bacteria identified Cx Nom (U) NOT INDICATED Normal [facility] Comment on above: Performed By: #### B MP #### [facility] [address] [place] [address] Desmondraúl Mathiasen CAST NONE SEEN Normal NONE SEEN [facility] Comment on above: Performed By: #### B MP #### [facility] [address] [place] [address] Desmond Nasra Crystals LM Nom (Urine sed) NONE SEEN Normal NONE SEEN [facility] Comment on above: Performed By: #### B MP #### [facility] [address] [place], [place] [address] Desmond Nasra Epithelial cells LM Ql (Urine sed) NONE SEEN Normal NONE SEEN /RARE [facility] Comment on above: Performed By: #### B MP #### [facility] [address] [place] [address] Desmond Nasra MUCOUS NONE SEEN Normal NONE SEEN [facility] Comment on above: Performed By: #### B MP #### [facility] [address] [place] [address] Desmond Nasra RBC 0-2 Normal 0-2 [facility] Comment on above: Performed By: #### B MP #### [facility] [address] [place] [address] Desmond Nasra WBC 2-5 Abnormal NONE SEEN [facility] Comment on above: Performed By: #### B MP #### [facility] [address] [place] [address] Desmond Nasra YEAST PRESENT Abnormal NONE SEEN [facility] Comment on above: Performed By: #### B MP #### [facility] [address] [place] [address] Desmond Nasra XR CHEST 2 Von 12-28-2020 [...] MAUREEN RODGERS Date: 2020-12-28 13:38 Normal [facility] CBC W MANUAL DIFFon 12-28-19 21 ATYPICAL LYMPH # 0.79 103/ul Normal [facility] Comment on above: Performed By: #### B MP #### [facility] [address] [place] [address] Desmond Nasra ATYPICAL LYMPH % 4 % Normal [facility] Comment on above: Performed By: #### B MP #### [facility] [address] [place] [address] Desmond Nasra BAND # Normal 0.0-0.3 [facility] Comment on above: Performed By: #### B MP #### [facility] [address] [place] [address] Desmond Nasra BAND % Normal 0-5 [facility] Comment on above: Performed By: #### B MP #### [facility] [address] [place] [address] Desmond Nasra BASOM # 0.00 103/ul Normal 0.00-0.10 [facility] Comment on above: Performed By: #### B MP #### [facility] [address] [place] [address] Desmond Nasra BASOM % 0.0 % Critically low 0.2-2.0 [facility] Comment on above: Performed By: #### B MP #### [facility] [address] [place] [address] Desmond Nasra BLAST # Normal [facility] Comment on above: Performed By: #### B MP #### [facility] [address] [place] [address] Desmond Nasra BLAST % Normal [facility] Comment on above: Performed By: #### B MP #### [facility] [address] [place] [address] Desmond Nasra CORRECTED WBC Normal 4.0-11.0 [facility] Comment on above: Performed By: #### B MP #### [facility] [address] [place] [address] Desmond Nasra EOS # 0.00 103/ul Normal 0.00-0.70 [facility] Comment on above: Performed By: #### B MP #### [facility] [address] [place] [address] Desmond Nasra EOS% 0.0 % Critically low 0.9-7.0 [facility] Comment on above: Performed By: #### B MP #### [facility] [address] [place] [address] Desmond Nasra HCT 33.6 % Critically low 42.0-54.0 [facility] Comment on above: Performed By: #### B MP #### [facility] [address] [place], [place] [address] Desmond Hammonds HGB 10.4 g/dl Critically low 14.0-18.0 [facility] Comment on above: Performed By: #### B MP #### [facility] Laboratory [address] [place] [address] Desmond Hammonds LYMPHM # 2.57 103/ul Normal 1.20-3.80 [facility] Comment on above: Performed By: #### B MP #### [facility] [address] [place] [address] Desmond Hammonds LYMPHM% 13.0 % Critically low 20.5-60.0 [facility] Comment on above: Performed By: #### B MP #### [facility] [address] [place] [address] Desmond Hammonds MCH 28.2 pg Normal 25.9-34.0 [facility] Comment on above: Performed By: #### B MP #### [facility] [address] [place] [address] Desmond Hammonds MCHC 31.0 g/dl Normal 29.9-35.2 [facility] Comment on above: Performed By: #### B MP #### [facility] [address] [place] [address] Desmond Hammonds MCV 91.1 fL Normal 80.0-94.0 [facility] Comment on above: Performed By: #### B MP #### [facility] [address] [place] [address] Desmond Nasra METAMYELOCYTE # Normal [facility] Comment on above: Performed By: #### B MP #### [facility] [address] [place] [address] Desmond Nasra METAMYELOCYTE % Normal [facility] Comment on above: Performed By: #### B MP #### [facility] [address] [place] [address] Desmondraúl Mathiasen MONOM# 2.18 103/ul Critically high 0.30-0.80 [facility] Comment on above: Performed By: #### B MP #### [facility] [address] [address] Desmond Hammonds MONOM% 11.0 % Normal 1.7-12.0 [facility] Comment on above: Performed By: #### B MP #### [facility] [address] [id number] Desmond Hammonds MPV 9.9 fL Normal 9.5-13.5 [facility] Comment on above: Performed By: #### B MP #### [facility] [address] [place] [address] Desmond Nasra MYELOCYTE # Normal [facility] Comment on above: Performed By: #### B MP #### [facility] [address] [place], [place] [id number] Desmond Nasra MYELOCYTE % Normal [facility] Comment on above: Performed By: #### B MP #### [facility] [address] [place] [address] Desmond Mathiasen NRBC Normal [facility] Comment on above: Performed By: #### B MP #### [facility] [address] [place], [place] [address] Desmondraúl Mathiasen PLT 315 103/ul Normal 150-450 [facility] Comment on above: Performed By: #### B MP #### [facility] [address] [place], [place] [address] Desmond Nasra RBC 3.69 106/ul Critically low 4.70-6.10 [facility] Comment on above: Performed By: #### B MP #### [facility] [address] [place], [place] [address] Desmondraúl Hammonds RDW 15.0 % Normal 11.0-15.0 [facility] Comment on above: Performed By: #### B MP #### [facility] [address] [place], [place] [address] Desmond Nasra SEG # 14.26 103/ul Critically high 1.40-6.50 [facility] Comment on above: Performed By: #### B MP #### [facility] [address] [place], [place] [address] Desmond Nasra SEG % 72.0 % Normal 43.0-75.0 [facility] Comment on above: Performed By: #### B #### [facility] [address], [place] [address] Desmond Hammonds WBC 19.8 103/ul Critically high 4.0-11.0 [facility] Comment on above: Performed By: #### B MP #### [facility] [address], [place] [address] ABD/PELV W CONon 12-28-19 [...] VLADISLAV SHIN Date: 2020-12-27 20:35 Normal [facility] CULTURE SPUTUMon 12-27-2020 CULTURE SPUTUM Isolate 1 Hoa albicans Light growth of Normal [facility] Comment on above: Performed By: #### S PUTCX #### [facility] [address] [place] [address] Desmond Nasra PROF CHEM 8 (BAS METB)on Anion gap [Moles/Vol] 7.6 mmol/L Normal [facility] Comment on above: Performed By: #### B MP #### [facility] [address] [place] [address] Desmond Nasra Calcium [Mass/Vol] 8.2 mg/dL Critically low 8.4-10.2 [facility] Comment on above: Performed By: #### B MP #### [facility] [address] [place] [address] Desmond Nasra Chloride [Moles/Vol] 109 mmol/L Critically high 98-107 [facility] Comment on above: Performed By: #### B MP #### [facility] [address] [place] [address] Desmond Nasra CO2 [Moles/Vol] 29.1 mmol/L Normal 22.0-30.0 [facility] Comment on above: Performed By: #### B MP #### [facility] [address] [place] [address] Desmond Nasra Creatinine [Mass/Vol] 0.72 mg/dL Normal 0.66-1.25 [facility] Comment on above: Performed By: #### B MP #### [facility] [address] [place], [place] [address] Desmond Nasra EGFR-AF TURKISH >60 Normal >=60 [facility] Comment on above: Performed By: #### B MP #### [facility] [address] [place] [address] Desmond Nasra EGFR-NON AF TURKISH >60 Normal >=60 [facility] Comment on above: Performed By: #### B MP #### [facility] [address] [id number] Desmond Nasra Glucose [Mass/Vol] 132 mg/dL Critically high 74-106 [facility] Comment on above: Performed By: #### B MP #### [facility] [address] [id number] Desmond Nasra Potassium [Moles/Vol] 3.7 mmol/L Normal 3.4-5.0 [facility] Comment on above: Performed By: #### B MP #### [facility] [address] [place] [address] Desmond Nasra Sodium [Moles/Vol] 142 mmol/L Normal 137-145 [facility] Comment on above: Performed By: #### B MP #### [facility] [address] [place], [place] [address] Desmond Nasra Urea nitrogen [Mass/Vol] 28.0 mg/dL Critically high 9.0-20.0 [facility] Comment on above: Performed By: #### B MP #### [facility] [address] [place], [place] [address] Desmond Nasra Urea nitrogen/Creatinin e [Mass ratio] 38.9 mg/mg Normal [facility] Comment on above: Performed By: #### B MP #### [facility] [address] [place], [place] [address] Desmond Nasra CBC W MANUAL DIFFon 12-27-19 21 ATYPICAL LYMPH # 0.30 103/ul Normal [facility] Comment on above: Performed By: #### B MP #### [facility] [address] [place], [place] [address] Desmond Nasra ATYPICAL LYMPH % 2 % Normal [facility] Comment on above: Performed By: #### B MP #### [facility] [address] [place] [address] Desmond Nasra BAND # 0.3 103/ul Normal 0.0-0.3 [facility] Comment on above: Performed By: #### B MP #### [facility] [address] [id number] Desmond Nasra BAND % 2 % Normal 0-5 [facility] Comment on above: Performed By: #### B MP #### [facility] [address] [address] Desmond Nasra BASOM # 0.00 103/ul Normal 0.00-0.10 [facility] Comment on above: Performed By: #### B MP #### [facility] [address] [address] Desmond Nasra BASOM % 0.0 % Critically low 0.2-2.0 [facility] Comment on above: Performed By: #### B MP #### [facility] [address] [place] [address] Desmond Nasra BLAST # Normal [facility] Comment on above: Performed By: #### B MP #### [facility] [address] [place] [address] Desmond Nasra BLAST % Normal [facility] Comment on above: Performed By: #### B MP #### [facility] [address] [place] [address] Desmond Nasra CORRECTED WBC Normal 4.0-11.0 [facility] Comment on above: Performed By: #### B MP #### [facility] [address] [place] [address] Desmond Nasra EOS # 0.15 103/ul Normal 0.00-0.70 [facility] Comment on above: Performed By: #### B MP #### [facility] [address] [place] [address] Desmond Nasra EOS% 1.0 % Normal 0.9-7.0 [facility] Comment on above: Performed By: #### B MP #### [facility] [address] [place] [address] Desmond Nasra HCT 32.5 % Critically low 42.0-54.0 [facility] Comment on above: Performed By: #### B MP #### [facility] [address] [address] Desmond Nasra HGB 9.9 g/dl Critically low 14.0-18.0 [facility] Comment on above: Performed By: #### B MP #### [facility] [address] [place] [address] Desmond Nasra LYMPHM # 1.96 103/ul Normal 1.20-3.80 [facility] Comment on above: Performed By: #### B MP #### [facility] [address] [place] [address] Desmond Nasra LYMPHM% 13.0 % Critically low 20.5-60.0 [facility] Comment on above: Performed By: #### B MP #### [facility] [address] [place] [address] Desmond Nasra MCH 27.7 pg Normal 25.9-34.0 [facility] Comment on above: Performed By: #### B MP #### [facility] [address] [place] [address] Desmond Nasra MCHC 30.5 g/dl Normal 29.9-35.2 [facility] Comment on above: Performed By: #### B MP #### [facility] [address] [place] [address] Desmond Nasra MCV 91.0 fL Normal 80.0-94.0 [facility] Comment on above: Performed By: #### B MP #### [facility] [address] [place] [address] Desmond Nasra METAMYELOCYTE # Normal [facility] Comment on above: Performed By: #### B MP #### [facility] [address] [place], [place] [address] Desmond Nasra METAMYELOCYTE % Normal [facility] Comment on above: Performed By: #### B MP #### [facility] [address] [place] [address] Desmond Nasra MONOM# 0.60 103/ul Normal 0.30-0.80 [facility] Comment on above: Performed By: #### B MP #### [facility] [address] [id number] Desmond Hammonds MONOM% 4.0 % Normal 1.7-12.0 [facility] Comment on above: Performed By: #### B MP #### [facility] [address] [address] Desmond Hammonds MPV 10.2 fL Normal 9.5-13.5 [facility] Comment on above: Performed By: #### B MP #### [facility] [address] [address] Desmondraúl Mathiasen MYELOCYTE # Normal [facility] Comment on above: Performed By: #### B MP #### [facility] [address] [place] [address] Desmond Hammonds MYELOCYTE % Normal [facility] Comment on above: Performed By: #### B MP #### [facility] [address] [place], [place] [address] Desmond Hammonds NRBC Normal [facility] Comment on above: Performed By: #### B MP #### [facility] [address] [place], [place] [address] Desmond Mathiasen PLT 274 103/ul Normal 150-450 [facility] Comment on above: Performed By: #### B MP #### [facility] [address] [place], [place] [address] Desmond Mathiasen RBC 3.57 106/ul Critically low 4.70-6.10 [facility] Comment on above: Performed By: #### B MP #### [facility] [address] [address] Desmond Hammonds RDW 15.1 % Critically high 11.0-15.0 [facility] Comment on above: Performed By: #### B MP #### [facility] [address] [place], [place] [address] Desmond Nasra SEG # 11.78 103/ul Critically high 1.40-6.50 [facility] Comment on above: Performed By: #### B MP #### [facility] [address] [place], [place] [address] Desmond Nasra SEG % 78.0 % Critically high 43.0-75.0 [facility] Comment on above: Performed By: #### B MP #### [facility] [address] [place], [place] [address] Desmond Nasra WBC 15.1 103/ul Critically high 4.0-11.0 [facility] Comment on above: Performed By: #### B MP #### [facility] [address] [place], [place] [address] Desmondraúl Mathiasen PROF CHEM 8 (BAS METB)on Anion gap [Moles/Vol] 9.3 mmol/L Normal [facility] Comment on above: Performed By: #### B MP #### [facility] [address] [place] [address] Desmond Nasra Calcium [Mass/Vol] 8.2 mg/dL Critically low 8.4-10.2 [facility] Comment on above: Performed By: #### B MP #### [facility] [address] [place] [address] Desmond Nasra Chloride [Moles/Vol] 110 mmol/L Critically high 98-107 [facility] Comment on above: Performed By: #### B MP #### [facility] [address] [place], [place] [address] Desmond Nasra CO2 [Moles/Vol] 30.4 mmol/L Critically high 22.0-30.0 [facility] Comment on above: Performed By: #### B MP #### [facility] [address] [place] [address] Desmond Nasra Creatinine [Mass/Vol] 0.84 mg/dL Normal 0.66-1.25 [facility] Comment on above: Performed By: #### B MP #### [facility] [address] [place], [place] [address] Desmond Nasra EGFR-AF TURKISH >60 Normal >=60 [facility] Comment on above: Performed By: #### B MP #### [facility] [address] [place], [place] [address] Desmond Nasra EGFR-NON AF TURKISH >60 Normal >=60 [facility] Comment on above: Performed By: #### B MP #### [facility] [address] [address] Desmond Nasra Glucose [Mass/Vol] 172 mg/dL Critically high 74-106 [facility] Comment on above: Performed By: #### B MP #### [facility] [address] [address] Desmond Nasra Potassium [Moles/Vol] 3.7 mmol/L Normal 3.4-5.0 [facility] Comment on above: Performed By: #### B MP #### [facility] [address] [place] [address] Desmond Nasra Sodium [Moles/Vol] 146 mmol/L Critically high 137-145 [facility] Comment on above: Performed By: #### B MP #### [facility] [address] [place] [address] Desmond Nasra Urea nitrogen [Mass/Vol] 33.0 mg/dL Critically high 9.0-20.0 [facility] Comment on above: Performed By: #### B MP #### [facility] [address] [place], [place] [address] Desmond Nasra Urea nitrogen/Creatinin e [Mass ratio] 39.3 mg/mg Normal [facility] Comment on above: Performed By: #### B MP #### [facility] [address] [place] [address] Desmond Nasra CBC AUTO DIFFon 12-25-2020 BASO # 0.0 103/ul Normal 0.0-0.1 [facility] Comment on above: Performed By: #### B MP #### [facility] [address] [place], [place] [address] Desmond Nasra Basophils/100 WBC (Bld) 0.3 % Normal 0.2-2.0 [facility] Comment on above: Performed By: #### B MP #### [facility] [address] [place], [place] [address] Desmond Nasra EO # 0.0 103/ul Normal 0.0-0.7 [facility] Comment on above: Performed By: #### B MP #### [facility] [address] [address] Desmond Nasra Eosinophils/100 WBC (Bld) 0.0 % Critically low 0.9-7.0 [facility] Comment on above: Performed By: #### B MP #### [facility] [address] [address] Desmond Nasra Erythrocyte distribution width (RBC) [Ratio] 14.6 % Normal 11.0-15.0 [facility] Comment on above: Performed By: #### B MP #### [facility] [address] [place], [place] [address] Desmond Nasra Hematocrit (Bld) [Volume fraction] 32.5 % Critically low 42.0-54.0 [facility] Comment on above: Performed By: #### B MP #### [facility] [address] [place] [address] Desmond Nasra Hemoglobin (Bld) [Mass/Vol] 10.4 g/dL Critically low 14.0-18.0 [facility] Comment on above: Performed By: #### B MP #### [facility] [address] [place], [place] [address] Desmond Nasra IG # 0.26 10e3/ul Critically high 0.00-0.03 [facility] Comment on above: Performed By: #### B MP #### [facility] [address] [place], [place] [address] Desmond Nasra IG % 2.3 % Critically high 0.0-0.5 [facility] Comment on above: Performed By: #### B MP #### [facility] [address] [place], [place] [address] Desmond Nasra LYMPH # 0.4 103/ul Critically low 1.2-3.8 [facility] Comment on above: Performed By: #### B MP #### [facility] [address] [place], [place] [address] Desmond Nasra Lymphocytes/100 WBC (Bld) 3.4 % Critically low 20.5-60.0 [facility] Comment on above: Performed By: #### B MP #### [facility] [address] [place], [place] [address] Desmond Nasra MANUAL DIFF REQ NO Normal [facility] Comment on above: Performed By: #### B MP #### [facility] [address] [place], [place] [address] Desmondraúl Hammonds MCH (RBC) [Entitic mass] 28.3 pg Normal 25.9-34.0 [facility] Comment on above: Performed By: #### B MP #### [facility] [address] [place], [place] [address] Desmond Hammonds MCHC (RBC) [Mass/Vol] 32.0 g/dL Normal 29.9-35.2 [facility] Comment on above: Performed By: #### B MP #### [facility] [address] [place] [address] Desmondraúl Hammonds MCV (RBC) [Entitic vol] 88.3 fL Normal 80.0-94.0 [facility] Comment on above: Performed By: #### B MP #### [facility] [address] [place] [address] Desmond Nasra MONO # 0.8 103/ul Normal 0.3-0.8 [facility] Comment on above: Performed By: #### B MP #### [facility] [address] [place] [address] Desmond Nasra Monocytes/100 WBC (Bld) 6.6 % Normal 1.7-12.0 [facility] Comment on above: Performed By: #### B MP #### [facility] [address] [place] [address] Desmond Nasra NEUT # 9.9 103/ul Critically high 1.4-6.5 [facility] Comment on above: Performed By: #### B MP #### [facility] [address] [place], [place] [address] Desmond Nasra Neutrophils/100 WBC (Bld) 87.4 % Critically high 43.0-75.0 [facility] Comment on above: Performed By: #### B MP #### [facility] [address] [place], [place] [address] Desmond Hammonds Platelet mean volume (Bld) [Entitic vol] 10.3 fL Normal 9.5-13.5 [facility] Comment on above: Performed By: #### B MP #### [facility] [address] [place], [place] [address] Desmond Hammonds PLT 223 103/ul Normal 150-450 [facility] Comment on above: Performed By: #### B MP #### [facility] [address] [place], [place] [address] Desmond Hammonds RBC 3.68 106/ul Critically low 4.70-6.10 [facility] Comment on above: Performed By: #### B MP #### [facility] [address] [place], [place] [address] Desmond Hammonds WBC 11.3 103/ul Critically high 4.0-11.0 [facility] Comment on above: Performed By: #### B MP #### [facility] [address] [place], [place] [address] Desmond Hammonds POINT OF CARE GLUCOSEon 12-12 Glucose [Mass/Vol] 156 mg/dL Critically high 74-106 [facility] Comment on above: Performed By: #### B MP #### [facility] [address] [place], [place] [address] Desmond Hammonds PROF CHEM 8 (BAS METB)on Anion gap [Moles/Vol] 8.5 mmol/L Normal [facility] Comment on above: Performed By: #### B MP #### [facility] [address] [place], [place] [address] Desmond Nasra Calcium [Mass/Vol] 8.6 mg/dL Normal 8.4-10.2 [facility] Comment on above: Performed By: #### B MP #### [facility] [address] [place], [place] [address] Desmond Nasra Chloride [Moles/Vol] 107 mmol/L Normal 98-107 [facility] Comment on above: Performed By: #### B MP #### [facility] [address] [place], [place] [address] Desmond Nasra CO2 [Moles/Vol] 29.2 mmol/L Normal 22.0-30.0 [facility] Comment on above: Performed By: #### B MP #### [facility] [address] [address] Desmond Nasra Creatinine [Mass/Vol] 0.92 mg/dL Normal 0.66-1.25 [facility] Comment on above: Performed By: #### B MP #### [facility] [address] [address] Desmond Nasra EGFR-AF TURKISH >60 Normal >=60 [facility] Comment on above: Performed By: #### B MP #### [facility] [address] [address] Desmond Nasra EGFR-NON AF TURKISH >60 Normal >=60 [facility] Comment on above: Performed By: #### B MP #### [facility] [address] [address] Desmond Nasra Glucose [Mass/Vol] 176 mg/dL Critically high 74-106 [facility] Comment on above: Performed By: #### B MP #### [facility] [address] [address] Desmond Nasra Potassium [Moles/Vol] 3.7 mmol/L Normal 3.4-5.0 [facility] Comment on above: Performed By: #### B MP #### [facility] [address] [address] Desmond Nasra Sodium [Moles/Vol] 141 mmol/L Normal 137-145 [facility] Comment on above: Performed By: #### B MP #### [facility] [address] [address] Desmond Nasra Urea nitrogen [Mass/Vol] 30.0 mg/dL Critically high 9.0-20.0 [facility] Comment on above: Performed By: #### B MP #### [facility] [address] [address] Desmond Nasra Urea nitrogen/Creatinin e [Mass ratio] 32.6 mg/mg Normal [facility] Comment on above: Performed By: #### B MP #### [facility] [address] [place], [place] [address] Desmond Nasra BLOOD GASES BTYon 12-24-2020 02 MODE VENTILATOR Normal [facility] Comment on above: Performed By: #### A BG ####[facility] [id number] [place], [place] [address]Xtcveu Nasra ALLENS TEST Positive Normal [facility] Comment on above: Performed By: #### A BG ####[facility] [id number] [place], [place] [address]Qyhbqz Nasra Base excess Calc (Bld) [Moles/Vol] -2.5000 mmol/L Critically low -2.0-2.0 [facility] Comment on above: Performed By: #### A BG ####[facility] Jmuabkmurx2900 [place], [place] [address]Mhevzl Nasra BIPAP PRESSURE Normal [facility] Comment on above: Performed By: #### A BG ####[facility] [address] [place] [address]Kbwwcn Nasra CO2 [Moles/Vol] 23.4 mmol/L Normal 23.0-28.0 [facility] Comment on above: Performed By: #### A BG ####[facility] [address] [place] [address]Erfoxi Nasra CPAP Normal [facility] Comment on above: Performed By: #### A BG ####[facility] Atdcuezpsh0313 [place], [place] [address]Kvjgek Nasra FIO2 60.00 % Normal [facility] Comment on above: Performed By: #### A BG ####[facility] [address] [place], [place] [address]Gerken Nasra HCO3 (Bld) [Moles/Vol] 22.2 mmol/L Normal 22.0-26.0 [facility] Comment on above: Performed By: #### A BG ####[facility] [address] [place], [place] [address]Gerken Nasra LPM Normal [facility] Comment on above: Performed By: #### A BG ####[facility] Fpcsazlmsm2374 [address] Nasra MINUTE VOLUME Normal [facility] Comment on above: Performed By: #### A BG ####[facility] Emjhpyunda[address]13 [place] [id number] Nasra Oxygen (Bld) [Partial pressure] 91.3 mm[Hg] Normal 80.0-100.0 [facility] Comment on above: Performed By: #### A BG ####[facility] [address] [place] [address] Nasra Oxygen saturation in Blood 97.1 % Normal 95.0-100.0 [facility] Comment on above: Performed By: #### A BG ####[facility] [address] [place] [address] Nasra PCO2 37.8 mmHg Normal 35.0-45.0 [facility] Comment on above: Performed By: #### A BG ####[facility] [address] [place] [address] Nasra PEEP 5 Normal [facility] Comment on above: Performed By: #### A BG ####[facility] [address] [place] [address] Nasra pH (Bld) 7.387 [pH] Normal 7.350-7.450 [facility] Comment on above: Performed By: #### A BG ####[facility] [address]op[address] [place] [address] Nasra PIP Normal [facility] Comment on above: Performed By: #### A BG ####[facility] [address] [place] [address] Nasra PS Normal [facility] Comment on above: Performed By: #### A BG ####[facility] [address]we[address] [place] [address] Nasra PUNCTURE SITE RR Normal [facility] Comment on above: Performed By: #### A BG ####[facility] [address] [place] [address]Hlfswd Nasra RATE 18 bpm Normal [facility] Comment on above: Performed By: #### A BG ####[facility] Ecmhssypbu2909 [place], [place] [address]Afzkoy Nasra VENT MODE a/c Normal [facility] Comment on above: Performed By: #### A BG ####[facility] [address]ew[address]wsqt[address] [place] [id number] Nasra [place] 650 ML Normal [facility] Comment on above: Performed By: #### A BG ####[facility] Uye[address]xzbf[address]47[address] [place] [id number] Nasra CBC W MANUAL DIFFon 12-25-19 21 ATYPICAL LYMPH # 0.00 103/ul Normal [facility] Comment on above: Performed By: #### C SWATHI #### [facility] [address] [place] [address] Desmond Nasra ATYPICAL LYMPH % 0 % Normal [facility] Comment on above: Performed By: #### C SWATHI #### [facility] [address] [place] [address] Desmond Nasra BAND # 0.2 103/ul Normal 0.0-0.3 [facility] Comment on above: Performed By: #### C SWATHI #### [facility] [address] [place] [address] Desmond Nasra BAND % 2 % Normal 0-5 [facility] Comment on above: Performed By: #### C SWATHI #### [facility] [address] [place] [address] Desmond Nasra BASOM # 0.00 103/ul Normal 0.00-0.10 [facility] Comment on above: Performed By: #### C SWATHI #### [facility] [address] [place] [address] Desmond Nasra BASOM % 0.0 % Critically low 0.2-2.0 [facility] Comment on above: Performed By: #### C SWATHI #### [facility] [address] [place] [address] Desmond Nasra BLAST # Normal [facility] Comment on above: Performed By: #### C SWATHI #### [facility] [address] [place] [address] Desmond Nasra BLAST % Normal [facility] Comment on above: Performed By: #### C SWATHI #### [facility] [address] [place] [address] Desmond Nasra CORRECTED WBC Normal 4.0-11.0 [facility] Comment on above: Performed By: #### C SWATHI #### [facility] [address] [place] [address] Desmond Nasra EOS # 0.00 103/ul Normal 0.00-0.70 [facility] Comment on above: Performed By: #### C SWATHI #### [facility] [address] [place] [address] Desmond Nasra EOS% 0.0 % Critically low 0.9-7.0 [facility] Comment on above: Performed By: #### Rebel ECHEVARRIA #### [facility] [address] [place] [address] Desmond Nasra HCT 32.0 % Critically low 42.0-54.0 [facility] Comment on above: Performed By: #### Rebel ECHEVARRIA #### [facility] [address] [place] [address] Desmond Nasra HGB 10.2 g/dl Critically low 14.0-18.0 [facility] Comment on above: Performed By: #### C SWATHI #### [facility] [address] [place] [address] Desmond Nasra HYPOCHROMASIA SLIGHT Normal [facility] Comment on above: Performed By: #### C SWATHI #### [facility] [address] [place] [address] Desmond Nasra LYMPHM # 0.23 103/ul Critically low 1.20-3.80 [facility] Comment on above: Performed By: #### C SWATHI #### [facility] [address] [place] [address] Desmond Nasra LYMPHM% 2.0 % Critically low 20.5-60.0 [facility] Comment on above: Performed By: #### Rebel ECHEVARRIA #### [facility] [address] [place] [address] Desmond Nasra MCH 27.8 pg Normal 25.9-34.0 [facility] Comment on above: Performed By: #### C SWATHI #### [facility] [address] [place] [address] Desmond Nasra MCHC 31.9 g/dl Normal 29.9-35.2 [facility] Comment on above: Performed By: #### C SWATHI #### [facility] [address] [place] [address] Desmond Nasra MCV 87.2 fL Normal 80.0-94.0 [facility] Comment on above: Performed By: #### Rebel ECHEVARRIA #### [facility] [address] [place] [address] Desmond Nasra METAMYELOCYTE # Normal [facility] Comment on above: Performed By: #### Rebel ECHEVARRIA #### [facility] [address] [place] [address] Desmond Nasra METAMYELOCYTE % Normal [facility] Comment on above: Performed By: #### Rebel ECHEVARRIA #### [facility] [address] [place] [address] Desmond Nasra MONOM# 0.23 103/ul Critically low 0.30-0.80 [facility] Comment on above: Performed By: #### Rebel ECHEVARRIA #### [facility] [address] [place] [address] Desmond Nasra MONOM% 2.0 % Normal 1.7-12.0 [facility] Comment on above: Performed By: #### Rebel ECHEVARRIA #### [facility] [address] [place] [address] Desmond Nasra MPV 10.8 fL Normal 9.5-13.5 [facility] Comment on above: Performed By: #### Rebel ECHEVARRIA #### [facility] [address] [place] [address] Desmond Nasra MYELOCYTE # Normal [facility] Comment on above: Performed By: #### C SWATHI #### [facility] [address] [place], [place] [address] Desmond Hammonds MYELOCYTE % Normal [facility] Comment on above: Performed By: #### C SWATHI #### [facility] [address] [place], [place] [address] Desmond Hammonds NRBC Normal [facility] Comment on above: Performed By: #### C SWATHI #### [facility] [address] [place] [id number] Desmond Hammonds PLT 222 103/ul Normal 150-450 [facility] Comment on above: Performed By: #### C SWATHI #### [facility] [address] [place] [id number] Desmond Hammonds RBC 3.67 106/ul Critically low 4.70-6.10 [facility] Comment on above: Performed By: #### Rebel ECHEVARRIA #### [facility] [address] [place] [address] Desmond Hammonds RDW 14.1 % Normal 11.0-15.0 [facility] Comment on above: Performed By: #### Rebel ECHEVARRIA #### [facility] [address] [place] [address] Desmond Hammonds SEG # 11.00 103/ul Critically high 1.40-6.50 [facility] Comment on above: Performed By: #### Rebel ECHEVARRIA #### [facility] [address] [place] [address] Desmond Hammonds SEG % 94.0 % Critically high 43.0-75.0 [facility] Comment on above: Performed By: #### C SWATHI #### [facility] [address] [place] [address] Desmond Hammonds WBC 11.7 103/ul Critically high 4.0-11.0 [facility] Comment on above: Performed By: #### Rebel ECHEVARRIA #### [facility] [address] [place] [id number] Desmond Hammonds PROF CHEM 8 (BAS METB)on Anion gap [Moles/Vol] 14.1 mmol/L Normal [facility] Comment on above: Performed By: #### B MP ####[facility] [address]khfp[address] [place] [id number] Nasra Calcium [Mass/Vol] 8.5 mg/dL Normal 8.4-10.2 [facility] Comment on above: Performed By: #### B MP ####[facility] [address]zt[address] [place] [address]Gerken Nasra Chloride [Moles/Vol] 97 mmol/L Critically low 98-107 [facility] Comment on above: Performed By: #### B MP ####[facility] [address]vq[address] [place] [address]Gerken Nasra CO2 [Moles/Vol] 23.7 mmol/L Normal 22.0-30.0 [facility] Comment on above: Performed By: #### B MP ####[facility] [address] [place], [place] [address]Gerken Nasra Creatinine [Mass/Vol] 1.19 mg/dL Normal 0.66-1.25 [facility] Comment on above: Performed By: #### B MP ####[facility] Zwvkvghayh4035 [place], [place] [address]Tunvrr Nasra EGFR-AF TURKISH >60 Normal >=60 [facility] Comment on above: Performed By: #### B MP ####[facility] Hydjototku[address] [place] [address]Gerken Nasra EGFR-NON AF TURKISH 59 mL/min/1.73m2 Critically low >=60 [facility] Comment on above: Performed By: #### B MP ####[facility] Bksskrvhlv1542 [place], [place] [address]Ileaaa Nasra Glucose [Mass/Vol] 214 mg/dL Critically high 74-106 [facility] Comment on above: Performed By: #### B MP ####[facility] Nnzxdtvmpr5042 [place] [address]Gerken Nasra Potassium [Moles/Vol] 3.8 mmol/L Normal 3.4-5.0 [facility] Comment on above: Performed By: #### B MP ####[facility] Llmzxxhqwa9[address] Nasra Sodium [Moles/Vol] 131 mmol/L Critically low 137-145 [facility] Comment on above: Performed By: #### B MP ####[facility] Uhxtupkisu8475 [address] Nasra Urea nitrogen [Mass/Vol] 32.0 mg/dL Critically high 9.0-20.0 [facility] Comment on above: Performed By: #### B MP ####[facility] Lxuivcybnv3235 [address] Nasra Urea nitrogen/Creatinin e [Mass ratio] 26.9 mg/mg Normal [facility] Comment on above: Performed By: #### B MP ####[facility] Uycphasubv2179 [address] Nasra XR CHEST 1 Von 12-24-2020 [...] by: MAUREEN RODGERS Date: 2020-12-24 09:09 Normal [facility] BLOOD GASES BTYon 12-23-2020 02 MODE VENTILATOR Normal [facility] Comment on above: Performed By: #### A BG ####[facility] [address] [place] [address] Nasra ALLENS TEST Positive Normal [facility] Comment on above: Performed By: #### A BG ####[facility] Bpivoigyis1279 [address] Nasra Base excess Calc (Bld) [Moles/Vol] -2.6000 mmol/L Critically low -2.0-2.0 [facility] Comment on above: Performed By: #### A BG ####[facility] [address] [place] [address] Nasra BIPAP PRESSURE Normal [facility] Comment on above: Performed By: #### A BG ####[facility] F[address]wkeitzs[address] [place] [address] Nasra CO2 [Moles/Vol] 27.6 mmol/L Normal 23.0-28.0 [facility] Comment on above: Performed By: #### A BG ####[facility] Xxf[address] [place] [address] Nasra CPAP Normal [facility] Comment on above: Performed By: #### A BG ####[facility] Itr[address]muq[address] [place] [address] Nasra FIO2 100.00 % Normal [facility] Comment on above: Performed By: #### A BG ####[facility] Icj[address] [place] [address] Nasra HCO3 (Bld) [Moles/Vol] 25.7 mmol/L Normal 22.0-26.0 [facility] Comment on above: Performed By: #### A BG ####[facility] [address] [place] [address] Nasra LPM Normal [facility] Comment on above: Performed By: #### A BG ####[facility] [address] [place] [address] Nasra MINUTE VOLUME Normal [facility] Comment on above: Performed By: #### A BG ####[facility] Cxrdqffipz[address] [place] [address] Nasra Oxygen (Bld) [Partial pressure] 195.1 mm[Hg] Critically high 80.0-100.0 [facility] Comment on above: Performed By: #### A BG ####[facility] Ydtfeckxkz[address]123 [address] Nasra Oxygen saturation in Blood 99.4 % Normal 95.0-100.0 [facility] Comment on above: Performed By: #### A BG ####[facility] Ghcverhpep0451 [address] Nasra PCO2 61.3 mmHg Critically high 35.0-45.0 [facility] Comment on above: Performed By: #### A BG ####[facility] Nqqtmbvjho33[address] Nasra PEEP 5 Normal [facility] Comment on above: Performed By: #### A BG ####[facility] Bqhpteddty9[address] Nasra pH (Bld) 7.241 [pH] Critically low 7.350-7.450 [facility] Comment on above: Performed By: #### A BG ####[facility] Bufdmcucwd7149 [address] Nasra PIP [facility] Comment on above: Performed By: #### A BG ####[facility] Nfrbydtfpg4453 [address] Nasra PS Normal [facility] Comment on above: Performed By: #### A BG ####[facility] Cvcdomkacl1213 [address] Nasra PUNCTURE SITE RR Normal [facility] Comment on above: Performed By: #### A BG ####[facility] Gqvnlwrcld5187 [address] Nasra RATE 12 bpm Normal [facility] Comment on above: Performed By: #### A BG ####[facility] Naukztyjuh6325 [address] Nasra VENT MODE ac Normal [facility] Comment on above: Performed By: #### A BG ####[facility] [address]har[address] [place] [address]Desmond Hammonds [place] 650 ML Normal [facility] Comment on above: Performed By: #### A BG ####[facility] Nwqmxzrbcy87[address] [place] [address]Desmond Hammonds BNPon 12-23-2020 Natriuretic peptide B (Bld) [Mass/Vol] 762.0 pg/mL Normal <=1,800.0 [facility] Comment on above: Performed By: #### B MINE INSPECTOR FEDERAL ####[facility] [address] [place] [address] Nasra CARDIAC LAURA ADMITon 021 CK [Catalytic activity/Vol] 311 U/L Critically high 55-170 [facility] Comment on above: Result Comment: Test Repeated. Critical Value Verified Performed By: #### C ENIO, CMADM ####[facility] [address]we[address] [place] [address] Nasra CK.MB [Mass/Vol] 1.60 ng/mL Normal <=2.37 [facility] Comment on above: Performed By: #### C ENIO, CMADM ####[facility] [address] [place] [address] Nasra HSTROP 23.5 pg/mL Normal 4.0-42.2 [facility] Comment on above: Result Comment: CUT- OFF POINTS HAVE BEEN ESTABLISHED BASED ON THE FOURTH UNIVERSAL DEFINITIONS OF MYOCARDIAL INFARCTION. THE UPPER REFERENCE LIMIT (URL) OF TROPONIN, DEFINED THE 99TH PERCENTILE OF cTnI DISTRIBUTION IN A REFERENCE POPULATION, HAS BEEN CONFIRMED THE DECISION THRESHOLD FOR MT DIAGNOSIS. Performed By: #### C ENIO, CMADM ####[facility] Vuwbbdvfep2454 [address] Nas[place] ELDA 294.0 ng/mL Critically high <=121.0 [facility] Comment on above: Result Comment: Test Repeated. Critical Value Verified Performed By: #### C ENIO, CMADM ####[facility] Tfklbvqnbx[address] Nasra CBC W MANUAL DIFFon 12-24-19 21 ATYPICAL LYMPH # Normal [facility] Comment on above: Performed By: #### B MP #### [facility] [address] [place] [id number] Desmond Nasra ATYPICAL LYMPH % Normal [facility] Comment on above: Performed By: #### B MP #### [facility] [address] [place] [address] Desmond Nasra BAND # 0.5 103/ul Critically high 0.0-0.3 [facility] Comment on above: Performed By: #### B MP #### [facility] [address] [place] [address] Desmond Nasra BAND % 3 % Normal 0-5 [facility] Comment on above: Performed By: #### B MP #### [facility] [address] [place] [address] Desmond Nasra BASOM # 0.00 103/ul Normal 0.00-0.10 [facility] Comment on above: Performed By: #### B MP #### [facility] [address] [place] [address] Desmond Nasra BASOM % 0.0 % Critically low 0.2-2.0 [facility] Comment on above: Performed By: #### B MP #### [facility] [address] [place] [address] Desmond Nasra BLAST # Normal [facility] Comment on above: Performed By: #### B MP #### [facility] [address] [place] [address] Desmond Nasra BLAST % Normal [facility] Comment on above: Performed By: #### B MP #### [facility] [address] [place] [address] Desmond Nasra CORRECTED WBC Normal 4.0-11.0 [facility] Comment on above: Performed By: #### B MP #### [facility] [address] [place] [address] Desmond Nasra EOS # 0.15 103/ul Normal 0.00-0.70 [facility] Comment on above: Performed By: #### B MP #### [facility] [address] [place] [address] Desmond Hammonds EOS% 1.0 % Normal 0.9-7.0 [facility] Comment on above: Performed By: #### B MP #### [facility] [address] [place] [address] Desmond Hammonds HCT 36.2 % Critically low 42.0-54.0 [facility] Comment on above: Performed By: #### B MP #### [facility] [address] [place] [address] Desmondraúl Mathiasen HGB 11.7 g/dl Critically low 14.0-18.0 [facility] Comment on above: Performed By: #### B MP #### [facility] [address] [place] [address] Desmond Hammonds LYMPHM # 0.62 103/ul Critically low 1.20-3.80 [facility] Comment on above: Performed By: #### B MP #### [facility] [address] [place] [address] Desmond Hammonds LYMPHM% 4.0 % Critically low 20.5-60.0 [facility] Comment on above: Performed By: #### B MP #### [facility] [address] [place] [address] Desmond Hammonds MCH 28.3 pg Normal 25.9-34.0 [facility] Comment on above: Performed By: #### B MP #### [facility] [address] [place] [address] Desmond Hammonds MCHC 32.3 g/dl Normal 29.9-35.2 [facility] Comment on above: Performed By: #### B MP #### [facility] [address] [place], [place] [address] Desmond Hammonds MCV 87.7 fL Normal 80.0-94.0 [facility] Comment on above: Performed By: #### B MP #### [facility] [address] [place] [address] Desmond Mathiasen METAMYELOCYTE # Normal [facility] Comment on above: Performed By: #### B MP #### [facility] [address] [place], [place] [address] Desmond Nasra METAMYELOCYTE % Normal [facility] Comment on above: Performed By: #### B MP #### [facility] [address] [place] [address] Desmond Nasra MONOM# 0.15 103/ul Critically low 0.30-0.80 [facility] Comment on above: Performed By: #### B MP #### [facility] [address] [place] [address] Desmond Nasra MONOM% 1.0 % Critically low 1.7-12.0 [facility] Comment on above: Performed By: #### B MP #### [facility] [address] [place] [address] Desmond Nasra MPV 10.5 fL Normal 9.5-13.5 [facility] Comment on above: Performed By: #### B MP #### [facility] [address] [place] [address] Desmond Nasra MYELOCYTE # Normal [facility] Comment on above: Performed By: #### B MP #### [facility] [address] [place], [place] [address] Desmond Nasra MYELOCYTE % Normal [facility] Comment on above: Performed By: #### B MP #### [facility] [address] [place], [place] [address] Desmond Nasra NRBC Normal [facility] Comment on above: Performed By: #### B MP #### [facility] [address] [place] [address] Desmond Nasra PLT 203 103/ul Normal 150-450 [facility] Comment on above: Performed By: #### B MP #### [facility] [address] [place], [place] [address] Desmond Nasra RBC 4.13 106/ul Critically low 4.70-6.10 [facility] Comment on above: Performed By: #### B MP #### [facility] [address] [place] [address] Desmond Nasra RDW 14.3 % Normal 11.0-15.0 [facility] Comment on above: Performed By: #### B MP #### [facility] [address] [place], [place] [address] Desmond Hammonds SEG # 14.11 103/ul Critically high 1.40-6.50 [facility] Comment on above: Performed By: #### B MP #### [facility] [address], [place] [address] Desmond Mathiasen SEG % 91.0 % Critically high 43.0-75.0 [facility] Comment on above: Performed By: #### B MP #### [facility] [address], [place] [address] Desmond Hammonds WBC 15.5 103/ul Critically high 4.0-11.0 [facility] Comment on above: Performed By: #### B MP #### [facility] [address], [place] [address] ABD/PELV W CONon 12-24-19 [...] RUTH ANN MARTÍNEZ Date: 2020-12-23 15:32 Normal [facility] CULTURE ANAEROBICon 12-24-19 21 CULTURE ANAEROBIC Culture Observations : No growth of anaerobes at 72 hours. Normal [facility] Comment on above: Performed By: #### A NACX #### [facility] [address] [place] [address] Desmond Nasra CULTURE BLOODon 12-23-2020 Microscopic examination of blood, culture Culture Observations: No growth at 5 days Normal [facility] Comment on above: Performed By: #### B LDCX1 #### [facility] [address] [place] [id number] Desmond Nasra CULTURE OTHERon 12-23-2020 CULTURE OTHER Specimen Comments: Peritoneal fluid received on a culture swab. Specimen Comments: May impact the recovery of micro organisms. Culture Observations: No growth at 72 hours. Normal [facility] Comment on above: Performed By: #### O THCX ####[facility] [address] [place] [id number] Hammonds LACTATE/LACTIC ACIDon 2020 Lactate [Moles/Vol] 1.0 mmol/L Normal 0.7-2.0 [facility] Comment on above: Performed By: #### B MP #### [facility] [address] [place] [id number] Desmond Hammonds PROF 14(COMP METB)on 021 Albumin [Mass/Vol] 2.5 g/dL Critically low 3.5-5.0 [facility] Comment on above: Performed By: #### C MP, CMADM ####[facility] [address] [place] [id number] Nasra Albumin/Globulin [Mass ratio] 0.6 {ratio} Normal [facility] Comment on above: Performed By: #### C ENIO, RAJI ####[facility] [address] [place], [place] [address]Lmtzsl Nasra ALP [Catalytic activity/Vol] 57 U/L Normal 38-126 [facility] Comment on above: Performed By: #### C ENIO, RAJI ####[facility] [address] [place], [place] [address]Uusqfh Nasra ALT [Catalytic activity/Vol] 32 U/L Normal 21-72 [facility] Comment on above: Performed By: #### C RAJI STEEN ####[facility] [address] [place], [place] [address]Xxnrgr Nasra Anion gap [Moles/Vol] 10.9 mmol/L Normal [facility] Comment on above: Performed By: #### C RAJI STEEN ####[facility] [address] [place], [place] [address]Bgpqjp Nasra AST [Catalytic activity/Vol] 25 U/L Normal 17-59 [facility] Comment on above: Performed By: #### C RAJI STENE ####[facility] [address] [place], [place] [address]Neimbu Nasra Bilirubin [Mass/Vol] 0.5 mg/dL Normal 0.2-1.3 [facility] Comment on above: Performed By: #### C RAJI STEEN ####[facility] [address] [place], [place] [address]Bnkjep Nasra Calcium [Mass/Vol] 9.6 mg/dL Normal 8.4-10.2 [facility] Comment on above: Performed By: #### C RAJI STEEN ####[facility] [address] [place], [place] [address]Ydjwsm Nasra Chloride [Moles/Vol] 98 mmol/L Normal 98-107 [facility] Comment on above: Performed By: #### C RAJI STEEN ####[facility] [address] [place], [place] [address]Deonez Nasra CO2 [Moles/Vol] 27.6 mmol/L Normal 22.0-30.0 [facility] Comment on above: Performed By: #### C ENIO, RAJI ####[facility] [address] [place] [address]Gerken Nasra Creatinine [Mass/Vol] 1.16 mg/dL Normal 0.66-1.25 [facility] Comment on above: Performed By: #### C ENIO, CMADM ####[facility] [address] [place] [address]Gerken Nasra EGFR-AF TURKISH >60 Normal >=60 [facility] Comment on above: Performed By: #### C ENIO, CMAMONTANA ####[facility] [address] [place] EGFR-NON AF TURKISH >60 Normal >=60 [facility] Comment on above: Performed By: #### C ENIO, CMAMONTANA ####[facility] [address] [place] [address]Gerken Nasra Globulin (S) [Mass/Vol] 4.1 g/dL Normal [facility] Comment on above: Performed By: #### C ENIO, CMAMONTANA ####[facility] [address] [place] Glucose [Mass/Vol] 131 mg/dL Critically high 74-106 [facility] Comment on above: Performed By: #### C ENIO, CMADM ####[facility] [address] [place] [address]Gerken Nasra Potassium [Moles/Vol] 3.5 mmol/L Normal 3.4-5.0 [facility] Comment on above: Performed By: #### C ENIO, CMADM ####[facility] [address] [place] [address]Gerken Nasra Protein [Mass/Vol] 6.6 g/dL Normal 6.1-8.2 [facility] Comment on above: Performed By: #### C NEIO, CMAMONTANA ####[facility] [address] [place] [address]Gerken Nasra Sodium [Moles/Vol] 133 mmol/L Critically low 137-145 [facility] Comment on above: Performed By: #### C ENIO, CMAMONTANA ####[facility] [address] [place] Urea nitrogen [Mass/Vol] 24.0 mg/dL Critically high 9.0-20.0 [facility] Comment on above: Performed By: #### C ENIO, CMADM ####[facility] [address] [place] Urea nitrogen/Creatinin e [Mass ratio] 20.7 mg/mg Normal [facility] Comment on above: Performed By: #### C ENIO, NADIADM ####[facility] [address] [place] Rapid Covid-19 PCR (CVDRPD)o n 12-23-2020 SARS-CoV-2 (COVID-19) RNA BRANDAN+probe Ql (Unsp spec) Not detected Normal NOT DETECTED [facility] Comment on above: Result Comment: This test is not yet approved or cleared by the [place] Food and Drug Administration (FDA). This test was developed by [employer], [place], [place]. The performance characteristics of this test were validated by [facility]. The results are not intended to be used as the sole means for clinical diagnosis or patient management decisions. [facility] is authorized under Clinical Laboratory Improvement Amendments (CLIA) to perform high- complexity testing. When diagnostic testing is negative, the possibility of a false negative should be considered in the context of a patient's recent exposures and the presence of clinical signs and symptoms consistent with SARS-CoV-2. Performed By: #### C VDRPD ####[facility] [address] [place] [address] Nasra XR CHEST 1 Von 12-23-2020 XR [...] by: RODY DUCKWORTH Date: 2020-12-23 00:42 Normal [facility] XR KUB 1 VIEWon 12-23-2020 XR KUB [...] RODY DUCKWORTH Date: 2020-12-23 03:22 Normal [facility] US THYROIDon 10-26-2020 US THYROID EXAMINATION: [...] STAR BLANKENSHIP Date: 2020-10-26 16:32 Normal [facility] XR CHEST 2 Von 09-10-2020 XR [...] by: CHADWICK ARAMBULA Date: 2020-09-10 10:18 Normal [facility] Vital Signs Date Time Vital Sign Value Performing Clinician Facility 03-11-2023 16:05-0400 Body height 172.72 cm Vicky Kee Other [facility] Other 03-11-2023 16:05-0400 Body mass index (BMI) [Ratio] 31.59 kg/m2 Vicky Kee Other [facility] Other 03-11-2023 16:05-0400 Body temperature 100 [degF] Vicky Kee Other [facility] Other 03-11-2023 16:05-0400 Body weight 94.26 kg Vicky Kee Other [facility] Other 03-11-2023 16:05-0400 Diastolic blood pressure 77 mm[Hg] Vicky Kee Other [facility] Other 03-11-2023 16:05-0400 Respiratory rate 18 /min Vicky Kee Other [facility] Other 03-11-2023 16:05-0400 SaO2% (BldA) [Mass fraction] 93 % Vicky Kee Other [facility] Other 03-11-2023 16:05-0400 Systolic blood pressure 153 mm[Hg] Vicky Kee Other [facility] Other 02-23-2022 12:32-0400 Blood Pressure Location Gerardoholley NORMAN [employer] [facility] [place] 02-23-2022 12:32-0400 Diastolic blood pressure 80 mm[Hg] Gerardo NORMAN [facility] [place] 02-23-2022 12:32-0400 Heart rate 85 /min Gerardo NORMAN [facility] [place] 02-23-2022 12:32-0400 Respiratory rate 16 /min Gerardo NORMAN [employer] [facility] [place] 02-23-2022 12:32-0400 Systolic blood pressure 133 mm[Hg] Gerardo NORMAN [employer] [facility] [place] Encounters Encounter Date Encounter Type Care Provider Facility Start: 03-15-2023 End: 03-15-2023 ambulatory Vicky Kee Other [facility] Other Start: 03-15-2023 Telephone encounter Vicky Kee [facility] Start: 03-11-2023 End: 03-11-2023 ambulatory Vicky Kee [facility] Other Start: 03-11-2023 Office outpatient ne w 20 minutes Vicky Kee [facility] Start: 06-08-2022 ambulatory MD Gerardo NORMAN [facility] ility:[facility] Start: 02-23-2022 End: 02-24-2022 ambulatory MD Gerardo NORMAN Facility:[facility] [place] Start: 02-23-2022 End: 02-23-2022 Patient encounter procedure Gerardo NORMAN [facility] [place] Start: 02-10-2022 End: 02-11-2022 ambulatory MD Gerardo NORMAN Facility:[facility] [place] Start: 02-10-2022 End: 02-10-2022 Patient encounter procedure Gerardo NORMAN [facility] [place] Start: 02-03-2022 ambulatory MD Gerardo Oliva ity:[facility] Start: 02-03-2022 End: 02-04-2022 ambulatory MD Gerardo NORMAN [place] [place]: 02-03-2022 End: 02-03-2022 Patient encounter procedure Gerardo NORMAN [facility] Start: 01-06-2022 End: 01-07-2022 ambulatory MD Gerardo NORMAN [place] [place] Start: 01-06-2022 End: 01-06-2022 Patient encounter procedure Gerardo NORMAN [facility] Start: 01-06-2022 ambulatory MD Gerardo Oliva ity:[facility] Start: 12-08-2021 End: 12-09-2021 ambulatory MD Gerardo NORMAN Facility:[facility] [place] Start: 11-07-2021 ambulatory MD Gerardo NORMAN Facil ity:[facility] Start: 11-05-2021 ambulatory Caprice Deal Facility:[facility] [place] Start: 11-04-2021 ambulatory MD Gerardo NORMAN Facil ity:[facility] Start: 09-10-2021 ambulatory MD Gerardo NORMAN Facil ity:[facility] Start: 09-10-2021 End: 09-11-2021 ambulatory Caprice Deal Facility:[facility] [place] Start: 07-30-2021 ambulatory MD Gerardo NORMAN Facil [...] (COVID-19 ) Ad26 vaccine, recombinant Gerardo NORMAN [facility] 06-13-2021 influenza virus vaccine, unspecified formulation Gerardoholley NORMAN [facility] 01-09-2021 SARS-CoV-2 (COVID-19 ) Ad26 vaccine, recombinant Gerardo NORMAN [facility] 12-12-2020 SARS-CoV-2 (COVID-19 ) Ad26 vaccine, recombinant Egrardo NORMAN [facility] Payers Date Payer Category Payer Self-pay 2023 Unknown [id number] 2021 Unknown [id number] 41 2019 Unknown [id number] 1957 Medicare [id number] 1940 Unknown [id number] 2.16.84 [id number] 1940 Unknown [id number] .16.84 0.1.005376.3.579.2.593 1940 Unknown [id number] 2.16.84 0.1.785484.3.579.2.59 1942 Unknown [id number] 2.16.8 40.1.131672.3.579.2.727 1940 Unknown [id number] 2.16.8 40.1.565870.3.579.2.727 1942 Unknown [id number] 2.16.8 40.1.319377.3.579.2.727 1942 Unknown [id number] 2.16.8 40.1.102188.3.579.2.727 1942 Unknown [id number] 2.16.8 40.1.023660.3.579.2.727 1942 Unknown [id number] 2.16.8 40.1.436647.3.579.2.727 1940 Unknown [id number] 2.16.8 40.1.228635.3.579.2.727 1942 Unknown [id number] 2.16.8 40.1.916286.3.579.2.727 1942 Unknown [id number] 2.16.8 40.1.205492.3.579.2.727 1940 Unknown [id number] 2.16.8 40.1.905861.3.579.2.727 Unknown [id number] 2.16.8 40.1.627617.3.579.2.531 Social History Date Type Detail Facility Start: 09-10-2021 End: 02-23-2022 Tobacco smoking status Ex-smoker (finding) [facility] Sex Assigned At Male [facility] Functional Status Date Assessment Result Facility 02-23-2022 Functional Status N/A [facility] Clinical Notes 01-06-2022 to 03-11-2023 Note Date [...] fever. Patient verbalized understanding of treatment plan. [facility] Other 06-13-2022 Hospital Discharge instructions Patient Education [...] 08/30/2006 Document Revised: 05/19/2019 Document Reviewed: 07/30/2017 [employer] Patient Education 2020 [employer] 02/23/2022 12:57:02 Benign Prostatic Hyperplasia Benign Prostatic [...] urethra. Follow these instructions at home: Take bifu-elb-jxmmbvj and prescription medicines only as told by [...] 08/30/2006 Document Revised: 07/25/2019 Document Reviewed: 10/04/2017 [employer] Patient Education [facility]. Follow Up Care 02/10/2022 15:14:15 With:JARROD CLARK, GUERRERO Ulloa Address: [facility] [address], [place] [address] [phone] When:Within 3 Month(s) Comments:f/u in 3 months [facility] 05-24-2022 Note [id number]:127[facility] 02-03-2022 NoteCustom Rezum Post-Procedure Instructions General Recommendations [...] site using a circul (more content not included)...[facility]05-24-2022 Hospital Discharge instructions Patient Education 02/03/2022 16:18:35 [...] cotton underwear to absorb moisture and keep drier tender naphthalene. 6. Keep the drainage bag below the [...] Address: [facility] [address] [place] [address]- Business (1) When:02/10/2022 16:18:17 Comments:For Arredondo removal [facility]04-28-2022 Note [id number]:127[facility] 01-06-2022 Hospital Discharge instructions Patient Education 01/06/2022 [...] Address: [facility] [address] [place] [address]- Business (1) When: Unknown Comments:Office will call to schedule follow up [facility]04-26-2022 NoteCustom Cystoscopy ? Voiding after the [...] if you have a fever over 100 degrees.[facility] Evaluation + Plan note No data available for this section [facility] Future Appointments Appointment Date:02/10/2022 02:45:00 PM Scheduled Provider: Location:[facility] Appointment Type:URO [facility] Future Appointments Appointment Date:02/23/2022 12:30:00 PM Scheduled Provider:Gerardo NORMAN MD Location:[facility] Appointment Type:URO Office Visit [facility] [employer] Evaluation + Plan note Future Appointments Appointment Date:06/08/2022 02:15:00 PM Scheduled Provider:Gerardo NORMAN MD Location:[facility] Appointment Type:URO Office Visit [facility] evaluation noteNo Information[facility] Other History general Narrative - Reported* Type Description Date Medical History high blood pressure Medical History high cholesterol Medical History COPD [facility] Other Hospital Discharge instructions No data available for this section [facility] [employer] Progress note No data available for this section [facility] [employer] Summary Purpose Family History No Family History [...] DATE CREATED AUTHOR AUTHOR'S ORGANIZ ATION 11/29/2021 [facility] DATE CREATED AUTHOR AUTHOR'S ORGANIZ ATION 06/19/2022 [facility] DATE CREATED AUTHOR AUTHOR'S ORGANIZ ATION 03/31/2023 [facility] Care Team (unrecognized sect ion and content) Personnel Name: OMER LAN OCTAVIA Address: [address] [place] [address]- REASON FOR VISIT (unrecogniz ed section and [...] BE BASED ON THE PRIMARY CLINICAL RECORDS. [facility] [employer] provides no warranty or guarantee of the accuracy or completeness of information in this document.
--- NOTE | 2023-09-27 14:55 | CM.DCFOLLOWU ---
Person spoke with: pt and How are you feeling? well How is your pain? no pain Did you understand your discharge instructions? yes Do you have any questions about your discharge instructions? yes, in regards to novolog flex pen, insulin Were you given any prescriptions at discharge? yes Were you able to get your prescriptions filled? yes Do you understand how to take your medications as ordered? asking about flex pen Do you have any questions about your follow up appointment and do you plan to keep your follow up appointment? yes was on phone asking about a flex pen, insulin that was sent home with pt. Yumiko in case managment assisted with follow up call. Is there anything else that you would like to discuss? no Questions/Comments/Concerns/Other:
== END 2023-09-26 10:55 | disposition home or self-care (01) | DRG 190 ==
LOC: ER 17:30 → MS 21:00
PROVIDERS: Family Medicine; Registered Nurse; Admitting Provider Internal Medicine; Emergency Provider Emergency Medicine Emergency Medical Services; Visit Provider Internal Medicine
DX: J44.0 Chronic obstructive pulmonary disease with (acute) lower respiratory infection (principal); J18.9 Pneumonia, unspecified organism; J96.01 Acute respiratory failure with hypoxia; J44.1 Chronic obstructive pulmonary disease with (acute) exacerbation; I10 Essential (primary) hypertension; E78.5 Hyperlipidemia, unspecified; N40.0 Benign prostatic hyperplasia without lower urinary tract symptoms; R73.03 Prediabetes; Z90.49 Acquired absence of other specified parts of digestive tract; Z87.891 Personal history of nicotine dependence; Z79.82 Long term (current) use of aspirin; Z79.899 Other long term (current) drug therapy; Z88.1 Allergy status to other antibiotic agents; Z82.3 Family history of stroke; Z83.3 Family history of diabetes mellitus; Z80.9 Family history of malignant neoplasm, unspecified; Z82.49 Family history of ischemic heart disease and other diseases of the circulatory system
CPT/HCPCS: 0202U; 36415; 36600; 71045; 71275; 80053; 82805; 82948; 83036; 83605; 83880; 84484; 85025; 87070; 87635; 87804; 87811; 93005; 94640; 94667; 94668; 94761; 96365; 96366; 96367; 96375; 96376; 99285; G0378; J0696; J2920; J2930; Q9967

== ENCOUNTER 2023-12-22 13:43 | Outpatient (OUT) | payer OTHER, SELFPAY ==
--- NOTE | 2023-12-22 13:41 | CT_ITS ---
[address] [address] Patient Name: MIKEL SOTO MRN: [id number] date: 1940 Sex: M Assigned Patient Location: LAB Current Patient Location: LAB Accession/Order Number: [id number] Exam Date: 12/22/2023 14:30 Report Date: 12/24/2023 06:21 At the request of: KAUSHAL CORREA Procedure: CT chest w con EXAMINATION: CT chest w con HISTORY: Right Lower Lobe Pneumonia J18.9, Hilar Lymphadenopathy R59. COMPARISON: CT chest 09/24/2023, 05/21/2015 TECHNIQUE: Multi-planar CT images were obtained without and/or with IV contrast as indicated by examination type. Axial, Coronal, and Sagittal images. Dose reduction techniques were achieved by using automated exposure control and/or adjustment of mA and/or kV according to patient size and/or use of iterative reconstruction technique. FINDINGS: LUNGS: Stable, chronic 7 mm nodule within posterior lateral left lung base. Moderate emphysematous changes. PLEURA: No mass, effusion, or pneumothorax. VASCULATURE: No abnormality. TYLER: No mass or adenopathy. MEDIASTINUM: No mass or adenopathy. CARDIAC: No enlargement, pericardial thickening, or significant calcification. AORTA: No aneurysm or dissection. CHEST WALL: Stable small right thyroid lobe hypodense nodule versus colloid cyst. No axillary mass or adenopathy. BONES: No bone lesion or fracture. LIMITED ABDOMEN: Benign-appearing left renal cyst. Limited images of the upper abdomen. OTHER: Negative. CT/CT chest w con IMPRESSION: 1. Clearing of previously seen right lower lobe infiltrates. 2. Moderate emphysematous changes and stable chronic findings. Electronically authenticated by: STAR BLANKENSHIP Date: 12/24/2023 06:21
[2023-12-22 14:30] LABS: Estimated GFR (African America >60 (>=60); Estimated GFR (Non-African Ame >60 (>=60)
== END 2023-12-22 13:44 | disposition home or self-care (01) ==
LOC: LAB 13:43
PROVIDERS: Visit Provider Internal Medicine
DX: J18.9 Pneumonia, unspecified organism (principal); R59.0 Localized enlarged lymph nodes
CPT/HCPCS: 36415; 71260; 82565; Q9967

== ENCOUNTER 2024-05-03 14:27 | Outpatient (OUT) | payer OTHER, SELFPAY ==
--- NOTE | 2024-05-03 15:00 | CA_ITS ---
Patient Name: MIKEL SOTO MR#: [id number] : 1940 Exam Date: 05/03/2024 Ordering Doctor: DR DANNY PAYTON M.D. ECHOCARDIOGRAM REPORT PROCEDURE: CA ECHO DOPPLER COMPLETE INDICATIONS: Dyspnea on exertion COMPARISON: None. DESCRIPTION: COMPLETE ECHOCARDIOGRAM Real-time transthoracic echocardiography with 2D, M-mode, spectral and color flow Doppler performed. QUALITY: Technical quality was good. LEFT VENTRICLE: Normal chamber size. Mild left ventricular hypertrophy. LV EF: Global left ventricular systolic function is at low normal limits; visually estimated ejection fraction is 50 to 55%. Abnormal septal motion likely related to underlying bundle branch block. DIASTOLIC: Diastolic function is indeterminant. ATRIAL SEPTUM: Inadequately seen. LEFT ATRIUM: Normal chamber size. RIGHT ATRIUM: Moderate dilatation. RIGHT VENTRICLE: The right ventricle appears enlarged; systolic function is reduced. TRICUSPID VALVE: Normal mobility and thickness. Trivial regurgitation. Moderate pulmonary hypertension. RVSP 53mmHg MITRAL VALVE: Normal mobility and thickness. No evidence of mitral valve stenosis. Mild mitral annular calcification. Trivial mitral regurgitation. AORTIC VALVE: Normal trileaflet appearance. Mildly calcified aortic valve. Normal leaflet mobility. No evidence of aortic valve stenosis. No aortic regurgitation. AORTIC ROOT: Normal diameter and appearance. PULMONIC VALVE: Normal thickness and mobility. No stenosis. No regurgitation. PERICARDIUM: No evidence of pericardial effusion. IVC: Collapses with inspirations. Normal size. CONCLUSION: 1. Global left ventricular systolic function is low normal limits; visually estimated ejection fraction is 50 to 55% 2. The right ventricle appears enlarged with reduced systolic function 3. Mild left ventricular hypertrophy 4. Diastolic function is indeterminate 5. The right atrium is moderately dilated 6. Moderately elevated right ventricular systolic pressure; RVSP is 53 mmHg 7. No significant valvular abnormalities Adult Echocardiography Procedure Report Left Ventricle LVEDD (3.7 - 5.6 cm): 4.86 cm LVESD (2.2 - 4.0 cm): 3.17 cm LVIVS thickness (0.6 - 1.2 cm): 1.22 cm LVPW thickness (0.5 - 1.0 cm): 1.18 cm e': 0.09 m/s E - e': 6.37 LVOT Max Gradient: 2.73 mm[Hg] LVOT Area (cm2): 0.83 m/s Peak Velocity (LVOT): 0.83 m/s Mean Velocity (LVOT): 0.59 m/s LVOT Diameter 2.11 cm Left Ventricular Ejection Fraction: 56.87 % Left Atrium LA Volume Index (2D A2C): 32.50 ml/m2 Left Atrium Systolic Dimension: 3.65 cm Mitral Valve MV E to A Ratio: 0.69 Mitral Valve A-Wave Peak Velocity: 0.86 m/s Mitral Valve E-Wave Peak Velocity: 0.59 m/s Right Ventricle RV Internal Diastolic Dimension: 3.39 cm Aorta AO Root Diam: 3.14 cm Ascending Ao Diam: 3.06 cm Aortic Valve AoV Area (Peak Len): 1.82 cm2, 1.82 cm2 AoV Area (VTI): 1.76 cm2, 1.76 cm2 Peak Velocity(Antegrade Flow): 1.59 m/s Peak Gradient(Antegrade Flow): 10.07 mm[Hg] Mean Velocity(Antegrade Flow): 1.08 m/s Mean Gradient(Antegrade Flow): 5.42 mm[Hg] Velocity Time Integral: 31.57 cm Tricuspid Valve Peak Velocity (Regurgitant Flow): 2.40 m/s, 3.52 m/s, 3.17 m/s Pulmonic Valve Peak Velocity: 1.22 m/s Peak Gradient: 6.55 mm[Hg], 5.33 mm[Hg] Right Atrium Right Atrium Systolic Pressure: 91.04 ml, 91.04 ml Dictated by: Danny Payton M.D. on 05/03/2024 at 16:55 Approved by: Danny Payton M.D. on 05/03/2024 at 17:03
== END 2024-05-03 14:28 | disposition home or self-care (01) ==
LOC: CARD 14:27
PROVIDERS: Visit Provider Internal Medicine Interventional Cardiology
DX: R06.09 Other forms of dyspnea (principal)
CPT/HCPCS: 93306; 93356

== ENCOUNTER 2024-10-13 15:11 | Outpatient (OUT) | payer OTHER, SELFPAY ==
--- NOTE | 2024-10-13 | XR_ITS ---
[address] [address] Patient Name: MIKEL SOTO MRN: [id number] date: 1940 Sex: M Assigned Patient Location: [facility] Current Patient Location: Accession/Order Number: [id number] Exam Date: 10/13/2024 15:25 Report Date: 10/16/2024 12:20 At the request of: ANDREW COOPER Procedure: XR hip RT 2V w/ pelvis PROCEDURE: XR hip RT 2V w/ pelvis HISTORY: Right hip pain; M25.551 ; acute COMPARISON: None. 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 No fracture or dislocation of the hip joints. Slight narrowing of the left hip joint space. SOFT TISSUES:No visible soft tissue swelling. EFFUSION:None visible. OTHER: Atherosclerotic disease. XR/XR hip RT 2V w/ pelvis IMPRESSION: 1. Minimal degenerative changes of the hip joints. No acute abnormality. 2. Degenerative changes of lumbar spine. Electronically authenticated by: STAR BLANKENSHIP Date: 10/16/2024 12:20
--- OUTSIDE RECORDS SUMMARY | 2024-10-13 15:25 | XMS_ITS | CCD ---
Author Organization [facility] Care Team Providers Care Life Teacher Name Role Phone DR LAURA MARROQUIN Consulting Unavailable ALEX, DR RACHELLE Mccray Admitting Unavailable ALEX, DR RACHELLE Mccray Attending Unavailable SANDRA, DR VALLECILLO Consulting Unavailable SANDRA, DR VALLECILLO Procedure Practitioner Unava ilable ALEX, DR RACHELLE Mccray Consulting Unavailable WEST, DR MAUREEN Rodriguez Consulting Unavailable SAMSA, KAUSHAL Consulting Unavailable KIP, VLADISLAV Consulting Unavailable Velia, Ruth Ann Consulting Unavailable Said, Rody Consulting Unavailable DARARLETTE, DIMPLE Consulting Unavailable OMER, DR JARVIS Admitting Unavailable OMER, DR JARVIS Attending Unavailable Arambula, Chadwick Consulting Unavailable OMER, DR JARVIS Consulting Unavailable MISC, DR SEGOVIA Admitting Unavailable MISC, DR SEGOVIA Attending Unavailable MISC, DR SEGOVIA Consulting Unavailable ZIEBER, DR STAR Torres Consulting Unavailable OCTAVIA TELLO Primary Care Physician [phone] MD Gerardo GARAY Referring Unavailable MD Gerardo GARAY Admitting Unavailable MD Gerardo GARAY Attending Unavailable MD Gerardo GARAY Attending Unavailable MD Gerardo GARAY Attending Unavailable MD Gerardo GARAY Attending Unavailable Caprice Deal Attending Unavailable MD Gerardo GARAY Attending Unavailable Caprice Deal Attending Unavailable MD Gerardo GARAY Referring Unavailable MD Gerardo GARAY Admitting Unavailable MD Gerardo GARAY Attending Unavailable Vicky Kee Unavailable Allison INDUSTRIAL GAS SERVICE HELPER-RED Andrew A Primary Care Provider RUTH ANN CRUZ Attending Unavailable ALLISON ANDREW Lili Referring Unavailable ALLISON ANDREW A Primary Care Unavailable RUTH ANN CRUZ Attending Unavailable ALLISON ANDREW Lili Referring Unavailable ALLISON ANDREW A Primary Care Unavailable RUTH ANN CRUZ Attending Unavailable SIMONA TELLO Referring Unavailable ALLISON ANDREW A Primary Care Unavailable RUTH ANN CRUZ. Attending Unavailable CRUZ, RUTH ANN G. Referring Unavailable ALLISON, ANDREW A Primary Care Unavailable CRUZ, RUTH ANN G. Admitting Unavailable CRUZ, RUTH ANN G. Attending Unavailable ALLISON, ANDREW A Primary Care Unavailable CRUZ, RUTH ANN G. Attending Unavailable CRUZ, RUTH ANN G. Referring Unavailable ALLISON, ANDREW A Primary Care Unavailable ALLISON, ANDREW A Referring Unavailable ALLISON, ANDREW A Primary Care Unavailable MAUREEN PAGAN Attending Unavailable MAUREEN PAGAN Referring Unavailable ALLISON, ANDREW A Primary Care Unavailable CRUZ, RUTH ANN G. Referring Unavailable MAUREEN PAGAN Attending Unavailable MAUREEN PAGAN Referring Unavailable ALLISON, ANDREW A Primary Care Unavailable CRUZ, RUTH ANN G. Admitting Unavailable CRUZ, RUTH ANN G. Attending Unavailable ALLISON, ANDREW A Primary Care Unavailable ANNAMARIA EDWARDS Attending Unavailable ALLISON, ANDREW A Primary Care Unavailable CRUZ, RUTH ANN G. Attending Unavailable CRUZ, RUTH ANN G. Referring Unavailable ALLISON, ANDREW A Primary Care Unavailable ALLISON, ANDREW A Primary Care Unavailable PRICILA NICHOLSON Attending Unavailable PRICILA NICHOLSON Attending Unavailable BHARAT PRICILA Mahendra Referring Unavailable ALLISON, ANDREW A Primary Care Unavailable ALLISON, ANDREW A Primary Care Unavailable GILES ESPANA Attending Unavailable ROBERT SHAY Admitting Unavailable GRILLIS, RUTH ANN E Consulting Unavailable STEFANY, WALTER Attending Unavailable COTO, WALTER Referring Unavailable ALLISON, ANDREW A Primary Care Unavailable STEFANY, WALTER Attending Unavailable STEFANY, WALTER Referring Unavailable ALLISON, ANDREW A Primary Care Unavailable GRILLIS, RUTH ANN E Admitting Unavailable GRILLIS, RUTH ANN E Attending Unavailable ALLISON, ANDREW A Primary Care Unavailable ANNMAARIA EDWARDS Attending Unavailable ALLISON, ANDREW A Primary Care Unavailable GRILLIS, RUTH ANN E Attending Unavailable GRILLIS, RUTH ANN E Referring Unavailable ALLISON, ANDREW A Primary Care Unavailable ELTAHAWY, EHAB Attending Unavailable ELTAHAWY, EHAB Attending Unavailable NON STAFF Primary Care Unavailable Yanci Mills Attending UnavailYanci Blanco Admitting Unavailabl e Allergies Allergy Classification Reported Allergen(s) Allergy Type Date of Onset Reaction(s) Facility Cephalosporins (antibiotic) (1 source) Cefadroxil Drug Allergy 4 [facility] Repository (17 sources) Cefadroxil; Translations: [cefadroxil] Drug Allergy 9 Unknown (qualifier value), rash [facility] (1 source) Cefadroxil Drug Allergy 4 [facility] Repository Medications Current Medications Medication Drug Class(es) Dates Sig (Normalized) Sig (Original) acetaminophen 325 mg / HYDROcodone bitartrate 7.5 mg oral tablet (3 sources) Opioid Agonist Start: 01-27-2022 take 1 tablet by mouth once, then take 1 tablet by mouth every hour Harrison 325 mg-7.5 mg oral tablet 1 tab(s), Oral, Once, 1 tab(s), Refill(s) 0, Take 1 hour prior to procedure DX:N40.1 (pre-op med) Don't drive or operate machinery while taking this medication., Other (see comment), [facility], 172, cm, 01/05/22 13:05:00 EDT, Height... Start Date: 01/27/22 Status: Ordered [id number] 200 actuat albuterol 0.09 mg/actuat metered dose inhaler (2 sources) beta2-Adrenergic Agonist take 1 puff(s) by inhalation every four hours as needed Albuterol Sulfate HFA 108 (90 Base) MCG/ACT 1 puff as needed Inhalation every 4 hrs Active amLODIPine 10 mg oral tablet (12 sources) Dihydropyridine Calcium Channel Brian Start: 07-01-2024 take 1 tablet by mouth once daily Amlodipine Active 1 TAB PO Daily July 01, 2024 12:00am FreeTextSi tablet Orally Once a day; Note: Source Status: Not-Taking\PRN; Provider: Vidhya Perry ( ) Start: 09-10-2021 amlodipine Ora l, Daily Start Date: 09/10/21 Status: Ordered take 2 tablets by mo uth in the morning amLODIPine (NORVASC) 5 mg tablet Take 2 tablets (10 mg total) by mouth in the morning. Active take 1 tablet by blake th every twenty-four hours amLODIPine Besylate 10 MG 1 tablet Orally Once a day Not-Taking Ascorbic Acid (6 sources) Vitamin C Start: 07-01-2024 take 1 g by mouth every six hours Ascorbic Acid (Vitamin C) Active 1 GM PO Every 6 hours July 01, 2024 12:00am ascorbic acid, v itamin C, (ascorbic acid) 250 mg tablet,chewable Chew and swallow. Active aspirin 81 mg oral capsule (9 sources) Platelet Aggregation Inhibitor, Nonsteroidal Anti-inflammatory Drug Start: 09-10-2021 aspirin 81 mg ora l capsule mg cap(s), Oral Start Date: 09/10/21 Status: Ordered aspirin 81 mg ch ewable tablet Chew 1 tablet (81 mg total) and swallow in the morning. Active calcium acetate 667 mg oral capsule (5 sources) calcium acetate,phosphat bind, (PHOSLO) 667 mg capsule Take 2 capsules (1,334 mg total) by mouth in the morning and 2 capsules (1,334 mg total) at noon and 2 capsules (1,334 mg total) in the evening. Take with meals. Active cholecalciferol 0.125 mg oral tablet (5 sources) Vitamin D take 1 tablet by mouth in the morning cholecalciferol, vitamin D3, 5,000 units tablet Take 1 tablet (5,000 Units total) by mouth in the morning. Active chondroitin sulfates 400 mg / glucosamine hydrochloride 500 mg oral tablet (5 sources) take 1 tablet by mouth three times daily glucosamine-chondroiti n 500-400 mg tablet Take 1 tablet by mouth 3 (three) times a day. Active Ciprofloxacin / Dexamethasone (1 source) Corticosteroid, Quinolone Antimicrobial Start: Ciprofloxacin-Dexameth asone Active 4 DROPS OTIC Twice daily 7.5 7 July 01, 2024 12:00am to right ear furosemide 40 mg oral tablet (5 sources) Loop Diuretic Start: furosemide (LASIX) 40 mg tablet Take 20 mg by mouth daily. 01/01/2021 Active levoFLOXacin 750 mg oral tablet (2 sources) Quinolone Antimicrobial Start: 023 take 1 tablet by mouth once daily Levaquin 750 MG 1 tablet Orally Once a day for 10 days Feb, Active lisinopril 10 mg oral tablet (7 sources) Angiotensin Converting Enzyme Inhibitor Start: 024 take 1 tablet by mouth once daily Lisinopril Active 1 TAB PO Daily July 01, 2024 12:00am FreeTextSi tablet Orally Once a day; Note: Source Status: Taking; Provider: Vidhya Perry ( ) Start: 09-10-2021 lisinopril Ora l, Daily Start Date: 09/10/21 Status: Ordered take 1 tablet by blake th every twenty-four hours Lisinopril 10 MG 1 tablet Orally Once a day Active LISINOPRIL, BULK, MISC (5 sources) LISINOPRIL, BULK , MISC 40 mg by miscellaneous route. Patient unsure of dosage Active LISINOPRIL, BULK , MISC 40 mg by miscellaneous route. Patient unsure of dosage 0 Active Magnesium (1 source) Start: 07-01-2024 take 200 mg by mouth once daily Magnesium Active 200 MG PO Daily July 01, 2024 12:00am 24 hr mirabegron 50 mg extended release oral tablet (5 sources) beta3-Adrenergi c Agonist take 1 tablet by mouth every twenty-four hours in the morning mirabegron (MYRBETRIQ) 50 mg tablet extended release 24 hr Take 1 tablet (50 mg total) by mouth in the morning. Active iprabevh-wbvz-HW-ca lcium &mins (THERAGRAN-M) 9 mg iron-400 mcg tablet (5 sources) fikunyfr-obji-NO -c alcium &mins (THERAGRAN-M) 9 mg iron-400 mcg tablet Take 1 tablet by mouth in the morning. Active dnggxgqv-ydid-OH -calcium &mins (THERAGRAN-M) 9 mg iron-400 mcg tablet Take 1 tablet by mouth in the morning. 0 Active pantoprazole (1 source) Proton Pump Inhibitor Start: 07-01-2024 Pantoprazole Active MG PO July 01, 2024 12:00am pravastatin sodium 10 mg oral tablet (12 sources) HMG-CoA Reductase Inhibitor Start: 07-01-2024 take 1 tablet by mouth once daily Pravastatin Active 1 TAB PO Daily July 01, 2024 12:00am FreeTextSi tablet Orally Once a day; Note: Source Status: Taking; Provider: Vidhya Perry ( ) Start: 09-10-2021 pravastatin Or al, Daily Start Date: 09/10/21 Status: Ordered take 1 tablet by blake th in the morning pravastatin (PRAVACHOL) 80 mg tablet Take 1 tablet (80 mg total) by mouth in the morning. Active take 1 tablet by blake th every twenty-four hours Pravastatin Sodium 10 MG 1 tablet Orally Once a day Active tamsulosin hydrochloride 0.4 mg oral capsule (9 sources) alpha-Adrenergic Brian Start: 09-10-2021 take 2 capsules by mouth once daily Flomax 0.4 mg Cap 0.8 mg = 2 cap(s), Oral, Daily Start Date: 09/10/21 Status: Ordered trospium chloride 20 mg oral tablet (5 sources) Cholinergic Muscarinic Antagonist take 1 tablet by mouth in the morning, then take 1 tablet by mouth at bedtime trospium (SANCTURA) 20 mg tablet Take 1 tablet (20 mg total) by mouth in the morning and 1 tablet (20 mg total) before bedtime. Active vitamin b12 5 mg oral capsule (6 sources) Vitamin B12 Start: 07-01-2024 take 5000 ug by mouth once daily Cyanocobalamin (Vitamin B-12) Active 5000 MCG PO Daily July 01, 2024 12:00am take 1 tablet by mouth in the mo rning cyanocobalamin (vitamin B-12) 50 mcg tablet Take 1 tablet (50 mcg total) by mouth in the morning. Active Vitamin B12 1000 MCG (2 sources) take 1 tablet by blake th once daily Vitamin B12 1000 MCG 1 [...] procedure, # 2 cap(s), Refills(s) 0, Pharmacy: [facility], 172, cm, 12/08/21 14:04:00 EDT, Height/Length Dosing, 93, kg, 12/08/21 14:04:00 ED... Start Date: 12/08/21 Status: Ordered Problems Active Problems Problem Classification Problem Date Documented Date Episodic/Chronic Abdominal pain (3 sources) Acute abdomen; Translations: [Unspecified abdominal pain] Onset: 01-08-2021 Episodic Appendicitis and other appendiceal conditions (3 sources) Acute appendicitis with perforation and localized peritonitis, without abscess; Translations: [Acute appendicitis with perforation and localized peritonitis, with abscess] Onset: 12-23-2020 Episodic Asthma (4 sources) Asthma 09-10-2021 Chronic Chronic obstructive pulmonary disease and bronchiectasis (11 sources) Chronic obstructive pulmonary disease with (acute) [...] Onset: 01-08-2021 Chronic Disorders of lipid metabolism (5 sources) Hyperlipidemia; Translations: [Hypercholesterolemia ] 09-10-2021 Chronic E Codes: Adverse effects of [...] ANALOG INIT] Onset: 01-08-2021 Episodic Essential hypertension (6 sources) Hypertensive disorder; Translations: [Essential (primary) hypertension] Onset: 02-21-2024 09-10-2021 Chronic Gastritis and duodenitis (1 source) Chronic superficial gastritis without bleeding; Translations: [Chronic superficial gastritis without bleeding] Onset: 04-11-2024 Chronic Gastroduodenal ulcer (except hemorrhage) (1 source) Acute gastric ulcer without hemorrhage or perforation; Translations: [Acute gastric ulcer without hemorrhage or perforation] Onset: 04-05-2024 Episodic Genitourinary symptoms and ill-defined conditions (1 source) Unspecified urinary incontinence; Translations: [Unspecified urinary incontinence] Onset: 03-20-2024 Chronic Hyperplasia of prostate (7 sources) Benign prostatic hyperplasia without lower urinary tract symptoms; Translations: [Benign prostatic hypertrophy without outflow obstruction] Onset: 01-08-2021 09-10-2021 Chronic Hypertension with complications and secondary hypertension (1 source) Hypertensive heart disease with heart failure; Translations: [HTN HEART DISEASE W/HEART FAIL] Onset: 01-08-2021 Chronic Other aftercare (1 source) termination clerk (current) use of aspirin; Translations: [BEREAVEMENT PROGRAM COORDINATOR CURRENT USE OF ASPIRIN] Onset: 01-08-2021 Episodic Other aftercare (1 source) Other jail (current) drug therapy; Translations: [OTH DETENTION CURRENT DRUG THERAPY] Onset: 01-08-2021 Episodic Other diseases of bladder and urethra (1 source) Bladder-neck obstruction; Translations: [Bladder-neck obstruction] Onset: 01-26-2024 Chronic Other diseases of bladder and urethra (1 source) Other specified disorders of bladder; Translations: [Other specified disorders of bladder] Onset: 01-26-2024 Chronic Other diseases of kidney and ureters (1 source) Urinary tract obstruction; Translations: [Other obstructive and reflux uropathy] Onset: 02-03-2022 Episodic Other diseases of kidney and ureters (1 source) Other obstructive and reflux uropathy; Translations: [Other obstructive and reflux uropathy] Onset: 03-06-2024 Episodic Other disorders of stomach and duodenum (1 source) Gastric diverticulum; Translations: [Gastric diverticulum] Onset: 04-11-2024 Episodic Other ear and sense organ disorders (1 source) Impacted cerumen; Translations: [Impacted cerumen, bilateral] 07-01-2024 Episodic Other ear and sense organ disorders (1 source) Impacted cerumen, bilateral; Translations: [Impacted cerumen] 07-01-2024 Episodic Other lower respiratory disease (1 source) Other nonspecific abnormal finding of lung field; Translations: [OTH NONSPECIFIC ABN FIND LNG FIELD] Onset: 01-08-2021 Episodic Other lower respiratory disease (2 sources) Shortness of breath; Translations: [Shortness of breath] Onset: 07-17-2024 Episodic Other nutritional; endocrine; and metabolic disorders (1 source) Obesity, unspecified; Translations: [OBESITY UNSPECIFIED] Onset: 01-08-2021 Chronic Other nutritional; endocrine; and metabolic disorders (1 source) Body mass index (BMI) 35.0-35.9, adult; Translations: [BODY MASS INDEX BMI 35.0-35.9 ADULT] Onset: 01-08-2021 Chronic Other upper respiratory infections (1 source) Acute upper respiratory infection, unspecified; Translations: [Acute upper respiratory infection, unspecified] Onset: 08-24-2024 Episodic Residual codes; unclassified (1 source) Laparoscopic surgical [...] [CONTACT W/AND (SUSP) EXPOS COVID-19] Onset: 01-08-2021 Unclassified (1 source) lower urinary trac symptoms Onset: 01-26-2024 Urinary tract infections (2 sources) Urinary tract infection, site not specified; Translations: [Urinary tract infection, site not specified] Onset: 02-21-2024 Episodic Past or Other Problems Problem Classification Problem Date Documented Da te Episodic/Chronic Genitourinary symptoms and ill-defined conditions (18 sources) Nocturia; Translations: [Nocturia] Onset: 02-23-2022 09-10-2021 Episodic Nonspecific chest pain (4 sources) Chest pain, unspecified; Translations: [Chest pain] Onset: 03-26-2024 Episodic Pleurisy; pneumothorax; pulmonary collapse (1 source) Atelectasis; Translations: [ATELECTASIS] Onset: 09-18-2020 Episodic Results Test Name Value Interpretation Reference Range Facility XR chest 2V*on 08-24-2024 XR chest 2V* [facility] [place] [address] [place] [id number] XRay Report Signed Patient: Mikel Esptein MR#: [id number] 14 : 1940 Acct:[id number] Age/Sex: 84 / M ADM Date: 08/24/24 Loc: XDUCLY Room: Type: [facility] Attending Dr: Yanci Mills APRN Copies to: Yanci Mills APRN Ordering Provider: Yanci Mills APRN Date of Service: 08/24/24 XR/XR chest 2V*: COUGH XR chest 2V* 08/24/2024 3:55 PM SIGNS AND SYMPTOMS: Productive cough, wheezing, shortness of breath PROTOCOL: Frontal and lateral radiographs of the chest COMPARISON: None FINDINGS: The trachea is midline. Atherosclerotic changes are present in the thoracic aorta. The heart and mediastinal structures are within normal limits. There is airspace opacity in the left lung base. The bony thorax is intact. Degenerative changes are noted in the shoulders and thoracic spine. There is a 1 cm nodule within the lateral aspect of the left mid chest. This is of uncertain etiology. Follow-up with dedicated CT of the chest is recommended. XR/XR chest 2V* IMPRESSION: There is a 1 cm nodule within the lateral aspect of the left mid chest. This is of uncertain etiology. Follow-up with dedicated CT of the chest is recommended. There is atelectasis or pneumonia in the left lung base. Impression dictated by: Laura Cerda M.D.08/24/2024 4:16 PM Dictation Location: [place] [address] Transcribed By: [facility] 08/24/241615 Dictated By: Laura Cerda II, MD 08/24/241612 Signed By: 08/24/241615 [facility] Office Visiton 07-17-2024 Follow-up visit [id number] Jean Carlos Epstein rt W 1940 M Date Provider Department Center 07/17/2024 ERMIAS [facility] Family History Problem Relation Age of Onset Stroke Mother Heart attack Brother Family Status - Relation Status Age at Mother Brother Level of Service:23542 NE OFFICE/OUTPATIENT ESTABLISHED LOW MDM 20 MIN Normal [facility] Office Visiton 04-17-2024 Follow-up visit [id number] Jean Carlos Epstein rt W 1940 M Date Provider Department Center 04/17/2024 ERMIAS HELTON Family History Problem Relation Age of Onset Stroke Mother Heart attack Brother Family Status - Relation Status Age at Mother Brother Level of Service:90104 NE OFFICE/OUTPATIENT NEW LOW MDM 30 MINUTES Normal [facility] CT ABDOMEN AND PELVIS W CONT on 04-11-2024 CT ABDOMEN AND PELVIS W CONT CT ABDOMEN AND PELVIS W CONT *ADDENDUM* Fleischner Society guidelines for follow-up and management of pulmonary nodules: Solid nodules Solitary nodule size: <6 mm low risk patients: no follow-up needed high risk patients: optional CT at 12 months Solitary nodule size: 6-8 mm low risk patients: follow-up at 6-12 months, then consider further follow-up at 18-24 months high risk patients: initial follow-up CT at 6-12 months and then at 18-24 months if no change Solitary nodule size: >8 mm either low or high risk patients consider follow-up CT at 3 months, and/or CT-PET, and/or biopsy Multiple nodules size: <6 mm low risk patients: no routine follow-up high risk patients: optional CT at 12 months Multiple nodules size: 6-8 mm low risk patients: follow-up at 3-6 months, then consider further follow-up at 18-24 months high risk patients: follow-up at 3-6 months, then at 18-24 months if no change Multiple nodules size: >8 mm low risk patients: follow-up at 3-6 months, then consider further follow-up at 18-24 months high risk patients: follow-up at 3-6 months, then at 18-24 months if no change Note: newly detected indeterminate nodule in persons 35 years of age or older. low risk patients: minimal or absent history of smoking and or other known risk factors high risk patients: history of smoking or of other known risk factors (e.g. first degree relative with lung cancer, or exposure to asbestos, radon, uranium) if a nodule up to 8 mm is partly solid or is ground glass further follow-up is required after 24 months to exclude possible slow growing adenocarcinoma (DARIN) Subsolid nodules Solitary pure ground-glass nodule nodule size <6mm no CT follow-up required nodule size ?6mm follow up CT at 6-12 months, then every 2 years until 5 years Solitary part-solid nodule nodule size <6mm no CT follow-up required nodule size ?6mm follow-up CT at 3-6 months if unchanged, and solid component remains <6mm, then annual follow-up for 5 years Multiple subsolid nodules nodule size <6mm follow-up CT at 3-6 months consider further follow-up at 2 and 4 years if stable nodule size ?6mm follow-up CT at 3-6 months subsequent management based on the most suspicious nodule(s) Radiology 2017; 284:228-243 Finalized by Ruth Ann Andrew MD on 04/11/2024 1:46 AM Normal [facility] H PYLORI SCREENon 04-11-2024 H. pylori Org specific cx Ql (Lauren fld) Negative Normal NEG [facility] Comment on above: Performed By: #### 6 30-4 #### [facility] ([id number]) [address] [place] [address], [address] [place] [address] Surgical Pathologyon 024 Surgical Pathology Normal [facility] Comment on above: Result Comment: [facility] [address] [place] [address] Surgical Pathology Consultation Patient Name:MIKEL EPSTEIN:1940 (Age: 84)Gender:MTaken:4Reported:4Physician(s):Ruth Ann Flores D.O. ([phone])Copy To: Rec. #:[id number]: #[id number] Final Pathologic Diagnosis 1. Gastric antrum, biopsies: Chemical gastropathy. No intestinal metaplasia, dysplasia or H. pylori organisms identified. 2. Distal esophageal biopsy: Unremarkable squamous and gastric cardiac mucosa. No active or eosinophilic esophagitis identified. No intestinal metaplasia or dysplasia identified. Report Electronically Signed Out [facility]/04/12/2024Arsen Infante M.D. [place] [address], License number: [id number]. Clinical History Gastric diverticulum. Gross Description 1. Received in formalin labeled EPSTEIN, #1: Antrum BX are 2 mcqueen bits of soft tissue, ranging from 0.2-0.3 cm in greatest dimension. Filtered and submitted in a single cassette. (1, ns, [id number], m4) MG 2. Received in formalin labeled EPSTEIN, #2: Distal esophagus BX is a single mcqueen bit of soft tissue, 0.2 cm in greatest dimension. Filtered and submitted in a single cassette. (1, ns, [id number], m4) MG [facility]/04/11/2024GR Specimen(s) Received 1: Antrum bx 2: Distal esophagus biopsy Fee Codes(s): 1; 27673 2; 27814 BASIC METABOLIC PANLon 04-07 Anion gap [Moles/Vol] 8 mmol/L Normal 5-15 [facility] Comment on above: Performed By: #### 6 30-4 #### [facility] ([id number]) [address] [place] [address], [address] [place] [address] Calcium [Mass/Vol] 9.1 mg/dL Normal 8.5-10.5 [facility] Comment on above: Performed By: #### 6 30-4 #### [facility] ([id number]) [address] [place] [address], [address] [place] [address] Chloride [Moles/Vol] 104 mmol/L Normal 98-109 [facility] Comment on above: Performed By: #### 6 30-4 #### [facility] ([id number]) [address], [address] [place] [address] CO2 [Moles/Vol] 26 mmol/L Normal 22-32 [facility] Comment on above: Performed By: #### 6 30-4 #### [facility] ([id number]) [address], [address] [place] [address] Creatinine [Mass/Vol] 0.88 mg/dL Normal 0.70-1.20 [facility] Comment on above: Result Comment: METH OD TRACEABLE TO IDMS STANDARD Performed By: #### 6 30-4 #### [facility] ([id number]) [address], [address] [place] [address] GFR/1.73 sq M.predicted among non-blacks MDRD (S/P/Bld) [Vol rate/Area] 86 mL/min/{1.73_m2} Normal >59 [facility] Comment on above: Result Comment: Reported eGFR is based on the CKD-EPI 2020 equation that does not use a race coefficient. Performed By: #### 6 30-4 #### [facility] ([id number]) [address] [place] [address] Glucose [Mass/Vol] 132 mg/dL High 65-99 [facility] Comment on above: Performed By: #### 6 30-4 #### [facility] ([id number]) [address], [address] [place] [address] Potassium [Moles/Vol] 4.0 mmol/L Normal 3.5-5.0 [facility] Comment on above: Performed By: #### 6 30-4 #### [facility] ([id number]) [address], [address] [place] [address] Sodium [Moles/Vol] 138 mmol/L Normal 134-146 [facility] Comment on above: Performed By: #### 6 30-4 #### [facility] ([id number]) [address], [address] [place] [address] Urea nitrogen [Mass/Vol] 25 mg/dL Normal 5-27 [facility] Comment on above: Performed By: #### 6 30-4 #### [facility] ([id number]) [address], [address] [place] [address] CBC AND AUTO DIFFon 04-07-20 24 ABSOLUTE BASOPHIL 0.1 X10E9/L Normal 0.0-0.2 [facility] Comment on above: Performed By: #### B MP #### [facility] ([id number]) [address], [address] [place] [address] ABSOLUTE NEUTROPHIL 6.1 X10E9/L Normal 1.5-6.6 [facility] Comment on above: Performed By: #### B MP #### [facility] ([id number]) [address], [address] [place] [address] Basophils/100 WBC (Bld) 0.8 % Normal [facility] Comment on above: Performed By: #### B MP #### [facility] ([id number]) [address], [address] [place] [address] Eosinophils (Bld) [#/Vol] 1.0 10*3/uL High 0.0-0.4 [facility] Comment on above: Performed By: #### B MP #### [facility] ([id number]) [address], [address] [place] [address] Eosinophils/100 WBC (Bld) 10.9 % Normal [facility] Comment on above: Performed By: #### B MP #### [facility] ([id number]) [address], [address] [place] [address] Erythrocyte distribution width (RBC) [Ratio] 14.4 % Normal 11.5-15.0 [facility] Comment on above: Performed By: #### B MP #### [facility] ([id number]) [address], [address] [place] [address] Hematocrit (Bld) [Volume fraction] 33.5 % Low 39-49 [facility] Comment on above: Performed By: #### B MP #### [facility] ([id number]) [address], [address] [place] [address] Hemoglobin (Bld) [Mass/Vol] 10.7 g/dL Low 13.0-17.0 [facility] Comment on above: Performed By: #### B MP #### [facility] ([id number]) [address], [address] [place] [address] Lymphocytes (Bld) [#/Vol] 1.3 10*3/uL Normal 1.0-3.5 [facility] Comment on above: Performed By: #### B MP #### [facility] ([id number]) [address], [address] [place] [address] Lymphocytes/100 WBC (Bld) 15.0 % Normal [facility] Comment on above: Performed By: #### B MP #### [facility] ([id number]) [address], [address] [place] [address] MCH (RBC) [Entitic mass] 26.9 pg Low 27-34 [facility] Comment on above: Performed By: #### B MP #### [facility] ([id number]) [address], [address] [place] [address] MCHC (RBC) [Mass/Vol] 32.0 g/dL Normal 32-36 [facility] Comment on above: Performed By: #### B MP #### [facility] ([id number]) [address] [place] [address] MCV (RBC) [Entitic vol] 84 fL Normal 80-100 [facility] Comment on above: Performed By: #### B MP #### [facility] ([id number]) [address], [address] [place] [address] Monocytes (Bld) [#/Vol] 0.4 10*3/uL Normal 0-0.9 [facility] Comment on above: Performed By: #### B MP #### [facility] ([id number]) [address], [address] [place] [address] Monocytes/100 WBC (Bld) 4.6 % Normal [facility] Comment on above: Performed By: #### B MP #### [facility] ([id number]) [address] [place] [address] Neutrophils/100 WBC (Bld) 68.7 % Normal [facility] Comment on above: Performed By: #### B MP #### [facility] ([id number]) [address], [address] [place] [address] Platelet mean volume (Bld) [Entitic vol] 7.3 fL Normal 7-12 [facility] Comment on above: Performed By: #### B MP #### [facility] ([id number]) [address], [address] [place] [address] Platelets (Bld) [#/Vol] 426 10*3/uL Normal 150-450 [facility] Comment on above: Performed By: #### B MP #### [facility] ([id number]) [address], [address] [place] [address] RBC COUNT 4.00 X10E12/L Low 4.10-5.70 [facility] Comment on above: Performed By: #### B MP #### [facility] ([id number]) [address], [address] [place] [address] WBC (Bld) [#/Vol] 8.9 10*3/uL Normal 4.0-11.0 [facility] Comment on above: Performed By: #### B MP #### [facility] ([id number]) [address], [address] [place] [address] BASIC METABOLIC PANLon 04-06 Anion gap [Moles/Vol] 7 mmol/L Normal 5-15 [facility] Comment on above: Performed By: #### B MP #### [facility] ([id number]) [address] [address] [place] [address] Calcium [Mass/Vol] 8.9 mg/dL Normal 8.5-10.5 [facility] Comment on above: Performed By: #### B MP #### [facility] ([id number]) [address] [place] [address] Chloride [Moles/Vol] 105 mmol/L Normal 98-109 [facility] Comment on above: Performed By: #### B MP #### [facility] ([id number]) [address] [address] [place] [address] CO2 [Moles/Vol] 26 mmol/L Normal 22-32 [facility] Comment on above: Performed By: #### B MP #### [facility] ([id number]) [address] [address] [place] [address] Creatinine [Mass/Vol] 0.78 mg/dL Normal 0.70-1.20 [facility] Comment on above: Result Comment: METH OD TRACEABLE TO IDMS STANDARD Performed By: #### B MP #### [facility] ([id number]) [address] [address] [place] [address] GFR/1.73 sq M.predicted among non-blacks MDRD (S/P/Bld) [Vol rate/Area] 89 mL/min/{1.73_m2} Normal >59 [facility] Comment on above: Result Comment: Reported eGFR is based on the CKD-EPI 2020 equation that does not use a race coefficient. Performed By: #### B MP #### [facility] ([id number]) [address] [place] [address] Glucose [Mass/Vol] 104 mg/dL High 65-99 [facility] Comment on above: Performed By: #### B MP #### [facility] ([id number]) [address] [address] [place] [address] Potassium [Moles/Vol] 4.2 mmol/L Normal 3.5-5.0 [facility] Comment on above: Performed By: #### B MP #### [facility] ([id number]) [address], [address] [place] [address] Sodium [Moles/Vol] 138 mmol/L Normal 134-146 [facility] Comment on above: Performed By: #### B MP #### [facility] ([id number]) [address] [address] [place] [address] Urea nitrogen [Mass/Vol] 24 mg/dL Normal 5-27 [facility] Comment on above: Performed By: #### B MP #### [facility] ([id number]) [address] [place] [address] CBC AND AUTO DIFFon 04-06-20 24 ABSOLUTE BASOPHIL 0.1 X10E9/L Normal 0.0-0.2 [facility] Comment on above: Performed By: #### B MP #### [facility] ([id number]) [address] [address] [place] [address] ABSOLUTE NEUTROPHIL 6.3 X10E9/L Normal 1.5-6.6 [facility] Comment on above: Performed By: #### B MP #### [facility] ([id number]) [address] [address] [place] [address] Basophils/100 WBC (Bld) 0.8 % Normal [facility] Comment on above: Performed By: #### B MP #### [facility] ([id number]) [address] [place] [address] Eosinophils (Bld) [#/Vol] 1.2 10*3/uL High 0.0-0.4 [facility] Comment on above: Performed By: #### B MP #### [facility] ([id number]) [address] [place] [address] Eosinophils/100 WBC (Bld) 12.6 % Normal [facility] Comment on above: Performed By: #### B MP #### [facility] ([id number]) [address] [address] [place] [address] Erythrocyte distribution width (RBC) [Ratio] 14.5 % Normal 11.5-15.0 [facility] Comment on above: Performed By: #### B MP #### [facility] ([id number]) [address], [facility] [address] [place] [address] Hematocrit (Bld) [Volume fraction] 31.8 % Low 39-49 [facility] Comment on above: Performed By: #### B MP #### [facility] ([id number]) [address] [address] [place] [address] Hemoglobin (Bld) [Mass/Vol] 10.0 g/dL Low 13.0-17.0 [facility] Comment on above: Performed By: #### B MP #### [facility] ([id number]) [address] [address] [place] [address] Lymphocytes (Bld) [#/Vol] 1.2 10*3/uL Normal 1.0-3.5 [facility] Comment on above: Performed By: #### B MP #### [facility] ([id number]) [address], [address] [place] [address] Lymphocytes/100 WBC (Bld) 13.4 % Normal [facility] Comment on above: Performed By: #### B MP #### [facility] ([id number]) [address] [place] [address] MCH (RBC) [Entitic mass] 26.5 pg Low 27-34 [facility] Comment on above: Performed By: #### B MP #### [facility] ([id number]) [address] [place] [address] MCHC (RBC) [Mass/Vol] 31.5 g/dL Low 32-36 [facility] Comment on above: Performed By: #### B MP #### [facility] ([id number]) [address] [place] [address] MCV (RBC) [Entitic vol] 84 fL Normal 80-100 [facility] Comment on above: Performed By: #### B MP #### [facility] ([id number]) [address] [place] [address] Monocytes (Bld) [#/Vol] 0.5 10*3/uL Normal 0-0.9 [facility] Comment on above: Performed By: #### B MP #### [facility] ([id number]) [address] [place] [address] Monocytes/100 WBC (Bld) 4.9 % Normal [facility] Comment on above: Performed By: #### B MP #### [facility] ([id number]) [address] [place] [address] Neutrophils/100 WBC (Bld) 68.3 % Normal [facility] Comment on above: Performed By: #### B MP #### [facility] ([id number]) [address] [address] [place] [address] Platelet mean volume (Bld) [Entitic vol] 7.4 fL Normal 7-12 [facility] Comment on above: Performed By: #### B MP #### [facility] ([id number]) [address] [address] [place] [address] Platelets (Bld) [#/Vol] 391 10*3/uL Normal 150-450 [facility] Comment on above: Performed By: #### B MP #### [facility] ([id number]) [address] [address] [place] [address] RBC COUNT 3.78 X10E12/L Low 4.10-5.70 [facility] Comment on above: Performed By: #### B MP #### [facility] ([id number]) [address] [address] WBC (Bld) [#/Vol] 9.2 10*3/uL Normal 4.0-11.0 [facility] Comment on above: Performed By: #### B MP #### [facility] ([id number]) [address] [address] [place] [address] FERRITINon 04-06-2024 Ferritin [Mass/Vol] 87 ng/mL Normal 24-336 [facility] Comment on above: Performed By: #### B MP #### [facility] ([id number]) [address] [address] [place] [address] FL UGI AIR CONT W ESOPHon FL UGI AIR CONT W ESOPH FL UGI AIR CONT W ESOPH Indication: Abdominal pain abnormal CT showing ulcer versus inflamed diverticulum posterior gastric fundal region. TECHNIQUE: Omnipaque 300 contrast medium was utilized in case of perforation. Single contrast upper GI and esophagram was performed. Reference air kerma cannot be calculated for this exam due to technical dysfunction. Fluoroscopy time was 1.1 minutes and 8 images were obtained. Comparison is made to prior CT dated 04/05/2024. FINDINGS: The esophagus appears unremarkable. 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 Joshua are smooth. Diverticulum measures up to 3.2 cm. Duodenal bulb expands normally. No definite persistent filling defect identified within the stomach. No significant gastroesophageal reflux identified. IMPRESSION: 1. 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 Diverticulum does appear to arise from posterior fundus which is the typical location. Diverticulum did appear inflamed on prior CT with mural thickening and mild adjacent stranding. Ulcer cavity is considered less likely. 2. No extravasation of contrast from the lesion. Finalized by Marlene Keene MD on 04/06/2024 3:01 PM Normal [facility] Folate [Mass/Vol]on 04-06-20 FOLIC ACID 20.6 ng/mL Normal >5.8 [facility] Comment on above: Result Comment: NEW REFERENCE RANGE Performed By: #### B MP #### [facility] ([id number]) [address] [place] [address] IRON PROFILEon 04-06-2024 Iron [Mass/Vol] 44 ug/dL Low 50-212 [facility] Comment on above: Performed By: #### B MP #### [facility] ([id number]) [address] [place] [address] IRON BINDING 293 ug/dL Normal 250-425 [facility] Comment on above: Performed By: #### B MP #### [facility] ([id number]) [address] [address] [place] [address] IRON SATURATION 15 % SATURATION Low 20-50 [facility] Comment on above: Performed By: #### B MP #### [facility] ([id number]) [address] [place] [address] VITAMIN B12on 04-06-2024 Cobalamin (Vitamin B12) [Mass/Vol] 1468 pg/mL High 180-914 [facility] Comment on above: Performed By: #### B MP #### [facility] ([id number]) [address] [place] [address] CBC AND AUTO DIFFon 24-20 24 ABSOLUTE BASOPHIL 0.1 X10E9/L Normal 0.0-0.2 [facility] Comment on above: Performed By: #### U A #### [facility] ([id number]) [address] [place] [address] ABSOLUTE NEUTROPHIL 7.0 X10E9/L High 1.5-6.6 [facility] Comment on above: Performed By: #### U A #### [facility] ([id number]) [address] [address] [place] [address] Basophils/100 WBC (Bld) 0.8 % Normal [facility] Comment on above: Performed By: #### U A #### [facility] ([id number]) [address] [place] [address] Eosinophils (Bld) [#/Vol] 1.2 10*3/uL High 0.0-0.4 [facility] Comment on above: Performed By: #### U A #### [facility] ([id number]) [address] [place] [address] Eosinophils/100 WBC (Bld) 11.8 % Normal [facility] Comment on above: Performed By: #### U A #### [facility] ([id number]) [address] [address] [place] [address] Erythrocyte distribution width (RBC) [Ratio] 14.3 % Normal 11.5-15.0 [facility] Comment on above: Performed By: #### U A #### [facility] ([id number]) [address] [place] [address] Hematocrit (Bld) [Volume fraction] 31.0 % Low 39-49 [facility] Comment on above: Performed By: #### U A #### [facility] ([id number]) [address] [address] [place] [address] Hemoglobin (Bld) [Mass/Vol] 10.0 g/dL Low 13.0-17.0 [facility] Comment on above: Performed By: #### U A #### [facility] ([id number]) [address] [address] [place] [address] Lymphocytes (Bld) [#/Vol] 1.4 10*3/uL Normal 1.0-3.5 [facility] Comment on above: Performed By: #### U A #### [facility] ([id number]) [address] [address] [place] [address] Lymphocytes/100 WBC (Bld) 13.4 % Normal [facility] Comment on above: Performed By: #### U A #### [facility] ([id number]) [address] [address] [place] [address] MCH (RBC) [Entitic mass] 27.0 pg Normal 27-34 [facility] Comment on above: Performed By: #### U A #### [facility] ([id number]) [address] [address] [place] [address] MCHC (RBC) [Mass/Vol] 32.2 g/dL Normal 32-36 [facility] Comment on above: Performed By: #### U A #### [facility] ([id number]) [address] [address] [place] [address] MCV (RBC) [Entitic vol] 84 fL Normal 80-100 [facility] Comment on above: Performed By: #### U A #### [facility] ([id number]) [address] [place] [address] Monocytes (Bld) [#/Vol] 0.5 10*3/uL Normal 0-0.9 [facility] Comment on above: Performed By: #### U A #### [facility] ([id number]) [address] [place] [address] Monocytes/100 WBC (Bld) 5.2 % Normal [facility] Comment on above: Performed By: #### U A #### [facility] ([id number]) [address] [place] [address] Neutrophils/100 WBC (Bld) 68.8 % Normal [facility] Comment on above: Performed By: #### U A #### [facility] ([id number]) [address] [address] [place] [address] Platelet mean volume (Bld) [Entitic vol] 7.1 fL Normal 7-12 [facility] Comment on above: Performed By: #### U A #### [facility] ([id number]) [address] [address] [place] [address] Platelets (Bld) [#/Vol] 431 10*3/uL Normal 150-450 [facility] Comment on above: Performed By: #### U A #### [facility] ([id number]) [address] [place] [address] RBC COUNT 3.71 X10E12/L Low 4.10-5.70 [facility] Comment on above: Performed By: #### U A #### [facility] ([id number]) [address] [place] [address] WBC (Bld) [#/Vol] 10.1 10*3/uL Normal 4.0-11.0 [facility] Comment on above: Performed By: #### U A #### [facility] ([id number]) [address] [place] [address] COMPREHENSIVE METABOLIC PANE Ernie 04-05-2024 Albumin [Mass/Vol] 3.2 g/dL Normal 3.2-5.3 [facility] Comment on above: Performed By: #### U A #### [facility] ([id number]) [address] [place] [address] ALP [Catalytic activity/Vol] 50 U/L Normal 39-130 [facility] Comment on above: Performed By: #### U A #### [facility] ([id number]) [address] [place] [address] ALT [Catalytic activity/Vol] 21 U/L Normal 0-40 [facility] Comment on above: Performed By: #### U A #### [facility] ([id number]) [address] [place] [address] Anion gap [Moles/Vol] 7 mmol/L Normal 5-15 [facility] Comment on above: Performed By: #### U A #### [facility] ([id number]) [address] [place] [address] AST [Catalytic activity/Vol] 15 U/L Normal 0-41 [facility] Comment on above: Performed By: #### U A #### [facility] ([id number]) [address] [place] [address] Bilirubin [Mass/Vol] 0.2 mg/dL Low 0.3-1.2 [facility] Comment on above: Performed By: #### U A #### [facility] ([id number]) [address] [place] [address] Calcium [Mass/Vol] 9.3 mg/dL Normal 8.5-10.5 [facility] Comment on above: Performed By: #### U A #### [facility] ([id number]) [address] [place] [address] Chloride [Moles/Vol] 104 mmol/L Normal 98-109 [facility] Comment on above: Performed By: #### U A #### [facility] ([id number]) [address] [place] [address] CO2 [Moles/Vol] 27 mmol/L Normal 22-32 [facility] Comment on above: Performed By: #### U A #### [facility] ([id number]) [address] [place] [address] Creatinine [Mass/Vol] 0.83 mg/dL Normal 0.70-1.20 [facility] Comment on above: Result Comment: METH OD TRACEABLE TO IDMS STANDARD Performed By: #### U A #### [facility] ([id number]) [address] [place] [address] GFR/1.73 sq M.predicted among non-blacks MDRD (S/P/Bld) [Vol rate/Area] 87 mL/min/{1.73_m2} Normal >59 [facility] Comment on above: Result Comment: Reported eGFR is based on the CKD-EPI 2020 equation that does not use a race coefficient. Performed By: #### U A #### [facility] ([id number]) [address] [place] [address] Glucose [Mass/Vol] 134 mg/dL High 65-99 [facility] Comment on above: Performed By: #### U A #### [facility] ([id number]) [address] [place] [address] Potassium [Moles/Vol] 4.6 mmol/L Normal 3.5-5.0 [facility] Comment on above: Performed By: #### U A #### [facility] ([id number]) [address] [address] [place] [address] Protein [Mass/Vol] 6.7 g/dL Normal 6.0-8.0 [facility] Comment on above: Performed By: #### U A #### [facility] ([id number]) [address] [address] [place] [address] Sodium [Moles/Vol] 138 mmol/L Normal 134-146 [facility] Comment on above: Performed By: #### U A #### [facility] ([id number]) [address] [facility] [address] [place] [address] Urea nitrogen [Mass/Vol] 33 mg/dL High 5-27 [facility] Comment on above: Performed By: #### U A #### [facility] ([id number]) [address] [address] Fibrin D-dimer DDU (PPP) [Ma ss/Vol]on 04-05-2024 D DIMER 228 ng/mL DDU Normal <255 [facility] Comment on above: Result Comment: Results <255 ng/mL DDU: The presence of a VTE can safely be excluded with a negative D-Dimer result and Wells score. A negative result doesn't exclude the possibility of DIC. The test be repeated along with other diagnostic tests if the patient's symptoms persist or worsen. [email or web address] Performed By: #### U A #### [facility] ([id number]) [address] [address] [place] [address] LIPASEon 04-05-2024 Lipase [Catalytic activity/Vol] 54 U/L High 17-40 [facility] Comment on above: Performed By: #### U A #### [facility] ([id number]) [address] [address] [place] [address] MAGNESIUMon 04-05-2024 Magnesium [Mass/Vol] 2.2 mg/dL Normal 1.8-2.6 [facility] Comment on above: Performed By: #### U A #### [facility] ([id number]) [address] [place] [address] Troponin I.cardiac High sens itivity method [Mass/Vol]on 04-05-2024 1 HOUR TROP I, HIGH SENSITIVITY 9 ng/L Normal <21 [facility] Comment on above: Performed By: #### B MP #### [facility] ([id number]) [address] [place] [address] TROPONIN I, HIGH SENSITIVITY 9 ng/L Normal <21 [facility] Comment on above: Performed By: #### U A #### [facility] ([id number]) [address] [place] [address] US RETROPERITONEAL COMPLETEo n 04-05-2024 [place] RETROPERITONEAL COMPLETE US RETROPERITONEAL COMPLETE US RETROPERITONEAL COMPLETE: 04/05/2024 PROVIDED HISTORY: * 84 years old Male * back pain post op COMPARISON: Renal ultrasound 01/19/2024 Right kidney: Size: 12.0 x 5.2 x 5.4 cm. Cortex: 6 mm. Collecting System: No hydronephrosis. No renal calculi detected. Parenchyma: Normal echotexture and morphology. There are incidental renal cortical cysts present, measuring up to 3.5 cm in the inferior pole, similar. Left kidney: Size: 11.5 x 4.6 x 5.8 cm. Cortex: 8 mm. Collecting System: No hydronephrosis. No renal calculi detected. Parenchyma: Normal echotexture and morphology. There are incidental renal cortical cysts present, measuring up to 2.7 cm in the superior pole. Urinary bladder: Unremarkable, with urinary bladder echogenic foci from 01/19/2024 no longer visualized. Urinary bladder volume 135 mL. Bilateral ureteral jets were visualized. IMPRESSION: 1. No hydronephrosis or obstructive renal calculi. 2. Urinary bladder is within normal limits. Bilateral ureteral jets are visualized. Finalized by Chitra Knutson MD on 04/05/2024 2:29 PM Normal [facility] CBC AND AUTO DIFFon 03-26-20 ABSOLUTE BASOPHIL 0.1 X10E9/L Normal 0.0-0.2 [facility] Comment on above: Performed By: #### C BCA, CMP, 3040-3, 14467-7, 95769-4 #### [facility] ([id number]) [address] [place] [address] 95335 ABSOLUTE NEUTROPHIL 8.3 X10E9/L High 1.5-6.6 [facility] Comment on above: Performed By: #### C BCA, CMP, 3040-3, 12637-6, 00261-2 #### [facility] ([id number]) [address] [place] [address] 03170 Basophils/100 WBC (Bld) 0.9 % Normal [facility] Comment on above: Performed By: #### C BCA, CMP, 3040-3, 21255-4, 87383-5 #### [facility] ([id number]) [address] [place] [address] 89347 Eosinophils (Bld) [#/Vol] 1.5 10*3/uL High 0.0-0.4 [facility] Comment on above: Performed By: #### Rebel BCA, CMP, 3040-3, 63532-5, 34167-1 #### [facility] ([id number]) [address] [place] [address] 02238 Eosinophils/100 WBC (Bld) 12.1 % Normal [facility] Comment on above: Performed By: #### C BCA, CMP, 3040-3, 60030-5, 64177-7 #### [facility] ([id number]) [address] [place] [address] 51638 Erythrocyte distribution width (RBC) [Ratio] 14.3 % Normal 11.5-15.0 [facility] Comment on above: Performed By: #### C BCA, CMP, 3040-3, 45036-8, 77758-4 #### [facility] ([id number]) [address] [place] [address] 77338 Hematocrit (Bld) [Volume fraction] 35.4 % Low 39-49 [facility] Comment on above: Performed By: #### C BCA, CMP, 3040-3, 01663-7, 89461-3 #### [facility] ([id number]) [address] [place] [address] 44040 Hemoglobin (Bld) [Mass/Vol] 11.4 g/dL Low 13.0-17.0 [facility] Comment on above: Performed By: #### C BCA, CMP, 3040-3, 06781-5, 74804-2 #### [facility] ([id number]) [address] [place] [address] 46086 Lymphocytes (Bld) [#/Vol] 1.6 10*3/uL Normal 1.0-3.5 [facility] Comment on above: Performed By: #### C BCA, CMP, 3040-3, 02541-1, 17059-8 #### [facility] ([id number]) [address] [place] [address] 83725 Lymphocytes/100 WBC (Bld) 13.2 % Normal [facility] Comment on above: Performed By: #### C BCA, CMP, 3040-3, 74431-2, 24735-9 #### [facility] ([id number]) [address] [place] [address] 83206 MCH (RBC) [Entitic mass] 27.2 pg Normal 27-34 [facility] Comment on above: Performed By: #### C BCA, CMP, 3040-3, 79308-8, 38026-1 #### [facility] ([id number]) [address] [place] [address] 10846 MCHC (RBC) [Mass/Vol] 32.1 g/dL Normal 32-36 [facility] Comment on above: Performed By: #### C BCA, CMP, 3040-3, 45802-4, 06291-3 #### [facility] ([id number]) [address] [place] [address] 27431 MCV (RBC) [Entitic vol] 85 fL Normal 80-100 [facility] Comment on above: Performed By: #### C BCA, CMP, 3040-3, 56041-8, 63911-3 #### [facility] ([id number]) [address] [place] [address] 98735 Monocytes (Bld) [#/Vol] 0.7 10*3/uL Normal 0-0.9 [facility] Comment on above: Performed By: #### C BCA, CMP, 3040-3, 33651-1, 14626-9 #### [facility] ([id number]) [address] [place] [address] 84291 Monocytes/100 WBC (Bld) 5.9 % Normal [facility] Comment on above: Performed By: #### Rebel BCA, CMP, 3040-3, 78069-8, 03445-8 #### [facility] ([id number]) [address] [place] [address] 78182 Neutrophils/100 WBC (Bld) 67.9 % Normal [facility] Comment on above: Performed By: #### C BCA, CMP, 3040-3, 27239-4, 80590-8 #### [facility] ([id number]) [address] [place] [address] 21010 Platelet mean volume (Bld) [Entitic vol] 7.8 fL Normal 7-12 [facility] Comment on above: Performed By: #### C BCA, CMP, 3040-3, 96120-8, 37784-5 #### [facility] ([id number]) [address] [place] [address] 19166 Platelets (Bld) [#/Vol] 356 10*3/uL Normal 150-450 [facility] Comment on above: Performed By: #### C BCA, CMP, 3040-3, 10013-1, 60093-0 #### [facility] ([id number]) [address] [place] [address] 30841 RBC COUNT 4.18 X10E12/L Normal 4.10-5.70 [facility] Comment on above: Performed By: #### C BCA, CMP, 3040-3, 51818-5, 31225-6 #### [facility] ([id number]) [address] [place] [address] 45866 WBC (Bld) [#/Vol] 12.3 10*3/uL High 4.0-11.0 [facility] Comment on above: Performed By: #### C BCA, CMP, 3040-3, 18851-0, 90042-4 #### [facility] ([id number]) [address] [place] [address] 45250 COMPREHENSIVE METABOLIC PANE Ernie 03-26-2024 Albumin [Mass/Vol] 3.4 g/dL Normal 3.2-5.3 [facility] Comment on above: Performed By: #### C BCA, CMP, 3040-3, 51502-5, 20868-4 #### [facility] ([id number]) [address] [place] [address] 02342 ALP [Catalytic activity/Vol] 52 U/L Normal 39-130 [facility] Comment on above: Performed By: #### C BCA, CMP, 3040-3, 08330-5, 63445-3 #### [facility] ([id number]) [address] [place] [address] 61597 ALT [Catalytic activity/Vol] 15 U/L Normal 0-40 [facility] Comment on above: Performed By: #### C BCA, CMP, 3040-3, 25400-4, 58300-5 #### [facility] ([id number]) [address] [place] [address] 44566 Anion gap [Moles/Vol] 10 mmol/L Normal 5-15 [facility] Comment on above: Performed By: #### C BCA, CMP, 3040-3, 25710-8, 39548-1 #### [facility] ([id number]) [address] [place] [address] 28663 AST [Catalytic activity/Vol] 14 U/L Normal 0-41 [facility] Comment on above: Performed By: #### C BCA, CMP, 3040-3, 37373-0, 72687-6 #### [facility] ([id number]) [address] [place] [address] 20172 Bilirubin [Mass/Vol] 0.5 mg/dL Normal 0.3-1.2 [facility] Comment on above: Performed By: #### C BCA, CMP, 3040-3, 00566-9, 84294-8 #### [facility] ([id number]) [address] [place] [address] 83068 Calcium [Mass/Vol] 9.5 mg/dL Normal 8.5-10.5 [facility] Comment on above: Performed By: #### C BCA, CMP, 3040-3, 59504-3, 98270-8 #### [facility] ([id number]) [address] [place] [address] 75621 Chloride [Moles/Vol] 103 mmol/L Normal 98-109 [facility] Comment on above: Performed By: #### C BCA, CMP, 3040-3, 53118-6, 56598-3 #### [facility] ([id number]) [address] [place] [address] 34835 CO2 [Moles/Vol] 26 mmol/L Normal 22-32 [facility] Comment on above: Performed By: #### C BCA, CMP, 3040-3, 50293-3, 42138-0 #### [facility] ([id number]) [address] [place] [address] 81231 Creatinine [Mass/Vol] 0.98 mg/dL Normal 0.70-1.20 [facility] Comment on above: Result Comment: METH OD TRACEABLE TO IDMS STANDARD Performed By: #### C ENID, CMP, 3040-3, 12797-8, 46730-2 #### [facility] ([id number]) [address] [place] [address] 60665 GFR/1.73 sq M.predicted among non-blacks MDRD (S/P/Bld) [Vol rate/Area] 77 mL/min/{1.73_m2} Normal >59 [facility] Comment on above: Result Comment: Reported eGFR is based on the CKD-EPI 2020 equation that does not use a race coefficient. Performed By: #### C ENID, CMP, 3040-3, 69286-5, 33314-5 #### [facility] ([id number]) [address] [place] [address] 58098 Glucose [Mass/Vol] 127 mg/dL High 65-99 [facility] Comment on above: Performed By: #### C BCA, CMP, 3040-3, 25505-3, 96968-3 #### [facility] ([id number]) [address] [place] [address] 62246 Potassium [Moles/Vol] 4.8 mmol/L Normal 3.5-5.0 [facility] Comment on above: Performed By: #### C BCA, CMP, 3040-3, 27738-4, 60019-9 #### [facility] ([id number]) [address] [place] [address] 31155 Protein [Mass/Vol] 7.3 g/dL Normal 6.0-8.0 [facility] Comment on above: Performed By: #### C BCA, CMP, 3040-3, 29864-4, 16949-7 #### [facility] ([id number]) [address] [place] [address] 45618 Sodium [Moles/Vol] 139 mmol/L Normal 134-146 [facility] Comment on above: Performed By: #### C BCA, CMP, 3040-3, 60471-7, 81211-2 #### [facility] ([id number]) [address] [place] [address] 74158 Urea nitrogen [Mass/Vol] 29 mg/dL High 5-27 [facility] Comment on above: Performed By: #### C BCA, CMP, 3040-3, 09009-2, 96628-8 #### [facility] ([id number]) [address] [place] [address] 64435 LIPASEon 03-26-2024 Lipase [Catalytic activity/Vol] 106 U/L High 17-40 [facility] Comment on above: Performed By: #### C BCA, CMP, 3040-3, 30088-2, 10403-5 #### [facility] ([id number]) [address] [place] [address] 63342 Natriuretic peptide B [Mass/ Vol]on 03-26-2024 Natriuretic peptide B (Bld) [Mass/Vol] 114 pg/mL High <100.0 [facility] Comment on above: Performed By: #### U A #### [facility] ([id number]) [address] [place] [address], [address] [place] [address] Troponin I.cardiac High sens itivity method [Mass/Vol]on 03-26-2024 1 HOUR TROP I, HIGH SENSITIVITY 10 ng/L Normal <21 [facility] Comment on above: Performed By: #### U A #### [facility] ([id number]) [address], [address] [place] [address] TROPONIN I, HIGH SENSITIVITY 10 ng/L Normal <21 [facility] Comment on above: Performed By: #### C BCA, CMP, 3040-3, 67346-0, 71504-5 #### [facility] ([id number]) [address] [place] [address], [place] [address] XR CHEST 1 VWon 03-26-2024 XR CHEST 1 VW XR CHEST 1 VW XR CHEST 1 VW: 03/26/2024 9:10 AM Clinical: Chest pain Upright portable chest obtained. No comparison. Mild hyperinflation. Suspect mild scarring in the left lung base. Heart size is normal. No acute consolidation, large effusion, or pneumothorax. IMPRESSION: * No acute disease to limits of this portable exam. Finalized by Himanshu Mrucia MD on 03/26/2024 9:21 AM Normal [facility] FL UROGRAPHY RETRO OPERATIVE W OR WO KUBon 03-06-2024 FL UROGRAPHY RETRO OPERATIVE W OR WO KUB FL UROGRAPHY RETRO OPERATIVE W OR WO KUB FL UROGRAPHY RETRO OPERATIVE W OR WO KUB HISTORY: Ureteroscopy. COMPARISON: None. IMPRESSION: Reference air kerma 0.25 mGy. Fluoroscopic guidance provided. Please see details within procedural/operative note. Finalized by Fran Rodriguez MD on 03/06/2024 4:35 PM Normal [facility] Surgical Pathologyon 024 Surgical Pathology Normal [facility] Comment on above: Result Comment: [facility] [address] [place] [address] Surgical Pathology Consultation Patient Name:MIKEL EPSTEIN:1940 (Age: 84)Gender:MTaken:03/06/2024eported:03/09/2024hysician(s):Ruth Ann Cruz M.D. ([phone])Copy To: Rec. #:[id number]: #[id number] Final Pathologic Diagnosis Prostate, transurethral resection: Benign prostate tissue. Calculi noted grossly. Report Electronically Signed Out gr/03/09/2024Gene MD Yann [place] [address], License number: [id number]. Clinical History Bladder outlet obstruction, Dystrophic calcification of bladder, Part 1; Bladder stones- do not need to be analyzed. Gross Description Received in formalin labeled EPSTEIN, prostate tissue BL stones are pink-mcqueen rubbery soft tissue chips admixed with mcqueen-brown granular calculi, 3.5 x 3.2 x 0.3 cm in aggregate. The specimen is submitted in cassettes A and B with the calculi being retained. (2, ns, [id number],m2) DM dm/03/07/2024NSK Specimen(s) Received Prostate tissue and bladder stones Fee Codes(s): 1; 76592 BASIC METABOLIC PANLon 02-20 Anion gap [Moles/Vol] 10 mmol/L Normal 5-15 [facility] Comment on above: Performed By: #### B MP #### [facility] ([id number]) [address] [place] [address], [address] [place] [address] Calcium [Mass/Vol] 9.7 mg/dL Normal 8.5-10.5 [facility] Comment on above: Performed By: #### B MP #### [facility] ([id number]) [address] [place] [address], [address] [place] [address] Chloride [Moles/Vol] 106 mmol/L Normal 98-109 [facility] Comment on above: Performed By: #### B MP #### [facility] ([id number]) [facility] [address] [place] [address] CO2 [Moles/Vol] 28 mmol/L Normal 22-32 [facility] Comment on above: Performed By: #### B MP #### [facility] ([id number]) [address], [address] [place] [address] Creatinine [Mass/Vol] 0.85 mg/dL Normal 0.60-1.30 [facility] Comment on above: Result Comment: METH OD TRACEABLE TO IDMS STANDARD Performed By: #### B MP #### [facility] ([id number]) [address], [address] [place] [address] GFR/1.73 sq M.predicted among non-blacks MDRD (S/P/Bld) [Vol rate/Area] 87 mL/min/{1.73_m2} Normal >59 [facility] Comment on above: Result Comment: Reported eGFR is based on the CKD-EPI 2020 equation that does not use a race coefficient. Performed By: #### B MP #### [facility] ([id number]) [address], [address] [place] [address] Glucose [Mass/Vol] 150 mg/dL High 65-99 [facility] Comment on above: Performed By: #### B MP #### [facility] ([id number]) [address], [address] [place] [address] Potassium [Moles/Vol] 4.7 mmol/L Normal 3.5-5.0 [facility] Comment on above: Performed By: #### B MP #### [facility] ([id number]) [address], [address] [place] [address] Sodium [Moles/Vol] 144 mmol/L Normal 134-146 [facility] Comment on above: Performed By: #### B MP #### [facility] ([id number]) [address], [address] [place] [address] Urea nitrogen [Mass/Vol] 23 mg/dL Normal 5-27 [facility] Comment on above: Performed By: #### B MP #### [facility] ([id number]) [address], [address] [place] [address] URINALYSISon 02-21-2024 Bilirubin Ql (U) Negative Normal NEG [facility] Comment on above: Performed By: #### U A #### [facility] ([id number]) [address], [address] [place] [address] BLOOD/HGB Negative Normal NEG [facility] Comment on above: Performed By: #### U A #### [facility] ([id number]) [address], [address] [place] [address] Color (U) YELLOW Normal YELLOW [facility] Comment on above: Performed By: #### U A #### [facility] ([id number]) [address], [address] [place] [address] Glucose Ql (U) Negative Normal NEG [facility] Comment on above: Performed By: #### U A #### [facility] ([id number]) [address], [address] [place] [address] Ketones Ql (U) Negative Normal NEG [facility] Comment on above: Performed By: #### U A #### [facility] ([id number]) [address], [address] [place] [address] Leukocyte esterase Test strip Ql (U) Negative Normal NEG [facility] Comment on above: Performed By: #### U A #### [facility] ([id number]) [address], [address] [place] [address] MUCOUS PRESENT Abnormal NONE [facility] Comment on above: Performed By: #### U A #### [facility] ([id number]) [address], [address] [place] [address] Nitrite Ql (U) Negative Normal NEG [facility] Comment on above: Performed By: #### U A #### [facility] ([id number]) [address], [address] [place] [address] pH (U) 6.5 [pH] Normal 5.0-8.5 [facility] Comment on above: Performed By: #### U A #### [facility] ([id number]) [address], [address] [place] [address] Protein Ql (U) Trace Abnormal NEG [facility] Comment on above: Performed By: #### U A #### [facility] ([id number]) [address], [address] [place] [address] R.B.CELLS 2 /hpf Normal 0-5 [facility] Comment on above: Performed By: #### U A #### [facility] ([id number]) [address], [address] [place] [address] Specific gravity (U) [Rel density] 1.023 Normal 1.003-1.035 [facility] Comment on above: Performed By: #### U A #### [facility] ([id number]) [address], [address] [place] [address] SQUAMOUS EPITHELIUM <1 Normal 0-5 [facility] Comment on above: Performed By: #### U A #### [facility] ([id number]) [address], [address] [place] [address] TURBIDITY CLEAR Normal CLEAR [facility] Comment on above: Performed By: #### U A #### [facility] ([id number]) [address], [address] [place] [address] Urobilinogen (U) [Mass/Vol] mg/dL Normal <1.1 [facility] Comment on above: Performed By: #### U A #### [facility] ([id number]) [address], [address] [place] [address] W.B.CELLS 4 /hpf Normal 0-5 [facility] Comment on above: Performed By: #### U A #### [facility] ([id number]) [address], [address] [place] [address] URINE CULTUREon 02-21-2024 Bacteria identified Cx Nom (U) CULTURE RESULTS <10,000 ORGANISMS/ML NORMAL URO GENITAL AMANDA Normal [facility] Comment on above: Performed By: #### 6 30-4 #### [facility] ([id number]) [address], [address] [place] [address] US RETROPERITONEAL COMPLETEo n 01-19-2024 US RETROPERITONEAL COMPLETE US RETROPERITONEAL COMPLETE History:Weak urinary stream, frequent urination. Renal and bladder ultrasonography with multiple longitudinal and transverse grayscale images. Color Doppler interrogation utilized. Comparison:None Findings: The right kidney measures 12.1 x 5.5 x 5.8 cm Left kidney measures 11.5 x 5.1 x 5.8 cm. In the right kidney laterally in the inferior pole there is a benign cyst measuring 3.6 x 3.5 x 3.6 cm In the left kidney superior pole medially there is a 2.5 x 1.8 x 2 cm benign-appearing cyst. Bilateral ureteral jets are demonstrated by color Doppler interrogation. Prevoid urinary bladder volume is 266 mL's with a postvoid volume of only 8.5 mL. Mobile echogenic foci which with artifact are identified in the urinary bladder consistent with urinary bladder stones including a 1.6 cm stone at 0.7 cm Impression:Prominent calcified urinary bladder stones. Urinary bladder otherwise appears within normal notes. Minimal post void residual urinary bladder volume. 3.6 cm inferior pole right renal cyst appears benign. 2.5 cm superior pole left renal cyst appears benign. Finalized by Andrea Woods MD on 01/19/2024 2:49 PM Normal [facility] POCT Urinalysis Auto, W/O Mi croscopyon 10-20-2023 External Poct Urine Blood Large [facility] External Poct Urine Glucose Negative [facility] External Poct Urine Ketones Negative [facility] External Poct Urine Leukocyte Esterase Trace [facility] External Poct Urine Nitrite Negative [facility] External Poct Urine Ph 6.0 [facility] External Poct Urine Protein Trace [facility] Urinalysis - AUTOMATEDon Appearance (U) Cloudy [employer] Other Bilirubin Ql (U) Small [employer] Other Color (U) Dark Red [employer] Other Glucose Ql (U) Negative [employer] Other Hemoglobin Ql (U) Large [employer] Other Ketones Ql (U) Moderate [employer] Other Leukocyte esterase Test strip Ql (U) Small [employer] Other Nitrite Ql (U) Negative [employer] Other pH (U) 7.5 [pH] [employer] Other Protein Ql (U) 300 [employer] Other Specific gravity (U) [Rel density] 1.015 [employer] Other Urobilinogen (U) [Mass/Vol] Negative [employer] Other Urinalysis - AUTOMATED [employer] Other Pre-Certification Formon Pre-Certification Form [id number] D:127 Normal [facility] Ambulatory Visit Summaryon 0 02-23-2022 Ambulatory Visit Summary MIKEL EPSTEIN :1940 Visit Date:02/23/2022 Ambulatory Visit Instructions Your Diagnosis BPH without urinary obstruction Nocturia Tests Performed Urnls Dip Stick Auto w/o Microscopy POC 86545 Your Care Team Attending Physician - Gerardo GARAY MD Primary Care Physician - OCTAVIA TELLO DO This Is Your Medications List Contact prescribing physician if questions or concerns acetaminophen-hydrocodo ne (Harrison 325 mg-7.5 mg oral tablet) amlodipine aspirin [...] Follow-Up Appointments Wednesday 2:15 PM EDT With: Gerardo GARAY MD Where: [facility] Patient Educationon 02-24-20 Patient Education Nutrition Calorie [...] You could (more content not included)... Normal [facility] Urology Office/Clinic Noteon 02-23-2022 Urology Office/Clinic Note Chief Complaint Follow up to [facility] HPI Staff Mikel is here today for a [...] and record for this patient with Dr. Garay. f/u in 3 months Follow-up With When Contact Information JARROD CLARK, GUERRERO Ulloa In 3 months [facility] [address], [place] [address]- [phone] Additional Instructions: f/u in 3 months Patient Education Calorie Counting for Weight Loss Benign Prostatic Hyperplasia Mimi Llamas, personally scribed for Dr. Garay on 02/23/2022 12:58:49. . Documentation recorded by the scribe, sylvia Aguayo, accurately reflects the services(s) I performed and decisions made by me. Authenticated by Dr. Garay on 02/23/2022 13:02:00. Problem List/Past Medical History [...] 2 cap(s), Oral, Daily lisinopril, Oral, Daily Harrison 325 mg-7.5 mg oral tablet, 1 tab(s), [...] Protein Urine Dipstick: Negative (02/23/22 12:26:00) Specific [place] Urine Dipstick: 1.010 (02/23/22 12:26:00) Urine Appearance Urine Dipstick: Clear (02/23/22 12:26:00) Urine Color Urine Dipstick: Yellow (02/23/22 12:26:00) Urobilinogen Urine Dipstick: Normal 0.2-1 EU/dl (02/23/22 12:26:00) pH Urine Dipstick: 7 (02/23/22 12:26:00) Diagnostic Results Tests Reviewed: Reviewed UA, Rezum report Normal [facility] Comment on above: Result Comment: Elec tronically Signed By: JARROD CLARK, Gerardo Torres\.br\Date and Time Signed: 02/23/22 13:02 EDT\.br\Electronically Co-Signed By: Mimi Aguayo\.br\Date and Time Co-Signed: 02/23/22 13:00 EDT Provider Letteron 02-10-2022 Provider Letter (Inserted Image. Arcelia ble to display) February 10, 2022 MIKEL EPSTEIN [address] [place], [place] [address] [address] MIKEL EPSTEIN 1940 To Whom It May Concern, Please excuse above patient from work. Date of Illness: From: 02/03/2022 To: 02/16/2022 May Return to Work On: 02/17/2022 Restrictions: N/A Comments: Patient had medical procedure on 02/03/2022. Sincerely, Gerardo Garay M.D. [facility] [address] [place] [address] [facility] Coding Summary.on 02-04-2022 Coding Summary. CD:[id number] Gh0 bWw+PGhlYWQ+JW7UEASuI53 oaFCflT4KS6eZRQ6STDPSSS KQVY0WXZ5tiEC5TVhiH3Gaq iAv DffvgYHwNW78YZf9JWJ5lWm gOPakjS6yvLIwG5w4JmDxWM 22aY40FLzaXLOwEyA8CzQqd jsgbWFy L2yyBtUtwHJdFrs+PHRhYmx lIHdpZHRoPScxMDAlJyBzdH odEI4uEh6zOCJaABPldRfjo HNlOiBj f3frNEArRPerNP2htStiF9L dpGZ8JSSzk0v6Nl26sMJ+PH OuKTQ5wBthDHlcj878AvFmq 8jnQHR4 sWRkPBjfLVN9P00uw1J6BKE zQYQiBLN0cCS4eH2ybKdojr qhJ2XqyCWyKaC9BOY8dSWda E2eqYql blzemT9uTgm+M10YHC4TKBZ OWZ2PWec0E4VbZuvqsEH+PC 71MFRtWY99gESvfGWwr6oyb Ei8IqNn PEJyAXB8aSjrJVvqz9PsKRI eF72ejKFlw8E3IFSrzEciaL PkKkUyvGE2iZ2gJMffsgunq 2hvdzsn Kojgq4zwgm02uI52C26dDVk sSDNcBMO8WZLbNUUwqFvkie 0nsT9tMh4+TMvqp4suj9ixc Ni2XyBp MOSrahOdjLztKKP3h7VdWq2 6P2HyaPsdq9LoEzg2as42uJ Igi1B0lFL3QCbrIVWvvC1eI WxlZnQ6 BHRgPtSnhF70zCEqSAdoBt8 ymVewpFdrUM9cZDExdhwiPO JxdY5pPHHlvXGqpAtwPL9xI TBpbjtm l392UsDiFCS9UNRlhVXoS3S jfP7xVlPmINVkTTYfE2YxwB AqGBpyR362RLbzWiK1DPGrt oVzG8Xi ZHTawIyrMzV2j7Y2Ez8Gy0A nfopuDGJ4NOcfIVN2RfH8Uy XiBtL5L6ZtOwd4GTAjlXpdV K6qP8Nj LKIwblzqfsyoiTA1WWEnRLH zhI02jCMfSYpaOk5ys7Q9g2 70OZXaLHCtwC51Sj3tmBgaS TBwdCBU pN9cqhbuc9yrrnowGdEvQSV rCDt9IVe5FKHwlBdlRaYwNH L5ImD5DPG9cOWpdN6tzVbaj virsT3i Oyc+E99reR1dSDM4ZJE4oeq oOGYmayUhBM21OW84D5VcCm wvdGFibGU+PGRpdiBzdHlsZ E5uTtEq j5wpk0PlDTmmS9CePPUpPVg hIyi8TKRjOKH5hMM7iI7qAJ JjONjzq9H2aOS7W2LxuyFux x0bx5dr FYLtPUhqQ08xrZAwp0K6RXM ipJK3LFCjhSktRtCwjJ48Mm c+MQNgfDfix5WaQtnlw1zbb 0hszDk6 EdJfYQUxctQryLgbBEY4r0J wFs58V64tWNglGNTsLIAzLB ZdKRTtfCanzg3wpN9mOv0+P GNvbCB3 uIH7tM2hZNLsGzQ7SEjwY55 0BdWtcGHvBdfsy1jpq8fjlT e6TgGiOAMinbPeoFqeLUD2y 4KcYd58 J56zBApbQORrAEJxCDUjLUP cfOujqe2szI2uZh5+PC9jb2 wedi37dA44cBT+RXQdOVJ6l WxlPSdw GJCwyC2sMWuwJaS1YMLdLtJ hjJ50oYRfDLqwAt7fiVgrtU taSU5cRWPpzkmiq932XwCsr 2xkIDEw pJOpDFwjLBQ5A00jh7J0VMY xLIPqWEC6sRC6zX0owDnwqc ogbGVmdDsgdmVydGljYWwtY LmoG419 IHRvcDsnPlBhdGllbnQgTmF vHCa6U4PmCnz6EQTofJhkLO 3xfYOsEOfyGa3rlEzmkEafB D6nFJQc xcysu809LoHnb5pfOGHppUJ fNFywDZU2I04pr2N2XAUoBZ DrUVU0dMY9pI4piSwbdlfcv GVmdDsg ceCrzMorUEmkYLeoH823WFC isZsrUaSxrrGfMTSnfRR7MI 04UN53bGZjk0Y7lKY4Z1RvH GRpbmct qhqrgLA1PZKeZTGquN27Id8 vzZhuSi2jDMFrHYH4JYWrqE YdA0DbwV6fYcPfPMAyCUYsX 3RleHQt KVuhD564KJnpRpR6PFNpokK bU5QrQDOmiThcKrB1p2R1Gf 6JL2D5CP27JP78bZAgj1L1f LD8U1Xs CLUekkmflmmqvJE9RHPcNVV znQ13Kc4qjWugWd2iALAgRI W4WHKkiIBjI1XkcN0hYmNjB DAwMDAw R6CtiNSmBQtlG663WHygNiV 9JZDayoBzH6JgYRQpeLsfVw K5n6S4Pg7CEUm9EV44QP96c IEms1V4 tND1I8ZpPZFbvspxyaqaaKM 8POXjZLQpeZ39Sw4lhRcgEu 5eGOXaIRC2FDJknCCxT2Dpy W8fBsSv BRAoRBTwF7XfbGGpFXvuD85 0YGchRtU6PDPypsCrO8HqHP VdeLcfSoX1x3C0Xe4ZQDVoR W45LMM3 sPE6QI58IV56A9KiJcsfrXU ibGU+PHRhYmxlIHdpZHRoPS pxTQDdZgMayIcmSR1hWl8nY GVyLWNv yHlhlLEmWvZbl0jfINUvBBb cOP8djByoW1RoiCO1LNIoc8 r7Dh24M90dH3QhuXI+PGNvb DE8rOO7 dU5eJoGuPgJ3XYcxH855TtD brZXyTftiq3edm5xspAu9Uq N6TBSyhxVxkVowRIB9l6UwE s18K43c IHdpZHRoPSIxNSUiIHZhbGl qmz1fpR1dVu1+QQSwaDV0rR S4qY7mBuVwFuG4URmcE218X nRvcCIv Aeprc8jgv9ufnCv6BdMuVCI itlVtrGssUTY7f5YzZg38R1 ZndOvou2GkOzk0my23yOTtf 2Q2cRX3 J6IzLUNeklracSJooZrfMZ3 qGANcjpdmPOAasK8iJHKiJ6 r2NxYjKyC3LHdjJ4GwygT8E DEwcHQg PSerFIA5A35br3C6DJQtAKQ gVZE0xMR0pI4vkYbiryltrL VmdDsgdmVydGljYWwtYWxpZ 246IHRv aRzdGIKtfP7fQWQvvEHpkJp uDM5lAWIidsbbSuYOH5XWIO EPO5MDLeMeOtdwmZS+PHRkI JL8bGsx TBjgQIGnsG2yWRAwN6l0NbQ iLiV1BHqbL8NsDONwzlmdTj 27tI8kZcTkIoO6SPjpX1Siv jU1NCRs lBElINlqPVY7F38fy8J3JKT iZROqBFX1fCC7lQ8snWmpqt ogbGVmdDsgdmVydGljYWwtY CbbL009 HSQqgYwqTcJ6BiI1UoC4UVW 5R9FuTkr0CYXjqCyjMC0gvU NkXYdiYw2kzDqhsTryUY0uR TBpbjtw DUPvpB4fCYJugJPppUwbGF5 cTKSlnqakr714CuXaWTZ3RR DeeOGtF8TqoF5bWfPsPOMbB OOmS4Up iIXnHIxwK505XCdfXaQ5MDP rqkJpQ0CxKMLwtEexWvD2z9 J3Bt95EWIQEISjbfiumEX+P HRkIHN0 mRinUCzrPBTmiZ4vFXRbA1f 9AuVlIjO1AXnmY2PqCJSaon mrLq66iW3zBrTpHwH4LWogS 9SjovY7 JEAzkWBvCVtnGLV4G57iu1Y 7YWSmDATqFTL3yQP7eU0tmH lnbjogbGVmdDsgdmVydGljY WwtYWxp F658CPKfkTtzWv6ynPM0A2U fMgs9OCIcpXykTD1ecUJeQU gsQi6sgJdjdYukTY8kUFZrm jtwYWRk wA9nRBHziXRwvEduMN5fTRA bdkify824AxSsXHI0JAVeuS YvC5MovD8kCaIzIZZfVZKiG 3RleHQt ABraP942ASpaBwS2IPYiyaO pN7JsMPSbeZbvIjO8g2V9Uc 6RlAKjFKYdSU69SG82QJ03Q 3RyPjwv dGFibGU+PHRhYmxlIHdpZHR bVIvhQYQdMoZadOexEC6yZa 9yZGVyLWNvbGxhcHNlOiBjb 2xsYXBz LVbfGY3rvNqaG9HpbGK0VKL vz5y4Op59I56mN5TtqDM+PG TusQJ7xDS1lX0iOuCdSvO6E GlaJ782 OyKzyDVnUphnc1wpe5vfrXh 8XdJeRKQurvFvmXwdUOX4w9 PsBm06C93yRJoyOOPtEBLeE CUiIHZh oRnfbm2clF0aIt2+PGNvbCB 8jJT3yU0lQeOhYqO2RDmnQ9 57WjWajTAdAdzhP28vE7Erb XA+PHRy Ygw6MJTftWimMX1vhSGwTDw fYu2cIMH7FpOyDaBiTHhwL5 CrRCQrsbuczexolRJ1VGMeV DUwaW47 Cn0zoYloIl3qXVCkHGM3NEP vtUCrS8AfyL2aZqQmGBOlUG EjO2ExsBBnOUuoW385BVlkH yR9LTFm gpKjT2TdHZThbNalXkU3s2Y 6Yq8MqVsytSNzJX6gZmXyPA m2F8IuCwr2KSQtwEpxAY4ow GFkZGlu Xe5bnEupuYexDX8kTOZnyaz wx833AwLtw4zkMGQlaAUcXL zzZIL8K04wn5S3LBHyKSNsJ HP0yJA8 oJ1bcUfgxqwydCEbpBqtznS fnAhkLEzfPVzwU394UCZdfH auPeFJCow8E3VvBfd5PDEcw ZubCK4s mQBkYVybYf9wfKmqzEdeGO1 lCUUgwyiwx015HrAca4llXT AccTNtZOufFRV8U61aq8J2L CMwMDAw SSM3lTZ2lM2tmCfmajsmfZB mdDsgdmVydGljYWwtYWxpZ2 81IWBoqYplEs2URjt3Y7VwF mp4AFPa jOwcPP2hxOCwXBsiXd1hwGj kwUhlOU8oHZUrilnoz289Si Thy9mtLDErcRGeCNpsYFR3E 68ii2R6 YMQaNOHcXSU2wFL3wC7iyKc nbjogbGVmdDsgdmVydGljYW ncPIhhY234ZAZtwYptBxCrg WVyOjwv dGQ+SU58sq53T9WhDdyaFji 2NDKyWFO6jXX0cX5jDQUsIA xmy2G5vXN0X7UggjJuid0dk 2xsYXBz ZTog (more content not included)... Normal [facility] Consent for Procedure/Surger yon 02-03-2022 Consent for Procedure/Surgery [id number]#1.00 CD:127 [facility] Consent for Treatmenton 2 Consent for Treatment [id number] D:127 [facility] IntraOperative Documentson 0 02-03-2022 IntraOperative Documents [id number]#1.00 CD:127 [facility] Main OR Intraoperative Recor don 02-03-2022 Main OR Intraoperative Record IntraOp Document Type FTURO Summary Primary Physician: Gerardo GARAY MD Finalized Date/Time: 02/03/22 16:26:28 Pt. Name: MIKEL EPSTEIN Kwadwo/Sex: 1940 Male Med Rec #: [id number] Physician: Gerardo GARAY MD Financial #: [id number] Pt. Type: O Room/Bed: / Admit/Disch: 02/03/22 14:03:41 - Institution: Case Times FTURO Entry 1 Patient Times In Room 02/03/22 16:05:00 Out Room 02/03/22 16:20:00 Procedure Times Start 02/03/22 16:09:00 Stop 02/03/22 16:16:00 Anesthesia Times Last Modified By: Shanti Sethi RN 02/03/22 16:26:24 Case Attendance FTURO Entry 1 Entry 2 Entry 3 Case Attendee Gerardo GARAY MD, CST, Shanti Sethi RN, Shanti Corley Role Performed Surgeon - Primary Scrub - Primary Automotive Sales Representative - Primary Time In 02/03/22 16:05:00 02/03/22 16:05:00 02/03/22 16:05:00 Time Out 02/03/22 16:20:00 02/03/22 16:20:00 02/03/22 16:20:00 Procedure CYSTOSCOPY LOCAL CYSTOSCOPY LOCAL CYSTOSCOPY LOCAL REZUM(.) REZUM(.) REZUM(.) Comments Last Modified By: Navdeep TIMMONS, hSanti Sethi Shanti TIMMONS RN, Kimberly Y 02/03/22 16:26:25 02/03/22 16:26:25 02/03/22 16:26:25 Surgical Procedures FTURO Entry 1 Procedure Description Procedure CYSTOSCOPY LOCAL REZUM Modifiers . Surgeon Description CYSTOSCOPY LOCAL REZUM X 7 TREATMENTS Primary Procedure Yes Primary Surgeon Gerardo GARAY MD Start 02/03/22 16:09:00 Stop 02/03/22 16:16:00 [...] CYSTOSCOPY LOCAL Patient Identity Birthday, ID Band RAMEZZUMark(.) Verified (select at Check, Patient least 2): Participation Consents / H and P HandP, Transfusion Consent Operative Site N/A Verified Marking Verified Surgical Site Yes Laterality Verified Yes Verified Procedure Verified Yes Correct Patient Yes Position Verified Availability Equipment, Medication Time Out Gerardo GARAY MD, Verified (If Participants Shanti Radford CST Applicable) Navdeep Pearson RN, Kimberly Y Time [...] By: Shanti Sethi RN 02/03/22 16:26 Normal [facility] Main OR Preoperative Recordo n 02-03-2022 Main OR Preoperative Record Holding Area Document Type FTURO Summary Primary Physician: Gerardo GARAY MD Finalized Date/Time: 02/03/22 15:58:25 Pt. Name: MIKEL EPSTEIN/Sex: 1940 Male Med Rec #: [id number] Physician: Gerardo GARAY MD Financial #: [id number] Pt. Type: O Room/Bed: / Admit/Disch: 02/03/22 [...] Document Signatures Signed By: Ryan Burgess LPN 02/03/22 15:25 Shanti Sethi RN 02/03/22 15:58 Normal [facility] Operative Reporton Operative Report Patient: JEAN CARLOS EPSTEIN RT W Age: 81 years Sex: Male : 1940 Associated Diagnoses: None Author: Gerardo GARAY MD Procedure Operative Information Details: Date/ Time: [...] in satisfactory condition, Discharge instructions are provided. Normal [facility] Comment on above: Result Comment: Elec tronically Signed By: JARROD CLARK, Gerardo [email or web address]\Date and Time Signed: 02/03/22 16:20 EDT Pre-Certification Formon Pre-Certification Form [id number]#1.00C D:127 [facility] Coding Summary.on 01-08-2022 Coding Summary. CD:[id number] Gh0 bWw+PGhlYWQ+LE0PFLQbG05 ovVXhqW5LN6cICQ2JGVYEJQ WMPX8SSD5pqPT7QMltD2Eow iAv LdaurINdLW99AKl7SWW4eUn rSCiylV4ojZEtM9g4ZiSiEJ 75kF02SKpsYFXaXlU2ExPrl jsgbWFy V8wnUmMpxTAiGxe+PHRhYmx lIHdpZHRoPScxMDAlJyBzdH iqIT1gSy1aESPoUBHfySbme HNlOiBj p0yaFLOmVNxqSA8yqKhsJ0X tbMW9JADkk5r0Vc39tHS+PH HgJFT4pPigNGaid029YpQhp 6ofUDK3 fXWmTFdnFUP5Y57fz2Z9IPA dBKSxVVI3qZY0wU5qzEjvsw gaR8TuoGBeXbR2CSG5tDJwl J0lkWja rbheyS4qPxf+X85FAX4WCIY YWF0IFtb2T1NgUeejgGP+PC 37ZNViLQ10lKUbiSUcy1cmn Cg6FkRe OLEmKKS2bMbmRPmyi4GqWGG eM17mqHIdz3K0FFVamOyjrF HcUdFpiVB4vV6lWAvqdsbpi 2hvdzsn Dvics2bcnc13rB11H95cYRr bNHJkYRI6FPVuVVEicUrizl 7mmL2lNh8+WTzxy9tvl7mwp Vy4GnLr MLEgzpLwmNtcRNZ4u9GoBz7 4F2GcfVeno1LaKip8uk42mC Jyn0K2nOM5BKknTMPjgW4aL WxlZnQ6 EXUmFyCriF63fTDyKHfhYa0 nbNbnlLxxQW2rIQFzekqdPN FaxJ3uNPLxhNFhrBrrAP0kS TBpbjtm g379MpEmAER7BUYxgRRbI9N ynB5kBhUnEJNlRNJsT3AkiW GqIZicO681VRixOuA2MUXti oBuJ7Zw UHPryMreUeP9i0E4Fr6Zu5I dgugfEHO5MXwbBUQ7SfF2Nk XkExZ3X3ZeCsg6SRXwjEzgC F0uL7Jv FXCloylkrxnwkMC0YSZgUFN swY77nOXmZRwcJy9ar0H5g9 23SPNnUCOqeC27Kh7sgRopI TBwdCBU cI0svixlk5tkcqvyGeXpEYG jBGz7NRy4JISrbCnkEaUjQN O2TnR7JBG7wRLhiW4khRjqd qwfkO4c Oyc+Q28imW9qUNS7EXQ6vcf dBDBcvnDtFI76GB02M5QgTv wvdGFibGU+PGRpdiBzdHlsZ O0dPtVq g7pgt9QaIPrtR1MmEPKdVHv rLjc9HFDrXXL0aYW0eF3gVM QiCDkef4X3aUO3P9KpshGof w7vh3xq BHEeIUdgM24vsBQgj7P0KJX idSH5NTNlsEfzUxVyjL38Nr c+QOFalZigb3RwZtzrj8tmp 7athMo1 RxRnUUEkybCgyLmdZWX3l1O xEl15A36yQHfsPAWpFXVqEV TuHKLdwEjekc6bkY2kHv5+P GNvbCB3 xBX5rI9nYPUuErL1QXtaW84 0KtPseNAtEelhe0pfu5iqjZ g3QhRnYCElssAtuQhbMBW2z 0MnJs63 B49vVUxdJRDcWOHiHSIxPQB ywRstqn0spV8vTp5+PC9jb2 oazr15cH71dWE+JDHlDIC5h WxlPSdw CAYpjK7gQWeeDeT7KDYoRbB taQ93iPEpVYjyRf4axOgyrN rdUO9nBZEpkonfe621AyQwv 2xkIDEw qORkDJhwTUB9H99uj1I5BFJ nROGrGTO7vDM0zQ0jjZhrly ogbGVmdDsgdmVydGljYWwtY MlnR464 IHRvcDsnPlBhdGllbnQgTmF rLSq4W1LyRnu6NGHozRgpIM 7bgKZmLGxcRf5qaNlelGuuR D8gOJYp vfrvt190AbYog0kzQWQdxZN wXZfpHAD0I69si7T9NNLaYP DhJWG6mVB4uN0vsKbtkjwbr GVmdDsg pyYgnZkmCKqxKXrqG813BXE afKkmIkRtrnMyJUAraYH4JQ 91QU29kNGig1D4yWU8S7GcM GRpbmct rqqilFM9KEKaJXThiF02Rq2 yzBbhKw2cYRAnGCD6JTZxtS KsB9QhyU2qWyHfDPVmAVJgL 3RleHQt OBttT768AYjwQsF8GUImslF pG2JfXIDiwPlbYhJ8k5B0Yw 3SC5B4UI41OJ98uYWko6T3u CA3E3Vz BVMvhukeuhbdqJJ9UFWiQNC ybJ05Yy8msHulDl0lREOxOE W2NPEpcZZbM4WrbX9jSeBpR DAwMDAw P9JkxHJxJPnkQ874LUzdJbX 5UIBaneRfF5NvUUKbvRgoEb H6i5E5Sn7QGSk4TL64IU72s BVss8W7 xWD0C2AiXVQuniuaaiywvUD 8YPCuQCUswB20Jp6rqJrmRp 1eELUaNKM0DHApxGYnF6Lep S8iCiGl DYLdDRDqO2QobWMkWBsmR84 0JIjrZfX4SBYgvkWxQ7EyNW BrsNbnGqA3z0X0Ve9FJTKjY Y27HAL6 yHA9HU74DW08G6VfOqojsMZ ibGU+PHRhYmxlIHdpZHRoPS jnHALjAjAbjYzxUN0jKy6tA GVyLWNv xDpldJGnXwZbe9xaVUJsXYo bLK5qqBjsK3BdvGB8NCGoj5 y1Sk95S29aW3LcgBT+PGNvb GO8rOA5 qW3qCxEcUwU6LWkqO866XgT onNNnAzrwi0wxm1lfsYb2Qs S2OZMchmFdcPueFZX0u6GfJ o85A62m IHdpZHRoPSIxNSUiIHZhbGl hvy9utL0mJa6+FEFcvRR0tC Q0aM1fOgJmLdD8LGixV861X nRvcCIv Mblwk3lyn3jpdQw2VeUzXYV riiJoqZfdFWB1s1DtXu85F5 EstJfiu2ViXgl9ks17yJTkf 7R1qBY6 L0SmLUVvlvdwaELmpByqEG9 fCLNkrikmIOOwwE9bFYJoB2 o8QnXwPqA2ECzlD3JwziQ3W DEwcHQg KSfuRYB5N08lh1U5GPObFAR oOMM0fNK2xX7gdTxvhcotiS VmdDsgdmVydGljYWwtYWxpZ 246IHRv aQdkAOPhhI3oOTJssTXeeVr xVZ4rVBZiwwpbWvAZY1SHHG KEV1XQUjHnKiaruYI+PHRkI JP5uUhz HKgzJSFgeH4lBMVkW0r1EfB cSzT7ASupT3DoGDDzqbcoMu 42aA3zNzFoBaC4LPyyK8Pfm hO4NJXe iXToJAbpMZJ9H29tt4Y0AGV eDNZaOAZ1oDP3yZ8fzJicgl ogbGVmdDsgdmVydGljYWwtY MwxR597 GIWpgLsvPbH3VyN0VdI4LBO 9R4NiAnq8TFUvrPqxWM8liU UzFFfxEl8skMoleYmuRZ3eN TBpbjtw CKYydH7hJIUezQVxmXzuPB1 oYEBpfuktn452EnKiTDH1HD BebBCiH7EssK4bIyWiCJOgN AMkW2Tb bCRnSLdcS487DYnmDmN8ANL rabRtX7XfNJAitQbbKxK8i7 R4Nu28VHRRXJClntbqhDO+P HRkIHN0 uHhiFXclKALocF4gPPMdB5n 4RtEpQtZ7MCbjL3OzOPLqyf zcOq53xC9sNvXuSxG1CBvlO 3UirnN7 KXMfoGHiVSuyKWQ6E46pf1G 3BZLkCYMaQLE4qFS4rC1usU lnbjogbGVmdDsgdmVydGljY WwtYWxp U005WWInaFkzRh1xbVJ0T3L vFbj7WXEexNvwVS0vfPKhAT vdGj0ifAgeuFkfSX0kZXQlr jtwYWRk xI8zUVZirUGzdIwnVS9zMGI gkhpjx550GrEkKMT0FPRkaL HkL1IdkC6bGjBiATIzESLgR 3RleHQt ZYmbW062HBuvStL6LPAaajU eC2CkQRPazOrxLtP2g0B3Yj 1IcVFjSRYvPU67SE62UZ58J 3RyPjwv dGFibGU+PHRhYmxlIHdpZHR gQKmoAHHkDiNmxWpiHW8rVq 9yZGVyLWNvbGxhcHNlOiBjb 2xsYXBz AHsjEL9xpShhA9HnbSN4YAF vu7a9Cu85D59aR2XigYE+PG LayDW6tHJ9fX3hTsTtQqH0D MwgY287 AgQbsBMgLskcq2wpe1upzTa 3JsHpFLYyokDddPwvSLI0e0 CoQp22P05zGUzeENOiCSJgA CUiIHZh oAfpde3vkF9gKf0+PGNvbCB 5pTI1iS0xKxNgPaN5VXtiM4 40TbEkfNIvOhshH31gQ2Gxm XA+PHRy Gkj0ASRmjBbeNY2abDQgEHo nUk9zKCW7VmOuJbIuCAdhU1 MuKGYxuhknyojjkYI5XPOiL DUwaW47 Uw7tvAauKz4zSZOaPKH4CBR opWEjK0CznN6lRkQfOSMiXX ZzI1SftRHmVNudU702CPywH oW0AVLz obNyD6IpTAAwkRhzVkA2j4M 2Zv1RcPshdSNtQZ7qVyQkNM y3H3QnTdw8BAPnvCodXX2vl GFkZGlu Zi8ciAjacZeqCS4gZBZgxjh iv198IoQri4tgJETmyKOwRW stSNJ6T60nt2D0VVCsINShA DT6bVH9 nZ1hkLjrvtgilDHnwVuhntU fzJnvKZydXIbeQ692PAQnyZ boFdKBIwo5C5JhXsu2PULlo QwvZG7n hVAaGRohYo8fwAxtxLbwZW7 pQFCbgxnkc879YiUxd8omLK FglKHcWCnbITN5P30xv3I9X CMwMDAw ARK8yIV1hT3ctGgrxsbbzDS mdDsgdmVydGljYWwtYWxpZ2 17PPEinZdsRd8XAdj4O8LqO yp4VTHs vThmDV4khCKtFVwwLb6ltLt kgTtjTB5aOGZzhohvh770Yt Jzw9xtANYvsTXuLKzpIMU7O 46vz8M9 OLKwTLLeWTO9lWV3aP7vnTx nbjogbGVmdDsgdmVydGljYW hoXXlmO661ZKTihArjZaIbi WVyOjwv dGQ+HO15tv77W1CzXussPks 7PCTwJHS8jSA4lO3bUAGvQE kll7D3aAQ8A9KjntFuxj9at 2xsYXBz ZTog (more content not included)... Normal [facility] Consent for Procedure/Surger yon 01-08-2022 Consent for Procedure/Surgery [id number] CD:127 Normal [facility] IntraOperative Documentson 0 01-08-2022 IntraOperative Documents [id number] CD:127 Normal [facility] Consent for Treatmenton 2 Consent for Treatment [id number]#1.00C D:127 [facility] Main OR Intraoperative Recor don 01-06-2022 Main OR Intraoperative Record IntraOp Document Type FTURO Summary Primary Physician: Gerardo GARAY MD Finalized Date/Time: 01/06/22 16:42:59 Pt. Name: MIKEL EPSTEIN D.O.B./Sex: 1940 Male Med Rec #: [id number] Physician: Gerardo GARAY MD Financial #: [id number] Pt. Type: O Room/Bed: / Admit/Disch: 01/06/22 14:38:32 - Institution: Case Times FTURO Entry 1 Patient Times In Room 01/06/22 16:27:00 Out Room 01/06/22 16:41:00 Procedure Times Start 01/06/22 16:31:00 Stop 01/06/22 16:35:00 Anesthesia Times Last Modified By: Shanti Sethi RN 01/06/22 16:42:01 Case Attendance FTURO Entry 1 Entry 2 Entry 3 Case Attendee Gerardo GARAY MD CONTRACT NEGOTIATION MANAGER, Farzana Pandey CONTRACT NEGOTIATION MANAGER, Sade Mccray Role Performed Surgeon - Primary Scrub - [...] Case Attendee Shanti Sethi RN Role Performed Automotive Sales Representative - Primary Time In 01/06/22 16:27:00 Time Out 01/06/22 16:41:00 Procedure CYSTOSCOPY LOCAL(.) Comments Last Modified By: Shanti Sethi RN 01/06/22 16:42:02 Surgical Procedures FTURO Entry 1 Procedure Description Procedure CYSTOSCOPY LOCAL Modifiers . Surgeon Description CYSTOSCOPY LOCAL Primary Procedure Yes Primary Surgeon Gerardo GARAY MD Start 01/06/22 16:31:00 Stop 01/06/22 16:35:00 [...] Verified (If Participants Farzana Ramirez CST, Applicable) Katherin MONTALVO, Sade Mccray, Shanti Sethi RN Time Out Complete 01/06/22 [...] By: Shanti Sethi RN 01/06/22 16:42 Normal [facility] Main OR Preoperative Recordo n 01-06-2022 Main OR Preoperative Record Holding Area Document Type FTURO Summary Primary Physician: Gerardo GARAY MD Finalized Date/Time: 01/06/22 16:28:08 Pt. Name: MIKEL EPSTEIN Ashtyn Burkett/Sex: 1940 Male Med Rec #: [id number] Physician: Gerardo GARAY MD Financial #: [id number] Pt. Type: O Room/Bed: / Admit/Disch: 01/06/22 [...] 16:06 Shanti Sethi RN 01/06/22 16:28 Normal [facility] Operative Reporton Operative Report Patient: JEAN CARLOS EPSTEIN Age: 81 years Sex: Male : 1940 Associated Diagnoses: None Author: Gerardo GARAY MD Procedure Operative Information Details: Date/ Time: [...] with antibiotic coverage, Follow up arranged. Normal [facility] Comment on above: Result Comment: Elec tronically Signed By: Gerardo GARAY MD\.br\Date and Time Signed: 01/06/22 16:44 EDT Urology Office/Clinic Noteon 12-23-2021 Urology Office/Clinic Note Chief Complaint Pt is here for nocturia HPI Staff Mikel is a 81 y.o. male here for nocturia and weak stream. Pt previously seen [facility]. Previous Dx: BPH w/o urinary obstruction, nocturia. [...] history record for this patient with Dr. Garay. Will schedule Cystoscopy and Urodynamics, then possible TURP/Rezum Follow-up With When Contact Information JARROD CLARK, Gerardo Torres, [facility] [address], [place] [address] [phone] Additional Instructions: Plan Cystoscopy/Urodynamics testing Patient Education Calorie Counting for Weight Loss Urodynamic Testing Benign Prostatic Hyperplasia IMimi, personally scribed for Dr. Garay on 12/08/2021 14:24:09. . Documentation recorded by the scribesylvia, accurately reflects the services(s) I performed and decisions made by me. Authenticated by Dr. Garay on 12/08/2021 14:25:32. Problem List/Past Medical History [...] Urine Dipstick: (more content not included)... Normal [facility] Comment on above: Result Comment: Elec tronically Signed By: Mimi Aguayo\Mariobr\Date and Time Signed: 12/23/21 07:54 EDT Ambulatory Visit Summaryon 0 12-08-2021 Ambulatory Visit Summary MIKEL EPSTEIN Ashtyn :1940 Visit Date:12/08/2021 Ambulatory Visit Instructions Your Diagnosis BPH without urinary obstruction Nocturia Frequency of urination Tests Performed Urnls Dip Stick Auto w/o Microscopy POC 41278 Your Care Team Attending Physician - JARROD [...] Where: [facility] [address], [place] [address] [phone] Medications What How Much When Instructions New doxycycline (doxycycline hyclate 100 mg Cap) 1 Capsules By Mouth Every day Take 1 pill the day before the procedure and 1 pill after the procedure Pickup at [facility] Unchanged tamsulosin (Flomax 0.4 mg Cap) [...] physician if questions or concerns Pharmacy Information [facility]: [address] [place], [place] [phone] Test Results Urnls Dip Stick Auto w/o Microscopy POC 65714 (12/08/2021) Bilirubin Urine Dipstick - Negative Blood Urine Dipstick - Negative Glucose Urine Dipstick - Negative Ketones Urine Dipstick - Negative Leukocytes Urine Dipstick - Negative Nitrite Urine Dipstick - Negative Protein Urine Dipstick - Trace Specific Disputanta Urine Dipstick - 1.020 Urine Appearance Urine [...] your dietitian (more content not included)... Normal [facility] Patient Educationon 12-08- 22 Patient Education Nutrition Calorie Counting for [...] You could (more content not included)... Normal [facility] XR Knee Complete Left*on XR Knee [...] by Mayo Israel on 11/28/2021 1520 Normal [facility] Box Person Formson 09-16-2021 Forms [id number] D:127 Normal [facility] Ambulatory Clinical Summaryo n 09-10-2021 Ambulatory Clinical Summary {[id number]}CD:[id number] Normal [facility] Patient Educationon 09-10-20 21 Patient Education Urology Benign Prostatic Hyperplasia Benign [...] Follow these instructions at home: ? Take yzjp-hyb-impwsgt and prescription medicines only as told by [...] You d (more content not included)... Normal [facility] Physician Referralon 021 Physician Referral [id number]#[id number] D:127 Normal [facility] Urology Office/Clinic Noteon 09-10-2021 Urology Office/Clinic [...] Present Illness reviewed UA. reviewed Labs from [place]. Reviewed EPITAXIAL REACTOR TECHNICIAN papers. There have been no associated fever, [...] months 11/11/[address] [place] [address] Additional Instructions: Go over voiding Diary Patient [...] cap(s), Oral, (more content not included)... Normal [facility] Comment on above: Result Comment: Elec tronically Signed By: Say CLARK, Caprice Fuller\.br\Date and Time Signed: 09/10/21 13:24 EST\.br\Electronically Co-Signed By: Ignrid Jarvis MA\.br\Date and Time Co-Signed: 09/10/21 11:26 EST CBC AUTO DIFFon 01-01-2021 BASO # 0.0 103/ul Normal 0.0-0.1 [facility] Comment on above: Performed By: #### C BC ####[facility] [address] [place] [address]Gerken Nasra Basophils/100 WBC (Bld) 0.1 % Critically low 0.2-2.0 [facility] Comment on above: Performed By: #### C BC ####[facility] [address] [place], [place] [address]Gipcpr Nasra EO # 0.4 103/ul Normal 0.0-0.7 [facility] Comment on above: Performed By: #### C BC ####[facility] [address] [place] [id number] Nasra Eosinophils/100 WBC (Bld) 2.3 % Normal 0.9-7.0 [facility] Comment on above: Performed By: #### C BC ####[facility] [address] [place] [address] Nasra Erythrocyte distribution width (RBC) [Ratio] 14.6 % Normal 11.0-15.0 [facility] Comment on above: Performed By: #### C BC ####[facility] [address] [place], [place] [address]Gerken Nasra Hematocrit (Bld) [Volume fraction] 32.4 % Critically low 42.0-54.0 [facility] Comment on above: Performed By: #### C BC ####[facility] [address] [place], [place] [address]Gerken Nasra Hemoglobin (Bld) [Mass/Vol] 9.9 g/dL Critically low 14.0-18.0 [facility] Comment on above: Performed By: #### C BC ####[facility] [address] [place], [place] [address]Gerken Nasra IG # 0.30 10e3/ul Critically high 0.00-0.03 [facility] Comment on above: Performed By: #### C BC ####[facility] [address] [place], [place] [address]Gerken Nasra IG % 1.7 % Critically high 0.0-0.5 [facility] Comment on above: Performed By: #### C BC ####[facility] [address] [place], [place] [address]Gerken Nasra LYMPH # 1.2 103/ul Normal 1.2-3.8 [facility] Comment on above: Performed By: #### C BC ####[facility] [address] [place], [place] [address]Hphhhg Nasra Lymphocytes/100 WBC (Bld) 6.9 % Critically low 20.5-60.0 [facility] Comment on above: Performed By: #### C BC ####[facility] [address] [place], [place] [address]Qjavku Nasra MANUAL DIFF REQ NO Normal [facility] Comment on above: Performed By: #### C BC ####[facility] [address] [place] [place], [place] [address]Mulgnv Nasra MCH (RBC) [Entitic mass] 27.6 pg Normal 25.9-34.0 [facility] Comment on above: Performed By: #### C BC ####[facility] [address] [place], [place] [address]Gerken Nasra MCHC (RBC) [Mass/Vol] 30.6 g/dL Normal 29.9-35.2 [facility] Comment on above: Performed By: #### C BC ####[facility] [address]vth[address] [place], [place] [address]Gerken Nasra MCV (RBC) [Entitic vol] 90.3 fL Normal 80.0-94.0 [facility] Comment on above: Performed By: #### C BC ####[facility] [address]ve[address] [place], [place] [address]Gerken Nasra MONO # 1.1 103/ul Critically high 0.3-0.8 The [facility] Comment on above: Performed By: #### C BC ####[facility] Wmslzoitjs[address] [place], [place] [address]Gerken Nasra Monocytes/100 WBC (Bld) 6.2 % Normal 1.7-12.0 [facility] Comment on above: Performed By: #### C BC ####[facility] [address]lyyffsemj[address] [place], [place] [address]Gerken Nasra NEUT # 14.6 103/ul Critically high 1.4-6.5 The [facility] Comment on above: Performed By: #### C BC ####[facility] Jgjnvbdvsc8116 [place], [place] [address]Rpulaj Nasra Neutrophils/100 WBC (Bld) 82.8 % Critically high 43.0-75.0 [facility] Comment on above: Performed By: #### C BC ####[facility] Jlqwywkcrz6428 [place], [place] [address]Rbgewa Nasra Platelet mean volume (Bld) [Entitic vol] 9.4 fL Critically low 9.5-13.5 [facility] Comment on above: Performed By: #### C BC ####[facility] Bfuevsfcgn1566 [place], [place] [address]Sxxlsi Nasra PLT 385 103/ul Normal 150-450 [facility] Comment on above: Performed By: #### C BC ####[facility] Rvxjaghjge6265 [place], [place] [address]Sneanu Nasra RBC 3.59 106/ul Critically low 4.70-6.10 [facility] Comment on above: Performed By: #### C BC ####[facility] Emhzfrvrjh3428 [place], [place] [address]Xwllhc Nasra WBC 17.7 103/ul Critically high 4.0-11.0 The [facility] Comment on above: Performed By: #### C BC ####[facility] Urktkptysn7045 [place], [place] [address]Oycaqr Nasra PROF CHEM 8 (BAS METB)on Anion gap [Moles/Vol] 7.0 mmol/L Normal [facility] Comment on above: Performed By: #### B MP ####[facility] Iebscqftlm2764 [place], [place] [address]Zukiod Nasra Calcium [Mass/Vol] 8.7 mg/dL Normal 8.4-10.2 The [facility] Comment on above: Performed By: #### B MP ####[facility] Ajxggixbrt9780 [place], [place] [address]Qzcolj Nasra Chloride [Moles/Vol] 105 mmol/L Normal 98-107 [facility] Comment on above: Performed By: #### B MP ####[facility] Udtqecmuqm7927 [place], [place] [address]Hlfmsr Nasra CO2 [Moles/Vol] 32.0 mmol/L Critically high 22.0-30.0 [facility] Comment on above: Performed By: #### B MP ####[facility] Ldtpuydyox7694 [place], [place] [address]Qvpjso Nasra Creatinine [Mass/Vol] 0.69 mg/dL Normal 0.66-1.25 [facility] Comment on above: Performed By: #### B MP ####[facility] Mzxoisasoi4193 [place], [place] [address]Gdnerk Nasra EGFR-AF ANGUILLAN >60 Normal >=60 The [facility] Comment on above: Performed By: #### B MP ####[facility] Bdkwejqavi[address] [place], [place] [address]Gerken Nasra EGFR-NON AF ANGUILLAN >60 Normal >=60 [facility] Comment on above: Performed By: #### B MP ####[facility] [address]owepwmeo[address] [place], [place] [address]Gerken Nasra Glucose [Mass/Vol] 116 mg/dL Critically high 74-106 [facility] [place] [facility] Comment on above: Performed By: #### B MP ####[facility] Sbhppiliys[address] [place], [place] [address]Gerken Nasra Potassium [Moles/Vol] 4.0 mmol/L Normal 3.4-5.0 [facility] Comment on above: Performed By: #### B MP ####[facility] [address]kycntbw[address] [place] [address]Gerken Nasra Sodium [Moles/Vol] 140 mmol/L Normal 137-145 [facility] Comment on above: Performed By: #### B MP ####[facility] Jzqsofoobv[address] [place], [place] [address]Gerken Nasra Urea nitrogen [Mass/Vol] 8.0 mg/dL Critically low 9.0-20.0 [facility] Comment on above: Performed By: #### B MP ####[facility] [address] [place] [address]Tadowq Nasra Urea nitrogen/Creatinine [Mass ratio] 11.6 mg/mg Normal [facility] Comment on above: Performed By: #### B MP ####[facility] Axc[address]ahny[address] [place], [place] [address]Gerken Nasra CBC AUTO DIFFon 12-31-2020 BASO # 0.0 103/ul Normal 0.0-0.1 [facility] Comment on above: Performed By: #### C BC ####[facility] Uxwxopuq[address] [place] [address] Nasra Basophils/100 WBC (Bld) 0.2 % Normal 0.2-2.0 [facility] Comment on above: Performed By: #### C BC ####[facility] Yejelzyncb[address] [place] [address] Nasra EO # 0.4 103/ul Normal 0.0-0.7 [facility] Comment on above: Performed By: #### C BC ####[facility] Pxdnclbnsp[address] [place] [address] Nasra Eosinophils/100 WBC (Bld) 2.1 % Normal 0.9-7.0 [facility] Comment on above: Performed By: #### C BC ####[facility] V[address]fjp[address]qq[address] [place] [address] Nasra Erythrocyte distribution width (RBC) [Ratio] 14.8 % Normal 11.0-15.0 [facility] Comment on above: Performed By: #### C BC ####[facility] Ndmkmcsoup[address] [place] [address] Nasra Hematocrit (Bld) [Volume fraction] 30.6 % Critically low 42.0-54.0 [facility] Comment on above: Performed By: #### C BC ####[facility] Kwxmczzqoa[address] [place], [place] [address]Gerken Nasra Hemoglobin (Bld) [Mass/Vol] 9.6 g/dL Critically low 14.0-18.0 [facility] Comment on above: Performed By: #### C BC ####[facility] Rbsbotunia[address] [place], [place] [address]Desmond Hammonds IG # 0.67 10e3/ul Critically high 0.00-0.03 [facility] Comment on above: Performed By: #### C BC ####[facility] Dqpxyfahyk[address] [place], [place] [address]Desmond Hammonds IG % 3.4 % Critically high 0.0-0.5 The [facility] Comment on above: Performed By: #### C BC ####[facility] Snsvqssmzs[address] [place], [place] [address]raúl Hammonds LYMPH # 1.2 103/ul Normal 1.2-3.8 [facility] Comment on above: Performed By: #### C BC ####[facility] Esiuxwwdkp[address] [place] [address] Nasra Lymphocytes/100 WBC (Bld) 6.0 % Critically low 20.5-60.0 [facility] Comment on above: Performed By: #### C BC ####[facility] Eirqensivj[address] [place] [address] Nasra MANUAL DIFF REQ NO Normal [facility] Comment on above: Performed By: #### C BC ####[facility] Kertzgdeka[address] [place] [address] Nasra MCH (RBC) [Entitic mass] 28.2 pg Normal 25.9-34.0 [facility] Comment on above: Performed By: #### C BC ####[facility] Myzovsuqac[address] [place] [address] Nasra MCHC (RBC) [Mass/Vol] 31.4 g/dL Normal 29.9-35.2 [facility] Comment on above: Performed By: #### C BC ####[facility] M[address]xvvzjvs[address] [place], [place] [address]raúl Hammonds MCV (RBC) [Entitic vol] 90.0 fL Normal 80.0-94.0 [facility] Comment on above: Performed By: #### C BC ####[facility] Gmqgopyccy[address] [place], [place] [address]ken Nasra MONO # 1.0 103/ul Critically high 0.3-0.8 [facility] Comment on above: Performed By: #### C BC ####[facility] [address]cf3911 [place] [address]Desmond Hammonds Monocytes/100 WBC (Bld) 5.1 % Normal 1.7-12.0 [facility] Comment on above: Performed By: #### C BC ####[facility] Udzzwhmdvw1604 [place] [address]Desmond Mathiasen NEUT # 16.3 103/ul Critically high 1.4-6.5 The [facility] Comment on above: Performed By: #### C BC ####[facility] Boqlnqmtqi8354 [address]raúl Hammonds Neutrophils/100 WBC (Bld) 83.2 % Critically high 43.0-75.0 [facility] Comment on above: Performed By: #### C BC ####[facility] Z[address]ixlexppk[address] [place] [address] Nasra Platelet mean volume (Bld) [Entitic vol] 9.4 fL Critically low 9.5-13.5 [facility] Comment on above: Performed By: #### C BC ####[facility] Vpnlrphgqx[address] [place], [place] [address]raúl Hammonds PLT 372 103/ul Normal 150-450 [facility] Comment on above: Performed By: #### C BC ####[facility] Squydejfve[address] [place], [place] [address]Desmond Hammonds RBC 3.40 106/ul Critically low 4.70-6.10 [facility] Comment on above: Performed By: #### C BC ####[facility] Eibvmlkyrb9292 [place] [address]Desmond Hammonds WBC 19.6 103/ul Critically high 4.0-11.0 The [facility] Comment on above: Performed By: #### C BC ####[facility] Labelljvbc9440 [address]raúl Hammonds PROF CHEM 8 (BAS METB)on Anion gap [Moles/Vol] 6.3 mmol/L Normal [facility] Comment on above: Performed By: #### B MP #### [facility] [address] [place] [address] Desmond Nasra Calcium [Mass/Vol] 8.4 mg/dL Normal 8.4-10.2 [facility] Comment on above: Performed By: #### B MP #### [facility] [address] [place] [address] Desmond Nasra Chloride [Moles/Vol] 106 mmol/L Normal 98-107 [facility] Comment on above: Performed By: #### B MP #### [facility] [address] [place] [address] Desmond Nasra CO2 [Moles/Vol] 31.4 mmol/L Critically high 22.0-30.0 [facility] Comment on above: Performed By: #### B MP #### [facility] [address] [place] [address] Desmond Nasra Creatinine [Mass/Vol] 0.77 mg/dL Normal 0.66-1.25 [facility] Comment on above: Performed By: #### B MP #### [facility] [address] [place], [place] [address] Desmond Nasra EGFR-AF ANGUILLAN >60 Normal >=60 [facility] Comment on above: Performed By: #### B MP #### [facility] [address] [place] [address] Desmond Nasra EGFR-NON AF ANGUILLAN >60 Normal >=60 [facility] Comment on above: Performed By: #### B MP #### [facility] [address] [place] [address] Desmond Nasra Glucose [Mass/Vol] 136 mg/dL Critically high 74-106 [facility] [place] [facility] Comment on above: Performed By: #### B MP #### [facility] [address] [place] [address] Desmond Nasra Potassium [Moles/Vol] 3.7 mmol/L Normal 3.4-5.0 [facility] Comment on above: Performed By: #### B MP #### [facility] [address] [place], [place] [address] Desmond Nasra Sodium [Moles/Vol] 140 mmol/L Normal 137-145 [facility] Comment on above: Performed By: #### B MP #### [facility] [address] [place], [place] [address] Desmond Nasra Urea nitrogen [Mass/Vol] 10.0 mg/dL Normal 9.0-20.0 [facility] Comment on above: Performed By: #### B MP #### [facility] [address] [place], [place] [address] Desmond Nasra Urea nitrogen/Creatinine [Mass ratio] 13.0 mg/mg Normal [facility] Comment on above: Performed By: #### B MP #### [facility] [address] [place], [place] [address] Desmond Nasra XR CHEST DECUB ONLYon 2020 [...] as clinically indicated. Electronically authenticated by: RODY SAID Date: 2020-12-31 06:23 Normal [facility] CBC W MANUAL DIFFon 12-31-19 21 ATYPICAL LYMPH # 0.24 103/ul Normal The [facility] Comment on above: Performed By: #### B MP #### [facility] [address] [place], [place] [address] Desmond Nasra ATYPICAL LYMPH % 1 % Normal [facility] Comment on above: Performed By: #### B MP #### [facility] [address] [place], [place] [address] Desmond Nasra BAND # 0.2 103/ul Normal 0.0-0.3 [facility] Comment on above: Performed By: #### B MP #### [facility] [address] [place] [address] Desmond Nasra BAND % 1 % Normal 0-5 [facility] Comment on above: Performed By: #### B MP #### [facility] [address] [place] [address] Desmond Nasra BASOM # 0.00 103/ul Normal 0.00-0.10 [facility] Comment on above: Performed By: #### B MP #### [facility] [address] [place] [address] Desmond Nasra BASOM % 0.0 % Critically low 0.2-2.0 [facility] Comment on above: Performed By: #### B MP #### [facility] [address] [place] [address] Desmond Nasra BLAST # Normal [facility] Comment on above: Performed By: #### B MP #### [facility] [address] [place] [address] Desmond Nasra BLAST % Normal [facility] Comment on above: Performed By: #### B MP #### [facility] [address] [place] [address] Desmond Nasra CORRECTED WBC Normal 4.0-11.0 [facility] Comment on above: Performed By: #### B MP #### [facility] [address] [place] [address] Desmond Nasra EOS # 0.24 103/ul Normal 0.00-0.70 [facility] Comment on above: Performed By: #### B MP #### [facility] [address] [place] [address] Desmond Nasra EOS% 1.0 % Normal 0.9-7.0 [facility] Comment on above: Performed By: #### B MP #### [facility] [address] [place] [address] Desmond Nasra HCT 34.4 % Critically low 42.0-54.0 [facility] Comment on above: Performed By: #### B MP #### [facility] [address] [place] [address] Desmond Nasra HGB 10.6 g/dl Critically low 14.0-18.0 [facility] Comment on above: Performed By: #### B MP #### [facility] [address] [place] [address] Desmondraúl Hammonds LYMPHM # 1.47 103/ul Normal 1.20-3.80 [facility] Comment on above: Performed By: #### B MP #### [facility] [address] [place] [address] Desmond Nasra LYMPHM% 6.0 % Critically low 20.5-60.0 [facility] Comment on above: Performed By: #### B MP #### [facility] [address] [place] [address] Desmond Mathiasen MCH 27.5 pg Normal 25.9-34.0 [facility] Comment on above: Performed By: #### B MP #### [facility] [address] [place] [address] Desmondraúl Mathiasen MCHC 30.8 g/dl Normal 29.9-35.2 [facility] Comment on above: Performed By: #### B MP #### [facility] [address] [place] [address] Desmond Nasra MCV 89.1 fL Normal 80.0-94.0 [facility] Comment on above: Performed By: #### B MP #### [facility] [address] [place] [address] Desmond Nasra METAMYELOCYTE # Normal [facility] Comment on above: Performed By: #### B MP #### [facility] [address] [place], [place] [address] Desmond Nasra METAMYELOCYTE % Normal [facility] Comment on above: Performed By: #### B MP #### [facility] [address] [place], [place] [address] Desmond Nasra MONOM# 1.72 103/ul Critically high 0.30-0.80 [facility] Comment on above: Performed By: #### B MP #### [facility] [address] [place], [place] [address] Desmond Hammonds MONOM% 7.0 % Normal 1.7-12.0 [facility] Comment on above: Performed By: #### B MP #### [facility] [address] [place] [id number] Desmond Hammonds MPV 9.3 fL Critically low 9.5-13.5 [facility] Comment on above: Performed By: #### B MP #### [facility] [address] [place] [address] Desmond Nasra MYELOCYTE # Normal [facility] Comment on above: Performed By: #### B MP #### [facility] [address] [place] [address] Desmondraúl Mathiasen MYELOCYTE % Normal [facility] Comment on above: Performed By: #### B MP #### [facility] [address] [place], [place] [address] Desmond Nasra NRBC Normal [facility] Comment on above: Performed By: #### B MP #### [facility] [address] [place] [address] Desmond Nasra PLT 364 103/ul Normal 150-450 [facility] Comment on above: Performed By: #### B MP #### [facility] [address] [place] [address] Desmond Nasra RBC 3.86 106/ul Critically low 4.70-6.10 [facility] Comment on above: Performed By: #### B MP #### [facility] [address] [place] [address] Desmondraúl Mathiasen RDW 14.8 % Normal 11.0-15.0 [facility] Comment on above: Performed By: #### B MP #### [facility] [address] [place] [address] Desmond Nasra SEG # 20.58 103/ul Critically high 1.40-6.[address] [facility] Comment on above: Performed By: #### B MP #### [facility] [address] [place] [address] Desmond Nasra SEG % 84.0 % Critically high 43.0-75.0 [facility] Comment on above: Performed By: #### B MP #### [facility] [address] [place], [place] [address] Desmondraúl Mathiasen WBC 24.5 103/ul Critically high 4.0-11.0 [facility] Comment on above: Performed By: #### B MP #### [facility] [address] [place], [place] [address] Desmond Mathiasen PROF CHEM 8 (BAS METB)on Anion gap [Moles/Vol] 10.6 mmol/L Normal [facility] Comment on above: Performed By: #### B MP #### [facility] [address] [place] [address] Desmond Nasra Calcium [Mass/Vol] 8.6 mg/dL Normal 8.4-10.2 [facility] Comment on above: Performed By: #### B MP #### [facility] [address] [place] [address] Desmond Nasra Chloride [Moles/Vol] 106 mmol/L Normal 98-107 [facility] Comment on above: Performed By: #### B MP #### [facility] [address] [place] [address] Desmond Nasra CO2 [Moles/Vol] 28.1 mmol/L Normal 22.0-30.0 [facility] Comment on above: Performed By: #### B MP #### [facility] [address] [place] [address] Desmond Nasra Creatinine [Mass/Vol] 0.87 mg/dL Normal 0.66-1.25 [facility] Comment on above: Performed By: #### B MP #### [facility] [address] [place], [place] [address] Desmond Nasra EGFR-AF ANGUILLAN >60 Normal >=60 [facility] Comment on above: Performed By: #### B MP #### [facility] [address] [place], [place] [address] Desmond Nasra EGFR-NON AF ANGUILLAN >60 Normal >=60 [facility] Comment on above: Performed By: #### B MP #### [facility] [address] [place], [place] [address] Desmond Nasra Glucose [Mass/Vol] 135 mg/dL Critically high 74-106 [facility] Comment on above: Performed By: #### B MP #### [facility] [address] [place], [place] [address] Desmond Nasra Potassium [Moles/Vol] 3.7 mmol/L Normal 3.4-5.0 [facility] Comment on above: Performed By: #### B MP #### [facility] [address] [place], [place] [address] Desmond Nasra Sodium [Moles/Vol] 141 mmol/L Normal 137-145 [facility] Comment on above: Performed By: #### B MP #### [facility] [address] [place], [place] [address] Desmond Nasra Urea nitrogen [Mass/Vol] 10.0 mg/dL Normal 9.0-20.0 [facility] Comment on above: Performed By: #### B MP #### [facility] [address] [place], [place] [address] Desmond Nasra Urea nitrogen/Creatinine [Mass ratio] 11.5 mg/mg Normal [facility] Comment on above: Performed By: #### B MP #### [facility] [address] [place], [place] [address] Desmond Nasra XR CHEST 2 Von 12-30-2020 [...] MAUREEN RODGERS Date: 2020-12-30 08:38 Normal [facility] CBC W MANUAL DIFFon 04-18-20 21 ATYPICAL LYMPH # Normal [facility] Comment on above: Performed By: #### Rebel ECHEVARRIA ####[facility] [address] [place] [id number] Nasra ATYPICAL LYMPH % Normal [facility] Comment on above: Performed By: #### C SWATHI ####[facility] [address] [place] [id number] Nasra BAND # Normal 0.0-0.3 [facility] Comment on above: Performed By: #### C SWATHI ####[facility] [address] [place] [id number] Nasra BAND % Normal 0-5 [facility] Comment on above: Performed By: #### Rebel ECHEVARRIA ####[facility] [address] [place] [address] Nasra BASOM # 0.00 103/ul Normal 0.00-0.10 [facility] Comment on above: Performed By: #### Rebel ECHEVARRIA ####[facility] [address] [place] [address] Nasra BASOM % 0.0 % Critically low 0.2-2.0 [facility] Comment on above: Performed By: #### Rebel ECHEVARRIA ####[facility] [address] [place] [address] Nasra BLAST # Normal [facility] Comment on above: Performed By: #### Rebel ECHEVARRIA ####[facility] [address] [place] [id number] Nasra BLAST % Normal [facility] Comment on above: Performed By: #### Rebel ECHEVARRIA ####[facility] Ngwhibqumk[address] Nasra CORRECTED WBC Normal 4.0-11.0 [facility] Comment on above: Performed By: #### Rebel ECHEVARRIA ####[facility] [address] [place], [place] [address]Gerken Nasra EOS # 0.44 103/ul Normal 0.00-0.70 [facility] Comment on above: Performed By: #### Rebel ECHEVARRIA ####[facility] [address]ds[address] [place], [place] [address]Gpqsyf Nasra EOS% 2.0 % Normal 0.9-7.0 [facility] Comment on above: Performed By: #### Rebel ECHEVARRIA ####[facility] Drgbzhevbw5236 [place], [place] [address]Molyxi Nasra HCT 33.9 % Critically low 42.0-54.0 [facility] Comment on above: Performed By: #### Rebel ECHEVARRIA ####[facility] Odlbt[address]cjn9812 [place], [place] [address]Tsftxl Nasra HGB 10.4 g/dl Critically low 14.0-18.0 [facility] Comment on above: Performed By: #### Rebel ECHEVARRIA ####[facility] [address] [place], [place] [address]Gerken Nasra LYMPHM # 2.42 103/ul Normal 1.20-3.80 [facility] Comment on above: Performed By: #### Rebel ECHEVARRIA ####[facility] Ewkikaqgew4306 [place], [place] [address]Junlnu Nasra LYMPHM% 11.0 % Critically low 20.5-60.0 The [facility] Comment on above: Performed By: #### Rebel ECHEVARRIA ####[facility] Ctaosygtzb9497 [place] [id number] Nasra MCH 27.9 pg Normal 25.9-34.0 [facility] Comment on above: Performed By: #### Rebel ECHEVARRIA ####[facility] Ntoeuuoryt1407 [place], [place] [address]Tmkaem Nasra MCHC 30.7 g/dl Normal 29.9-35.2 [facility] Comment on above: Performed By: #### Rebel ECHEVARRIA ####[facility] Yxnkjkdbve9939 [place] [id number] Nasra MCV 90.9 fL Normal 80.0-94.0 [facility] Comment on above: Performed By: #### Rebel ECHEVARRIA ####[facility] Ffgmoegltm3769 [place], [place] [address]Nlwfzi Nasra METAMYELOCYTE # Normal [facility] Comment on above: Performed By: #### Rebel ECHEVARRIA ####[facility] Umcosfnper9525 [place], [place] [address]Gkpswm Nasra METAMYELOCYTE % Normal [facility] Comment on above: Performed By: #### Rebel ECHEVARRIA ####[facility] Jiudbtjexl3077 [place] [address]Gerken Nasra MONOM# 0.44 103/ul Normal 0.30-0.80 [facility] Comment on above: Performed By: #### Rebel ECHEVARRIA ####[facility] Lvvlcpxjux[address] Nasra MONOM% 2.0 % Normal 1.7-12.0 [facility] Comment on above: Performed By: #### Rebel ECHEVARRIA ####[facility] [address] [place] [address] Nasra MPV 9.4 fL Critically low 9.5-13.5 [facility] Comment on above: Performed By: #### Rebel ECHEVARRIA ####[facility] [address]wr[address] [place] [address] Nasra MYELOCYTE # Normal [facility] Comment on above: Performed By: #### Rebel ECHEVARRIA ####[facility] Lfufmtrfjh1208 [place] [id number] Nasra MYELOCYTE % Normal [facility] Comment on above: Performed By: #### Rebel ECHEVARRIA ####[facility] Qbnyoiuphp3248 [place] [id number] Nasra NRBC Normal [facility] Comment on above: Performed By: #### Rebel ECHEVARRIA ####[facility] Cpimfasirh4646 [place] [id number] Nasra PLT 330 103/ul Normal 150-450 [facility] Comment on above: Performed By: #### Rebel ECHEVARRIA ####[facility] Hrnqyfxanf1214 [place] [id number] Nasra RBC 3.73 106/ul Critically low 4.70-6.10 [facility] Comment on above: Performed By: #### C SWATHI ####[facility] Fprufturaa3048 [place], [place] [address]Tobfbg Nasra RDW 15.0 % Normal 11.0-15.0 [facility] Comment on above: Performed By: #### C SWATHI ####[facility] Kcgonlehyg5772 [place] [id number] Nasra SEG # 18.70 103/ul Critically high 1.40-6.50 [facility] Comment on above: Performed By: #### C SWATHI ####[facility] Bagfkfwtid7384 [place] [id number] Nasra SEG % 85.0 % Critically high 43.0-75.0 [facility] Comment on above: Performed By: #### C SWATHI ####[facility] Endxmadlwg1751 [place] [id number] Nasra WBC 22.0 103/ul Critically high 4.0-11.0 [facility] Comment on above: Performed By: #### Rebel ECHEVARRIA ####[facility] Dcgvn[address] [place] [address] Nasra CULTURE WOUNDon 12-29-2020 CULTURE WOUND Culture Observations : No growth at 72 hours. Normal [facility] Comment on above: Performed By: #### W OUNDCX ####[facility] Aepqrqpufh[address] Nasra PROF CHEM 8 (BAS METB)on Anion gap [Moles/Vol] 9.9 mmol/L Normal [facility] Comment on above: Performed By: #### B MP ####[facility] Cdxgdwdyat7855 [address] Nasra Calcium [Mass/Vol] 8.2 mg/dL Critically low 8.4-10.2 [facility] Comment on above: Performed By: #### B MP ####[facility] Cflyhwkbil8358 [address] Nas[place] Chloride [Moles/Vol] 107 mmol/L Normal 98-107 [facility] Comment on above: Performed By: #### B MP ####[facility] Xshscselvz8971 [place], [place] [address]Ckjvpx Nasra CO2 [Moles/Vol] 28.9 mmol/L Normal 22.0-30.0 [facility] Comment on above: Performed By: #### B MP ####[facility] Pdkxbntzfc8257 [place] [phone] Nasra Creatinine [Mass/Vol] 0.81 mg/dL Normal 0.66-1.25 [facility] Comment on above: Performed By: #### B MP ####[facility] Qohwxohrey7256 [place], [place] [address]Xdcuyd Nasra EGFR-AF ANGUILLAN >60 Normal >=60 [facility] Comment on above: Performed By: #### B MP ####[facility] Pcdczpnkot0736 [place] [phone] Nasra EGFR-NON AF ANGUILLAN >60 Normal >=60 [facility] Comment on above: Performed By: #### B MP ####[facility] X[address]oad[address] [place], [place] [address]Gerken Nasra Glucose [Mass/Vol] 126 mg/dL Critically high 74-106 [facility] [place] [facility] Comment on above: Performed By: #### B MP ####[facility] Aclsfmmkae[address] [place], [place] [address]Gerken Nasra Potassium [Moles/Vol] 3.8 mmol/L Normal 3.4-5.0 [facility] Comment on above: Performed By: #### B MP ####[facility] Txtoxnmypt0331 [place] [id number] Nasra Sodium [Moles/Vol] 142 mmol/L Normal 137-145 [facility] Comment on above: Performed By: #### B MP ####[facility] Ilxjwwcjoo0110 [place], [place] [address]Bxkkhn Nasra Urea nitrogen [Mass/Vol] 12.0 mg/dL Normal 9.0-20.0 [facility] Comment on above: Performed By: #### B MP ####[facility] Vzuocctxzj0[address] Nasra Urea nitrogen/Creatinine [Mass ratio] 14.8 mg/mg Normal [facility] Comment on above: Performed By: #### B MP ####[facility] Fuhvonglqx3355 [place] [id number] Nasra CBC W MANUAL DIFFon 12-29-19 21 ATYPICAL LYMPH # Normal [facility] Comment on above: Performed By: #### C SWATHI ####[facility] Eugymhoroz2475 [place] [phone] Nasra ATYPICAL LYMPH % Normal [facility] Comment on above: Performed By: #### Rebel ECHEVARRIA ####[facility] [address]ib[address] [place] [address] Nasra BAND # 0.7 103/ul Critically high 0.0-0.3 [facility] Comment on above: Performed By: #### Rebel ECHEVARRIA ####[facility] [address] [place] [address] Nasra BAND % 3 % Normal 0-5 [facility] Comment on above: Performed By: #### Rebel ECHEVARRIA ####[facility] [address]mtegiismf[address] [place] [address] Nasra BASOM # 0.00 103/ul Normal 0.00-0.10 [facility] Comment on above: Performed By: #### Rebel ECHEVARRIA ####[facility] Ukdxabivsi[address] [place] [address] Nasra BASOM % 0.0 % Critically low 0.2-2.0 [facility] Comment on above: Performed By: #### Rebel ECHEVARRIA ####[facility] [address]etcydgkbw[address] [place] [address] Nasra BLAST # Normal [facility] Comment on above: Performed By: #### Rebel ECHEVARRIA ####[facility] Q[address] [place] [address] Nasra BLAST % Normal [facility] Comment on above: Performed By: #### C SWATHI ####[facility] Qqerhvtwqk9889 [place] [phone] Nasra CORRECTED WBC Normal 4.0-11.0 [facility] Comment on above: Performed By: #### C SWATHI ####[facility] Xifdkgfxpo1847 [place] [phone] Nasra EOS # 0.23 103/ul Normal 0.00-0.70 [facility] Comment on above: Performed By: #### C SWATHI ####[facility] Hhqzrunclr3466 [address] Nas[place] EOS% 1.0 % Normal 0.9-7.0 [facility] Comment on above: Performed By: #### C SWATHI ####[facility] Rbigfrzyln[address] [place] [address] Nasra HCT 37.0 % Critically low 42.0-54.0 [facility] Comment on above: Performed By: #### Rebel ECHEVARRIA ####[facility] [address]ffl[address]ffut[address] [place] [address] Nasra HGB 11.5 g/dl Critically low 14.0-18.0 [facility] Comment on above: Performed By: #### Rebel ECHEVARRIA ####[facility] Nepxawwafe[address] [place] [address] Nasra LYMPHM # 3.70 103/ul Normal 1.20-3.80 [facility] Comment on above: Performed By: #### Rebel ECHEVARRIA ####[facility] Wlekygevka[address] [place], [place] [address]Gerken Nasra LYMPHM% 16.0 % Critically low 20.5-60.0 [facility] Comment on above: Performed By: #### Rebel ECHEVARRIA ####[facility] [address]zb[address]yxbnt[address] [place] [address] Nasra MCH 27.8 pg Normal 25.9-34.0 [facility] Comment on above: Performed By: #### Rebel ECHEVARRIA ####[facility] Ges[address]jwwkw[address] [place], [place] [address]Gerken Nasra MCHC 31.1 g/dl Normal 29.9-35.2 [facility] Comment on above: Performed By: #### Rebel ECHEVARRIA ####[facility] Hbosdjcunt8433 [place] [phone] Nasra MCV 89.6 fL Normal 80.0-94.0 [facility] Comment on above: Performed By: #### Rebel ECHEVARRIA ####[facility] Rxvcvqwcaq1222 [place] [id number] Nasra METAMYELOCYTE # Normal [facility] Comment on above: Performed By: #### Rebel ECHEVARRIA ####[facility] Kjlzotinug1311 [place] [id number] Nasra METAMYELOCYTE % Normal [facility] Comment on above: Performed By: #### Rebel ECHEVARRIA ####[facility] Uivpssibx[address] [place] [address] Nasra MONOM# 1.62 103/ul Critically high 0.30-0.80 [facility] Comment on above: Performed By: #### Rebel ECHEVARRIA ####[facility] Kywbzkrskr2676 [address] [place] MONOM% 7.0 % Normal 1.7-12.0 [facility] Comment on above: Performed By: #### Rebel ECHEVARRIA ####[facility] Irnsvlaogn[address]96 [address] [place] MPV 9.6 fL Normal 9.5-13.5 [facility] Comment on above: Performed By: #### Rebel ECHEVARRIA ####[facility] Yvnvcdbail[address] [place] MYELOCYTE # Normal [facility] Comment on above: Performed By: #### Rebel ECHEVARRIA ####[facility] [address] [place], [place] [address]Gerken Nasra MYELOCYTE % Normal [facility] Comment on above: Performed By: #### Rebel ECHEVARRIA ####[facility] Inpfzaongq4476 [place] [phone] Nasra NRBC Normal [facility] Comment on above: Performed By: #### Rebel ECHEVARRIA ####[facility] Sxcrftzpcj0108 [place], [place] [address]Logypv Nasra PLT 362 103/ul Normal 150-450 [facility] Comment on above: Performed By: #### C SWATHI ####[facility] Vjooxkkzua4953 [place], [place] [address]Jjdmuz Nasra RBC 4.13 106/ul Critically low 4.70-6.10 [facility] Comment on above: Performed By: #### C SWATHI ####[facility] Jrehvzegat9173 [place], [place] [address]Ycajvf Nasra RDW 15.0 % Normal 11.0-15.0 [facility] Comment on above: Performed By: #### Rebel ECHEVARRIA ####[facility] Qocmoincyy0135 [place], [place] [address]Hmfbfu Nasra SEG # 16.86 103/ul Critically high 1.40-6.50 [facility] Comment on above: Performed By: #### Rebel ECHEVARRIA ####[facility] Alzwtuxhbv0099 [place], [place] [address]Xjibgi Nasra SEG % 73.0 % Normal 43.0-75.0 [facility] Comment on above: Performed By: #### Rebel ECHEVARRIA ####[facility] Owrxhfmrev3683 [place], [place] [address]Sngwld Nasra WBC 23.1 103/ul Critically high 4.0-11.0 [facility] Comment on above: Performed By: #### Rebel ECHEVARRIA ####[facility] Wozaydbbus3736 [place], [place] [address]Nkdfwe Nasra PROF CHEM 8 (BAS METB)on Anion gap [Moles/Vol] 8.3 mmol/L Normal [facility] Comment on above: Performed By: #### B MP #### [facility] [address] [place], [place] [address] Desmond Hammonds Calcium [Mass/Vol] 8.5 mg/dL Normal 8.4-10.2 [facility] Comment on above: Performed By: #### B MP #### [facility] [address] [place] [id number] Desmond Nasra Chloride [Moles/Vol] 105 mmol/L Normal 98-107 [facility] Comment on above: Performed By: #### B MP #### [facility] [address] [place] [phone] Desmond Nasra CO2 [Moles/Vol] 28.6 mmol/L Normal 22.0-30.0 [facility] Comment on above: Performed By: #### B MP #### [facility] [address] [place] [address] Desmond Nasra Creatinine [Mass/Vol] 0.76 mg/dL Normal 0.66-1.25 [facility] Comment on above: Performed By: #### B MP #### [facility] [address] [place] [address] Desmond Nasra EGFR-AF ANGUILLAN >60 Normal >=60 [facility] Comment on above: Performed By: #### B MP #### [facility] [address] [place], [place] [address] Desmond Nasra EGFR-NON AF ANGUILLAN >60 Normal >=60 [facility] Comment on above: Performed By: #### B MP #### [facility] [address] [place] [address] Desmond Nasra Glucose [Mass/Vol] 129 mg/dL Critically high 74-106 [facility] [place] [facility] Comment on above: Performed By: #### B MP #### [facility] [address] [place] [address] Desmond Nasra Potassium [Moles/Vol] 3.9 mmol/L Normal 3.4-5.0 [facility] Comment on above: Performed By: #### B MP #### [facility] [address] [place] [address] Desmond Nasra Sodium [Moles/Vol] 138 mmol/L Normal 137-145 [facility] Comment on above: Performed By: #### B MP #### [facility] [address] [place], [place] [id number] Desmond Nasra Urea nitrogen [Mass/Vol] 17.0 mg/dL Normal 9.0-20.0 [facility] Comment on above: Performed By: #### B MP #### [facility] [address] [place] [address] Desmond Nasra Urea nitrogen/Creatinine [Mass ratio] 22.4 mg/mg Normal [facility] Comment on above: Performed By: #### B MP #### [facility] [address] [place] [address] Desmond Nasra UA (CLEAN/CATCH) 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 YELLOW Normal YELLOW [facility] Comment on above: Performed By: #### B MP #### [facility] [address] [place] [address] Desmond Nasra Glucose Ql (U) Negative Normal NEGATIVE [facility] Comment on above: Performed By: #### B MP #### [facility] [address] [place] [address] Desmond Nasra Hemoglobin Ql (U) Negative Normal NEGATIVE [facility] Comment on above: Performed By: #### B MP #### [facility] [address] [place] [address] Desmond Nasra Ketones Ql (U) Negative Normal NEGATIVE [facility] Comment on above: Performed By: #### B MP #### [facility] [address] [place] [address] Desmond Nasra LEUKOCYTES TRACE Abnormal NEGATIVE [facility] Comment on above: Performed By: #### B MP #### [facility] [address] [place] [address] Desmond Nasra Nitrite Ql (U) Negative Normal NEGATIVE [facility] Comment on above: Performed By: #### B MP #### [facility] [address] [place], [place] [address] Desmondraúl Hammonds pH (U) 7.0 [pH] Normal 5-9 [facility] Comment on above: Performed By: #### B MP #### [facility] [address] [place] [address] Desmond Hammonds SPEC GRAVITY <=1.005 Abnormal 1.005-<=1.02 5 [facility] Comment on above: Performed By: #### B MP #### [facility] [address] [place] [address] Desmondraúl Hammonds UA PROTEIN Negative Normal NEGATIVE/ TRACE [facility] Comment on above: Performed By: #### B MP #### [facility] [address] [place] [address] Desmond Hammonds UR MICRO IND INDICATED Normal [facility] Comment on above: Performed By: #### B MP #### [facility] [address] [place] [address] Desmond Hammonds Urobilinogen Qn (U) 0.2 {Sanchez'U}/dL Normal 0.2 - 1. 0 [facility] Comment on above: Performed By: #### B MP #### [facility] [address] [place] [address] Desmond Hammonds URINE MICROSCOPIC ONLYon BACTERIA TRACE Abnormal NONE SEEN [facility] Comment on above: Performed By: #### B MP #### [facility] [address] [place] [address] Desmond Hammonds Bacteria identified Cx Nom (U) NOT INDICATED Normal [facility] Comment on above: Performed By: #### B MP #### [facility] [address] [place] [address] Desmond Nasra CAST NONE SEEN Normal NONE SEEN [facility] Comment on above: Performed By: #### B MP #### [facility] [address] [place] [address] Desmond Nasra Crystals LM Nom (Urine sed) NONE SEEN Normal NONE SEEN [facility] Comment on above: Performed By: #### B MP #### [facility] [address] [place] [id number] Desmond Nasra Epithelial cells LM Ql (Urine sed) NONE SEEN Normal NONE SEEN /RARE [facility] Comment on above: Performed By: #### B MP #### [facility] [address] [place], [place] [address] Desmond Nasra MUCOUS NONE SEEN Normal NONE SEEN [facility] Comment on above: Performed By: #### B MP #### [facility] [address] [place] [address] Desmond Nasra RBC 0-2 Normal 0-2 [facility] Comment on above: Performed By: #### B MP #### [facility] [address] [place] [address] Desmond Nasra WBC 2-5 Abnormal NONE SEEN [facility] Comment on above: Performed By: #### B MP #### [facility] [address] [place] [address] Desmond Nasra YEAST PRESENT Abnormal NONE SEEN [facility] Comment on above: Performed By: #### B MP #### [facility] [address] [place] [id number] Desmond Nasra XR CHEST 2 Von 12-28-2020 [...] MAUREEN RODGERS Date: 2020-12-28 13:38 Normal [facility] CBC W MANUAL DIFFon 12-28-19 21 ATYPICAL LYMPH # 0.79 103/ul Normal The [facility] Comment on above: Performed By: #### B MP #### [facility] [address] [place] [address] Desmond Nasra ATYPICAL LYMPH % 4 % Normal [facility] Comment on above: Performed By: #### B MP #### [facility] [address] [place] [address] Desmond Nasra BAND # Normal 0.0-0.3 [facility] Comment on above: Performed By: #### B MP #### [facility] [address] [place] [address] Desmond Nasra BAND % Normal 0-5 [facility] Comment on above: Performed By: #### B MP #### [facility] [address] [place] [address] Desmond Nasra BASOM # 0.00 103/ul Normal 0.00-0.10 [facility] Comment on above: Performed By: #### B MP #### [facility] [address] [place] [address] Desmond Nasra BASOM % 0.0 % Critically low 0.2-2.0 [facility] Comment on above: Performed By: #### B MP #### [facility] [address] [place] [address] Desmond Nasra BLAST # Normal [facility] Comment on above: Performed By: #### B MP #### [facility] [address] [place] [address] Desmond Nasra BLAST % Normal [facility] Comment on above: Performed By: #### B MP #### [facility] [address] [place] [address] Desmond Nasra CORRECTED WBC Normal 4.0-11.0 [facility] Comment on above: Performed By: #### B MP #### [facility] [address] [place] [address] Desmond Nasra EOS # 0.00 103/ul Normal 0.00-0.70 [facility] Comment on above: Performed By: #### B MP #### [facility] [address] [place] [address] Desmond Nasra EOS% 0.0 % Critically low 0.9-7.0 [facility] Comment on above: Performed By: #### B MP #### [facility] [address] [place] [address] Desmond Nasra HCT 33.6 % Critically low 42.0-54.0 [facility] Comment on above: Performed By: #### B MP #### [facility] [address] [place] [address] Desmondraúl Hammonds HGB 10.4 g/dl Critically low 14.0-18.0 [facility] Comment on above: Performed By: #### B MP #### [facility] [address] [place] [address] Desmondraúl Mathiasen LYMPHM # 2.57 103/ul Normal 1.20-3.80 [facility] Comment on above: Performed By: #### B MP #### [facility] [address] [place] [address] Desmond Nasra LYMPHM% 13.0 % Critically low 20.5-60.0 [facility] Comment on above: Performed By: #### B MP #### [facility] [address] [place] [address] Desmond Nasra MCH 28.2 pg Normal 25.9-34.0 [facility] Comment on above: Performed By: #### B MP #### [facility] [address] [place] [address] Desmondraúl Hammonds MCHC 31.0 g/dl Normal 29.9-35.2 [facility] Comment on above: Performed By: #### B MP #### [facility] [address] [place] [address] Desmondraúl Mathiasen MCV 91.1 fL Normal 80.0-94.0 [facility] Comment on above: Performed By: #### B MP #### [facility] [address] [place], [place] [id number] Desmond Nasra METAMYELOCYTE # Normal [facility] Comment on above: Performed By: #### B MP #### [facility] [address] [place], [place] [id number] Desmond Nasra METAMYELOCYTE % Normal [facility] Comment on above: Performed By: #### B MP #### [facility] [address] [place] [id number] Desmond Hammonds MONOM# 2.18 103/ul Critically high 0.30-0.80 [facility] Comment on above: Performed By: #### B MP #### [facility] [address] [place], [place] [id number] Desmond Hammonds MONOM% 11.0 % Normal 1.7-12.0 [facility] Comment on above: Performed By: #### B MP #### [facility] [address] [address] Desmond Nasra MPV 9.9 fL Normal 9.5-13.5 [facility] Comment on above: Performed By: #### B MP #### [facility] [address] [place] [address] Desmond Nasra MYELOCYTE # Normal [facility] Comment on above: Performed By: #### B MP #### [facility] [address] [place] [address] Desmond Nasra MYELOCYTE % Normal [facility] Comment on above: Performed By: #### B MP #### [facility] [address] [place], [place] [id number] Desmond Nasra NRBC Normal [facility] Comment on above: Performed By: #### B MP #### [facility] [address] [place], [place] [id number] Desmond Nasra PLT 315 103/ul Normal 150-450 [facility] Comment on above: Performed By: #### B MP #### [facility] [address] [place], [place] [id number] Desmond Nasra RBC 3.69 106/ul Critically low 4.70-6.10 The [facility] Comment on above: Performed By: #### B MP #### [facility] [address] [place], [place] [id number] Desmond Nasra RDW 15.0 % Normal 11.0-15.0 [facility] Comment on above: Performed By: #### B MP #### [facility] [address] [place] [address] Desmond Nasra SEG # 14.26 103/ul Critically high 1.40-6.[address] [facility] Comment on above: Performed By: #### B MP #### [facility] [address] [place], [place] [address] Desmond Hammonds SEG % 72.0 % Normal 43.0-75.0 [facility] Comment on above: Performed By: #### B MP #### [facility] [address] [place], [place] [address] Desmond Hammonds WBC 19.8 103/ul Critically high 4.0-11.0 [facility] Comment on above: Performed By: #### B MP #### [facility] [address] [place], [place] [address] ABD/PELV W CONon 12-28-19 [...] VLADISLAV SHIN Date: 2020-12-27 20:35 Normal [facility] CULTURE SPUTUMon 12-27-2020 CULTURE SPUTUM Isolate 1 Hoa albicans Light growth of Normal [facility] Comment on above: Performed By: #### S PUTCX #### [facility] [address] [place] [address] Desmond Nasra PROF CHEM 8 (BAS METB)on Anion gap [Moles/Vol] 7.6 mmol/L Normal [facility] Comment on above: Performed By: #### B MP #### [facility] [address] [place] [address] Desmond Nasra Calcium [Mass/Vol] 8.2 mg/dL Critically low 8.4-10.2 Th [facility] Comment on above: Performed By: #### B MP #### [facility] [address] [place] [address] Desmond Nasra Chloride [Moles/Vol] 109 mmol/L Critically high 98-107 [facility] Comment on above: Performed By: #### B MP #### [facility] [address] [place] [address] Desmond Nasra CO2 [Moles/Vol] 29.1 mmol/L Normal 22.0-30.0 The [facility] Comment on above: Performed By: #### B MP #### [facility] [address] [place] [address] Desmond Nasra Creatinine [Mass/Vol] 0.72 mg/dL Normal 0.66-1.25 [facility] Comment on above: Performed By: #### B MP #### [facility] [address] [place], [place] [address] Desmond Nasra EGFR-AF ANGUILLAN >60 Normal >=60 The [facility] Comment on above: Performed By: #### B MP #### [facility] [address] [place], [place] [address] Desmond Nasra EGFR-NON AF ANGUILLAN >60 Normal >=60 [facility] Comment on above: Performed By: #### B MP #### [facility] [address] [id number] Desmond Nasra Glucose [Mass/Vol] 132 mg/dL Critically high 74-106 T [facility] Comment on above: Performed By: #### B MP #### [facility] [address] [place], [place] [address] Desmond Nasra Potassium [Moles/Vol] 3.7 mmol/L Normal 3.4-5.0 [facility] Comment on above: Performed By: #### B MP #### [facility] [address] [place] [address] Desmond Nasra Sodium [Moles/Vol] 142 mmol/L Normal 137-145 [facility] Comment on above: Performed By: #### B MP #### [facility] [address] [place], [place] [id number] Desmond Nasra Urea nitrogen [Mass/Vol] 28.0 mg/dL Critically high 9.0-20.0 [facility] Comment on above: Performed By: #### B MP #### [facility] [address] [id number] Desmond Nasra Urea nitrogen/Creatinine [Mass ratio] 38.9 mg/mg Normal [facility] Comment on above: Performed By: #### B MP #### [facility] [address] [place], [place] [address] Desmond Nasra CBC W MANUAL DIFFon 12-27-19 21 ATYPICAL LYMPH # 0.30 103/ul Normal [facility] Comment on above: Performed By: #### B MP #### [facility] [address] [place], [place] [address] Desmond Nasra ATYPICAL LYMPH % 2 % Normal The [facility] Comment on above: Performed By: #### B MP #### [facility] [address] [address] Desmond Nasra BAND # 0.3 103/ul Normal 0.0-0.3 [facility] Comment on above: Performed By: #### B MP #### [facility] [address] [place] [address] Desmond Nasra BAND % 2 % Normal 0-5 [facility] Comment on above: Performed By: #### B MP #### [facility] [address] [place] [address] Desmond Nasra BASOM # 0.00 103/ul Normal 0.00-0.10 [facility] Comment on above: Performed By: #### B MP #### [facility] [address] [place] [address] Desmond Nasra BASOM % 0.0 % Critically low 0.2-2.0 The [facility] Comment on above: Performed By: #### B MP #### [facility] [address] [place] [address] Desmond Nasra BLAST # Normal [facility] Comment on above: Performed By: #### B MP #### [facility] [address] [place] [address] Desmond Nasra BLAST % Normal [facility] Comment on above: Performed By: #### B MP #### [facility] [address] [place] [address] Desmond Nasra CORRECTED WBC Normal 4.0-11.0 [facility] Comment on above: Performed By: #### B MP #### [facility] [address] [place] [address] Desmond Nasra EOS # 0.15 103/ul Normal 0.00-0.70 [facility] Comment on above: Performed By: #### B MP #### [facility] [address] [place] [address] Desmond Nasra EOS% 1.0 % Normal 0.9-7.0 [facility] Comment on above: Performed By: #### B MP #### [facility] [address] [id number] Desmond Nasra HCT 32.5 % Critically low 42.0-54.0 The [facility] Comment on above: Performed By: #### B MP #### [facility] [address] [address] Desmond Nasra HGB 9.9 g/dl Critically low 14.0-18.0 The [facility] Comment on above: Performed By: #### B MP #### [facility] [address] [address] Desmond Nasra LYMPHM # 1.96 103/ul Normal 1.20-3.80 [facility] Comment on above: Performed By: #### B MP #### [facility] [address] [address] Desmond Nasra LYMPHM% 13.0 % Critically low 20.5-60.0 The [facility] Comment on above: Performed By: #### B MP #### [facility] [address] [address] Desmond Nasra MCH 27.7 pg Normal 25.9-34.0 [facility] Comment on above: Performed By: #### B MP #### [facility] [address] [address] Desmond Nasra MCHC 30.5 g/dl Normal 29.9-35.2 [facility] Comment on above: Performed By: #### B MP #### [facility] [address] [address] Desmond Nasra MCV 91.0 fL Normal 80.0-94.0 [facility] Comment on above: Performed By: #### B MP #### [facility] [address] [address] Desmond Nasra METAMYELOCYTE # Normal The [facility] Comment on above: Performed By: #### B MP #### [facility] [address] [id number] Desmond Nasra METAMYELOCYTE % Normal The [facility] Comment on above: Performed By: #### B MP #### [facility] [address] [id number] Desmondraúl Hammonds MONOM# 0.60 103/ul Normal 0.30-0.80 [facility] Comment on above: Performed By: #### B MP #### [facility] [address] [address] Desmond Hammonds MONOM% 4.0 % Normal 1.7-12.0 [facility] Comment on above: Performed By: #### B MP #### [facility] [address] [address] Desmond Nasra MPV 10.2 fL Normal 9.5-13.5 [facility] Comment on above: Performed By: #### B MP #### [facility] [address] [place] [address] Desmondraúl Hammonds MYELOCYTE # Normal [facility] Comment on above: Performed By: #### B MP #### [facility] [address] [place] [address] Desmond Hammonds MYELOCYTE % Normal [facility] Comment on above: Performed By: #### B MP #### [facility] [address] [place] [address] Desmond Nasra NRBC Normal [facility] Comment on above: Performed By: #### B MP #### [facility] [address] [place] [address] Desmond Mathiasen PLT 274 103/ul Normal 150-450 [facility] Comment on above: Performed By: #### B MP #### [facility] [address] [address] Desmond Nasra RBC 3.57 106/ul Critically low 4.70-6.10 The [facility] Comment on above: Performed By: #### B MP #### [facility] [address] [place], [place] [address] Desmond Nasra RDW 15.1 % Critically high 11.0-15.0 The [facility] Comment on above: Performed By: #### B MP #### [facility] [address] [place] [address] Desmond Nasra SEG # 11.78 103/ul Critically high 1.40-6.50 [facility] Comment on above: Performed By: #### B MP #### [facility] [address] [place], [place] [address] Desmond Hammonds SEG % 78.0 % Critically high 43.0-75.0 [facility] Comment on above: Performed By: #### B MP #### [facility] [address] [place], [place] [address] Desmondraúl Mathiasen WBC 15.1 103/ul Critically high 4.0-11.0 [facility] Comment on above: Performed By: #### B MP #### [facility] [address] [id number] Desmond Hammonds PROF CHEM 8 (BAS METB)on Anion gap [Moles/Vol] 9.3 mmol/L Normal [facility] Comment on above: Performed By: #### B MP #### [facility] [address] [place], [place] [address] Desmond Nasra Calcium [Mass/Vol] 8.2 mg/dL Critically low 8.4-10.2 [facility] Comment on above: Performed By: #### B MP #### [facility] [address] [place], [place] [address] Desmond Nasra Chloride [Moles/Vol] 110 mmol/L Critically high 98-107 [facility] Comment on above: Performed By: #### B MP #### [facility] [address] [place], [place] [address] Desmond Nasra CO2 [Moles/Vol] 30.4 mmol/L Critically high 22.0-30.0 [facility] Comment on above: Performed By: #### B MP #### [facility] [address] [place], [place] [address] Desmond Nasra Creatinine [Mass/Vol] 0.84 mg/dL Normal 0.66-1.25 [facility] Comment on above: Performed By: #### B MP #### [facility] [address] [place], [place] [address] Desmond Nasra EGFR-AF ANGUILLAN >60 Normal >=60 [facility] Comment on above: Performed By: #### B MP #### [facility] [address] [place], [place] [address] Desmond Nasar EGFR-NON AF ANGUILLAN >60 Normal >=60 [facility] Comment on above: Performed By: #### B MP #### [facility] [address] [id number] Desmond Nasra Glucose [Mass/Vol] 172 mg/dL Critically high 74-106 [facility] [place] [facility] Comment on above: Performed By: #### B MP #### [facility] [address] [address] Desmond Nasra Potassium [Moles/Vol] 3.7 mmol/L Normal 3.4-5.0 [facility] Comment on above: Performed By: #### B MP #### [facility] [address] [place] [address] Desmond Nasra Sodium [Moles/Vol] 146 mmol/L Critically high 137-145 [facility] [place] [facility] Comment on above: Performed By: #### B MP #### [facility] [address] [place] [address] Desmond Nasra Urea nitrogen [Mass/Vol] 33.0 mg/dL Critically high 9.0-20.0 [facility] Comment on above: Performed By: #### B MP #### [facility] [address] [place], [place] [address] Desmond Nasra Urea nitrogen/Creatinine [Mass ratio] 39.3 mg/mg Normal [facility] Comment on above: Performed By: #### B MP #### [facility] [address] [place], [place] [address] Desmond Nasra CBC AUTO DIFFon 12-25-2020 BASO # 0.0 103/ul Normal 0.0-0.1 [facility] Comment on above: Performed By: #### B MP #### [facility] [address] [place], [place] [address] Desmond Nasra Basophils/100 WBC (Bld) 0.3 % Normal 0.2-2.0 [facility] Comment on above: Performed By: #### B MP #### [facility] [address] [id number] Desmond Nasra EO # 0.0 103/ul Normal 0.0-0.7 [facility] Comment on above: Performed By: #### B MP #### [facility] [address] [id number] Desmond Nasra Eosinophils/100 WBC (Bld) 0.0 % Critically low 0.9-7.0 [facility] Comment on above: Performed By: #### B MP #### [facility] [address] [place] [address] Desmond Nasra Erythrocyte distribution width (RBC) [Ratio] 14.6 % Normal 11.0-15.0 [facility] Comment on above: Performed By: #### B MP #### [facility] [address] [place] [address] Desmond Nasra Hematocrit (Bld) [Volume fraction] 32.5 % Critically low 42.0-54.0 [facility] Comment on above: Performed By: #### B MP #### [facility] [address] [place], [place] [address] Desmond Nasra Hemoglobin (Bld) [Mass/Vol] 10.4 g/dL Critically low 14.0-18.0 [facility] Comment on above: Performed By: #### B MP #### [facility] [address] [place], [place] [address] Desmond Nasra IG # 0.26 10e3/ul Critically high 0.00-0.[address] [facility] Comment on above: Performed By: #### B MP #### [facility] [address] [address] Desmond Nasra IG % 2.3 % Critically high 0.0-0.5 The [facility] Comment on above: Performed By: #### B MP #### [facility] [address] [place], [place] [address] Desmond Nasra LYMPH # 0.4 103/ul Critically low 1.2-3.8 The [facility] Comment on above: Performed By: #### B MP #### [facility] [address] [place], [place] [address] Desmond Nasra Lymphocytes/100 WBC (Bld) 3.4 % Critically low 20.5-60.0 [facility] Comment on above: Performed By: #### B MP #### [facility] [address] [place], [place] [address] Desmond Nasra MANUAL DIFF REQ NO Normal The [facility] Comment on above: Performed By: #### B MP #### [facility] [address] [place], [place] [address] Desmond Nasra MCH (RBC) [Entitic mass] 28.3 pg Normal 25.9-34.0 [facility] Comment on above: Performed By: #### B MP #### [facility] [address] [place] [address] Desmondraúl Mathiasen MCHC (RBC) [Mass/Vol] 32.0 g/dL Normal 29.9-35.2 [facility] Comment on above: Performed By: #### B MP #### [facility] [address] [place], [place] [address] Desmond Nasra MCV (RBC) [Entitic vol] 88.3 fL Normal 80.0-94.0 [facility] Comment on above: Performed By: #### B MP #### [facility] [address] [place], [place] [address] Desmond Nasra MONO # 0.8 103/ul Normal 0.3-0.8 [facility] Comment on above: Performed By: #### B MP #### [facility] [address] [place], [place] [address] Desmond Nasra Monocytes/100 WBC (Bld) 6.6 % Normal 1.7-12.0 [facility] Comment on above: Performed By: #### B MP #### [facility] [address] [place], [place] [address] Desmond Nasra NEUT # 9.9 103/ul Critically high 1.4-6.5 The [facility] Comment on above: Performed By: #### B MP #### [facility] [address] [place], [place] [address] Desmond Hammonds Neutrophils/100 WBC (Bld) 87.4 % Critically high 43.0-75.0 [facility] Comment on above: Performed By: #### B MP #### [facility] [address] [place], [place] [address] Desmond Hammonds Platelet mean volume (Bld) [Entitic vol] 10.3 fL Normal 9.5-13.5 [facility] Comment on above: Performed By: #### B MP #### [facility] [address] [place] [address] Desmond Hammonds PLT 223 103/ul Normal 150-450 [facility] Comment on above: Performed By: #### B MP #### [facility] [address] [place] [address] Desmond Hammonds RBC 3.68 106/ul Critically low 4.70-6.10 The [facility] Comment on above: Performed By: #### B MP #### [facility] [address] [place], [place] [address] Desmond Hammonds WBC 11.3 103/ul Critically high 4.0-11.0 [facility] Comment on above: Performed By: #### B MP #### [facility] [address] [place], [place] [address] Desmond Hammonds POINT OF CARE GLUCOSEon 12-12 Glucose [Mass/Vol] 156 mg/dL Critically high 74-106 T [facility] Comment on above: Performed By: #### B MP #### [facility] [address] [place], [place] [address] Desmond Hammonds PROF CHEM 8 (BAS METB)on Anion gap [Moles/Vol] 8.5 mmol/L Normal [facility] Comment on above: Performed By: #### B MP #### [facility] [address] [place], [place] [address] Desmond Hammonds Calcium [Mass/Vol] 8.6 mg/dL Normal 8.4-10.2 [facility] Comment on above: Performed By: #### B MP #### [facility] [address] [place], [place] [address] Desmond Nasra Chloride [Moles/Vol] 107 mmol/L Normal 98-107 [facility] Comment on above: Performed By: #### B MP #### [facility] [address] [address] Desmond Nasra CO2 [Moles/Vol] 29.2 mmol/L Normal 22.0-30.0 [facility] Comment on above: Performed By: #### B MP #### [facility] [address] [address] Desmond Nsara Creatinine [Mass/Vol] 0.92 mg/dL Normal 0.66-1.25 [facility] Comment on above: Performed By: #### B MP #### [facility] [address] [address] Desmond Nasra EGFR-AF ANGUILLAN >60 Normal >=60 The [facility] Comment on above: Performed By: #### B MP #### [facility] [address] [address] Desmond Nasra EGFR-NON AF ANGUILLAN >60 Normal >=60 [facility] Comment on above: Performed By: #### B MP #### [facility] [address] [address] Desmond Nasra Glucose [Mass/Vol] 176 mg/dL Critically high 74-106 [facility] [place] [facility] Comment on above: Performed By: #### B MP #### [facility] [address] [address] Desmond Nasra Potassium [Moles/Vol] 3.7 mmol/L Normal 3.4-5.0 [facility] Comment on above: Performed By: #### B MP #### [facility] [address] [address] Desmond Nasra Sodium [Moles/Vol] 141 mmol/L Normal 137-145 [facility] Comment on above: Performed By: #### B MP #### [facility] [address] [address] Desmond Nasra Urea nitrogen [Mass/Vol] 30.0 mg/dL Critically high 9.0-20.0 [facility] Comment on above: Performed By: #### B MP #### [facility] [address] [place], [place] [address] Desmond Hammonds Urea nitrogen/Creatinine [Mass ratio] 32.6 mg/mg Normal [facility] Comment on above: Performed By: #### B MP #### [facility] [address] [place], [place] [address] Desmondraúl Hammonds BLOOD GASES BTYon 12-24-2020 02 MODE VENTILATOR Normal [facility] Comment on above: Performed By: #### A BG ####[facility] [address] [id number] Nasra ALLENS TEST Positive Normal [facility] Comment on above: Performed By: #### A BG ####[facility] [address] [id number] Nasra Base excess Calc (Bld) [Moles/Vol] -2.5000 mmol/L Critically low -2.0-2.0 [facility] Comment on above: Performed By: #### A BG ####[facility] [address] [place], [place] [address]Gerken Nasra BIPAP PRESSURE Normal [facility] Comment on above: Performed By: #### A BG ####[facility] [address] [place], [place] [address]Gerken Nasra CO2 [Moles/Vol] 23.4 mmol/L Normal 23.0-28.0 [facility] Comment on above: Performed By: #### A BG ####[facility] [address] [place], [place] [id number] Nasra CPAP Normal [facility] Comment on above: Performed By: #### A BG ####[facility] [address] [place], [place] [address]Gerken Nasra FIO2 60.00 % Normal [facility] Comment on above: Performed By: #### A BG ####[facility] [address] [place], [place] [address]Gerken Nasra HCO3 (Bld) [Moles/Vol] 22.2 mmol/L Normal 22.0-26.0 [facility] Comment on above: Performed By: #### A BG ####[facility] [address] Nasra LPM Normal [facility] Comment on above: Performed By: #### A BG ####[facility] [address] Nasra MINUTE VOLUME Normal [facility] Comment on above: Performed By: #### A BG ####[facility] [address] Nasra Oxygen (Bld) [Partial pressure] 91.3 mm[Hg] Normal 80.0-100.0 [facility] Comment on above: Performed By: #### A BG ####[facility] [address] [place] [address] Nasra Oxygen saturation in Blood 97.1 % Normal 95.0-100.0 [facility] Comment on above: Performed By: #### A BG ####[facility] [address] [place] [address] Nasra PCO2 37.8 mmHg Normal 35.0-45.0 [facility] Comment on above: Performed By: #### A BG ####[facility] [address] [place] [address] Nasra PEEP 5 Normal [facility] Comment on above: Performed By: #### A BG ####[facility] [address] [place] [address] [place] pH (Bld) 7.387 [pH] Normal 7.350-7.450 [facility] Comment on above: Performed By: #### A BG ####[facility] [address] [place] [address] Nas[place] PIP Normal [facility] Comment on above: Performed By: #### A BG ####[facility] Axbdufksw[address] Nas[place] PS Normal [facility] Comment on above: Performed By: #### A BG ####[facility] Gwljft[address]40[address] [place], [place] [address]Tzlfpm Nasra PUNCTURE SITE RR Normal [facility] Comment on above: Performed By: #### A BG ####[facility] [address] [place] [id number] Nasra RATE 18 bpm Normal [facility] Comment on above: Performed By: #### A BG ####[facility] [address] [place] [id number] Nasra VENT MODE a/c Normal [facility] Comment on above: Performed By: #### A BG ####[facility] [address] [place] [address]Ger[place] [address] ML Normal [facility] Comment on above: Performed By: #### A BG ####[facility] [address] [place] [address]Ger[place] Nasra CBC W MANUAL DIFFon 12-25-19 21 ATYPICAL LYMPH # 0.00 103/ul Normal The [facility] Comment on above: Performed By: #### C SWATHI #### [facility] [address] [address] Desmond Nasra ATYPICAL LYMPH % 0 % Normal The [facility] Comment on above: Performed By: #### C SWATHI #### [facility] [address] [address] Desmond Nasra BAND # 0.2 103/ul Normal 0.0-0.3 [facility] Comment on above: Performed By: #### C SWATHI #### [facility] [address] [address] Desmond Nasra BAND % 2 % Normal 0-5 [facility] Comment on above: Performed By: #### C SWATHI #### [facility] [address] [address] Desmond Nasra BASOM # 0.00 103/ul Normal 0.00-0.10 [facility] Comment on above: Performed By: #### C SWATHI #### [facility] [address] [address] Desmond Nasra BASOM % 0.0 % Critically low 0.2-2.0 The [facility] Comment on above: Performed By: #### Rebel ECHEVARRIA #### [facility] [address] [place] [address] Desmond Nasra BLAST # Normal [facility] Comment on above: Performed By: #### C SWATHI #### [facility] [address] [place] [address] Desmond Nasra BLAST % Normal [facility] Comment on above: Performed By: #### C SWATHI #### [facility] [address] [place] [address] Desmond Nasra CORRECTED WBC Normal 4.0-11.0 [facility] Comment on above: Performed By: #### C SWATHI #### [facility] [address] [place] [address] Desmond Nasra EOS # 0.00 103/ul Normal 0.00-0.70 [facility] Comment on above: Performed By: #### Rebel ECHEVARRIA #### [facility] [address] [place] [address] Desmond Nasra EOS% 0.0 % Critically low 0.9-7.0 The [facility] Comment on above: Performed By: #### Rebel ECHEVARRIA #### [facility] [address] [place] [address] Desmond Nasra HCT 32.0 % Critically low 42.0-54.0 The [facility] Comment on above: Performed By: #### Rebel ECHEVARRIA #### [facility] [address] [place] [address] Desmond Nasra HGB 10.2 g/dl Critically low 14.0-18.0 The [facility] Comment on above: Performed By: #### Rebel ECHEVARRIA #### [facility] [address] [place] [address] Desmond Nasra HYPOCHROMASIA SLIGHT Normal [facility] Comment on above: Performed By: #### Rebel ECHEVARRIA #### [facility] [address] [place] [address] Desmond Nasra LYMPHM # 0.23 103/ul Critically low 1.20-3.80 [facility] Comment on above: Performed By: #### C SWATHI #### [facility] [address] [place], [place] [id number] Desmond Nasra LYMPHM% 2.0 % Critically low 20.5-60.0 [facility] Comment on above: Performed By: #### C SWATHI #### [facility] [address] [place] [address] Desmond Nasra MCH 27.8 pg Normal 25.9-34.0 [facility] Comment on above: Performed By: #### C SWATHI #### [facility] [address] [place] [address] Desmond Nasra MCHC 31.9 g/dl Normal 29.9-35.2 [facility] Comment on above: Performed By: #### C WSATHI #### [facility] [address] [place] [address] Desmond Nasra MCV 87.2 fL Normal 80.0-94.0 [facility] Comment on above: Performed By: #### Rebel ECHEVARRIA #### [facility] [address] [place] [address] Desmond Nasra METAMYELOCYTE # Normal The [facility] Comment on above: Performed By: #### C SWATHI #### [facility] [address] [place] [address] Desmond Nasra METAMYELOCYTE % Normal [facility] Comment on above: Performed By: #### Rebel ECHEVARRIA #### [facility] [address] [place] [address] Desmond Nasra MONOM# 0.23 103/ul Critically low 0.30-0.80 [facility] Comment on above: Performed By: #### Rebel ECHEVARRIA #### [facility] [address] [place] [address] Desmond Nasra MONOM% 2.0 % Normal 1.7-12.0 [facility] Comment on above: Performed By: #### Rebel ECHEVARRIA #### [facility] [address] [place] [address] Desmond Nasra MPV 10.8 fL Normal 9.5-13.5 [facility] Comment on above: Performed By: #### C SWATHI #### [facility] [address] [id number] Desmond Mathiasen MYELOCYTE # Normal [facility] Comment on above: Performed By: #### C SWATHI #### [facility] [address] [id number] Desmondraúl Mathiasen MYELOCYTE % Normal [facility] Comment on above: Performed By: #### C SWATHI #### [facility] [address] [place], [place] [id number] Desmond Nasra NRBC Normal [facility] Comment on above: Performed By: #### C SWATHI #### [facility] [address] [place], [place] [address] Desmond Mathiasen PLT 222 103/ul Normal 150-450 [facility] Comment on above: Performed By: #### Rebel ECHEVARRIA #### [facility] [address] [address] Desmond Nasra RBC 3.67 106/ul Critically low 4.70-6.10 The [facility] Comment on above: Performed By: #### C SWATHI #### [facility] [address] [place], [place] [address] Desmond Hammonds RDW 14.1 % Normal 11.0-15.0 [facility] Comment on above: Performed By: #### Rebel ECHEVARRIA #### [facility] [address] [place], [place] [address] Desmond Nasra SEG # 11.00 103/ul Critically high 1.40-6.50 [facility] Comment on above: Performed By: #### C SWATHI #### [facility] [address] [id number] Desmond Nasra SEG % 94.0 % Critically high 43.0-75.0 The [facility] Comment on above: Performed By: #### C SWATHI #### [facility] [address] [id number] Desmond Nasra WBC 11.7 103/ul Critically high 4.0-11.0 The [facility] Comment on above: Performed By: #### C BCMAN #### [facility] [address] [place], [place] [address] Desmond Hammonds PROF CHEM 8 (BAS METB)on Anion gap [Moles/Vol] 14.1 mmol/L Normal [facility] Comment on above: Performed By: #### B MP ####[facility] Spcvtqxnac2469 [place], [place] [address]Acvbzo Nasra Calcium [Mass/Vol] 8.5 mg/dL Normal 8.4-10.2 [facility] Comment on above: Performed By: #### B MP ####[facility] Qxweranlju2143 [place], [place] [address]Vkucxm [place] Chloride [Moles/Vol] 97 mmol/L Critically low 98-107 [facility] Comment on above: Performed By: #### B MP ####[facility] Ikteersnrd3672 [place], [place] [address]Lovjuf Nasra CO2 [Moles/Vol] 23.7 mmol/L Normal 22.0-30.0 [facility] Comment on above: Performed By: #### B MP ####[facility] Fqthglegai2629 [place], [place] [address]Bxsdnw Nas[place] Creatinine [Mass/Vol] 1.19 mg/dL Normal 0.66-1.25 [facility] Comment on above: Performed By: #### B MP ####[facility] K[address]yzhwiag7061 [place], [place] [address]Lfcpfs Nasra EGFR-AF ANGUILLAN >60 Normal >=60 [facility] Comment on above: Performed By: #### B MP ####[facility] Aiopwbjkcf5842 [place], [place] [address]Odpdqv Nasra EGFR-NON AF ANGUILLAN 59 mL/min/1.73m2 Critically low >=60 [facility] Comment on above: Performed By: #### B MP ####[facility] Szqlepkock1844 [place], [place] [address]Rvgoth Nas[place] Glucose [Mass/Vol] 214 mg/dL Critically high 74-106 [facility] Comment on above: Performed By: #### B MP ####[facility] [address]fooqj[address] [place], [place] [address]Clhjsv Nas[place] Potassium [Moles/Vol] 3.8 mmol/L Normal 3.4-5.0 [facility] Comment on above: Performed By: #### B MP ####[facility] Earwihjagg6660 [place], [place] [address]Gefvqx Nas[place] Sodium [Moles/Vol] 131 mmol/L Critically low 137-145 [facility] Comment on above: Performed By: #### B MP ####[facility] Pyltruudvr5039 [place], [place] [address]Vaybaz [place] Urea nitrogen [Mass/Vol] 32.0 mg/dL Critically high 9.0-20.0 [facility] Comment on above: Performed By: #### B MP ####[facility] Jwsackkjmj9126 [place], [place] [address]Uopgec Nas[place] Urea nitrogen/Creatinine [Mass ratio] 26.9 mg/mg Normal [facility] Comment on above: Performed By: #### B MP ####[facility] Xltwrhydxo9340 [place], [place] [address]Xuokml Karen XR CHEST 1 Von 12-24-2020 XR CHEST [...] by: MAUREEN RODGERS Date: 2020-12-24 09:09 Normal [facility] BLOOD GASES BTYon 12-23-2020 02 MODE VENTILATOR Normal [facility] Comment on above: Performed By: #### A BG ####[facility] Oqlgiuwdih[address] [place] ALLENS TEST Positive Normal [facility] Comment on above: Performed By: #### A BG ####[facility] Prbrvhrvhg2954 [address] [place] Base excess Calc (Bld) [Moles/Vol] -2.6000 mmol/L Critically low -2.0-2.0 [facility] Comment on above: Performed By: #### A BG ####[facility] Qxzinjclrb[address]01 [address] [place] BIPAP PRESSURE Normal The [facility] Comment on above: Performed By: #### A BG ####[facility] [address] [place] [address] [place] CO2 [Moles/Vol] 27.6 mmol/L Normal 23.0-28.0 The [facility] Comment on above: Performed By: #### A BG ####[facility] [address] [place] [address] [place] CPAP Normal [facility] Comment on above: Performed By: #### A BG ####[facility] Fvclepkwrv2297 [address] [place] FIO2 100.00 % Normal [facility] Comment on above: Performed By: #### A BG ####[facility] Idzugrsvvu7151 [address] [place] HCO3 (Bld) [Moles/Vol] 25.7 mmol/L Normal 22.0-26.0 [facility] Comment on above: Performed By: #### A BG ####[facility] [address] [place] [address] [place] LPM Normal [facility] Comment on above: Performed By: #### A BG ####[facility] [address] [place] [address] [place] MINUTE VOLUME Normal [facility] Comment on above: Performed By: #### A BG ####[facility] Juofuncuhi[address]97 [address] [place] Oxygen (Bld) [Partial pressure] 195.1 mm[Hg] Critically high 80.0-100.0 [facility] Comment on above: Performed By: #### A BG ####[facility] [address] [place] [address] [place] Oxygen saturation in Blood 99.4 % Normal 95.0-100.0 [facility] Comment on above: Performed By: #### A BG ####[facility] [address]qxb[address] [place] [address] [place] PCO2 61.3 mmHg Critically high 35.0-45.0 The [facility] Comment on above: Performed By: #### A BG ####[facility] [address]ksf[address] [place] [address] [place] PEEP 5 Normal [facility] Comment on above: Performed By: #### A BG ####[facility] [address]qw[address] [place] [address] [place] pH (Bld) 7.241 [pH] Critically low 7.350-7.450 The [facility] Comment on above: Performed By: #### A BG ####[facility] [address]wo[address] [place] [address] Nas[place] PIP Normal [facility] Comment on above: Performed By: #### A BG ####[facility] X[address]bv[address]jx[address] [place] [address] [place] PS Normal [facility] Comment on above: Performed By: #### A BG ####[facility] [address]sek[address] [place] [address] [place] PUNCTURE SITE RR Normal [facility] Comment on above: Performed By: #### A BG ####[facility] [address]ro[address] [place] [address] [place] RATE 12 bpm Normal [facility] Comment on above: Performed By: #### A BG ####[facility] Pityidutvh[address] [place] VENT MODE ac Normal [facility] Comment on above: Performed By: #### A BG ####[facility] Bslohcxjgm4[address] [place] [address] ML Normal [facility] Comment on above: Performed By: #### A BG ####[facility] Kiwwbxmoyi5213 [address] [place] BNPon 12-23-2020 Natriuretic peptide B (Bld) [Mass/Vol] 762.0 pg/mL Normal <=1,800.0 [facility] Comment on above: Performed By: #### B EPITAXIAL REACTOR TECHNICIAN ####[facility] [address] [place] [address] [place] CARDIAC LAURA ADMITon 021 CK [Catalytic activity/Vol] 311 U/L Critically high 55-170 [facility] Comment on above: Result Comment: Test Repeated. Critical Value Verified Performed By: #### C ENIO, RAJI ####[facility] H[address]uhz[address]yw[address] [place] CK.MB [Mass/Vol] 1.60 ng/mL Normal <=2.37 The [facility] Comment on above: Performed By: #### C ENIO, CMADM ####[facility] [address] [place] [address] [place] HSTROP 23.5 pg/mL Normal 4.0-42.2 [facility] Comment on above: Result Comment: CUT- OFF POINTS HAVE BEEN ESTABLISHED BASED ON THE FOURTH UNIVERSAL DEFINITIONS OF MYOCARDIAL INFARCTION. THE UPPER REFERENCE LIMIT (URL) OF TROPONIN, DEFINED THE 99TH PERCENTILE OF cTnI DISTRIBUTION IN A REFERENCE POPULATION, HAS BEEN CONFIRMED THE DECISION THRESHOLD FOR CO DIAGNOSIS. Performed By: #### C ENIO, CMADM ####[facility] [address] [place] [address] [place] ELDA 294.0 ng/mL Critically high <=121.0 The [facility] Comment on above: Result Comment: Test Repeated. Critical Value Verified Performed By: #### C MP, CMADM ####[facility] [address] [place] [id number] Nasra CBC W MANUAL DIFFon 12-24-19 21 ATYPICAL LYMPH # Normal [facility] Comment on above: Performed By: #### B MP #### [facility] [address] [address] Desmond Nasra ATYPICAL LYMPH % Normal [facility] Comment on above: Performed By: #### B MP #### [facility] [address] [address] Desmond Nasra BAND # 0.5 103/ul Critically high 0.0-0.3 The [facility] Comment on above: Performed By: #### B MP #### [facility] [address] [address] Desmond Nasra BAND % 3 % Normal 0-5 [facility] Comment on above: Performed By: #### B MP #### [facility] [address] [address] Desmond Nasra BASOM # 0.00 103/ul Normal 0.00-0.10 [facility] Comment on above: Performed By: #### B MP #### [facility] [address] [address] Desmond Nasra BASOM % 0.0 % Critically low 0.2-2.0 The [facility] Comment on above: Performed By: #### B MP #### [facility] [address] [place] [address] Desmond Nasra BLAST # Normal [facility] Comment on above: Performed By: #### B MP #### [facility] [address] [place] [address] Desmond Nasra BLAST % Normal [facility] Comment on above: Performed By: #### B MP #### [facility] [address] [place] [address] Desmond Nasra CORRECTED WBC Normal 4.0-11.0 [facility] Comment on above: Performed By: #### B MP #### [facility] [address] [place] [address] Desmondraúl Mathiasen EOS # 0.15 103/ul Normal 0.00-0.70 [facility] Comment on above: Performed By: #### B MP #### [facility] [address] [place] [address] Desmond Hammonds EOS% 1.0 % Normal 0.9-7.0 [facility] Comment on above: Performed By: #### B MP #### [facility] [address] [place] [address] Desmond Nasra HCT 36.2 % Critically low 42.0-54.0 [facility] Comment on above: Performed By: #### B MP #### [facility] [address] [place] [address] Desmond Mathiasen HGB 11.7 g/dl Critically low 14.0-18.0 [facility] Comment on above: Performed By: #### B MP #### [facility] [address] [place] [address] Desmond Hammonds LYMPHM # 0.62 103/ul Critically low 1.20-3.80 The [facility] Comment on above: Performed By: #### B MP #### [facility] [address] [place] [address] Desmond Hammonds LYMPHM% 4.0 % Critically low 20.5-60.0 [facility] Comment on above: Performed By: #### B MP #### [facility] [address] [place] [address] Desmond Mathiasen MCH 28.3 pg Normal 25.9-34.0 [facility] Comment on above: Performed By: #### B MP #### [facility] [address] [place] [address] Desmondraúl Mathiasen MCHC 32.3 g/dl Normal 29.9-35.2 [facility] Comment on above: Performed By: #### B MP #### [facility] [address] [place] [address] Desmond Nasra MCV 87.7 fL Normal 80.0-94.0 [facility] Comment on above: Performed By: #### B MP #### [facility] [address] [address] Desmond Nasra METAMYELOCYTE # Normal The [facility] Comment on above: Performed By: #### B MP #### [facility] [address] [place] [address] Desmond Nasra METAMYELOCYTE % Normal [facility] Comment on above: Performed By: #### B MP #### [facility] [address] [address] Desmond Nasra MONOM# 0.15 103/ul Critically low 0.30-0.80 The [facility] Comment on above: Performed By: #### B MP #### [facility] [address] [place] [address] Desmond Nasra MONOM% 1.0 % Critically low 1.7-12.0 [facility] Comment on above: Performed By: #### B MP #### [facility] [address] [place] [address] Desmond Nasra MPV 10.5 fL Normal 9.5-13.5 [facility] Comment on above: Performed By: #### B MP #### [facility] [address] [place] [address] Desmond Nasra MYELOCYTE # Normal [facility] Comment on above: Performed By: #### B MP #### [facility] [address] [place] [address] Desmond Nasra MYELOCYTE % Normal [facility] Comment on above: Performed By: #### B MP #### [facility] [address] [place] [address] Desmond Nasra NRBC Normal [facility] Comment on above: Performed By: #### B MP #### [facility] [address] [place] [address] Desmond Nasra PLT 203 103/ul Normal 150-450 [facility] Comment on above: Performed By: #### B MP #### [facility] [address] [address] Desmond Nasra RBC 4.13 106/ul Critically low 4.70-6.10 [facility] Comment on above: Performed By: #### B MP #### [facility] [address] [place], [place] [address] Desmond Hammonds RDW 14.3 % Normal 11.0-15.0 [facility] Comment on above: Performed By: #### B MP #### [facility] [address] [place], [place] [address] Desmond Mathiasen SEG # 14.11 103/ul Critically high 1.40-6.50 [facility] Comment on above: Performed By: #### B MP #### [facility] [address] [place], [place] [address] Desmond Nasra SEG % 91.0 % Critically high 43.0-75.0 The [facility] Comment on above: Performed By: #### B MP #### [facility] [address] [place], [place] [address] Desmond Nasra WBC 15.5 103/ul Critically high 4.0-11.0 [facility] Comment on above: Performed By: #### B MP #### [facility] [address] [place], [place] [address] ABD/PELV W CONon 12-24-19 [...] RUTH ANN MARTÍNEZ Date: 2020-12-23 15:32 Normal [facility] CULTURE ANAEROBICon 12-24-19 21 CULTURE ANAEROBIC Culture Observations : No growth of anaerobes at 72 hours. Normal [facility] Comment on above: Performed By: #### A NACX #### [facility] [address] [place] [address] Desmond Hammonds CULTURE BLOODon 12-23-2020 Microscopic examination of blood, culture Culture Observations: No growth at 5 days Normal [facility] Comment on above: Performed By: #### B LDCX1 #### [facility] [address] [place], [place] [address] Desmond Hammonds CULTURE OTHERon 12-23-2020 CULTURE OTHER Specimen Comments: Peritoneal fluid received on a culture swab. Specimen Comments: May impact the recovery of micro organisms. Culture Observations: No growth at 72 hours. Normal [facility] Comment on above: Performed By: #### O THCX ####[facility] [address] [place], [place] [address]Nfgyyw Karen LACTATE/LACTIC ACIDon 2020 Lactate [Moles/Vol] 1.0 mmol/L Normal 0.7-2.0 [facility] Comment on above: Performed By: #### B MP #### [facility] [address] [id number] Desmond Hammonds PROF 14(COMP METB)on 021 Albumin [Mass/Vol] 2.5 g/dL Critically low 3.5-5.0 Th e [facility] Comment on above: Performed By: #### C ENIO, CMADM ####[facility] [address] [place], [place] [address]Rybxro Nasra Albumin/Globulin [Mass ratio] 0.6 {ratio} Normal [facility] Comment on above: Performed By: #### C MP, CMADM ####[facility] [address] [place], [place] [address]Bmuzpx Nasra ALP [Catalytic activity/Vol] 57 U/L Normal 38-126 The [facility] [facility] Comment on above: Performed By: #### C ENIO, CMADM ####[facility] [address] [place], [place] [address]Ohjzvk Nasra ALT [Catalytic activity/Vol] 32 U/L Normal 21-72 [facility] Comment on above: Performed By: #### C ENIO, CMADM ####[facility] [address] [place], [place] [address]Iiwruf Nasra Anion gap [Moles/Vol] 10.9 mmol/L Normal [facility] Comment on above: Performed By: #### C ENIO, CMADM ####[facility] [address] [place], [place] [address]Jqihwa Nasra AST [Catalytic activity/Vol] 25 U/L Normal 17-59 [facility] Comment on above: Performed By: #### C ENIO, CMADM ####[facility] [address] [place], [place] [address]Zvmooa Nasra Bilirubin [Mass/Vol] 0.5 mg/dL Normal 0.2-1.3 [facility] Comment on above: Performed By: #### C ENIO, CMADM ####[facility] [address] [place], [place] [address]Fwduub Nasra Calcium [Mass/Vol] 9.6 mg/dL Normal 8.4-10.2 [facility] Comment on above: Performed By: #### C ENIO, CMADM ####[facility] [address] [place], [place] [address]Phsbtt Nasra Chloride [Moles/Vol] 98 mmol/L Normal 98-107 [facility] Comment on above: Performed By: #### C MP, CMADM ####[facility] [address] [place] [id number] Nasra CO2 [Moles/Vol] 27.6 mmol/L Normal 22.0-30.0 The [facility] Comment on above: Performed By: #### C MP, CMADM ####[facility] [address] [place] [id number] Nasra Creatinine [Mass/Vol] 1.16 mg/dL Normal 0.66-1.25 [facility] Comment on above: Performed By: #### C MP, CMADM ####[facility] [address] [place] [id number] Nasra EGFR-AF ANGUILLAN >60 Normal >=60 [facility] Comment on above: Performed By: #### C MP, CMADM ####[facility] [address] [place] [id number] Nasra EGFR-NON AF ANGUILLAN >60 Normal >=60 [facility] Comment on above: Performed By: #### C MP, CMADM ####[facility] [address] [place], [place] [address]Ger[address] Nasra Globulin (S) [Mass/Vol] 4.1 g/dL Normal [facility] Comment on above: Performed By: #### C MP, CMADM ####[facility] [address] [place] [id number] Nasra Glucose [Mass/Vol] 131 mg/dL Critically high 74-106 T [facility] Comment on above: Performed By: #### C MP, CMADM ####[facility] [address] [place] [id number] Nasra Potassium [Moles/Vol] 3.5 mmol/L Normal 3.4-5.0 [facility] Comment on above: Performed By: #### C MP, CMADM ####[facility] [address] [place] [id number] Nasra Protein [Mass/Vol] 6.6 g/dL Normal 6.1-8.2 [facility] Comment on above: Performed By: #### C ENIO, RAJI ####[facility] [address] Nasra Sodium [Moles/Vol] 133 mmol/L Critically low 137-145 [facility] Comment on above: Performed By: #### C ENIO, NADIADM ####[facility] [address] Nasra Urea nitrogen [Mass/Vol] 24.0 mg/dL Critically high 9.0-20.0 [facility] Comment on above: Performed By: #### C ENIO, RAJI ####[facility] [address] [place] [address] Nasra Urea nitrogen/Creatinine [Mass ratio] 20.7 mg/mg Normal [facility] Comment on above: Performed By: #### C RAJI STEEN ####[facility] [address] [place] [address] Nasra Rapid Covid-19 PCR (CVDRPD)o n 12-23-2020 SARS-CoV-2 (COVID-19) RNA BRANDAN+probe Ql (Unsp spec) Not detected Normal NOT DETECTED [facility] Comment on above: Result Comment: This test is not yet approved or cleared by the [place] Food and Drug Administration (FDA). This test was developed by [employer], [place], [place]. The performance characteristics of this test were validated by The [facility]. The results are not intended to be used as the sole means for clinical diagnosis or patient management decisions. The [facility] is authorized under Clinical Laboratory Improvement Amendments (CLIA) to perform high- complexity testing. When diagnostic testing is negative, the possibility of a false negative should be considered in the context of a patient's recent exposures and the presence of clinical signs and symptoms consistent with SARS-CoV-2. Performed By: #### C VDRPD ####[facility] [address] Nasra XR CHEST 1 Von 12-23-2020 XR [...] as clinically indicated. Electronically authenticated by: RODY SAID Date: 2020-12-23 00:42 Normal [facility] XR KUB 1 VIEWon 12-23-2020 XR [...] as clinically indicated. Electronically authenticated by: RODY SAID Date: 2020-12-23 03:22 Normal [facility] US THYROIDon 10-26-2020 US THYROID EXAMINATION: US [...] by: STAR BLANKENSHIP Date: 2020-10-26 16:32 Normal [facility] XR CHEST 2 Von 09-10-2020 XR [...] by: CHADWICK ARAMBULA Date: 2020-09-10 10:18 Normal [facility] Vital Signs Date Time Vital Sign Value Performing Clinician Facility 07-01-2024 09:20-0400 Body height 163.83 cm [facility] 07-01-2024 09:20-0400 Body mass index (BMI) [Ratio] 32.1 kg/m2 [facility] 07-01-2024 09:20-0400 Body temperature 97.9 [degF] [facility] 07-01-2024 09:20-0400 Body weight 86.18 kg [facility] 07-01-2024 09:20-0400 Diastolic blood pressure 59 mm[Hg] [facility] 07-01-2024 09:20-0400 Heart rate 87 /min [facility] 07-01-2024 09:20-0400 Respiratory rate 18 /min [facility] 07-01-2024 09:20-0400 SaO2% (BldA) [Mass fraction] 89 % [facility] 07-01-2024 09:20-0400 Systolic blood pressure 107 mm[Hg] [facility] 10-20-2023 15:38-0500 Body height 162.6 cm Ruth Ann Cruz MD Work Phone: [facility] 10-20-2023 15:38-0500 Body mass index (BMI) [Ratio] 34.5 kg/m2 Ruth Ann Cruz MD Work Phone: [facility] 10-20-2023 15:38-0500 Body weight 91.17 kg [facility] 10-20-2023 15:38-0500 Diastolic blood pressure 73 mm[Hg] [facility] 10-20-2023 15:38-0500 Systolic blood pressure 140 mm[Hg] Ruth Ann Cruz MD Work Phone: [facility] 03-11-2023 16:05-0400 Body height 172.72 cm Vicky Kee Other [facility] Other 03-11-2023 16:05-0400 Body mass index (BMI) [Ratio] 31.59 kg/m2 Vicky Kee Other [facility] Other 03-11-2023 16:05-0400 Body temperature 100 [degF] Vicky Kee Other [facility] Other 03-11-2023 16:05-0400 Body weight 94.26 kg Vicky Kee Other [facility] Other 03-11-2023 16:05-0400 Diastolic blood pressure 77 mm[Hg] Vicky Kee Other [facility] Other 03-11-2023 16:05-0400 Respiratory rate 18 /min Vicky Kee Other [facility] Other 03-11-2023 16:05-0400 SaO2% (BldA) [Mass fraction] 93 % Vicky Kee Other [facility] Other 03-11-2023 16:05-0400 Systolic blood pressure 153 mm[Hg] Vicky Kee Other [facility] [employer] Other 02-23-2022 12:32-0400 Blood Pressure Location Gerardo GARAY [facility] 02-23-2022 12:32-0400 Diastolic blood pressure 80 mm[Hg] Gerardo GARAY [facility] 02-23-2022 12:32-0400 Heart rate 85 /min Gerardo GARAY [facility] 02-23-2022 12:32-0400 Respiratory rate 16 /min Gerardo GARAY [facility] 02-23-2022 12:32-0400 Systolic blood pressure 133 mm[Hg] Gerardo GARAY [facility] Encounters Encounter Date Encounter Type Care Provider Facility Start: 08-24-2024 End: 08-24-2024 ambulatory NON STAFF Facility:[facility] Start: 07-17-2024 End: 07-17-2024 ambulatory [facility] Start: 07-01-2024 End: 07-01-2024 ambulatory [facility] Work Phone: Start: 07-01-2024 End: 07-01-2024 Patient encounter procedure [facility] Work Phone: Start: 04-17-2024 End: 04-17-2024 ambulatory [facility] Start: 04-12-2024 End: 04-12-2024 Evaluation and management of inpatient ANNAMARIA [facility] Start: 04-11-2024 End: 04-12-2024 Evaluation and management of inpatient RUTH ANN FLORES [facility] Start: 04-05-2024 End: 04-08-2024 Emergency department patient visit WALTER COTO [facility] Start: 04-05-2024 End: 04-07-2024 ambulatory ANDREW A ALLISON [facility] Start: 03-26-2024 End: 03-27-2024 Emergency department patient visit PRICILA NICHOLSON [facility] Start: 03-20-2024 End: 03-20-2024 ambulatory [facility] Start: 03-08-2024 End: 03-08-2024 Evaluation and management of inpatient ANNAMARIA EDWARDS [facility] Start: 03-06-2024 End: 03-08-2024 Evaluation and management of inpatient [facility] Start: 03-06-2024 End: 03-07-2024 ambulatory [facility] Start: 02-21-2024 End: 02-21-2024 ambulatory [facility] Start: 02-21-2024 Encounter for other preprocedural examination [facility] Start: 02-21-2024 End: 02-22-2024 ambulatory [facility] Start: 02-16-2024 End: 02-16-2024 ambulatory [facility] Start: 01-26-2024 End: 01-26-2024 ambulatory [facility] Start: 01-26-2024 End: 01-26-2024 Evaluation and management of inpatient [facility] Start: 01-19-2024 End: 01-19-2024 ambulatory [facility] Start: 12-28-2023 End: 12-28-2023 Telephone encounter Cedric Amaya [facility] Start: 10-20-2023 End: 10-20-2023 Office outpatient new 45 minutes Ruth Ann Cruz MD Work Phone: [facility] Comment on above: Lower urinary tract symptoms (LUTS) (Primary Dx) Start: 10-20-2023 End: 10-20-2023 ambulatory RUTH ANN CRUZ [facility] Start: 10-20-2023 Telephone encounter Ruth Ann Cruz MD Work Phone: [facility] Start: 03-15-2023 End: 03-15-2023 ambulatory Vicky Kee Other [facility] Other Start: 03-15-2023 Telephone encounter Vicky SANABRIA [facility] Start: 03-11-2023 End: 03-11-2023 ambulatory Vicky Kee Other [facility] Other Start: 03-11-2023 Office outpatient ne w 20 minutes Vicky Kee [facility] Start: 06-08-2022 ambulatory MD Gerardo GARAY Fac ility:[facility] Start: 02-23-2022 End: 02-24-2022 ambulatory MD Gerardo GARAY Facility:[facility] Start: 02-23-2022 End: 02-23-2022 Patient encounter procedure Gerardo GARAY [facility] Start: 02-10-2022 End: 02-11-2022 ambulatory MD Gerardo GARAY Facility:[facility] Start: 02-10-2022 End: 02-10-2022 Patient encounter procedure Gerardo GARAY [facility] Start: 02-03-2022 ambulatory MD Gerardo GARAY [facility] Start: 02-03-2022 End: 02-04-2022 ambulatory MD Gerardo GARAY Facility[facility] Start: 02-03-2022 End: 02-03-2022 Patient encounter procedure Gerardo GARAY [facility] Start: 01-06-2022 End: 01-07-2022 ambulatory MD Gerardo GARAY Facility[facility] Start: 01-06-2022 End: 01-06-2022 Patient encounter procedure Gerardo GARAY [facility] Start: 01-06-2022 ambulatory MD Gerardo GARAY Facil ity:[facility] Start: 12-08-2021 End: 12-09-2021 ambulatory MD Gerardo GARAY Facility:[facility] Start: 11-07-2021 ambulatory MD Gerardo GARAY Facil ity:[facility] Start: 11-05-2021 ambulatory Caprice Deal Facility:[facility] Start: 11-04-2021 ambulatory MD Gerardo GARAY Facil ity:[facility] Start: 09-10-2021 ambulatory MD Gerardo GARAY Facil ity:[facility] Start: 09-10-2021 End: 09-11-2021 ambulatory Caprice Deal Facility:[facility] Start: 07-30-2021 ambulatory MD Gerardo GARYA Facil ity:[facility] Start: 12-23-2020 End: 01-01-2021 Evaluation and management of inpatient DR ALURA MARROQUIN Facility:[facility] Start: 10-26-2020 End: 10-27-[address] DOCTOR PORTILLO Facility:[facility] Start: 09-10-2020 End: 09-11-[address] SIMONA TELLO Facility:[facility] Procedures Date Procedure Procedure Detail Performing Clinician Start: 02-16-2024 Follow-up visit Follow-up RUTH ANN CRUZ Start: 10-20-2023 Urnls dip stick/tabl et rgnt auto w/o microscopy Ruth Ann Cruz MD Work Phone: Start: 12-23-2020 Inspection of Perito rajat Cavity, Percutaneous Endoscopic Approach DR LAURA MARROQUIN Start: 12-23-2020 Resection of Appendi x, Open Approach DR LAURA MARROQUIN Appendectomy Gerardo GARAY Colonoscopy Gerardo GARAY Plan of Treatment Date Care Activity Detail Author Start: 10-06-2033 DTaP,Tdap and Td Vaccines (2 - Td or Tdap) DTaP,Tdap and Td Vaccines (2 - Td or Tdap) [facility] Start: 10-20-2024 Adult BMI Screening Adult BMI Screening [facility] Start: 10-20-2024 Tobacco Screening Tobacco Screening [facility] Start: 05-14-2024 Influenza vaccination Influenza Vaccine [facility] Start: 02-21-2024 End: 02-21-2024 Admission to same day surgery center 02/21/2024 8:30 AM EDT - 02/21/2024 9:00 AM EDT Surgery [facility] [address] [place] [phone] Ruth Ann Cruz MD [address] [place] [address] [facility] [91338 (CPT )] [facility] Comment on above: [facility] SOLUTION [63272 (CPT ) ] Start: 02-21-2024 End: 02-21-2024 Cystourethroscopy CYSTOSCOPY lower urinary trac symptoms 02/21/2024 8:30 AM EDT [facility] Start: 02-21-2024 Subsequent hospital visit by physician 02/21/2024 8:30 AM EDT Hospital Encounter [facility] [address] [place] [phone] Ruth Ann Cruz MD [address] [place] [address] [facility] Start: 02-18-2024 End: 02-18-2024 ambulatory 02/18/2024 4:10 PM EDT Support Visit [facility] Admit [address] [place] [phone] [facility] Admit Start: 01-26-2024 End: 01-26-2024 Patient encounter procedure 01/26/2024 2:00 PM EDT Appointment [facility] Intra OP [address] [place] [phone] Ruth Ann Cruz MD [address] [place] [address] [facility] Start: 01-19-2024 End: 01-19-2024 Patient encounter procedure 01/19/2024 2:00 PM EDT Appointment [facility] - Ultrasound [address] [place] [phone] Ruth Ann Cruz MD [address] [place] [address] [facility]tras[facility] Start: 12-28-2023 End: 12-27-2024 Urology Procedure in the OR Flow Study, Bladder Scan PVR Urology Procedure in the OR Flow Study, Bladder Scan PVR Procedures Routine Lower urinary tract symptoms Expected: 12/28/2023 (Approximate), Expires: 12/27/2024 [employer] Work Phone: Comment on above: Expected: 12/28/2023 (Approximate), Expi res: 12/27/2024 Start: 10-20-2023 End: 10-19-2024 Uroflowmetry Uroflowmetry Procedure Routine Lower urinary tract symptoms (LUTS) Expected: 10/20/2023, Expires: 10/19/2024 [employer] Work Phone: Comment on above: Expected: 10/20/2023, Expires: Start: 10-20-2023 End: 10-20-2024 US Retroperitoneum Ultrasound retroperitoneal complete Imaging Routine Lower urinary tract symptoms (LUTS) Expected: 10/20/2023, Expires: 10/20/2024 [facility] Comment on above: Expected: 10/20/2023, Expires: Start: 05-14-2023 COVID-19 Vaccine ( season) COVID-19 Vaccine ( season) [facility] [employer] Start: 2007 Fall Risk Screening Fall Risk Screening [facility] Start: 02-06-1992 Administration of varicella zoster vaccine Zoster (Shingles) Vaccine (1 of 2) [facility] Start: 02-06-1960 Adult BMI Follow Up Plan Adult BMI Follow Up Plan [facility] Start: 1954 Depression Screening Depression Screening [facility] Start: 1942 Medicare Annual Wellness Visit Medicare Annual Wellness Visit [facility] End: 10-20-2024 Urology Procedure in the OR Flow Study, Bladder Scan PVR Urology Procedure in the OR Flow Study, Bladder Scan PVR Procedures Routine Lower urinary tract symptoms 1 Occurrences starting 10/20/2023 until 10/20/2024 [employer] Work Phone: Comment on above: 1 Occurrences starting 10/20/2023 until 10/20/2024 Immunizations Immunization Date Immunization Notes Care Provider [facility] 06-09-2023 influenza virus vaccine, unspecified formulation Cedric Amaya CMA [facility] 08-06-2021 SARS-CoV-2 (COVID-19 ) Ad26 vaccine, recombinant Gerardo GARAY [facility] 06-13-2021 influenza virus vaccine, unspecified formulation Gerardo GARAY [facility] 01-09-2021 COVID-19, mRNA, LNP- S, PF, 100mcg/0.5mL Dose Ruth Ann Cruz MD Work Phone: [facility] 01-09-2021 SARS-CoV-2 (COVID-19 ) Ad26 vaccine, recombinant Gerardo GARAY [facility] 12-12-2020 COVID-19, mRNA, LNP- S, PF, 100mcg/0.5mL Dose Ruth Ann Cruz MD Work Phone: [facility] 12-12-2020 SARS-CoV-2 (COVID-19 ) Ad26 vaccine, recombinant Gerardo JARROD [facility] Payers Date Payer Category Payer Self-pay 2023 [place] [id number] 2023-Present [phone] [address] [place] [address] [id number] 2023 Medicaid [id number] 2019 Unknown [id number] 2008 Unknown [id number] 41 2007 Medicare MEDICARE MEDICAR E PART A ONLY [id number] 2007-Present [phone] [address] [place] [address] [id number] 1959 Medicare [id number] 1942 Unknown [id number] 2.16.840.1.647416.3.579.2.593 1942 Unknown [id number] 2.16.840.1.681118.3.579.2.593 1942 Unknown [id number] 2.16.840.1.877843.3.579.2.593 1942 Unknown [id number] 2.16.840.1.237232.3.579.2.727 1942 Unknown [id number] 2.16.840.1.883155.3.579.2.727 1942 Unknown [id number] 2.16.840.1.751563.3.579.2.727 1942 Unknown [id number] 2.16.840.1.175706.3.579.2.727 1942 Unknown [id number] 2.16.840.1.828547.3.579.2. 1942 Unknown [id number] 2.16.840.1.694671.3.579.2. 1942 Unknown [id number] 2.16.840.1.427359.3.579.2. 1942 Unknown [id number] 2.16.840.1.039879.3.579.2. 1942 Unknown [id number] 2.16.840.1.331298.3.579.2. 1942 Unknown [id number] 2.16.840.1.886765.3.579.2. 1942 Unknown [id number] 2.16.840.1.149775.3.579.2.1285 1942 Unknown [id number] 2.16.840.1.441040.3.579.2.1285 1942 Unknown [id number] 2.16.840.1.085874.3.579.2.1285 1942 Unknown [id number] 2.16.840.1.571537.3.579.2.1285 1942 Unknown [id number] 2.16.840.1.463488.3.579.2.1285 1942 Unknown [id number] 2.16.840.1.781536.3.579.2.1285 1942 Unknown [id number] 2.16.840.1.858233.3.579.2.1285 1942 Unknown [id number] 2.16.840.1.670456.3.579.2.1285 1942 Unknown [id number] 2.16.840.1.477476.3.579.2.1285 1942 Unknown [id number] 2.16.840.1.769520.3.579.2.1285 1942 Unknown [id number] 2.16.840.1.225939.3.579.2.1285 1942 Unknown [id number] 2.16.840.1.856266.3.579.2.1285 1942 Unknown [id number] 2.16.840.1.461533.3.579.2.1285 1942 Unknown [id number] 2.16.840.1.715399.3.579.2.1285 1942 Unknown [id number] 2.16.840.1.363973.3.579.2.1285 1942 Unknown [id number] 2.16.840.1.308642.3.579.2.1285 1942 Unknown [id number] 2.16840.1.190632.3.579.2.1285 1942 Unknown [id number] 2.840.1.481393.3.579.2.1285 1942 Unknown [id number] 2.16840.1.767838.3.579.2.1285 1942 Unknown [id number] 2.16840.1.024175.3.579.2.1285 1942 Unknown [id number] 2.16840.1.343509.3.579.2.1285 1942 Unknown [id number] 2.16840.1.821908.3.579.2.1285 1942 Unknown [id number] 2.16840.1.979246.3.579.2.1286 Unknown [id number] 2.16 .840.1.803505.19 Unknown [id number] 2.16.840.1.282313.3.579.2.531 Social History Date Type Detail Facility Start: 09-10-2021 End: 10-20-2023 Tobacco smoking status Ex-smoker (finding) [facility] Start: 12-11-2020 End: 10-20-[address] Male [facility] End: 09-13-2017 History of tobacco use Current smoker [facility] End: 09-13-2017 History of tobacco use Cigarette Smoker [facility] Start: 10-20-2023 Tobacco use and exposure Smokeless tobacco non-user [facility] Start: 10-20-2023 Alcohol intake Ex-drinker (finding) [facility] Start: 12-11-2020 End: 10-20-2023 History of Social function [facility] Childcare Unknown [facility] Start: 01-08-2021 Alcohol Comment beer- quit 9 yrs. ag o [facility] Start: 1940 Sex Assigned At Not on file P [facility] Start: 07-01-2024 [facility] Start: 1940 Sex Assigned At Male [facility] Functional Status Date Assessment Result Facility 02-23-2022 Functional Status N/A [facility] Clinical Notes 01-06-2022 to 07-17-2024 Telephone Encounter - Cedric Amaya [facility] - 12/28/2023 3:00 PM EDTTelephone Encounter - Cedric Amaya CMA - 12/28/2023 3:00 PM [place] [facility] MD - 10/20/2023 3:00 PM EST Note Date & Type Note Facility 07-17-2024 Note [facility] Cardiology Clinic Note Chief Complaint: Patient here c/o SOB. Had echo in Apr after last apt. Chest pain hasn't recurred since stopping Breztri. He no longer sees Dr. Otero and is still [facility] Patient denies palpitations and lightheadedness. HPI: Mikel Epstein is a 84 y.o. male With a history of severe COPD here to see me due to chest pain Apparently, the patient had chest pain while he was taking his Breztri inhaler. Once he stopped, he has had no further chest pain. He denies exertional chest pain. Not surprisingly, he does have exertional shortness of breath. He denies orthopnea or paroxysmal internal dyspnea. He does have chronic lower extremity edema. Past medical history: COPD, right lower lobe pneumonia and September of this year, prediabetes, benign prostatic hypertrophy hypertension, kidney stones, bilateral hearing aids Past surgical history: Appendicectomy, colonoscopy, cystoscopy, excisional hemorrhoidectomy, hernia repair, prostate surgery. The patient underwent an EGD with biopsies taken on 04/11/2024 Social history: Former smoker, quit in 2018. Does not drink alcohol. UPDATE 07/17/2024 His symptoms are essentially unchanged His shortness of breath is about the same He has had no chest pain since he stopped using the Breztri inhaler Cardiology ROS: Review of Systems Cardiovascular: Positive for dyspnea on exertion and leg swelling (resolves by morning). Respiratory: Positive for cough and shortness of breath. All other systems reviewed and are negative. Past Medical History He has a past medical history of COPD (chronic obstructive pulmonary disease) ([facility]) and Hypertension. Surgical History He has no past surgical history on file. Social History He reports that he has quit smoking. His smoking use included cigarettes. He has never used smokeless tobacco. He reports that he does not currently use alcohol. No history on file for drug use. Family History Family History Problem Relation Name Age of Onset Stroke Mother Heart attack Brother Allergies Cefadroxil Medications Current Outpatient Medications: amLODIPine (Norvasc) 10 mg tablet, Take 10 mg by mouth., Disp: , Rfl: cholecalciferol (Vitamin D-3) 50 MCG (1999) tablet, Take 2,000 Units by mouth in the morning., Disp: , Rfl: lisinopril 40 mg tablet, Take 40 mg by mouth., Disp: , Rfl: magnesium oxide 500 mg magnesium tablet, Take 500 mg by mouth in the morning., Disp: , Rfl: mirabegron 50 mg tablet extended release 24 hr, Take 50 mg by mouth., Disp: , Rfl: pantoprazole (ProtoNix) 40 mg EC tablet, Take 40 mg by mouth twice a day., Disp: , Rfl: pravastatin (Pravachol) 80 mg tablet, Take 80 mg by mouth in the morning., Disp: , Rfl: tamsulosin (Flomax) 0.4 mg 24 hr capsule, Take 0.8 mg by mouth., Disp: , Rfl: Last Recorded Vitals BP 95/64 (BP Location: Left arm, Patient Position: Sitting) Pulse 87 Ht 1.626 m (5' 4 ) Wt 88.5 kg (195 lb) SpO2 93% BMI 33.47 kg/m??? Physical Examination: GENERAL: alert and oriented x3, well developed, in no acute distress. HEAD: atraumatic, normocephalic. EYES: SYEDA, EOMI. NECK: trachea midline, no JVD present, no carotid bruits present. CARDIAC: S1, S2 present. RRR. No murmur, rubs, or gallops. RESPIRATORY: CTAB, no increased effort of breathing, no rales, rhonchi, or wheezing. ABDOMEN: soft, nontender, nondistended. EXTREMITIES: no lower extremity edema, peripheral pulses are 2+ bilaterally. No rash/skin discoloration present. NEURO: strength/sensation equal and symmetric in bilateral upper and lower extremities. PSYCH: appropriate mood, affect, and judgement. Investigations: Labs: 03/2024: BMP is normal apart from a glucose of 132. BMP shows a hemoglobin of 10.7 iron is low at 44 iron saturation is low at 15 Chest x-ray 03/26/2024: Mild hyperinflation. Suspect mild scarring in the left lung base. Heart size is normal. No acute consolidation, large effusion or pneumothorax. Impression: No acute disease to limits of this portable exam. CT scan of the chest/08/2024: Impression: 1. Clearing of previously seen right lower lobe infiltrates 2. Moderate emphysematous changes and stable chronic findings Echocardiogram 05/03/2024: Global left ventricular systolic function is low normal limits visually estimated ejection fraction is 50 to 55% The right ventricle appears enlarged with reduced systolic function Mild left ventricular hypertrophy Diastolic function is indeterminate The right atrium is mildly dilated Moderately elevated right ventricular systolic pressure; RVSP 53 mmHg No significant valvular abnormalities. Assessment: Chest pain; resolved - likely related to Bretztri inhaler? Severe, COPD Prediabetes Hypertension Dyslipidemia Benign prostatic hypertrophy Plan: His symptoms, and abnormal echocardiographic findings can be explained (more content not included)... [facility] 04-17-2024 Note [facility] Cardiology Clinic Note Chief Complaint: New patient here to establish care. Self ref for chest pain. Says he was taking Breztri inhaler and was having chest pain. He hasn't had chest pain since he stopped using it. Has COPD and sees Dr. Otero. HPI: Mikel Epstein is a 84 y.o. male With a history of severe COPD here to see me due to chest pain Apparently, the patient had chest pain while he was taking his Breztri inhaler. Once he stopped, he has had no further chest pain. He denies exertional chest pain. Not surprisingly, he does have exertional shortness of breath. He denies orthopnea or paroxysmal internal dyspnea. He does have chronic lower extremity edema. Past medical history: COPD, right lower lobe pneumonia and September of this year, prediabetes, benign prostatic hypertrophy hypertension, kidney stones, bilateral hearing aids Past surgical history: Appendicectomy, colonoscopy, cystoscopy, excisional hemorrhoidectomy, hernia repair, prostate surgery. The patient underwent an EGD with biopsies taken on 04/11/2024 Social history: Former smoker, quit in 2018. Does not drink alcohol. Cardiology ROS: Review of Systems Cardiovascular: Positive for dyspnea on exertion and leg swelling (resolves by morning). Respiratory: Positive for cough and shortness of breath. All other systems reviewed and are negative. Past Medical History He has no past medical history on file. Surgical History He has no past surgical history on file. Social History He has no history on file for tobacco use, alcohol use, and drug use. Family History No family history on file. Allergies Patient has no allergy information on record. Medications No current outpatient medications on file. Last Recorded Vitals BP 112/64 (BP Location: Left arm, Patient Position: Sitting) Pulse 88 Ht 1.727 m (5' 8 ) SpO2 90% Physical Examination: GENERAL: alert and oriented x3, well developed, in no acute distress. HEAD: atraumatic, normocephalic. EYES: SYEDA, EOMI. NECK: trachea midline, no JVD present, no carotid bruits present. CARDIAC: S1, S2 present. RRR. No murmur, rubs, or gallops. RESPIRATORY: CTAB, no increased effort of breathing, no rales, rhonchi, or wheezing. ABDOMEN: soft, nontender, nondistended. EXTREMITIES: no lower extremity edema, peripheral pulses are 2+ bilaterally. No rash/skin discoloration present. NEURO: strength/sensation equal and symmetric in bilateral upper and lower extremities. PSYCH: appropriate mood, affect, and judgement. Investigations: Labs: 03/2024: BMP is normal apart from a glucose of 132. BMP shows a hemoglobin of 10.7 iron is low at 44 iron saturation is low at 15 Chest x-ray 03/26/2024: Mild hyperinflation. Suspect mild scarring in the left lung base. Heart size is normal. No acute consolidation, large effusion or pneumothorax. Impression: No acute disease to limits of this portable exam. CT scan of the chest/08/2024: Impression: 1. Clearing of previously seen right lower lobe infiltrates 2. Moderate emphysematous changes and stable chronic findings Assessment: Chest pain; resolved - likely related to Bretztri inhaler? Severe, COPD Prediabetes Hypertension Dyslipidemia Benign prostatic hypertrophy Plan: While his symptoms may be related to the inhaler and it side effects, it would be prudent to rule out structural heart disease; I have ordered the complete echocardiogram As long as this shows no significant abnormalities and ejection fraction, wall motion, or valvular function, I would not pursue further cardiac workup Treat noncardiac comorbidities as clinically appropriate specifically his pulmonary issues He is to return to the clinic on an as-needed basis or should the echocardiogram show significant abnormalities Ermias Payton MD, MPH, [facility], [facility], [facility] Interventional Cardiology Pager Email: [email or web address] 12-28-2023 Miscellaneous Notes * documented in this encounter [facility] 12-28-2023 Telephone encounter Note * [facility] 12-28-2023 Miscellaneous Notes * documented in this encounter [facility] 12-28-2023 Telephone encounter Note * [facility] 10-20-2023 Miscellaneous Notes documented in this encounter [facility] 10-20-2023 Telephone encounter Note [facility] 10-20-[address] [facility] bladder solution. [facility]. Diagnosis lower urinary tract symptoms. documented in this encounter [facility] 10-20-2023 [facility]. [facility]. Diagnosis lower urinary tract symptoms. [facility] 10-20-2023 History of Present illness Narrative Images from the original note were not included. [address] [place] [id number] Patient: Mikel Epstein Date of : 1940 Encounter Date: 10/20/2023 History of Present Illness: Chief Complaint: urinary problems The patient is a 83 y.o. male, a new patient, and is here for significant lower urinary tract symptoms. Details as below. Have had previous workup. Urinalysis today: No results for input(s): EXTPOCURCO , EXTPOCURCH , EXTPOCAPP , EXTPOCURBS , EXTPOCURBIL , EXTPOCUKET , EXTPOCUSPG , EXTPOCUHGB , EXTPOCUPRO , EXTPOCUURO , EXTPOCULEU , EXTPOCUNIT , EXTPOCUWBC , EXTPOCUBLD , EXTPOCURBC , EXTPOCUCRY , EXTPOCUBAC , EXTPOCUTREP , EXTPOCUPH , EXTPOCULEE in the last 72 hours. Last BUN and creatinine: No results found for: BUN No results found for: CREATININE Last PSA: No results found for: PSA No results found for: PROSTATICSP Past Medical, Family, and Social History Update: The following portions of the patient's history were reviewed and updated as appropriate: allergies, current medications, past family history, past medical history, past social history, past surgical history and problem list. Past Medical History: Diagnosis Date COPD (chronic obstructive pulmonary disease) ([facility]) Hypertension Shortness of breath Past Surgical History: Procedure Laterality Date APPENDECTOMY [facility] COLONOSCOPY 2016 [facility] EXCISIONAL HEMORRHOIDECTOMY HERNIA REPAIR PROSTATE SURGERY 2020 History reviewed. No pertinent family history. Current Outpatient Medications Medication Sig Dispense Refill amLODIPine (NORVASC) 5 mg tablet Take 2 tablets (10 mg total) by mouth in the morning. ascorbic acid, vitamin C, (ascorbic acid) 250 mg tablet,chewable Chew and swallow. aspirin 81 mg chewable tablet Chew 1 tablet (81 mg total) and swallow in the morning. calcium acetate,phosphat bind, (PHOSLO) 667 mg capsule Take 2 capsules (1,334 mg total) by mouth in the morning and 2 capsules (1,334 mg total) at noon and 2 capsules (1,334 mg total) in the evening. Take with meals. cholecalciferol, vitamin D3, 5,000 units tablet Take 1 tablet (5,000 Units total) by mouth in the morning. cyanocobalamin (vitamin B-12) 50 mcg tablet Take 1 tablet (50 mcg total) by mouth in the morning. glucosamine-chondroitin 500-400 mg tablet Take 1 tablet by mouth 3 (three) times a day. LISINOPRIL, BULK, MISC 40 mg by miscellaneous route. Patient unsure of dosage mirabegron (MYRBETRIQ) 50 mg tablet extended release 24 hr Take 1 tablet (50 mg total) by mouth in the morning. ncbehaga-mnvp-ED-calcium &mins (THERAGRAN-M) 9 mg iron-400 mcg tablet Take 1 tablet by mouth in the morning. pravastatin (PRAVACHOL) 80 mg tablet Take 1 tablet (80 mg total) by mouth in the morning. tamsulosin (FLOMAX) 0.4 mg capsule Take 2 capsules (0.8 mg total) by mouth nightly. trospium (SANCTURA) 20 mg tablet Take 1 tablet (20 mg total) by mouth in the morning and 1 tablet (20 mg total) before bedtime. furosemide (LASIX) 40 mg tablet Take 20 mg by mouth daily. (Patient not taking: Reported on 10/20/2023) No current facility-administered medications for this visit. (All medications reviewed and updated by provider since last office visit or hospitalization) Allergies: Duricef [cefadroxil] Tobacco History: Social History Tobacco Use Smoking Status Former Types: Cigarettes Quit date: 2017 Years since quittin.1 Smokeless Tobacco Never (If patient a smoker, smoking cessation counseling offered) Social History: Social History Substance and Sexual Activity Alcohol Use Not Currently Comment: beer- quit 9 yrs. ago Review of Systems: Constitutional: Normal activity and energy. Patient denies change in appetite, weight loss or gain, malaise (depression), chills, fever, or diaphoresis (sweating). Eyes: Patient denies vision changes or diplopia (double vision). Ears, Nose, Nose and Throat: Patient denies tinnitus (ringing in ears), hearing loss, epistaxis (nose bleed), hoarseness, and dysphagia (hard to swallow). Respiratory: Dyspnea (shortness of breath) Cardiovascular: Shortness of breath Gastrointestinal: Patient denies abdominal pain, nausea, vomiting, bloating, diarrhea (chronic), constipation (chronic), melena (black stool), hematochezia (blood in stool). Musculoskeletal: Patient denies joint pain/stiffness, weakness, swelling, and backache. Neurologic: Patient denies weakness, dizziness, loss of consciousness, transient ischemic symptoms, and seizures. Integument: Patient denies rashes and non-healing lesions. Psychiatric: Patient denies increased nervousness, mood changes, or depression. Endocrine: Patient denies thyroid trouble, heat or cold intolerance, diabetes, excessive thirst, hunger, and excessive urination. Blood Disorders: Patient denies anemia, easy bruising, and easy bleeding. Physical Exam: BP 140/73 Ht 162.6 cm (5' 4 ) Wt 91.2 kg (201 lb) BMI 34.50 kg/m General Alert., Cooperative. Not in acute distress. Non-toxic. Orientation - Oriented X3. Head and Neck Normocephalic, atraumatic with no lesions. No abnormal movements. Trachea - midline. Integumentary Normal coloration of skin. Skin Moisture - normal skin moisture. Chest and Lung Exam Quiet, even and easy respiratory effort with no use of accessory muscles. Neurologic NON-focal Defer /MARISABEL for time of cystoscopy Assessment and Plan: Mikel was seen today for urinary retention. Diagnoses and all orders for this visit: Lower urinary tract symptoms (LUTS) - Uroflowmetry; Future - Ultrasound retroperitoneal complete; Future Problem List High Lower urinary tract symptoms (LUTS) - Primary Overview ==== 10/20/2023 ==== lower urinary tract symptoms. Urgency frequency. Some weak urinary stream. Already on tamsulosin as well as Myrbetriq---questionable if he is on trospium concurrently as well. Had some undisclosed workup in the distant past. No gross hematuria dysuria. PLAN: Need evaluate renal bladder ultrasound. Uro flow PVR. Cystoscopy. . Relevant Orders Uroflowmetry Ultrasound retroperitoneal complete Follow-up: Ruth Ann Cruz MD Undiagnosed new problem with uncertain prognosis Equal to or greater than 3 distinct studies were ordered and or reviewed during this encounter uro flow PVR. Renal bladder ultrasound. Requested all labs. This note was created with the assistance of a speech recognition program. While intending to generate a timely document that accurately reflects the content of the visit, no guarantee can be provided that every grammatical or spelling mistake has been or will be identified or corrected. Thank you for your understanding. documented in this encounter [facility] 10-20-2023 Miscellaneous Notes Addended by: GAYATRI CABA on: 10/20/2023 03:56 PM Modules accepted: Orders documented in this encounter [facility] 10-20-2023 Note Addended by: GAYATRI WYNNE on: 10/20/2023 03:56 PM Modules accepted: Orders [facility] [employer] [facility] 03-11-2023 Evaluation note Encounter Date Diagnosis Assessment [...] fever. Patient verbalized understanding of treatment plan. [place] Other 06-13-2022 Hospital Discharge instructions Patient Education [...] 08/30/2006 Document Revised: 05/19/2019 Document Reviewed: 07/30/2017 [employer] Patient Education 2020 e-contratos. 02/23/2022 12:57:02 Benign Prostatic Hyperplasia Benign Prostatic [...] urethra. Follow these instructions at home: Take trfo-bpj-gwelrlp and prescription medicines only as told by [...] 08/30/2006 Document Revised: 07/25/2019 Document Reviewed: 10/04/2017 [employer] Patient Education 2020 e-contratos. Follow Up Care 02/10/2022 15:14:15 With:JARROD CLARK, Gerardo Torres, URL Address: [facility] [address], [place] [address]- [phone] When:Within 3 Month(s) Comments:f/u in 3 months [facility] 05-24-2022 Note [id number]:127[facility] 02-03-2022 NoteCustom Hussain Post-Procedure Instructions General Recommendations 1. Drink some [...] site using a circul (more content not included)...[facility]05-24-2022 Hospital Discharge instructions Patient Education 02/03/2022 16:18:35 - [facility] Discharge Instructions (CUSTOM) [facility] Post-Procedure Instructions General Recommendations 1. Drink some [...] cotton underwear to absorb moisture and keep skin fitter. 6. Keep the drainage bag below the [...] concerns. Follow Up Care 01/27/2022 09:38:19 With:Gerardo GARAY Address: [facility] [address] [place] [address]- Business (1) When:02/10/2022 16:18:17 Comments:For Arredondo removal [facility]04-28-2022 Note [id number]:127[facility] 01-06-2022 Hospital Discharge instructions Patient Education [...] degrees. Follow Up Care 12/23/2021 07:56:19 With:Gerardo GARAY Address: [facility] [address] [place] [address]- [facility] (1) When: Unknown Comments:Office will call to schedule follow up [facility]04-26-2022 NoteCustom Cystoscopy ? Voiding after the procedure: [...] if you have a fever over 100 degrees.[facility] Evaluation + Plan note No data available for this section [facility] Future Appointments Appointment Date:02/10/2022 02:45:00 PM Scheduled Provider: Location:[facility] Future Appointments Appointment Date:02/23/2022 12:30:00 PM Scheduled Provider:Gerardo GARAY MD Location:[facility] Appointment Type:URO Office Visit [facility] Evaluation + Plan note Future Appointments Appointment Date:06/08/2022 02:15:00 PM Scheduled Provider:Gerardo GARAY MD Location:[facility] Appointment Type:URO Office Visit [facility] evaluation noteNo [place] [employer] Other evaluation note* Diagnosis Lower urinary tract symptoms (LUTS)- Primary [facility] Diagnosis Lower urinary tract symptoms- Primary Other symptoms involving urinary system [facility] Diagnosis Onset Date Resolution Status Impacted cerumen of both ears [facility] Work Phone: Evaluation note* Diagnosis Lower urinary tract symptoms- Primary Other symptoms involving urinary system [facility] Diagnosis Lower urinary tract symptoms- Primary Other symptoms involving urinary system [facility] N[facility]ative - Reported* Type Description Date Medical History high blood pressure Medical History high cholesterol Medical History COPD [facility] Other Hospital Discharge instructions No data available for this section [facility] Robert InstructionsNot on filedocumented in this encounter [facility] filedocumented in this encounter [facility] on filedocumented in this encounter [facility] on filedocumented in this encounter [facility] No data available for this section [facility] Summary Purpose Family History Relationship Condition Age at Onset Recorded Date/T jamie father Unknown mother Unknown Advance Directives Advance Directive Response Recorded Date/ Time Advance Directives No March 24 7:34am Reason for Referral Specialty Diagnoses / Procedures Referred By Pernell t Referred To Contact Diagnoses Lower urinary tract symptoms Procedures Urology Procedure in the [place] Flow Study, Bladder Scan PVR Ruth Ann Cruz MD [address] [place] [address] Referral ID Status Reason Start Date Expiration Date V isits Requested Visits Authorized [id number] Pending Review 10/20/2023 10/19/2024 1 1 Chief Complaint and Reason for Visit Chief Complaint Ear plugged Reason for Visit Impacted cerumen of both ears Additional Source Comments (unrecognized sect ion and content) No Status Records FoundNo Status Records FoundNo Status Records FoundNo Status Records FoundNo Status Records FoundNo Status Records FoundNo Status Records Found INFORMATION SOURCE (unrecogn ized section and content) DATE CREATED AUTHOR 03/27/2021 [facility] DATE CREATED AUTHOR AUTHOR'S ORGANIZ ATION 11/29/2021 [facility] DATE CREATED AUTHOR AUTHOR'S ORGANIZ ATION 06/19/2022 [facility] DATE CREATED AUTHOR AUTHOR'S ORGANIZ ATION 03/21/2024 [facility] DATE CREATED AUTHOR AUTHOR'S ORGANIZ ATION 04/13/2024 [facility] DATE CREATED AUTHOR AUTHOR'S ORGANIZ ATION 07/18/2024 [facility] DATE CREATED AUTHOR AUTHOR'S ORGANIZ ATION 09/03/2024 [facility] Care Team (unrecognized sect ion and content) Life Teacher Relationship Specialty Start Date End Date Andrew Flores APRN-RED [address] [place] [address] PCP - General Nurse Practitioner 10/20/23 Life Teacher Relationship Specialty Start Date End Date Andrew Flores APRN-RESIDENTIAL SALES ASSOCIATE [address] [place] [address] PCP - General Nurse Practitioner 10/20/23 Life Teacher Relationship Specialty Start Date End Date Andrew Flores APRN-RED [address] [place] [address] PCP - General Nurse Practitioner 10/20/23 Team Status: Active Member Role Status Dates NON STAFF Primary Care Provider Active Team Status: Inactive Member Role Status Dates Vicky Kee APRN Attending Provider Active Start: July 01, 2024 End: July 01, 2024 NON STAFF Primary Care Provider Active Start: July 01, 2024 End: July 01, 2024 Life Teacher Relationship Specialty Start Date End Date Andrew Flores APRN-RESIDENTIAL SALES ASSOCIATE [address] [place] [id number] PCP - General Nurse Practitioner 10/20/23 Life Teacher Relationship Specialty Start Date End Date Andrew Flores APRN-RESIDENTIAL SALES ASSOCIATE [address] [place] [address] PCP - General Nurse Practitioner 10/20/23 REASON FOR VISIT (unrecogniz ed section and content) Reason Comments Urinary Retention Specialty Diagnoses / Procedures Referred By Contac t Referred To Contact Referral ID Status Reason Start Date Expiration Date Visits Re quested Visits Authorized [id number] 1 1 Goals (unrecognized section and content) Goals may be documented in a n alternate section FOR RECORDS PERTAINING TO PATIENTS WHO ARE [...] BE BASED ON THE PRIMARY CLINICAL RECORDS. [employer] provides no warranty or guarantee of the accuracy or completeness of information in this document.
== END 2024-10-13 15:12 | disposition home or self-care (01) ==
LOC: RAD 15:13
DX: M25.551 Pain in right hip (principal)
CPT/HCPCS: 73502

== ENCOUNTER 2024-10-31 09:27 | Outpatient (OUT) | payer MEDICARE, SELFPAY ==
--- NOTE | 2024-10-31 | CONS_ITS ---
PROCEDURE DATE: 10/31/2024 PROCEDURE: Trigger point injection right erector spinae muscle at L5 level. PREOPERATIVE DIAGNOSIS: Pain secondary to myalgia and spasm of the right lumbar erector spinae muscle. POSTOPERATIVE DIAGNOSIS: Pain secondary to myalgia and spasm of the right lumbar erector spinae muscle. SOLUTION USED FOR INJECTION: 2 mL of 2% lidocaine, 2 mL of 0.25% Marcaine and 20 mg of Kenalog, total of 5 mL, and 5 mL used for the injection in divided doses in different tissue planes of the right erector spinae muscle. IMMEDIATE COMPLICATIONS: None. PROCEDURE: After informed consent was obtained from the patient, placed in the flexed forward position. Skin overlying the area was prepped with alcohol. A 25 gauge, 1 ?? needle was inserted into the substance of the right erector spinae muscle at the L5 level. Needle tip advanced until there was a twitch response, at which point we injected at total of 5 mL of solutions in divided doses at different tissue planes. Post procedure, needle was removed. Tolerated the procedure well with no complications. Reports reduction of pain symptoms. MTDD
--- NOTE | 2024-10-31 | CONS_ITS ---
CONSULTATION DATE: 10/31/2024 TO: Lolly Flores NP CHIEF COMPLAINT: Includes right lower back pain. HISTORY OF PRESENT ILLNESS: Review of systems, past medical/surgical history were obtained and documented on the health questionnaire and is available upon request. Patient reports having had approximately two month onset of symptoms in the above mentioned area, occurring spontaneously, increased gradually to its present state with complaints of right sided hip pain, lower back pain. Reports the pain is primarily exacerbated with prolonged standing and performing transitioning maneuvers. He feels most comfortable in the semi-recumbent position. Denies any change in bowel and bladder habits or new sensorimotor changes in the lower extremities. He reports at this point that he still has a significant amount of pain that occurs in his lower back and right hip area. He has also undergone activity modification over the last 6-8 weeks time. CURRENT MEDICATION: Include Mobic 15 mg, 1-2 pills daily p.r.n. His GE on today?s visit was 53%. EXAM: His examination is notable for patient having no clinical radiculopathy or myelopathy involving the lower extremities. Patient did have severe pain with lumbar facet joint loading maneuvers occurring more significantly on the right side from L4 through S1, with associated myofascial spasm and myalgia of the erector spinae muscle on the right side. IMPRESSION: 1. Our impression is patient appears to have chronic pain secondary to lumbosacral spondylosis. 2. Myalgia with myofascial spasm of the right lumbar erector spinae muscle. RECOMMENDATIONS: I recommend the patient consider physical therapy, proceed with a trigger point injection of the erector spinae muscle on the right side at the L5 level. Patient wants to avoid muscle relaxers at this point. I have gone over the details of the procedure with the patient. All his questions answered. He agrees to proceed with the outlined plan. Status post trigger point injection of the right erector spinae muscle at L5, patient reports a dramatic reduction in pain symptoms. Will see the patient back in the office in approximately one month?s time or sooner if needed. As part of providing excellent, safe, comprehensive care, the following was completed at our patient's visit: 1. A medication reconciliation and review to ensure accurate knowledge of current/active medications, including asking our patients to inform us about any [id number] medications or herbal remedies/nutritional supplements/alternative remedies. 2. A review to specifically ensure our patients have had annual screening for: elevated body mass index (BMI, see intake chart for exact total), tobacco use, screening for depression, and screening for unhealthy alcohol use. When screening is concerning, patients are provided with education and the specific recommendation to discuss the concerning health issue and treatment options with their primary care provider. LEONEL
== END 2024-10-31 09:28 | disposition home or self-care (01) ==
LOC: PM 09:28
PROVIDERS: Visit Provider Anesthesiology Pain Medicine
DX: M47.816 Spondylosis without myelopathy or radiculopathy, lumbar region (principal); G89.4 Chronic pain syndrome; M79.10 Myalgia, unspecified site
CPT/HCPCS: 20552; G0463; J0665; J1010

== ENCOUNTER 2024-11-01 07:06 | Outpatient (RCR) | payer OTHER, SELFPAY ==
--- NOTE | 2024-10-12 15:01 | CR1_ITS ---
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
== END 2024-12-29 07:59 | disposition home or self-care (01) ==
LOC: CR 07:06
DX: J44.9 Chronic obstructive pulmonary disease, unspecified (principal)

== ENCOUNTER 2024-11-30 13:45 | Outpatient (OUT) | payer MEDICARE, SELFPAY ==
--- NOTE | 2024-11-30 14:23 | PM.CN ---
Consult Note: HPI Data of Consult Patient: known to practice within the last 3 years Requesting Physician: Laura Villarreal NP Primary Care Provider: ANDREW COOPER Consult Narrative Reason for consult: f/u Narrative: Anurag Epstein a pleasant 84 year old presents for evaluation of chronic back pain. since last visit pt has had 0/10 pain as a result of baclofen 10mg BID. pt finds significant benefit to medication regimen and exercise bike. GE 0%. cc:: CC: Laura Villarreal NP Review of Systems ROS Status of ROS 10 or more systems reviewed and unremarkable except as noted in history and below Musculoskeletal Denies: back pain PFSH PFSH Medical History (Updated 11/30/24 @ 14:29 by Laura Villarreal NP) Prediabetes ?R73.03 - Prediabetes (ICD-10) Pneumonia ?J18.9 - Pneumonia, unspecified organism (ICD-10) BPH (benign prostatic hyperplasia) ?N40.0 - Benign prostatic hyperplasia without lower urinary tract symptoms (ICD-10) HLD (hyperlipidemia) ?E78.5 - Hyperlipidemia, unspecified (ICD-10) Hypertension ?I10 - Essential (primary) hypertension (ICD-10) COPD (chronic obstructive pulmonary disease) ?J44.9 - Chronic obstructive pulmonary disease, unspecified (ICD-10) UTI (urinary tract infection) ?N39.0 - Urinary tract infection, site not specified (ICD-10) Surgical History History of appendectomy ?Z90.49 - Acquired absence of other specified parts of digestive tract (ICD-10) Family History Brother Family history of myocardial infarction Brother Family history of myocardial infarction Mother Family history of stroke Father Family history of cancer Other Family history of diabetes mellitus Social History Within the past year, how often did you have a drink containing alcohol: never Score interpretation: A score less than 4 is consistent with normal alcohol consumption. 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 Highest level of school completed/degree received: 9th grade Are you now , , , , never or living with a partner: living with partner In a typical week, how many times do you talk on the telephone with family, friends, or neighbors: 3 or more times per week How often do you get together with friends or relatives: once per week How often do you attend quaker or yazidi services: never Do you belong to any clubs or organizations such as quaker groups unions, [employer] or athletic groups, or school groups: no Total score: 2 Score interpretation: A score of greater than or equal to 2 indicates the lowest level of social isolation. Little interest or pleasure in doing things: not at all Feeling down, depressed, or hopeless: not at all Feel stressed/tense/nervous/anxious/difficulty sleeping: not at all Gender Identity: male Meds Home Medications and Allergies Home Medications ?Medication ?Instructions ?Recorded ?Confirmed ?Type amlodipine 10 mg PO DAILY 06/27/23 09/24/23 History aspirin 81 mg capsule 81 mg PO DAILY 06/27/23 09/24/23 History lisinopril 40 mg PO DAILY 06/27/23 09/24/23 History pravastatin 80 mg PO DAILY 06/27/23 09/24/23 History ascorbic acid (vitamin C) 500 mg 500 mg PO DAILY 09/24/23 09/24/23 History chewable tablet (Acerola C) budesonide 160 mcg-glycopyr 9 2 inh inhalation BID 09/24/23 09/24/23 History mcg-formot 4.8 mcg/actuation HFA inhaler (Breztri Aerosphere) cholecalciferol (vitamin D3) 50 50 mcg PO DAILY 09/24/23 09/24/23 History mcg (2,000 unit) tablet (D3 DOTS) mirabegron 50 mg tablet,extended 50 mg PO DAILY 09/24/23 09/24/23 History release 24 hr tamsulosin 0.4 mg capsule (Flomax) 0.4 mg PO DAILY 09/24/23 09/24/23 History albuterol sulfate 2.5 mg/3 mL 2.5 mg inhalation Q6H 11/01/24 11/01/24 History (0.083 %) solution for nebulization albuterol sulfate 90 mcg/actuation 2 inh inhalation QID 11/01/24 11/01/24 History breath activated powder inhaler cyanocobalamin (vitamin B-12) 1,000 mcg PO DAILY 11/01/24 11/01/24 History 1,000 mcg capsule guaifenesin 200 mg tablet 600 mg PO BID 11/01/24 11/01/24 History mometasone-formoterol HFA 100 2 inh inhalation Q12H 11/01/24 11/01/24 History mcg-5 mcg/actuation aerosol inhaler (Dulera) pantoprazole 40 mg tablet,delayed 40 mg PO Q12H 11/01/24 11/01/24 History release baclofen 10 mg tablet See Rx Instructions .Route 11/02/24 Rx .COMPLEX #60 tabs Allergies Allergy/AdvReac Type Severity Reaction Status Date / Time [place]ef[place] [facility] [place] Unknown Rash Verified 09/24/23 19:11 Exam Constitutional Documenting provider has reviewed patient's vital signs: yes Common normals: no apparent distress, oriented x3, healthy appearing, alert and well nourished General appearance: cooperative HENMT Common normals: normocephalic, hearing grossly normal bilaterally and moist oral mucous membranes Head and scalp: normocephalic Eye Common normals: PERRL Pupil: PERRL Neck & C-Spine Common normals: full ROM General: normal visual inspection Chest Common normals: inspection of chest normal Respiratory Common normals: normal respiratory effort, no retractions and no use of accessory muscles Back & Pelvis Lumbar spine/lower back: lumbar ROM normal; no pain with ROM, no lumbar spinal tenderness, no paraspinal muscle tenderness and no paraspinal muscle spasm Sacroiliac joints: SI joints normal Neuro Common normals: oriented x3, CN's II-XII intact bilaterally, moves all extremities, no focal motor deficits, no sensory deficits noted and deep tendon reflexes 2+ bilaterally Sensorium/orientation: alert Motor exam: strength 5/5 throughout and no movement abnormalities noted Psych Common normals: mental status grossly normal, thought process normal, cooperative, affect normal, speech normal and activity/motor behavior normal Speech: normal speech Thought process: normal thought process Results Additional Findings Additional findings: If on a controlled substance or opioids, I have checked an [place] report on this patient and there are no aberrancies noted in the prescribing history.??If on a controlled substance or opioid a drug screen was completed and reviewed within the last year, and if there has not been a drug screen completed we ordered one today to monitor higher risk, state monitored pain medication use. As part of providing excellent, safe, comprehensive care, the following was completed at our patient's visit: 1. A medication reconciliation and review to ensure accurate knowledge of current/active medications, including asking our patients to inform us about any [id number] medications or herbal remedies/nutritional supplements/alternative remedies. 2. A review to specifically ensure our patients have had annual screening for screening for depression, screening for tobacco use, and screening for unhealthy alcohol use. For concerning screenings had a discussion with the patient, provided patient education, and recommended follow-up with primary care provider when appropriate. If patient noted with a risk of falling, they received education on strength, gait, and balance training to prevent future risk of falling. Portions of this note may have been carried over from the previous visit and updated as appropriate. Please note this office utilizes paper charting in addition to the electronic medical record. A list of current medications, vitals, and PMH is available there as the clinical staff outside of myself do not have access to [employer] charting during the clinic day operations. As part of providing quality comprehensive care the current medications, vitals, and PMH were reviewed in the paper chart. Assessment and Plan Assessment and Plan (1) Myalgia, other site: (2) Lumbar spondylosis: Plan continue current medications continue HEP as tolerated f/u 6 months, sooner if needed
== END 2024-11-30 13:46 | disposition home or self-care (01) ==
LOC: PM 13:46
PROVIDERS: Visit Provider Nurse Practitioner
DX: M79.18 Myalgia, other site (principal); M47.816 Spondylosis without myelopathy or radiculopathy, lumbar region
CPT/HCPCS: G0463